=== PATIENT | male | born 1945 | race Caucasian/White ===

== ENCOUNTER → 2018-12-28 | Outpatient (CLI) | payer MEDICARE, MEDICAID ==
[2018-12-28 13:43] LABS: APPEARANCE, URINE CLEAR (CLEAR); BACTERIA, URINE AUTO NEGATIVE (NEGATIVE); BILIRUBIN, URINE AUTO NEGATIVE (NEGATIVE); BLOOD, URINE BLOOD NEGATIVE (NEGATIVE); COLOR, URINE YELLOW (YELLOW); GLUCOSE, URINE (UA) AUTO NEGATIVE (NEGATIVE); KETONE, URINE AUTO NEGATIVE (NEGATIVE); LEUKOCYTE ESTERASE, URINE AUTO NEGATIVE (NEGATIVE); NITRITE, URINE AUTO NEGATIVE (NEGATIVE); PROTEIN, URINE AUTO NEGATIVE (NEGATIVE); RBC, URINE AUTO 1 /HPF (0-3); SPECIFIC GRAVITY URINE AUTO 1.011 (1.002-1.035); SQUAMOUS EPITHELIAL CELL UR AU 0 /HPF (0-6); WBC, URINE AUTO 0 /HPF (0-3)
[2018-12-28 14:16] LABS: CALCIUM LEVEL 8.4 MG/DL (8.8-10.2); CREATININE FOR GFR 1.25 MG/DL (0.70-1.30); GLOMERULAR FILTRATION RATE 59.9 (>42); POTASSIUM SERUM 4.3 MEQ/L (3.5-5.1)
[2018-12-29 14:26] LABS: PSA % FREE 21.6 % (.); PSA FREE 1.6 ng/mL; PSA TOTAL 7.4 ng/mL (0.0-4.0)
== END ==
LOC: M SMT 10:39
PROVIDERS: ATTEND Urology
DX: N40.2 Nodular prostate without lower urinary tract symptoms (principal)
CPT/HCPCS: 36415; 80048; 81001; 84154; 87086; G0463

== ENCOUNTER → 2019-01-02 | Outpatient (CLI) | payer MEDICARE, MEDICAID ==
[~2019-01-02] MED LIST: PROHANCE 279.3MG/ML 15ML VIAL (A9576) As Ordered ONE; PROHANCE 279.3MG/ML 5ML VIAL (A9576) As Ordered ONE
--- NOTE | 2019-01-03 07:20 | REP ---
MULTIPARAMETRIC PROSTATE MRI WITH AND WITHOUT GADOLINIUM: TECHNIQUE: Using a phased array surface coil, small field of view imaging was acquired using T2-weighted scans in the axial, coronal, and sagittal imaging planes. Small field of view diffusion-weighted sequences are acquired. Small field of view axial T1-weighted scans are acquired dynamically after the intravenous administration of 20 mL of ProHance. Using a large field of view, the entire pelvis to the level of the aortic bifurcation was imaged using precontrast axial T1 and postcontrast axial T1 fat-saturation images. HISTORY: Prostatic nodule. Prostate measures 5.1 x 5.0 x 3.7 cm for a total volume of 41.31 mL. Abnormal signal is seen in the medial aspect of the right and left seminal vesicles suspicious for tumor extension. There is adjacent hypointense signal in the peripheral zone suspicious for tumor. This extends from the base to the apex. No adenopathy is seen in the pelvis. No bone lesions are seen. Three focal areas of interest are identified in the prostate for biopsy. In the right medial peripheral zone, in the base and mid aspect of the gland, and in the left medial peripheral zone in the mid and apex, and in the posterior upper zone of the left base, there is an area of hypointense signal on T2-weighted images, which is hyperintense on the DWI images with low signal on ADC imaging. There are areas of type 1, type 2 and type 3 enhancement, and this abnormal signal is seen in the medial aspect of the seminal vesicles bilaterally. The entire area measures 3.5 x 1.2 x 3.5 cm for a total volume of 9.6 mL. This is suspicious for prostatic tumor extending into the seminal vesicles. Clinically significant cancer is highly likely to be present. In the left transitional zone, extending from the base to the apex, there is an areas of T2 signal hypointensity, also hypointense on the ADC images. It is somewhat hyperintense on the DWI images. There is type 2 and type 3 enhancement within this area, which appears oval and fairly well defined. The areas measures 2.6 x 1.7 x 2.8 cm for a total volume of 7.2 mL. Overall level of suspicion is 4 out of 5 clinically significant cancer is likely to be present. In the right transitional zone extending from the base of the apex, there is an area of mixed hyperintense and hypointense signal on T2. This is somewhat hyperintense on the ADC images. There are areas of type 3 enhancement. The area measures 2.3 x 0.7 x 2.1 cm for a total volume of 2.45 mL. Overall level of suspicion is 3 out of 5 with clinically significant cancer equivocal. IMPRESSION: Three regions of interest identified for MR ultrasound fusion biopsy. There is an area which is highly suspicious for clinically significant prostate cancer in the bilateral medial peripheral zone predominantly on the left as discussed above, with extension into the seminal vesicles bilaterally. Electronically Signed by Beck Nolan MD 01/03/2019 04:55 P
== END ==
LOC: M RAD 08:42
PROVIDERS: ATTEND Urology
DX: N40.2 Nodular prostate without lower urinary tract symptoms (principal)
CPT/HCPCS: 72197; A9576

== ENCOUNTER → 2019-01-23 | Outpatient (CLI) | payer MEDICARE ==
--- NOTE | 2019-01-23 14:41 | REP ---
TRANSRECTAL PROSTATE ULTRASOUND WITH ULTRASOUND GUIDANCE FOR PROSTATE BIOPSY: Real-time sonographic evaluation of the prostate performed utilizing transrectal probe. Ultrasound guidance is provided for Dr. Menchaca who performed MR ultrasound fusion guided biopsy of the prostate. Electronically Signed by Beck Nolan MD 01/24/2019 09:25 A
== END ==
LOC: M SMT PRO 10:38
PROVIDERS: ATTEND Urology
DX: C61 Malignant neoplasm of prostate (principal)
CPT/HCPCS: 55700; 76942; G0416

== ENCOUNTER 2019-01-24 15:43 | Emergency (ER) | payer MEDICARE, MEDICAID ==
[~2019-01-24] VITALS: Ht 167.6 cm; Wt 111.8 kg
[2019-01-24] MEDS ORDERED: LIDOCAINE 2% 5ML JELLY UROJET TOP ONE (17:30)
[2019-01-24 18:00] LABS: HEMATOCRIT 38.7 % (42.0-52.0); HEMOGLOBIN 13.4 g/dl (13.5-17.5); MEAN CORPUSCULAR HEMOGLOBIN 30.1 pg (27.0-33.0); MEAN CORPUSCULAR HGB CONC 34.6 g/dl (32.0-36.5); PLATELET COUNT, AUTOMATED 199 10^3/uL (150-450); RED BLOOD COUNT 4.45 10^6/uL (4.30-6.10); WHITE BLOOD COUNT 15.9 10^3/uL (4.0-10.0)
[2019-01-24 18:12] LABS: INR 1.14; PROTHROMBIN TIME 14.8 SECONDS (12.1-14.4)
[2019-01-24 18:13] LABS: PARTIAL THROMBOPLASTIN TIME 28.9 SECONDS (25.4-37.6)
[2019-01-24 18:30] LABS: CALCIUM LEVEL 8.3 MG/DL (8.8-10.2); CREATININE FOR GFR 1.89 MG/DL (0.70-1.30); GLOMERULAR FILTRATION RATE 37.2 (>42); POTASSIUM SERUM 4.5 MEQ/L (3.5-5.1)
[2019-01-24] MEDS ORDERED: NS 1,000 ML IV ONE (18:45)
[2019-01-24 20:31] VITALS: BP 127/61
== END 2019-01-24 21:16 | disposition home or self-care (01) ==
LOC: EDBD 15:43 → M ED 15:43
DX: R33.8 Other retention of urine (principal); Z98.890 Other specified postprocedural states; E11.9 Type 2 diabetes mellitus without complications; I10 Essential (primary) hypertension

== ENCOUNTER → 2019-02-16 | Outpatient (CLI) | payer MEDICARE, MEDICAID ==
--- NOTE | 2019-02-16 12:00 | REP ---
CT ABDOMEN AND PELVIS WITHOUT CONTRAST: CT abdomen and pelvis performed without oral or IV contrast. Sagittal and coronal reconstruction images are performed. Visualized lung bases demonstrate minor fibrotic changes. The liver is grossly unremarkable. There is no definite liver mass. The spleen demonstrates tiny calcified granulomas. Adrenals are normal. No gross mass is seen in the pancreas. Hypodense structure in the upper pole of the right kidney anteriorly measures about 9 mm in diameter and probably represents a cyst. Bilateral renal vascular calcifications are present. There is moderate atherosclerotic calcification of the abdominal aorta without aneurysm. Periaortic adenopathy is present. Several periaortic lymph nodes are seen, largest measuring about 1.5 cm in short axis. There is also central mesenteric adenopathy, with multiple lymph nodes and central mesentery, short axis dimension of the largest lymph node is 1.5 cm. There is no evidence of adenopathy in the pelvis. No pelvic sidewall mass is seen. There is no bowel wall thickening. The appendix is normal. Urinary bladder demonstrates no gross abnormality. Periprostatic region is grossly unremarkable. No definite bone lesion is seen of the visualized osseous structures. Incidental note is made of multiple gallstones in the gallbladder, without gallbladder wall thickening or evidence of biliary dilatation. IMPRESSION: Periaortic and central mesenteric adenopathy as discussed in detail above. No pelvic mass or adenopathy. Gallstones in the gallbladder without gallbladder wall edema. Hypodense nodule in the right kidney probably represents a cyst. Electronically Signed by Beck Nolan MD 02/16/2019 07:27 P
--- NOTE | 2019-02-16 14:05 | REP ---
WHOLE BODY RADIONUCLIDE BONE SCAN: HISTORY: Prostate carcinoma. No comparison scintigraphy. TECHNIQUE: 21.9 mCi of technetium 99m MDP is injected, and standard whole body bone scan imaging was acquired. SCINTIGRAPHIC FINDINGS: There is a normal distribution of skeletal tracer with uptake in bilateral kidneys and in the urinary bladder. There is osteoarthritic uptake in the medial compartment of the right knee and to a lesser extent in the bilateral acromioclavicular joints. There is no evidence to suggest skeletal metastatic disease. IMPRESSION: No evidence of bony metastasis. Electronically Signed by Williams Vyas MD 02/16/2019 03:13 P
== END ==
LOC: M RAD 09:19
PROVIDERS: ATTEND Urology
DX: N28.89 Other specified disorders of kidney and ureter (principal); K80.20 Calculus of gallbladder without cholecystitis without obstruction; C61 Malignant neoplasm of prostate
CPT/HCPCS: 74176; 78306; A9503

== ENCOUNTER → 2019-04-10 | Outpatient (CLI) | payer MEDICARE, MEDICAID ==
[~2019-04-10] MED LIST changes: +ALLO100T PO; +ASPI81TA26 PO; +BIMA01SOL OU; +BRIM1OPD OU; +CLOP75TA2 PO; +DOCU100C16 PO; +FERR325T3 PO; +HYDR12CA PO; +JANU100T PO; +METF10004 PO; +OMEP-218 PO; -PROHANCE 279.3MG/ML 15ML VIAL (A9576) As Ordered ONE; -PROHANCE 279.3MG/ML 5ML VIAL (A9576) As Ordered ONE; +ROSU20TA5 PO; +TAMS1CAP17 PO; +VITA500045 PO
--- NOTE | 2019-04-10 14:31 | REP ---
TRANSRECTAL ULTRASOUND GUIDANCE FOR FIDUCIARY MARKER PLACEMENT: Transrectal ultrasound guidance was provided for Dr. Menchaca who placed three fiduciary markers, one in the right base, one in the left base and one in the mid apex. Electronically Signed by Beck Nolan MD 04/11/2019 10:38 A
== END ==
LOC: M SMT 09:48
PROVIDERS: ATTEND Urology
DX: C61 Malignant neoplasm of prostate (principal)
CPT/HCPCS: 55876; 76872; 76942; 96402; A4648; J9217

== ENCOUNTER → 2019-04-24 | Outpatient (CLI) | payer MEDICARE, MEDICAID ==
--- NOTE | 2019-03-29 10:03 | RADONC ---
RADIATION ONCOLOGY CONSULTATION NOTE DATE: 03/27/2019 CHART NUMBER: [id number] DIAGNOSIS: Prostate cancer. STAGE: II C, T2c, N0, M0, Scott score 7 (4-3), grade group 3. ECOG PERFORMANCE STATUS: 0 CONSULTATION NOTE: Mr. Clark is a very pleasant, 73-year-old white male with the diagnosis of what appears to be a stage II C, T2c, N0, M0, Scott score 7 (4-3), grade group 3, PSA 7.4 who is presenting to us today for consideration of definitive external beam radiation therapy with IMRT/IGRT. HISTORY OF PRESENT ILLNESS: The patient has a long list of medical issues but was recently found to have a rising PSA level. It had reached 7.4 when checked on 12/28/2018. On 01/23/2019, the patient underwent prostatic needle biopsy and pathology revealed a Scott score 7 (4-3) adenocarcinoma of the prostate involving almost all of his biopsy specimens. There was noted to be perineural invasion. The patient is now being referred to us for discussion of definitive external beam radiation therapy with IMRT/IGRT. PAST MEDICAL HISTORY: The patient's past medical history is positive for diabetes, gout, hyperlipidemia, hypertension, psoriasis, vitamin D deficiency, and kidney disease. In addition, the patient has a cardiac stent placed in 2011. ALLERGIES: The patient has NO KNOWN DRUG ALLERGIES. SOCIAL HISTORY: The patient quit smoking 35 years ago. He had smoked for approximately 28 years. He quit drinking alcohol in the past as well. FAMILY HISTORY: The patient's family history is positive for a father with throat cancer, a mother with breast cancer, and a brother with prostate cancer. REVIEW OF SYSTEMS: The patient's review of systems is positive for the urinary hesitancy as well as blood in the urine and some burning urine. He has some rectal bleeding. All since his biopsy. It is otherwise noncontributory. Denies nausea, vomiting, fevers, chills, night sweats, diplopia, headaches, anxiety or depression, anorexia, weight loss, visual disturbances, chest pain, urinary or bowel difficulties, bone pain, or neurological problems. PHYSICAL EXAMINATION: The patient is a well-developed, well-nourished male in no acute distress. HEENT exam is normocephalic, atraumatic. Extraocular movements are intact. There is no palpable cervical, supraclavicular, infraclavicular, axillary, or inguinal lymphadenopathy present. Lungs are clear to auscultation and percussion. Heart has a regular rate and rhythm. Abdomen is benign with no hepatosplenomegaly, masses, or tenderness. Rectal examination reveals a normal anal sphincter tone. His prostate is smooth with no evidence of nodularity. Skeletal examination reveals no tenderness to pressure or percussion of the bony skeleton. Extremities reveal no clubbing, cyanosis, or edema. Neurologic exam is grossly intact, as is the remainder of the physical examination. MEDICAL NECESSITY: IMRT/IGRT is clinically indicated for the highly conformal dose planning required. The target volume is in close proximity to critical structures, such as the rectum, bladder, small bowel, and femoral heads. The volume of interest must be covered with narrow margins to adequately protect immediately adjacent structures. The plan requires interpretation of complex testing such as CT localization. As noted above, special planning (IMRT) and localizing (IGRT) is required and essential to maximally protect sensitive normal tissue structures which cannot be accomplished using conventional 3-dimensional planning. ASSESSMENT: Clearly the patient is a candidate for external beam radiation therapy and I have so informed him. I have discussed with the patient in detail the potential benefits as well as possible acute and chronic sequelae of external beam radiation therapy. We discussed logistics of treatment planning, simulation and subsequent fractionated daily radiation treatments. I am referring the patient back for placement of his judicial markers and radiation treatment planning will begin subsequently. Hormonal treatments will also be considered with his urologist, Dr. Menchaca. Thank you for allowing us to participate in the care of this very pleasant gentleman. I will keep you informed of any new developments as they occur. As always, warm regards. cc: Boris Menchaca MD
[2019-04-24 11:21] LABS: HEMOGLOBIN 13.9 g/dl (13.5-17.5); LYMPH % 12.6 % (24.0-44.0); MEAN CORPUSCULAR HEMOGLOBIN 27.8 pg (27.0-33.0); MEAN CORPUSCULAR HGB CONC 30.9 g/dl (32.0-36.5); NEUTROPHILS # 6.3 10^3/uL (1.8-7.7); NEUTROPHILS % 79.7 % (36.0-66.0); WHITE BLOOD COUNT 7.9 10^3/uL (4.0-10.0)
--- NOTE | 2019-04-27 08:42 | RADONC ---
RADIATION ONCOLOGY SIMULATION NOTE DATE: 04/24/2019 CHART NUMBER: [id number] Mr. Clark was taken to the CT scan for CT simulation of his prostate field. CT was accomplished without difficulty or discomfort. Radiation treatment planning is underway and radiation treatments will begin subsequently. An immobilization device was created and will be used throughout the course of treatment. It was created without difficulty or discomfort. I was physically present throughout the course of CT simulation.
== END ==
LOC: M ONCR 03-27 09:32
PROVIDERS: ATTEND Radiology Radiation Oncology
DX: C61 Malignant neoplasm of prostate (principal)
CPT/HCPCS: 36415; 77334; 85027; G0463

== ENCOUNTER 2019-05-04 13:47 | Outpatient (RCR) | payer MEDICARE, MEDICAID ==
[2019-05-23] MEDS ORDERED: BACT800T5 PO (13:52)
[2019-06-29] MEDS ORDERED: BACT800T5 PO (14:37)
== END 2019-05-05 ==
LOC: M ONCR 13:47
PROVIDERS: ATTEND Radiology Radiation Oncology
DX: C61 Malignant neoplasm of prostate (principal)

== ENCOUNTER → 2019-06-04 | Outpatient (RCR) | payer MEDICARE, MEDICAID ==
--- NOTE | 2019-05-09 10:06 | RADONC ---
RADIATION ONCOLOGY PROGRESS NOTE DATE: 05/08/2019 CHART NUMBER: [id number] PROGRESS NOTE: Mr. Clark with a diagnosis of adenocarcinoma of the prostate is currently receiving local regional radiotherapy and he has achieved a dose of 720 cGy of an anticipated 5400 cGy and is tolerating his radiotherapy very well. He is due for further dose escalations within ultimate accumulative dose of 7920 cGy. He denies any nausea, vomiting, diarrhea, dysuria, hematuria or blood per rectum. His energy level is such that he is able to maintain most day-to-day activities without any alteration of his lifestyle. Skin irritation is not an issue for him. EXAMINATION FINDINGS: Skin within the irradiated volume shows neither erythema nor desquamation. Lymphatics: No palpable peripheral lymphadenopathy is appreciated. Lungs are clear. The remainder of the physical examination is unchanged. IMPRESSION: Tolerating therapy well. PLAN: Treatments to continue.
--- NOTE | 2019-05-15 09:16 | RADONC ---
RADIATION ONCOLOGY PROGRESS NOTE: DATE: 05/14/2019 CHART NUMBER: [id number] Mr. Clark with a diagnosis of prostate cancer is currently receiving local regional radiotherapy to the prostate. His current dose is 1440 cGy of a proposed 5400 cGy and then this area will be further boosted to a total dose of 7920 cGy. Thus far treatments are going well and he denies any significant nausea, vomiting, diarrhea, dysuria, hematuria or blood per rectum. He does have some urinary frequency and some minimal stinging. He feels that it is not severe enough to warrant medications and he would like to continue on his current course. Examination findings: The skin within the irradiated volume shows no evidence of erythema and certainly no focal desquamation. Lymphatics: No palpable peripheral lymphadenopathy is appreciated. The remainder of the physical examination is unchanged. IMPRESSION: Tolerating therapy well. PLAN: Treatments to continue.
[2019-05-21 15:35] LABS: APPEARANCE, URINE CLOUDY (CLEAR); BACTERIA, URINE AUTO 1+ (NEGATIVE); BILIRUBIN, URINE AUTO NEGATIVE (NEGATIVE); BLOOD, URINE BLOOD 1+ (NEGATIVE); COLOR, URINE YELLOW (YELLOW); GLUCOSE, URINE (UA) AUTO NEGATIVE (NEGATIVE); KETONE, URINE AUTO NEGATIVE (NEGATIVE); LEUKOCYTE ESTERASE, URINE AUTO 3+ (NEGATIVE); NITRITE, URINE AUTO NEGATIVE (NEGATIVE); PROTEIN, URINE AUTO 1+ mg/dL (NEGATIVE); RBC, URINE AUTO 11 /HPF (0-3); SPECIFIC GRAVITY URINE AUTO 1.015 (1.002-1.035); SQUAMOUS EPITHELIAL CELL UR AU 0 /HPF (0-6); UROBILINOGEN, URINE AUTO 0.2 mg/dL (0.0-2.0); WBC, URINE AUTO TNTC /HPF (0-3)
--- NOTE | 2019-05-23 13:15 | RADONC ---
RADIATION ONCOLOGY PROGRESS NOTE DATE: 05/21/2019 CHART NUMBER: [id number] Mr. Clark is presently at a dose of 2340 centigrade to his prostate and is tolerating treatments quite well at this point. He is complaining of some urinary burning and penis pain when he urinates. He has no other complaints at this time related to his radiation therapy or disease. REVIEW OF SYSTEMS: The patient's review of systems is positive for some urinary burning and penile burning, but is otherwise noncontributory. He denies nausea, vomiting, fevers, chills, night sweats, diplopia, headaches, anxiety or depression, anorexia, weight loss, visual disturbances, chest pain, urinary or bowel difficulties, bone pain or neurological problems. PHYSICAL EXAMINATION: The patient's skin is in excellent condition with no evidence of radiation change present. There is no moist or dry desquamation. The remainder of his physical exam remains unchanged. Mr. Clark is tolerating his treatments although is having some urinary discomfort. I have ordered a urinalysis and culture and sensitivity to be undertaken to further evaluate for a urinary tract infection. In the meantime radiation is continuing as scheduled.
--- NOTE | 2019-05-30 06:34 | RADONC ---
RADIATION ONCOLOGY PROGRESS NOTE DATE: 05/28/2019 CHART NUMBER: [id number] Mr. Clark is presently at a dose of 3240 cGy to his prostate and is tolerating treatments quite well at this point with no complaints related to his radiation therapy. He is having no significant urinary or bowel difficulties or bone pain at this time. The patient reports that he is feeling better since his antibiotics. PHYSICAL EXAMINATION: The patient's skin is in good condition with no evidence of moist or dry desquamation. The remainder of his physical exam remains unchanged. Mr. Clark is tolerating treatments quite well and radiation will continue as scheduled.
[~2019-06-04] MED LIST changes: +BACT800T5 PO
--- NOTE | 2019-06-05 08:23 | RADONC ---
RADIATION ONCOLOGY PROGRESS NOTE DATE: 06/04/2019 CHART NUMBER: [id number] Mr. Clark is presently at a dose of 4140 cGy to his prostate and is tolerating his treatments fairly well. The patient presents today reporting that he has completed his antibiotics and continues to have some discomfort upon urination. He says it is better but it is definitely still there. He is antibiotic course was completed just 2 days ago. The patient's review of systems is positive for some continued discomfort upon urination but is otherwise noncontributory. He denies nausea, vomiting, fevers, chills, night sweats, diplopia, headaches, anxiety or depression, anorexia, weight loss, visual disturbances, chest pain, urinary or bowel difficulties, bone pain, or neurological problems. PHYSICAL EXAMINATION: The patient's skin is in good condition with no evidence of radiation change present. There is no moist or dry desquamation. The remainder of his physical exam remains unchanged. ASSESSMENT: The patient is tolerating treatments quite well and radiation will continue as scheduled. I will follow the patient this week closely and if his discomfort does not improve we will obtain another urinalysis and culture and sensitivity on Tuesday or . This will allow some time to see whether or not the initial treatments worked. Once again radiation will continue as scheduled and we will continue to follow him and restudy his urine. We will change and issue new antibiotic treatments as indicated.
== END ==
LOC: M ONCR 05-08 13:31
PROVIDERS: ATTEND Radiology Radiation Oncology
DX: C61 Malignant neoplasm of prostate (principal); Z79.899 Other long term (current) drug therapy

== ENCOUNTER 2019-07-03 13:22 | Outpatient (RCR) | payer MEDICARE, MEDICAID ==
[2019-06-11 16:04] LABS: APPEARANCE, URINE HAZY (CLEAR); BACTERIA, URINE AUTO NEGATIVE (NEGATIVE); BILIRUBIN, URINE AUTO NEGATIVE (NEGATIVE); BLOOD, URINE BLOOD 2+ (NEGATIVE); COLOR, URINE YELLOW (YELLOW); GLUCOSE, URINE (UA) AUTO NEGATIVE (NEGATIVE); KETONE, URINE AUTO NEGATIVE (NEGATIVE); LEUKOCYTE ESTERASE, URINE AUTO 1+ (NEGATIVE); MUCUS, URINE SMALL (NEGATIVE); NITRITE, URINE AUTO NEGATIVE (NEGATIVE); PROTEIN, URINE AUTO 2+ mg/dL (NEGATIVE); RBC, URINE AUTO 50 /HPF (0-3); SPECIFIC GRAVITY URINE AUTO 1.019 (1.002-1.035); SQUAMOUS EPITHELIAL CELL UR AU 0 /HPF (0-6); UROBILINOGEN, URINE AUTO 0.2 mg/dL (0.0-2.0); WBC, URINE AUTO 87 /HPF (0-3)
--- NOTE | 2019-06-12 11:25 | RADONC ---
RADIATION ONCOLOGY PROGRESS NOTE DATE: 06/11/2019 CHART NUMBER: [id number] PROGRESS NOTE: Mr. Clark is presently at a dose of 5040 cGy to his prostate and continues to tolerate his treatments fairly well, but is complaining still of some burning urine. REVIEW OF SYSTEMS: The patient's review of systems is positive for burning upon urination but is otherwise noncontributory. Denies nausea, vomiting, fevers, chills, night sweats, diplopia, headaches, anxiety or depression, anorexia, weight loss, visual disturbances, chest pain, urinary or bowel difficulties, bone pain, or neurological problems. PHYSICAL EXAMINATION: The patient's skin is in good condition with no evidence of moist or dry desquamation. The remainder of his physical exam remains unchanged. Mr. Clark tolerating treatments quite well and radiation will continue as scheduled. I have ordered a new urinalysis and urine for culture and sensitivity at this time. We await the results.
--- NOTE | 2019-06-18 14:47 | RADONC ---
RADIATION ONCOLOGY PROGRESS NOTE DATE: 06/18/2019 CHART NUMBER: [id number] Mr. Clark is presently at a dose of 5940 cGy to his prostate and is tolerating treatments quite well, although he continues to complain of some urinary discomfort. We obtained a new urinalysis and culture and sensitivity. There was no bacteria found in the urine and no growth on culture and sensitivity. He did have a hazy urinary culture with white blood cells and some red blood cells. At this point, I am not going to give him a new antibiotics. I have asked them to contact his urologist. We will continue with radiation at this point. PHYSICAL EXAMINATION: The patient's skin is in good condition with no evidence of moist or dry desquamation. The remainder of his physical exam remains unchanged. Once again, radiation will continue as scheduled. His urinary discomfort I will refer back to his urologist for further evaluation.
--- NOTE | 2019-06-26 08:51 | RADONC ---
RADIATION ONCOLOGY PROGRESS NOTE DATE: 06/25/2019 CHART #: [id number] Carlos Clark with a diagnosis of adenocarcinoma of the prostate is currently receiving local regional radiotherapy. He denies any major side effects related to his disease or to his treatments. REVIEW OF SYSTEMS: He specifically denies any nausea, vomiting, diarrhea, significant dysuria, hematuria or blood per rectum. His energy level is such that he is able to maintain most day-to-day activities without any alteration of his lifestyle. Skin irritation is not reported. EXAMINATION FINDINGS: The skin within the irradiated volume shows no evidence of erythema and certainly no focal desquamation. There is no palpable peripheral lymphadenopathy. The remainder of the physical examination is unchanged. IMPRESSION: Tolerating therapy well. PLAN: Treatments to continue. MTDD
[2019-06-29 15:31] LABS: APPEARANCE, URINE HAZY (CLEAR); BACTERIA, URINE AUTO NEGATIVE (NEGATIVE); BILIRUBIN, URINE AUTO NEGATIVE (NEGATIVE); BLOOD, URINE BLOOD 1+ (NEGATIVE); COLOR, URINE YELLOW (YELLOW); GLUCOSE, URINE (UA) AUTO 1+ mg/dL (NEGATIVE); KETONE, URINE AUTO NEGATIVE (NEGATIVE); LEUKOCYTE ESTERASE, URINE AUTO 1+ (NEGATIVE); MUCUS, URINE SMALL (NEGATIVE); NITRITE, URINE AUTO NEGATIVE (NEGATIVE); PROTEIN, URINE AUTO 2+ mg/dL (NEGATIVE); RBC, URINE AUTO 27 /HPF (0-3); SPECIFIC GRAVITY URINE AUTO 1.017 (1.002-1.035); SQUAMOUS EPITHELIAL CELL UR AU 0 /HPF (0-6); UROBILINOGEN, URINE AUTO 0.2 mg/dL (0.0-2.0); WBC, URINE AUTO 147 /HPF (0-3)
--- NOTE | 2019-07-03 07:12 | RADONC ---
RADIATION ONCOLOGY PROGRESS NOTE DATE: 07/02/2019 CHART #: [id number] Mr. Clark is presently at a dose of 7740 cGy to his prostate and is tolerating treatments quite well at this point with no significant difficulties related to his radiation therapy. He continues to mention feeling of unusual tremors in his penis but has otherwise no complaints related to radiation. REVIEW OF SYSTEMS: The patient's review of systems is positive for penile some tremors but is otherwise noncontributory. Denies nausea, vomiting, fevers, chills, night sweats, diplopia, headaches, anxiety or depression, anorexia, weight loss, visual disturbances, chest pain, urinary or bowel difficulties, bone pain, or neurological problems. PHYSICAL EXAMINATION: The patient's skin is in good condition with no evidence of moist or dry desquamation. The remainder of his physical exam remains unchanged. Mr. Clark is tolerating treatments quite well and radiation is scheduled for completion tomorrow.
--- NOTE | 2019-07-04 13:00 | RADONC ---
RADIATION ONCOLOGY TREATMENT SUMMARY DATE OF SERVICE: 07/04/2019 CHART NUMBER: [id number] DIAGNOSIS: Prostate cancer. STAGE: Stage II C, [id number], [place] score 7 (4+3), grade group III. ECOG PERFORMANCE STATUS: 0. TREATMENT SUMMARY: Mr. Clark is a very pleasant 73-year-old white male with the diagnosis what appears to be a stage II C, [id number] [place] score 7 (4+3) grade group III with initial PSA of 7.4 who presented to us for consideration of definitive external beam radiation therapy with IMRT / IGRT. We treated the patient to his prostate for a total dose of 7920 cGy delivered in 44 fractions of 180 cGy each over 61 elapsed days from 05/02/2019 through 06/03/2019. The patient's prostate was treated on the linear accelerator utilizing a 6 MV photon beam via IMRT / IGRT. We initially treated the prostate and seminal vesicles to a dose of 5400 cGy and subsequently coned down to deliver the remaining 2520 cGy to the prostate itself once again bringing it to a total dose of 7920 cGy. Mr. Clark tolerated his treatments fairly well, although he did have some urinary difficulty and discomfort throughout the course of treatment. I have scheduled the patient to see me again in followup in one months' time. He will also continue his close followup with his other physicians in the [facility] in the meantime. I have asked him to set up an appointment with his urologist Dr. Menchaca to further discuss his urinary issues and obtain his expert opinion on any further treatment. cc: Boris Menchaca MD
== END 2019-07-05 ==
LOC: M ONCR 13:22
PROVIDERS: ATTEND Radiology Radiation Oncology
DX: C61 Malignant neoplasm of prostate (principal); Z79.899 Other long term (current) drug therapy

== ENCOUNTER → 2019-07-10 | Outpatient (REF) | payer MEDICARE, MEDICAID | LOC: M LAB REF 16:45 | PROVIDERS: ATTEND Internal Medicine Nephrology | DX: N39.0 Urinary tract infection, site not specified (principal) ==

== ENCOUNTER → 2019-08-01 | Outpatient (CLI) | payer MEDICARE, MEDICAID ==
--- NOTE | 2019-08-05 09:36 | RADONC ---
RADIATION ONCOLOGY FOLLOWUP NOTE DATE: 08/01/2019 CHART NUMBER: [id number] DIAGNOSIS: Prostate cancer. STAGE: IIC, T2c, N0, M0, Scott score 7 (4-3), grade group 3. ECOG PERFORMANCE STATUS: 0. FOLLOWUP NOTE: Mr. Clark is a very pleasant 73-year-old white male with the diagnosis of what appears to be a stage IIC, T2c, N0, M0, Eddington score 7 (4-3) bracket, grade group 3 with an initial PSA level of 7.4 who is presenting to us today for routine followup visit 1 month post completion of external beam radiation therapy. The patient presents today reporting that he continues to have some pain over his penis and lower groin region. He has no other complaints at this time related to his radiation therapy or disease. The patient's review of systems is positive for continued penile complaints and groin discomfort but is otherwise noncontributory. He denies nausea, vomiting, fevers, chills, night sweats, diplopia, headaches, anxiety or depression, anorexia, weight loss, visual disturbances, chest pain, urinary or bowel difficulties, bone pain, or neurological problems. PHYSICAL EXAMINATION: The patient is a well-developed, well-nourished male in no acute distress. HEENT exam is normocephalic, atraumatic. Extraocular movements are intact. There is no palpable cervical, supraclavicular, infraclavicular, axillary, or inguinal lymphadenopathy present. Lungs are clear to auscultation and percussion. Heart has a regular rate and rhythm. Abdomen is benign with no hepatosplenomegaly, masses, or tenderness. Rectal examination reveals a normal anal sphincter tone. His prostate is smooth with no evidence of nodularity. Skeletal examination reveals no tenderness to pressure or percussion of the bony skeleton. Extremities reveal no clubbing, cyanosis, or edema. Neurologic exam is grossly intact as is the remainder of the physical examination. ASSESSMENT: The patient is clinically CRISTINA at this time. I have ordered a PSA level which was done today and the results are pending. The patient is continuing his close followup and management with his urologist, Dr. Menchaca and indeed is scheduled see Dr. Menchaca next week for these complaints. In light of his close followup with Dr. Menchaca. I have discharged him from my followup except on an as needed basis. cc: Boris Menchaca MD
== END ==
LOC: M ONCR 11:18
PROVIDERS: ATTEND Radiology Radiation Oncology
DX: C61 Malignant neoplasm of prostate (principal)
CPT/HCPCS: 36415; 84153; G0463

== ENCOUNTER → 2019-11-13 | Outpatient (REF) | payer MEDICARE, MEDICAID | LOC: M LABSMT 13:19 | PROVIDERS: ATTEND Urology | DX: C61 Malignant neoplasm of prostate (principal) ==

== ENCOUNTER → 2020-08-14 | Outpatient (REF) | payer MEDICARE, MEDICAID | LOC: M LABSMT 11:28 | PROVIDERS: ATTEND Urology | DX: C61 Malignant neoplasm of prostate (principal) | CPT/HCPCS: 84153; G0463 ==

== ENCOUNTER → 2020-09-18 | Outpatient (CLI) | payer MEDICARE, MEDICAID ==
[2020-09-18 10:46] LABS: HEMATOCRIT 36.3 % (42.0-52.0); HEMOGLOBIN 11.7 g/dl (13.5-17.5); MEAN CORPUSCULAR HEMOGLOBIN 28.7 pg (27.0-33.0); MEAN CORPUSCULAR HGB CONC 32.2 g/dl (32.0-36.5); MEAN CORPUSCULAR VOLUME 89.2 fl (80.0-96.0); PLATELET COUNT, AUTOMATED 199 10^3/uL (150-450); RED BLOOD COUNT 4.07 10^6/uL (4.30-6.10); WHITE BLOOD COUNT 5.5 10^3/uL (4.0-10.0)
[2020-09-18 11:31] LABS: ALBUMIN 3.7 GM/DL (3.2-5.2); BILIRUBIN,TOTAL 0.4 MG/DL (0.2-1.0); CALCIUM LEVEL 9.3 MG/DL (8.8-10.2); CREATININE FOR GFR 1.41 MG/DL (0.70-1.30); GLOMERULAR FILTRATION RATE 51.9 (>42); POTASSIUM SERUM 4.6 MEQ/L (3.5-5.1); TOTAL PROTEIN 7.1 GM/DL (6.4-8.2)
[2020-09-18 11:33] LABS: CREATININE, URINE 81.7 MG/DL; MAU/CREAT RATIO 146.8 MCG/MG (0.0-30.0)
== END ==
LOC: M LAB 09:15
PROVIDERS: ATTEND Registered Nurse
DX: E11.69 Type 2 diabetes mellitus with other specified complication (principal)

== ENCOUNTER → 2020-09-18 | Outpatient (CLI) | payer MEDICARE, MEDICAID ==
[2020-09-18 10:46] LABS: MEAN CORPUSCULAR HEMOGLOBIN 29.2 pg (27.0-33.0); MEAN CORPUSCULAR HGB CONC 32.4 g/dl (32.0-36.5); PLATELET COUNT, AUTOMATED 192 10^3/uL (150-450); RED BLOOD COUNT 4.11 10^6/uL (4.30-6.10); WHITE BLOOD COUNT 5.5 10^3/uL (4.0-10.0)
[2020-09-18 10:58] LABS: INR 1.03; PROTHROMBIN TIME 13.8 SECONDS (12.5-14.3)
[2020-09-18 10:59] LABS: PARTIAL THROMBOPLASTIN TIME 29.5 SECONDS (24.2-38.5)
[2020-09-18 11:30] LABS: CALCIUM LEVEL 9.4 MG/DL (8.8-10.2); CREATININE FOR GFR 1.46 MG/DL (0.70-1.30); GLOMERULAR FILTRATION RATE 49.8 (>42); POTASSIUM SERUM 4.7 MEQ/L (3.5-5.1)
--- NOTE | 2020-09-18 15:35 | REP ---
INDICATION: PHIMOSIS; PREOP TESTING PT HAVING LABS FIRST COMPARISON: None. TECHNIQUE: PA/Lateral FINDINGS: Lungs: Clear, no infiltrate. Heart: Normal in size. Mediastinum: There is calcification of the thoracic aorta. The mediastinal silhouette is otherwise unremarkable. Pleural angles: Unremarkable.. Bones and soft tissues: There are degenerative changes of the spine without compression deformity. IMPRESSION: No acute pulmonary disease. <Electronically signed by Beck Nolan > 09/18/20 2121
--- NOTE | 2020-09-18 19:24 | ECGEPIP ---
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
== END ==
LOC: M LAB 09:24
PROVIDERS: ATTEND Nurse Practitioner Family
DX: N47.1 Phimosis (principal); Z79.899 Other long term (current) drug therapy

== ENCOUNTER → 2020-10-03 | Outpatient (CLI) | payer MEDICARE, MEDICAID ==
[~2020-10-03] MED LIST changes: +BRIN1OPH OD
== END ==
LOC: M LABSMTC 10:32
PROVIDERS: ATTEND Anesthesiology
DX: Z01.812 Encounter for preprocedural laboratory examination (principal); Z20.822 Contact with and (suspected) exposure to COVID-19

== ENCOUNTER 2020-10-08 05:58 | Day surgery (SDC) | payer MEDICARE, MEDICAID ==
[~2020-10-08] VITALS: Ht 165.1 cm; Wt 109.3 kg
[2020-10-08] MEDS ORDERED: LIDOCAINE 1% MDV 20ML VIAL SQ PRN (06:00)
--- OUTSIDE RECORDS SUMMARY | 2020-10-08 06:04 | CCD ---
Author Author [facility] Organization [facility] Address Unknown Phone Unavailable Care Team Providers Care Stock Roller Name Role Phone To Arroyo Unavailable PROBLEMS Type Condition ICD9-CM Code [id number] Code Onset Dates Condition S tatus SNOMED Code Notes Problem Urinary retention R33.9 Active 443166139 Problem Phimosis N47.1 Active 586622960 Problem Prostatic nodule N40.2 Active 390144865399863 Problem Elevated prostate specific antigen [PSA] R97.20 Active 499083941 Problem Prostate cancer C61 Active 354436567 ALLERGIES No Known Allergies ENCOUNTERS from 1945 to 2020-09-22 Encounter Location Date Provider Diagnosis [facility] [address] [place] [address] Sep To Arroyo Phimosis N47.1 ; Prostate cancer C61 and Preop testing Z01.818 IMMUNIZATIONS No Information SOCIAL HISTORY Tobacco Use: Social History Observation Description Date Details (start date - stop date) Former Smoker Sex Assigned At : Social History Observation Description Sex Assigned At Unknown Language: Question Answer Notes Languages spoken: Vincentian Church: Question Answer Notes Church No alevism beliefs that would impact health care. Alcohol Screening: Question Answer Notes Did you have a drink containing alcohol in the past year? No Points 0 Interpretation Negative Tobacco Use: Question Answer Notes Are you a: former smoker How long has it been since you last smoked? QUIT IN THE 70S REASON FOR REFERRAL No Information VITAL SIGNS Weight 253 lbs Sep, Height 67 in Sep, BMI 39.62 kg/m2 Sep, Heart Rate 73 /min Sep, Respiratory Rate 18 /min Sep, Oximetry 97% Sep, Blood pressure systolic 142 mm Hg Sep, Blood pressure diastolic 72 mm Hg Sep, MEDICATIONS Medication SIG (Take, Route, Frequency, Duration) Notes Start Da te End Date Status Drisdol 85736 UNIT 1 capsule Orally for 30 day(s) Not-Taking Mometasone Furoate 0.1 % 1 application to affected area External ly Once a day Not-Taking Toprol XL 50 MG 1 tablet Orally Once a day for 30 day(s) Active Pyridium 200 MG 1 tablet after meals Orally Three times a day fo r 5 day(s) January, Not-Taking Aspirin 81 81 MG 1 tablet Orally Once a day for 30 day(s) Active Hydrochlorothiazide 12.5 MG 1 capsule in the morning O rally Once a day for 30 day(s) Active Lumigan 0.03 % 1 drop into affected eye in the evening Ophthalm ic Once a day Active Diovan 160 MG 1 null Orally Once a day for 30 day(s) Not-Taking Ferrous Sulfate 325 (65 Fe) MG 1 tablet Orally Once a day for 30 day( s) Active Glucophage 500 MG 1 tablet with a meal Orally Once a day for 30 day(s ) Active Allopurinol 100 MG 1 tablet Orally Once a day for 30 day(s) Active Azopt 1 % 1 drop into affected eye Ophthalmic Three times a day Active Betamethasone Dipropionate 0.05 % 1 application 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 to 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 bid Aug, Active Ferrous Gluconate 325 MG as directed Orally Not-Taking Crestor 20 MG 1 tablet Orally Once a day for 30 day(s) Active Flomax 0.4 MG 1 capsule Orally Once a day for 30 Active Omeprazole 20 MG 1 capsule Orally Once a day for 30 day(s) Active Plavix 75 MG 1 tablet Orally Once a day for 30 day(s) Active Magnesium Oxide 400 MG 1 tab Orally bid Active Fleet Enema 7-19 GM/118ML as directed Rectal the morni ng of your biopsy for 1 days January, Not-Taking Colace 100 MG 1 capsule as needed Orally Once a day for 30 day(s) Active Fish Oil 1000 MG 1 capsule Orally Once a day for 30 day(s) Active Vitamin D (Ergocalciferol) 1.25 MG (38618 UT) 1 capsule Orally f or 30 day(s) Active Multivitamin Men - as directed Orally Active Percocet 5-325 MG 1 tablet as needed Orally every 6 hrs, MDD 4 f or 3 days January, Not-Taking Ciprofloxacin HCl 500 MG 1 tablet the night before yo ur procedure and 1 the morning of Orally every 12 hrs January, N ot-Taking Januvia 50 MG as directed Orally Act aba Lipitor 80 MG 1 tablet Orally Once a day for 30 day(s) Not-Taking Garlic 1250 MG 1 cap Orally Daily Ac tive Alphagan P 0.15 % 1 drop into affected eye Ophthalmic every 8 hrs Active Fenofibrate 145 MG 1 tablet with food Orally Once a day for 30 day(s) Active Losartan Potassium 100 MG 1 tablet Orally Once a day for 30 day(s) Active PROCEDURES No Information RESULTS REASON FOR VISIT 1 month f/u Phimosis MEDICAL (GENERAL) HISTORY Type Description Date Medical History HTN Medical History HYPERLIPIDEMIA Medical History CKD II Medical History GOUT Medical History VITAMIN D DEFICIENCY Medical History DM II Medical History PROSTATE CANCER Surgical History CARDIAC STENT = [place] 2011 Surgical History TRUS BIOPSY WITH MRI FUSION 01/23/2019 Surgical History FIDUCIARY MARKER PLACEMENT 04/10/2019 [facility] fell off elevator Goals Section No Information Health Concerns No Information MEDICAL EQUIPMENT No Information MENTAL STATUS No Information FUNCTIONAL STATUS No Information ASSESSMENTS Encounter Date Diagnosis Assessment Notes Treatment Notes Treatm ent Clinical Notes Sep, Phimosis (ICD-10 - N47.1) He still has a very tight phimotic ring. Recommended circumcision. He is in agreement. Procedure and consent reviewed and signed. He will need preop blood work, chest x-ray, EKG, and medical clearance. He will need to come off his Plavix prior, but is ok to stay on baby aspirin. Preop orders given to pt today, he will wait to do them until he hears from our office. Sep, Prostate cancer (ICD-10 - C61) Sep, Preop testing (ICD-10 - Z01.818) PLAN OF TREATMENT Treatment Notes Assessment Notes Clinical Notes Phimosis He still has a very tight phimotic ring. Recommended circumcision. He is in agreement. Procedure and consent reviewed and signed. He will need preop blood work, chest x-ray, EKG, and medical clearance. He will need to come off his Plavix prior, but is ok to stay on baby aspirin. Preop orders given to pt today, he will wait to do them until he hears from our office. Treatment Notes Test Name Order Date [facility] CHEST 2 VIEW 2020-09-22 Electrocardiogram (EKG) 2020-09-22 Next Appt Details OR Reason: Provider Name:To Arroyo, 2020-10-29 09:00:00 AM, [id number], [place], [address], Insurance Providers Payer Name Payer Address Payer Phone Insured Name Patient Relati onship to Insured Coverage Start Date Coverage End Date MEDICAID [employer] [address] [facility] [id number] [phone] COMFORT BRASHER self MEDICARE Part A and B [address] [facility] [phone] COMFORT BRASHER self
--- OUTSIDE RECORDS SUMMARY | 2020-10-08 06:05 | CCD ---
Author Author [facility] Organization [employer] [facility] Address Unknown Phone Unavailable Care Team Providers Care Site Promotion Agent Name Role Phone Boris Menchaca Unavailable PROBLEMS Type Condition ICD9-CM Code PTE24-PE Code Onset Dates Condition S tatus SNOMED Code Notes Problem Urinary retention R33.9 Active 793504676 Problem Phimosis N47.1 Active 991293739 Problem Prostatic nodule N40.2 Active 442138849804864 Problem Elevated prostate specific antigen [PSA] R97.20 Active 785362543 Problem Prostate cancer C61 Active 523482151 ALLERGIES No Known Allergies ENCOUNTERS from 1945 to 2020-08-18 Encounter Location Date Provider Diagnosis [facility] [address] [place] [address] [facility] [place] [address] Aug Boris Nikolai Prostate cancer C61 and Phimosis N47.1 IMMUNIZATIONS No Information SOCIAL HISTORY Tobacco Use: Social History Observation Description Date Details (start date - stop date) Former Smoker Sex Assigned At : Social History Observation Description Sex Assigned At Unknown Language: Question Answer Notes Languages spoken: Belizean Mormonism: Question Answer Notes Mormonism No scientologist beliefs that would impact health care. Alcohol Screening: Question Answer Notes Did you have a drink containing alcohol in the past year? No Points 0 Interpretation Negative Tobacco Use: Question Answer Notes Are you a: former smoker How long has it been since you last smoked? QUIT IN THE 70S REASON FOR REFERRAL No Information VITAL SIGNS Weight 254.4 lbs Aug, 2019 Height 67 in Aug, 2019 BMI 39.84 kg/m2 Aug, Heart Rate 71 /min Aug, 2019 Respiratory Rate 18 /min Aug, Temperature 97.7 degrees Fahrenheit Aug, Oximetry 96% Aug, Blood pressure systolic 154 mm Hg Aug, Blood pressure diastolic 84 mm Hg Aug, MEDICATIONS Medication SIG (Take, Route, Frequency, Duration) Notes Start Da te End Date Status Colace 100 MG 1 capsule as needed Orally Once a day for 30 day(s) Active Lipitor 80 MG 1 tablet Orally Once a day for 30 day(s) Not-Taking Alphagan P 0.15 % 1 drop into affected eye Ophthalmic every 8 hrs Active Diovan 160 MG 1 null Orally Once a day for 30 day(s) Not-Taking Glucophage 500 MG 1 tablet with a meal Orally Once a day for 30 day(s ) Active Crestor 20 MG 1 tablet Orally Once a day for 30 day(s) Active Multivitamin Men - as directed Orally Active Vitamin D (Ergocalciferol) 1.25 MG (93194 UT) 1 capsule Orally f or 30 day(s) Active Garlic 1250 MG 1 cap Orally Daily Ac tive Betamethasone Dipropionate 0.05 % 1 application [employer] Worker ally to 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 bid Aug, Active Fenofibrate 145 MG 1 tablet with food Orally Once a day for 30 day(s) Active Hydrochlorothiazide 12.5 MG 1 capsule in the morning O rally Once a day for 30 day(s) Active Magnesium Oxide 400 MG 1 tab Orally bid Active Losartan Potassium 100 MG 1 tablet Orally Once a day for 30 day(s) Active Percocet 5-325 MG 1 tablet as needed Orally every 6 hrs, MDD 4 f or 3 days January, Not-Taking Fleet Enema 7-19 GM/118ML as directed Rectal the enedina moise of your biopsy for 1 days January, Not-Taking Lumigan 0.03 % 1 drop into affected eye in the evening Ophthalm ic Once a day Active Ciprofloxacin HCl 500 MG 1 tablet the night before yo ur procedure and 1 the morning of Orally every 12 hrs January, N ot-Taking Omeprazole 20 MG 1 capsule Orally Once a day for 30 day(s) Active Plavix 75 MG 1 tablet Orally Once a day for 30 day(s) Active Pyridium 200 MG 1 tablet after meals Orally Three times a day fo r 5 day(s) January, Not-Taking Aspirin 81 81 MG 1 tablet Orally Once a day for 30 day(s) Active Toprol XL 50 MG 1 tablet Orally Once a day for 30 day(s) Active Flomax 0.4 MG 1 capsule Orally Once a day for 30 Active Fish Oil 1000 MG 1 capsule Orally Once a day for 30 day(s) Active Drisdol 85030 UNIT 1 capsule Orally for 30 day(s) Not-Taking Januvia 50 MG as directed Orally Act baa Ferrous Sulfate 325 (65 Fe) MG 1 tablet Orally Once a day for 30 day( s) Active Azopt 1 % 1 drop into affected eye Ophthalmic Three times a day Active Allopurinol 100 MG 1 tablet Orally Once a day for 30 day(s) Active Ferrous Gluconate 325 MG as directed Orally Not-Taking Mometasone Furoate 0.1 % 1 application to affected area External ly Once a day Not-Taking PROCEDURES No Information RESULTS Component Value Reference Range PSA MONITOR (HX PROSTATE CA/ABNORMAL PSA ) Reviewed date:08/14/2020 17:05:44 Interpretation: Performing Lab:[facility] [address] [facility] [id number] , ,[place] [address] PROSTATIC SPECIFIC AG MONITOR 0.03 < 4.00 REASON FOR VISIT 6 MOS PROSTATE CA MEDICAL (GENERAL) HISTORY Type Description Date Medical History HTN Medical History HYPERLIPIDEMIA Medical History CKD II Medical History GOUT Medical History VITAMIN D DEFICIENCY Medical History DM II Medical History NODULAR PROSTATE Surgical History CARDIAC STENT = [place]ICA 2011 Surgical History TRUS BIOPSY WITH MRI FUSION 01/23/2019 Surgical History FIDUCIARY MARKER PLACEMENT 04/10/2019 [facility] Goals Section No Information Health Concerns No Information MEDICAL EQUIPMENT No Information MENTAL STATUS No Information FUNCTIONAL STATUS No Information ASSESSMENTS Encounter Date Diagnosis Assessment Notes Treatment Notes Treatm ent Clinical Notes Aug, Prostate cancer (ICD-10 - C61) - check PSA today - start betamethasone cream - f/u in 1 month to see if there is improvement in phimosis -> if not consider circumcision Aug, Phimosis (ICD-10 - N47.1) PLAN OF TREATMENT Medication Medication Name Sig Start Date Stop Date Betamethasone Dipropionate 0.05 % 1 application [employer] Worker ally to 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 bid Aug, Treatment Notes Assessment Notes Clinical Notes Prostate cancer - check PSA today- s tart betamethasone cream- f/u in 1 month to see if there is improvement in phimosis -> if not consider circumcision Next Appt Details 1 month Reason:phimosis Provider Name:To Arroyo, 2020-09-16 10:45:00 AM, [address], [place], [address], Follow Up:1 monthphimosis Insurance Providers Payer Name Payer Address Payer Phone Insured Name Patient Relati onship to Insured Coverage Start Date Coverage End Date MEDICARE Part A and B [address] [facility] [phone] COMFORT BRASHER self MEDICAID [employer] [address] [facility] [id number] COMFORT BRASHER self
--- OUTSIDE RECORDS SUMMARY | 2020-10-08 06:08 | CCD ---
Full Chart - [facility] Created on: 07/15/2020 Carlos Clark External Reference #: [id number] : 1945 Sex: Male Author Author [facility] Organization [facility] Address [address] [place] [address] Phone Care Team Providers Care Sales Support Rep Name Role Phone Ian HARVEY, Felisa Mathews PP [phone] Pema HARVEY, José Andrews Unavailable [phone] Reason for Referral No Reason for Referral Recorded Problems Includes: Active, inactive, and resolved Problems All Visits Onset Date - Time Resolved Date - Time Provider Co ndition Status Nodular Prostate 12/19/2018 - 12:00AM José dimas MD Active Note: Unchanged Colonic and Rectal Disorders 10/21/2014 - 12:00AM Jerome Mcadams MD Active Chronic Kidney Disease Stage 2 07/15/2010 - 12:00AM Me dolores LANDAC Active Note: Unchanged Vitamin D deficiency, unspecified 07/15/2010 - 12:00AM José Mcadams MD Active Gout, unspecified 04/07/2010 - 12:00AM José rooney MD Active Upper Respiratory Infection 05/29/2009 - 12:00AM Unknown - Unkno wn José Mcadams MD Resolved Note: Unchanged Essential Hypertension Benign 11/01/2007 - 12:00AM Cheyanne Ruff MD Active Note: Well-Controlled Diabetes Mellitus Type 2 11/01/2007 - 12:00AM José Mcadams MD Active Note: Unchanged Hyperlipidemia 07/19/2007 - 12:00AM Yarely VERGARA-C Active Note: Improved Plan of Treatment Pending Tests Order Diagnosis Results Due Ordering Provi jey *Labs (Manual) CMP Hyperlipidemia, unspecified 10/03/18 José Mcadams MD *Labs (Manual) LIPID Hyperlipidemia, unspecified 10/03/18 José Mcadams MD *Labs (Manual) PSA Nodular prostate without lower u rinary tract symptoms 01/02/19 José Mcadams MD *Labs (Manual) HGA1C HCC-Type 2 diabetes mellitus wit hout complications 02/12/20 Felisa Sosa MD *Labs (Manual) LIPID HCC-Type 2 diabetes mellitus wit hout complications 02/12/20 Felisa Sosa MD *Labs (Manual) LFT HCC-Type 2 diabetes mellitus without co mplications 02/12/20 Felisa Sosa MD *Labs (Manual) MICROALBUMIN HCC-Type 2 diabetes mellitus wit hout complications 02/12/20 Felisa Sosa MD *Labs (Manual) CK HCC-Type 2 diabetes mellitus without co mplications 02/12/20 Felisa Sosa MD *Labs (Manual) BMP HCC-Type 2 diabetes mellitus without co mplications 02/12/20 Felisa Sosa MD *Labs (Manual) CBC HCC-Type 2 diabetes mellitus wit h other specified complicati 07/29/20 Flory Schultz HOTEL OFFICE MANAGER *Labs (Manual) CMP HCC-Type 2 diabetes mellitus wit h other specified complicati 07/29/20 Nanjemoy Rashel Schultz HOTEL OFFICE MANAGER *Labs (Manual) MICROALBUMIN HCC-Type 2 diabetes mellitus with other specified complicati 07/29/20 Nanjemoyrich Schultz HOTEL OFFICE MANAGER Care Programs Accountable Care Organizations Chronic [facility] Future Appointments Date Time Location Provider ANNUAL PHYSICAL EXAM 10/15/2020 1:30PM Family Medicine GRISELDA Alas NP MEDICARE ANNUAL WELLNESS/RISK ASSESSMENT 10/15/2020 2:15PM Family Medicine GRISELDA Love HOTEL OFFICE MANAGER Findings Encounter Date CBC, CMP, HGBA1c, MICROALBUMIN URINE FFUP IN 4W APE , LAB REVIEW STANDARD OV with Flory Schultz NP 07/15/2020 Ordered transition in care, no clinical summary provid ed MEDICARE ANNUAL WELLNESS/RISK ASSESSMENT with José Mcadams MD 01/04/2017 Ordered follow-up visit RTC 3 MONTHS STANDARD OV with Sunshine Lui 12/02/2016 Ordered transition in care, no clinical summary provid ed MEDICARE ANNUAL WELLNESS/RISK ASSESSMENT with José Mcadams MD 11/17/2015 REFUSED INSULIN FOR DM. ENCOURAGED L OW FAT/LOW CHOL/LOW GLUCOSE DIET. CONTINUE CURRENT MEDICATION. CONTINUE MONITORING GLUCOSE. EXERCISE TOLERATED. ADVISED TO GET A NEW BP MONITOR STANDARD OV with Yarely Zamorano RPA-C 12/09/2010 Ordered return to the clinic if condition worsens or n ew symptoms arise STANDARD OV with Yarely Mathews Jaun RPA-C 12/09/2010 ICG SHOWING BP 143/67. INCREASE DIOV AN 160MG. ADVISED TO TAKE 2 DIOVAN 80MG DAILY UNTIL CURRENT BOTTLE GONE THEN START 160MG DAILY. AWAITING APPT WITH DR BERNAL FOR ECHO. CONTINUE CURRENT MEDICATION. CONTINUE MONITORING GLUCOSE STANDARD OV with Yarely Jeremy Jaun RPA-C 11/12/2010 Ordered return to the clinic if condition worsens or n ew symptoms arise STANDARD OV with Yarelyjeremy Zamorano RPA-C 11/12/2010 RHEUMATOLOGY APPT 10/27/10 - REFERRED B Y [facility] CONTINUE CURRENT MEDICATION. CONTINUE MONITORING GLUCOSE. ENCOUAGED LOW FAT/LOW CHOL/LOW GLUCOSE DIET STANDARD OV with Yarely Jeremy Jaun RPA-C 10/21/2010 Ordered return to the clinic if condition worsens or n ew symptoms arise STANDARD OV with Yarely Jeremy Jaun RPA-C 10/21/2010 DISCUSSED LAB RESULTS. INITIATE AAMIR LOCKE. RECHECK 3MONTHS. CONTINUE MONITORING GLUCOSE. CONTINUE CURRENT MEDICATION. ENCOURAGED LOW FAT/LOW CHOL/LOW GLUCOSE DIET AND EXERCISE TOLERATED. HAS F/U WITH [facility] IN 2D - ADVISED THAT HE SHOULD LIMIT IBUPROFEN USE HE HAS CKD. NO A1C TODAY, WILL RECHECK AT F/U STANDARD OV with Yarely Jeremy Jaun RPA-C 07/15/2010 Ordered return to the clinic if condition worsens or n ew symptoms arise STANDARD OV with Yarelysheeba Zamorano RPA-C 07/15/2010 CONTINUE CURRENT MEDICATION. CONTINUE MONITORING GLUCOSE. ENCOURAGED DECREASE CARB INTAKE. EXERCISE TOLERATED. DISCUSSED LAB RESULTS BERTO OVERNIGHT OXYGEN. DEFERS REFERRAL TO PODIATRY ANNUAL PHYSICAL EXAM with Yarely Zamorano RPA-C 04/07/2010 Ordered return to the clinic if condition worsens or n ew symptoms arise ANNUAL PHYSICAL EXAM with Yarely Zamorano RPA-C 04/07/2010 Continue current medication. Continue monitoring glucose. Encouraged low fat/low chol diet and exercise as tolerated STANDARD OV with Yarely Zamorano RPA-C 01/13/2010 Ordered return to the clinic if condition worsens or n ew symptoms arise STANDARD OV with Yarely Zamorano RPA-C 01/13/2010 D/c tricor. Trial of trilipix. Encou raged low fat/low chol diet. Continue monitoring glucose. Continue current medication. Advised to limit advil d/t CKD. Heat/ice. Advised if no improvement in RT arm pain, schedule f/u STANDARD OV with Yarely Zamorano RPA-C 09/17/2009 Ordered return to the clinic if condition worsens or n ew symptoms arise STANDARD OV with Yarely Zamorano RPA-C 09/17/2009 Ordered cool mist vaporizer STANDARD OV with Maria Luisa palacios MD 06/09/2009 Ordered fluids STANDARD OV with Maria Luisa Ruff MD 06/09/2009 Ordered go to the emergency room if condition worsens STANDARD OV with Maria Luisa Ruff MD 06/09/2009 Ordered return to the clinic if condition worsens or n ew symptoms arise STANDARD OV with Maria Luisa Ruff MD 06/09/2009 Ordered fluids STANDARD OV with Maria Luisa uRff MD 05/29/2009 Ordered follow-up visit STANDARD OV with Maria Luisa Ruff MD 05/29/2009 Ordered go to the emergency room if condition worsens STANDARD OV with Maria Luisa Ruff MD 05/29/2009 Ordered return to the clinic if condition worsens or n ew symptoms arise STANDARD OV with Maria Luisa Ruff MD 05/29/2009 Ordered return to the clinic if condition worsens or n ew symptoms arise ANNUAL PHYSICAL EXAM with José Mcadams MD 02/18/2009 Ordered Return To Clinic If Worse Or New Symptoms [place] OV with José Mcadams MD 09/10/2008 PLAN [Use For S.O.A.P. Note Free Text] STANDARD OV with Sky Anderson RPA-C 06/20/2008 Ordered Return To Clinic If Worse Or New Symptoms [place] OV with José Mcadams MD 04/03/2008 PLAN [Use For S.O.A.P. Note Free Text] STANDARD OV with Sky Anderson RPA-C 03/06/2008 Assessments Includes: Assessments for all patient encounters Findings Encounter Date Benign secondary hypertension STANDARD OV with Flory Humphrey HOTEL OFFICE MANAGER 07/15/2020 Hyperlipidemia STANDARD OV with Flory Schultz N P 07/15/2020 Type 2 diabetes mellitus with complication STANDARD OV with Flory Schultz HOTEL OFFICE MANAGER 07/15/2020 Benign essential hypertension EXTENDED VISIT with José Mcadams MD 04/15/2020 Hyperlipidemia EXTENDED VISIT with José Mcadams MD 04/15/2020 Type 2 diabetes mellitus EXTENDED VISIT with José rooney MD 04/15/2020 Benign essential hypertension E-VISIT E/M with Felisa ibanez MD 12/24/2019 Hyperlipidemia E-VISIT E/M with Felisa Sosa MD 12/05 Type 2 diabetes mellitus in obese E-VISIT E/M with Felisa Sosa MD 12/24/2019 Benign essential hypertension STANDARD OV with José salas MD 09/24/2019 Chronic kidney disease, stage 2 STANDARD OV with José Mcadams MD 09/24/2019 Hyperlipidemia STANDARD OV with José Mcadams MD Type 2 diabetes mellitus STANDARD OV with José Mcadams MD 09/24/2019 Benign essential hypertension STANDARD OV with José salas MD 06/12/2019 Chronic kidney disease, stage 2 STANDARD OV with José Mcadams MD 06/12/2019 Hyperlipidemia STANDARD OV with José Mcadams MD Type 2 diabetes mellitus STANDARD OV with José Mcadams MD 06/12/2019 Benign essential hypertension STANDARD OV with José salas MD 03/13/2019 Chronic kidney disease, stage 2 STANDARD OV with José Mcadams MD 03/13/2019 Hyperlipidemia STANDARD OV with José Mcadams MD Type 2 diabetes mellitus STANDARD OV with José Mcadams MD 03/13/2019 Benign essential hypertension ANNUAL PHYSICAL EXAM with Jerome Mcadams MD 12/19/2018 Chronic kidney disease, stage 2 ANNUAL PHYSICAL EXAM with Jennifer Mcadams MD 12/19/2018 Hyperlipidemia ANNUAL PHYSICAL EXAM with José conner MD 12/19/2018 Nodular prostate ANNUAL PHYSICAL EXAM with José conner MD 12/19/2018 Type 2 diabetes mellitus ANNUAL PHYSICAL EXAM with José Mcadams MD 12/19/2018 Routine senior citizen history and physical (65-80 yrs ) MEDICARE ANNUAL WELLNESS/RISK ASSESSMENT with José Mcadams MD 12/19/2018 Benign essential hypertension STANDARD OV with José slaas MD 09/19/2018 Chronic kidney disease, stage 2 STANDARD OV with José Mcadams MD 09/19/2018 Hyperlipidemia STANDARD OV with José Mcadams MD Type 2 diabetes mellitus STANDARD OV with José Mcadams MD 09/19/2018 Benign essential hypertension STANDARD OV with José salas MD 06/20/2018 Chronic kidney disease, stage 2 STANDARD OV with José Mcadams MD 06/20/2018 Type 2 diabetes mellitus STANDARD OV with José Mcadams MD 06/20/2018 Benign essential hypertension STANDARD OV with José salas MD 03/21/2018 Colonic and rectal disorders STANDARD OV with José conner MD 03/21/2018 Hyperlipidemia STANDARD OV with José Mcadams MD Type 2 diabetes mellitus STANDARD OV with José Mcadams MD 03/21/2018 Benign essential hypertension STANDARD OV with José salas MD 12/20/2017 Chronic kidney disease, stage 2 STANDARD OV with José Mcadams MD 12/20/2017 Hyperlipidemia STANDARD OV with José Mcadams MD Type 2 diabetes mellitus STANDARD OV with José Mcadams MD 12/20/2017 Benign essential hypertension STANDARD OV with José salas MD 09/20/2017 Hyperlipidemia STANDARD OV with José Mcadams MD Type 2 diabetes mellitus STANDARD OV with José Mcadams MD 09/20/2017 Benign essential hypertension STANDARD OV with José salas MD 05/31/2017 Chronic kidney disease, stage 2 STANDARD OV with José Mcadams MD 05/31/2017 Hyperlipidemia STANDARD OV with José Mcadams MD Type 2 diabetes mellitus STANDARD OV with José Mcadams MD 05/31/2017 Benign essential hypertension STANDARD OV with José salas MD 03/01/2017 Chronic kidney disease, stage 2 STANDARD OV with José Mcadams MD 03/01/2017 Type 2 diabetes mellitus STANDARD OV with José Mcadams MD 03/01/2017 Benign essential hypertension ANNUAL PHYSICAL EXAM with Jerome Mcadams MD 01/04/2017 Chronic kidney disease, stage 2 ANNUAL PHYSICAL EXAM with Jennifer Mcadams MD 01/04/2017 Hyperlipidemia ANNUAL PHYSICAL EXAM with José conner MD 01/04/2017 Type 2 diabetes mellitus ANNUAL PHYSICAL EXAM with José Mcadams MD 01/04/2017 Benign essential hypertension MEDICARE ANNUAL WELLNESS /RISK ASSESSMENT with José Mcadams MD 01/04/2017 Chronic kidney disease, stage 2 MEDICARE ANNUAL WELLNE SS/RISK ASSESSMENT with José Mcadams MD 01/04/2017 Hyperlipidemia MEDICARE ANNUAL WELLNESS/RIS K ASSESSMENT with José Mcadams MD 01/04/2017 Routine senior citizen history and physical (65-80 yrs ) MEDICARE ANNUAL WELLNESS/RISK ASSESSMENT with José Mcadams MD 01/04/2017 Type 2 diabetes mellitus MEDICARE ANNUAL WELLNESS/RIS K ASSESSMENT with José Mcadams MD 01/04/2017 Benign essential hypertension STANDARD OV with Sunshine A Jey F HOTEL OFFICE MANAGER 12/02/2016 Hyperlipidemia STANDARD OV with Sunshine A Jey MANAGER RECRUITMENT 017 Type 2 diabetes mellitus STANDARD OV with Sunshine A Jey MANAGER RECRUITMENT Benign essential hypertension STANDARD OV with José salas MD 08/17/2016 Chronic kidney disease, stage 2 STANDARD OV with José Mcadams MD 08/17/2016 Type 2 diabetes mellitus STANDARD OV with José Mcadams MD 08/17/2016 Benign essential hypertension STANDARD OV with José salas MD 05/18/2016 Chronic kidney disease, stage 2 STANDARD OV with José Mcadams MD 05/18/2016 Hyperlipidemia STANDARD OV with José Mcadams MD Type 2 diabetes mellitus STANDARD OV with José Mcadams MD 05/18/2016 Benign essential hypertension STANDARD OV with José salas MD 02/17/2016 Chronic kidney disease, stage 2 STANDARD OV with José Mcadams MD 02/17/2016 Hyperlipidemia STANDARD OV with José Mcadams MD Type 2 diabetes mellitus STANDARD OV with José Mcadams MD 02/17/2016 Normal routine history and physical [Patient Encounter ] with José Mcadams MD 11/17/2015 Normal routine history and physical senior citizen (65 -80) MEDICARE ANNUAL WELLNESS/RISK ASSESSMENT with José Mcadams MD 11/17/2015 Benign essential hypertension STANDARD OV with José salas MD 08/19/2015 Chronic kidney disease, stage 2 STANDARD OV with José Mcadams MD 08/19/2015 Hyperlipidemia STANDARD OV with José Mcadams MD Type 2 diabetes mellitus STANDARD OV with José Mcadams MD 08/19/2015 Benign essential hypertension STANDARD OV with José salas MD 05/20/2015 Hyperlipidemia STANDARD OV with José Mcadams MD Type 2 diabetes mellitus STANDARD OV with José Mcadams MD 05/20/2015 Benign essential hypertension STANDARD OV with José salas MD 02/18/2015 Chronic kidney disease, stage 2 STANDARD OV with José Mcadams MD 02/18/2015 Hyperlipidemia STANDARD OV with José Mcadams MD Type 2 diabetes mellitus STANDARD OV with José Mcadams MD 02/18/2015 Benign essential hypertension STANDARD OV with José salas MD 11/18/2014 Chronic kidney disease, stage 2 STANDARD OV with José Mcadams MD 11/18/2014 Hyperlipidemia STANDARD OV with José Mcadams MD Type 2 diabetes mellitus STANDARD OV with José Mcadams MD 11/18/2014 Colonic and rectal disorders SURGICAL CLEARANCE with Joel Mcadams MD 10/21/2014 Benign essential hypertension ANNUAL PHYSICAL EXAM with Jerome Mcadams MD 08/20/2014 Chronic kidney disease, stage 2 ANNUAL PHYSICAL EXAM with Jennifer Mcadams MD 08/20/2014 Hyperlipidemia ANNUAL PHYSICAL EXAM with José conner MD 08/20/2014 Type 2 diabetes mellitus ANNUAL PHYSICAL EXAM with José Mcadams MD 08/20/2014 Benign essential hypertension STANDARD OV with José salas MD 05/28/2014 Chronic kidney disease, stage 2 STANDARD OV with José Mcadams MD 05/28/2014 Hyperlipidemia STANDARD OV with José Mcadams MD Type 2 diabetes mellitus STANDARD OV with José Mcadams MD 05/28/2014 Benign essential hypertension EXTENDED VISIT with José Mcadams MD 02/26/2014 Chronic kidney disease, stage 2 EXTENDED VISIT with José Mcadams MD 02/26/2014 Hyperlipidemia EXTENDED VISIT with José Mcadams MD 02/26/2014 Type 2 diabetes mellitus EXTENDED VISIT with José rooney MD 02/26/2014 Benign essential hypertension STANDARD OV with José salas MD 11/20/2013 Chronic kidney disease, stage 2 STANDARD OV with José Mcadams MD 11/20/2013 Hyperlipidemia STANDARD OV with José Mcadams MD Type 2 diabetes mellitus STANDARD OV with José Mcadams MD 11/20/2013 Benign essential hypertension STANDARD OV with José salas MD 08/21/2013 Hyperlipidemia STANDARD OV with José Mcadams MD Type 2 diabetes mellitus STANDARD OV with José Mcadams MD 08/21/2013 Benign essential hypertension ANNUAL PHYSICAL EXAM with Jerome Mcadams MD 05/15/2013 Hyperlipidemia ANNUAL PHYSICAL EXAM with José conner MD 05/15/2013 Type 2 diabetes mellitus ANNUAL PHYSICAL EXAM with José Mcadams MD 05/15/2013 Vitamin D deficiency ANNUAL PHYSICAL EXAM with José salas MD 05/15/2013 Benign essential hypertension STANDARD OV with José salas MD 02/06/2013 Chronic kidney disease, stage 2 STANDARD OV with José Mcadams MD 02/06/2013 Hyperlipidemia STANDARD OV with José Mcadams MD Type 2 diabetes mellitus STANDARD OV with José Mcadams MD 02/06/2013 Benign essential hypertension STANDARD OV with José salas MD 11/07/2012 Hyperlipidemia STANDARD OV with José Mcadams MD Type 2 diabetes mellitus STANDARD OV with José Mcadams MD 11/07/2012 Benign essential hypertension STANDARD OV with José salas MD 08/08/2012 Hyperlipidemia STANDARD OV with José Mcadams MD Type 2 diabetes mellitus STANDARD OV with José Mcadams MD 08/08/2012 Benign essential hypertension STANDARD OV with José salas MD 04/18/2012 Chronic kidney disease, stage 2 STANDARD OV with José Mcadams MD 04/18/2012 Hyperlipidemia STANDARD OV with José Mcadams MD Type 2 diabetes mellitus STANDARD OV with José Mcadams MD 04/18/2012 Benign essential hypertension ANNUAL PHYSICAL EXAM with Jerome Mcadams MD 12/09/2011 Hyperlipidemia ANNUAL PHYSICAL EXAM with José conner MD 12/09/2011 Type 2 diabetes mellitus ANNUAL PHYSICAL EXAM with José Mcadams MD 12/09/2011 Benign essential hypertension STANDARD OV with José salas MD 09/09/2011 Chronic kidney disease, stage 2 STANDARD OV with José Mcadams MD 09/09/2011 Hyperlipidemia STANDARD OV with José Mcadams MD Type 2 diabetes mellitus STANDARD OV with José Mcadams MD 09/09/2011 Benign essential hypertension STANDARD OV with José salas MD 06/10/2011 Hyperlipidemia STANDARD OV with José Mcadams MD Type 2 diabetes mellitus STANDARD OV with José Mcadams MD 06/10/2011 Benign essential hypertension STANDARD OV with José salas MD 03/11/2011 Chronic kidney disease, stage 2 STANDARD OV with José Mcadams MD 03/11/2011 Hyperlipidemia STANDARD OV with José Mcadams MD Type 2 diabetes mellitus STANDARD OV with José Mcadams MD 03/11/2011 Vitamin D deficiency STANDARD OV with José Mcadams MD 0 03/11/2011 Essential hypertension STANDARD OV with Yarely Zamorano RPA -C 12/09/2010 Hyperlipidemia STANDARD OV with Yarely A Jaun RPA-C 12/09/2010 Type 2 diabetes mellitus STANDARD OV with Yarely A Jaun R PA-C 12/09/2010 Cardiomegaly STANDARD OV with Yarely A Jaun RPA-C 11/12/2010 Essential hypertension STANDARD OV with Yarely A Jaun RPA -C 11/12/2010 Pulmonary hypertension STANDARD OV with Yarely A Jaun RPA -C 11/12/2010 Type 2 diabetes mellitus STANDARD OV with Yarely A Jaun R PA-C 11/12/2010 Essential hypertension STANDARD OV with Yarely A Jaun RPA -C 10/21/2010 Hyperlipidemia STANDARD OV with Yarely A Jaun RPA-C 10/21/2010 Scleritis STANDARD OV with Yarely A Jaun RPA-C 10/21/2010 Type II diabetes mellitus STANDARD OV with Yarely A Jaun RPA-C 10/21/2010 Vitamin D deficiency STANDARD OV with Yarely A Jaun RPA-C 10/21/2010 Chronic kidney disease, stage 2 STANDARD OV with Yarely A R osner RPA-C 07/15/2010 Essential hypertension STANDARD OV with Yarely Jeremy Jaun RPA -C 07/15/2010 Hyperlipidemia STANDARD OV with Yarely A Jaun RPA-C 07/15/2010 Type II diabetes mellitus STANDARD OV with Yarely Jeremy Jaun RPA-C 07/15/2010 Vitamin D deficiency STANDARD OV with Yarely A Jaun RPA-C 07/15/2010 Benign essential hypertension ANNUAL PHYSICAL EXAM with Yashira Mathews Jaun RPA-C 04/07/2010 Fatigue ANNUAL PHYSICAL EXAM with Yarely Jeremy Rosn er RPA-C 04/07/2010 Hyperlipidemia ANNUAL PHYSICAL EXAM with Yarely Jeremy Rosn er RPA-C 04/07/2010 Normal routine history and physical ANNUAL PHYSICAL EX AM with Yarely Jeremy Jaun RPA-C 04/07/2010 Psoriasis ANNUAL PHYSICAL EXAM with Yarely Jeremy Rosn er RPA-C 04/07/2010 Type II diabetes mellitus ANNUAL PHYSICAL EXAM with Yarely Jeremy Jaun RPA-C 04/07/2010 Essential hypertension STANDARD OV with Yarely Jeremy Jaun RPA -C 01/13/2010 Glaucoma STANDARD OV with Yarely Jeremy Jaun RPA-C 01/13/2010 Hyperlipidemia STANDARD OV with Yarely A Jaun RPA-C 01/13/2010 Type II diabetes mellitus STANDARD OV with Yarely A Jaun RPA-C 01/13/2010 Chronic kidney disease, stage 3 STANDARD OV with Yarely Jeremy Starr osner RPA-C 09/17/2009 Essential hypertension STANDARD OV with Yarely A Jaun RPA -C 09/17/2009 Hyperlipidemia STANDARD OV with Yarely A Jaun RPA-C 09/17/2009 Type II diabetes mellitus STANDARD OV with Yarely A Jaun RPA-C 09/17/2009 Benign essential hypertension SURGICAL CLEARANCE with Aleksandra Mcadams MD 07/30/2009 Type II diabetes mellitus SURGICAL CLEARANCE with José Mcadams MD 07/30/2009 Type II diabetes mellitus with complication SURGICAL C LEARANCE with José Mcadams MD 07/30/2009 Acute bronchitis which is resolved STANDARD OV with Yarely A Jaun RPA-C 06/19/2009 Essential hypertension STANDARD OV with Yarely A Jaun RPA -C 06/19/2009 Hyperlipidemia STANDARD OV with Yarely A Jaun RPA-C 06/19/2009 Type II diabetes mellitus STANDARD OV with Yarely A Jaun RPA-C 06/19/2009 Assessment of cough STANDARD OV with Maria Luisa Ruff MD 06/09/2009 Upper respiratory infection STANDARD OV with Maria Luisa palacios MD 06/09/2009 Acute bronchitis STANDARD OV with Maria Luisa Ruff MD 05/29/2009 Acute pharyngitis STANDARD OV with Maria Luisa Ruff MD 05/29/2009 Upper respiratory infection STANDARD OV with Maria Luisa palacios MD 05/29/2009 Benign essential hypertension ANNUAL PHYSICAL EXAM with Jerome Mcadams MD 02/18/2009 Hyperlipidemia ANNUAL PHYSICAL EXAM with José conner MD 02/18/2009 Type II diabetes mellitus ANNUAL PHYSICAL EXAM with José Mcadams MD 02/18/2009 DIABETES MELLITUS TYPE 2 STANDARD OV with José Mcadams MD 12/12/2008 ESSENTIAL HYPERTENSION BENIGN STANDARD OV with José salas MD 12/12/2008 HYPERLIPIDEMIA STANDARD OV with José Mcadams MD DIABETES MELLITUS TYPE 2 STANDARD OV with José Mcadams MD 09/10/2008 IRON DEFICIENCY ANEMIA STANDARD OV with Frank Anderson RPA- C 06/20/2008 DIABETES MELLITUS TYPE 2 STANDARD OV with Frank Anderson RP A-C 06/20/2008 OBESITY STANDARD OV with Frank Anderson RPA-C 1 ESSENTIAL HYPERTENSION BENIGN STANDARD OV with Frank Urena er RPA-C 06/20/2008 RENAL INSUFFICIENCY STANDARD OV with Frank Anderson RPA-C 1 Working diagnosis of abdominal pain STANDARD OV with Joel Mcadams MD 04/03/2008 DIABETES MELLITUS TYPE 2 STANDARD OV with José Mcadams MD 04/03/2008 DIABETES MELLITUS TYPE 2 STANDARD OV with Frank Anderson RP A-C 03/06/2008 Instructions Instructions not supported for this document typeNo Instructions Recorded Medical Equipment - Implanted Devices Includes: Current and historical DevicesNo Medical Equipment Recorded Medications Includes: Current and historical Medications Current Medications (continue as prescribed) Aspirin EC 81 MG Oral Tablet Delayed Release 07/15/2020 - Provider: Flory Schultz NP Diagnosis: Essential (primary) hypertension TAKE ONE TABLET BY MOUTH EVERY DAY FreeStyle Lite Test In Vitro Strip 07/15/2020 - 10/13/2020 P rovider: Flory Schultz NP Diagnosis: HCC-Type 2 diabetes mellitus with other specified complicati CHECK FINGERSTICK SUGARS TWICE A DAY Omeprazole 20 MG Oral Capsule Delayed Release 07/15/2020 - 0 10/13/2020 Provider: Flory Schultz NP Diagnosis: Gastro-esophageal re flux disease with esophagitis TAKE ONE CAPSULE BY MOUTH EVERY MORNING Januvia 100 MG Oral Tablet 07/15/2020 - 10/13/2020 Provider: Flory Schultz NP Diagnosis: HCC-Type 2 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 TAKE ONE TABLET BY MOUTH EVERY DAY Iron 325 (65 Fe) MG Oral Tablet 07/15/2020 - 10/13/2020 Prov ider: Flory Schultz NP Diagnosis: Iron deficiency anem ia, unspecified TAKE ONE TABLET BY MOUTH TWICE A DAY Fenofibrate 145 MG Oral Tablet 07/15/2020 - 10/13/2020 Provi jey: Flory Schultz NP Diagnosis: Mixed hyperlipidemia TAKE ONE TABLET BY MOUTH ONCE DAILY AT BEDTIME Colace 100 MG Oral Capsule 07/15/2020 - 10/13/2020 Provider: Flory Schultz NP Diagnosis: Other constipation TAKE ONE CAPSULE BY MOUTH TWICE A DAY FreeStyle Lite Device 07/15/2020 Provider: Diagnosis: GIVEN BY A FRIEND Clopidogrel Bisulfate 75 MG Oral Tablet 07/15/2020 - 021 Provider: Flory Schultz HOTEL OFFICE MANAGER Diagnosis: Chronic ischemic hea rt disease, unspecified TAKE ONE TABLET BY MOUTH EVERY DAY WITH ASPIRIN metFORMIN HCl 1000 MG Oral Tablet 06/23/2020 Provid er: Flory Schultz [employer]EL OFFICE MANAGER 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 TAKE ONE TABLET BY MOUTH TWICE A DAY Allopurinol 100 MG Oral Tablet 06/23/2020 Provider: Flory Schultz HOTEL OFFICE MANAGER Diagnosis: Gout, unspecified TAKE ONE TABLET BY MOUTH EVERY DAY Drisdol 1.25 MG (91819 UT) Oral Capsule 06/23/2020 Provider: Flory Schultz HOTEL OFFICE MANAGER Diagnosis: Vitamin D deficiency , unspecified TAKE ONE CAPSULE BY MOUTH EVERY 2 WEEKS hydroCHLOROthiazide 12.5 MG Oral Capsule 06/23/2020 Provider: Flory Schultz HOTEL OFFICE MANAGER Diagnosis: Essential (primary) hypertension TAKE ONE CAPSULE BY MOUTH EVERY DAY Losartan Potassium 100 MG Oral Tablet 06/23/2020 Pr ovider: Flory Schultz HOTEL OFFICE MANAGER Diagnosis: Essential (primary) hypertension 1 every day po Rosuvastatin Calcium 20 MG Oral Tablet 06/23/2020 P rovider: Flory Schultz NP Diagnosis: Mixed hyperlipidemia TAKE 1 TABLET BY MOUTH EVERY DAY Metoprolol Succinate ER 50 MG Oral Tablet Extended Release 2 4 Hour 06/23/2020 Provider: Flory Schultz NP Diagnosis: Essential (primary) hypertension TAKE ONE TABLET BY MOUTH EVERY DAY Travatan Z 0.004% Ophthalmic Solution 12/24/2019 - Provider: Diagnosis: Alphagan P 0.15% Ophthalmic Solution 12/24/2019 - 11/18/2020 Provider: Diagnosis: Azopt 1% Ophthalmic Suspension 12/24/2019 - 11/18/2020 Provi jey: Diagnosis: Garlic 1000MG Oral Capsule, conventional 09/19/2018 Provider: Diagnosis: One-A-Day Mens Oral Tablet 09/19/2018 Provider: Diagnosis: qd EQL Fish Oil 1000MG Oral Capsule, conventional 09/19/2018 Provider: Diagnosis: 3qd Past Medications on file Iron 325 (65 Fe) MG Oral Tablet 04/15/2020 - 07/15/2020 Prov ider: José Mcadams MD Diagnosis: Iron deficiency anem ia, unspecified TAKE ONE TABLET BY MOUTH TWICE A DAY Januvia 100 MG Oral Tablet 04/15/2020 - 07/15/2020 Provider: José Mcadams MD Diagnosis: HCC-Type 2 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 TAKE ONE TABLET BY MOUTH EVERY DAY Clopidogrel Bisulfate 75 MG Oral Tablet 04/15/2020 - 020 Provider: José Mcadams MD Diagnosis: Chronic ischemic hea rt disease, unspecified TAKE ONE TABLET BY MOUTH EVERY DAY WITH ASPRIN Aspirin EC 81 MG Oral Tablet Delayed Release 04/15/2020 - Provider: José Mcadams MD Diagnosis: Essential (primary) hypertension TAKE ONE TABLET BY MOUTH EVERY DAY Fenofibrate 145 MG Oral Tablet 04/15/2020 - 07/15/2020 Provi jey: José Mcadams MD Diagnosis: Mixed hyperlipidemia TAKE ONE TABLET BY MOUTH ONCE DAILY AT BEDTIME Omeprazole 20 MG Oral Capsule Delayed Release 04/15/2020 - 1 09/14/2019 Provider: José Mcadams MD Diagnosis: Gastro-esophageal re flux disease with esophagitis TAKE ONE CAPSULE BY MOUTH EVERY MORNING Colace 100 MG Oral Capsule 04/09/2020 - 07/15/2020 Provider: José Mcadams MD Diagnosis: Other constipation TAKE ONE CAPSULE BY MOUTH TWICE A DAY Omeprazole 20 MG Oral Capsule Delayed Release 03/27/2020 - 0 04/15/2020 Provider: José Mcadams MD Diagnosis: Gastro-esophageal re flux disease with esophagitis TAKE ONE CAPSULE BY MOUTH EVERY MORNING metFORMIN HCl 1000 MG Oral Tablet 03/27/2020 - 06/23/2020 Pr ovider: José Mcadams MD 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 TAKE ONE TABLET BY MOUTH TWICE A DAY Metoprolol Succinate ER 50 MG Oral Tablet Extended Rel ease 24 Hour 03/27/2020 - 06/23/2020 Provider: José Mcadams MD Diagnosis: Essential (primary) hypertension TAKE ONE TABLET BY MOUTH EVERY DAY hydroCHLOROthiazide 12.5 MG Oral Capsule 03/27/2020 - 2019 Provider: José Mcadams MD Diagnosis: Essential (primary) hypertension TAKE ONE CAPSULE BY MOUTH EVERY DAY Colace 100 MG Oral Capsule 03/27/2020 - 04/09/2020 Provider: José Mcadams MD Diagnosis: Other constipation TAKE ONE CAPSULE BY MOUTH TWICE A DAY Losartan Potassium 100 MG Oral Tablet 03/27/2020 - 0 Provider: José Mcadams MD Diagnosis: Essential (primary) hypertension 1 every day po Rosuvastatin Calcium 20 MG Oral Tablet 03/27/2020 - 06/23/20 20 Provider: José Mcadams MD Diagnosis: Mixed hyperlipidemia TAKE 1 TABLET BY MOUTH EVERY DAY Drisdol 1.25 MG (16580 UT) Oral Capsule 03/26/2020 - 020 Provider: José Mcadams MD Diagnosis: Vitamin D deficiency , unspecified TAKE ONE CAPSULE BY MOUTH EVERY 2 WEEKS Clopidogrel Bisulfate 75 MG Oral Tablet 03/26/2020 - 020 Provider: José Mcadams MD Diagnosis: Chronic ischemic hea rt disease, unspecified TAKE ONE TABLET BY MOUTH EVERY DAY WITH ASPRIN Allopurinol 100 MG Oral Tablet 03/18/2020 - 06/23/2020 Provi jey: José Mcadams MD Diagnosis: Gout, unspecified TAKE ONE TABLET BY MOUTH EVERY DAY Omeprazole 20 MG Oral Capsule Delayed Release 03/03/2020 - 0 03/26/2020 Provider: José Mcadams MD Diagnosis: Gastro-esophageal re flux disease with esophagitis TAKE ONE CAPSULE BY MOUTH EVERY MORNING Aspirin EC 81 MG Oral Tablet Delayed Release 02/27/2020 - Provider: José Mcadams MD Diagnosis: Essential (primary) hypertension TAKE ONE TABLET BY MOUTH EVERY DAY Fenofibrate 145 MG Oral Tablet 02/19/2020 - 04/15/2020 Provi jey: José Mcadams MD Diagnosis: Mixed hyperlipidemia TAKE ONE TABLET BY MOUTH ONCE DAILY AT BEDTIME Clopidogrel Bisulfate 75 MG Oral Tablet 02/19/2020 - 020 Provider: José Mcadams MD Diagnosis: Chronic ischemic hea rt disease, unspecified TAKE ONE TABLET BY MOUTH EVERY DAY WITH ASPRIN Januvia 100 MG Oral Tablet 01/30/2020 - 04/15/2020 Provider: Felisa Sosa MD Diagnosis: HCC-Type 2 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 TAKE ONE TABLET BY MOUTH EVERY DAY Iron 325 (65 Fe) MG Oral Tablet 01/29/2020 - 04/15/2020 Prov ider: Felisa Sosa MD Diagnosis: Iron deficiency anem ia, unspecified TAKE ONE TABLET BY MOUTH TWICE A DAY PLEASE FILE UNTIL PT . NEEDS Drisdol 1.25 MG (88536 UT) Oral Capsule 01/29/2020 - 020 Provider: Felisa Sosa MD Diagnosis: Vitamin D deficiency , unspecified TAKE ONE CAPSULE BY MOUTH EVERY 2 WEEKS OneTouch Ultra Blue In Vitro Strip 12/24/2019 - 07/15/2020 P rovider: Felisa Sosa MD Diagnosis: HCC-Type 2 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 TEST ONCE DAILY dx code E11.9 Omeprazole 20 MG Oral Capsule Delayed Release 12/24/2019 - 0 02/19/2020 Provider: Felisa Sosa MD Diagnosis: Gastro-esophageal re flux disease with esophagitis TAKE ONE CAPSULE BY MOUTH EVERY MORNING PLEASE FILE UNTIL PT. 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 NEEDS Losartan Potassium 100 MG Oral Tablet 12/24/2019 - 0 Provider: Felisa Sosa MD Diagnosis: Essential (primary) hypertension 1 every day po PLEASE FILE UNTIL PT. NEEDS Iron 325 (65 Fe) MG Oral Tablet 12/24/2019 - 01/29/2020 Prov ider: Felisa Sosa MD Diagnosis: Iron deficiency anem ia, unspecified TAKE ONE TABLET BY MOUTH TWICE A DAY PLEASE FILE UNTIL PT . NEEDS Rosuvastatin Calcium 20 MG Oral Tablet 12/24/2019 - 03/26/20 20 Provider: Felisa Sosa MD Diagnosis: Mixed hyperlipidemia TAKE 1 TABLET BY MOUTH EVERY DAY PLEASE FILE UNTIL PT. 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 NE EDS hydroCHLOROthiazide 12.5 MG Oral Capsule 12/24/2019 - 2019 Provider: Felisa Sosa MD Diagnosis: Essential (primary) hypertension TAKE ONE CAPSULE BY MOUTH EVERY DAY Metoprolol Succinate ER 50 MG Oral Tablet Extended Rel ease 24 Hour 12/24/2019 - 03/26/2020 Provider: Felsia Sosa MD Diagnosis: Essential (primary) hypertension TAKE ONE TABLET BY MOUTH EVERY DAY PLEASE FILE UNTIL PT. NEEDS Colace 100 MG Oral Capsule 12/18/2019 - 03/26/2020 Provider: Felisa Sosa MD Diagnosis: Other constipation TAKE ONE CAPSULE BY MOUTH TWICE A DAY Allopurinol 100 MG Oral Tablet 12/18/2019 - 03/18/2020 Provi jey: Felisa Sosa MD Diagnosis: Gout, unspecified TAKE ONE TABLET BY MOUTH EVERY DAY hydroCHLOROthiazide 12.5 MG Oral Capsule 12/11/2019 - 2019 Provider: Felisa Sosa MD Diagnosis: Essential (primary) hypertension TAKE ONE CAPSULE BY MOUTH EVERY DAY Fenofibrate 145 MG Oral Tablet 12/10/2019 - 02/19/2020 Provi jey: Felisa Sosa MD Diagnosis: Mixed hyperlipidemia TAKE ONE TABLET BY MOUTH ONCE DAILY AT BEDTIME Clopidogrel Bisulfate 75 MG Oral Tablet 12/10/2019 - 020 Provider: Felisa Sosa MD Diagnosis: Chronic ischemic hea rt disease, unspecified TAKE ONE TABLET BY MOUTH EVERY DAY WITH ASPIRIN Januvia 100 MG Oral Tablet 11/05/2019 - 01/29/2020 Provider: José Mcadams MD Diagnosis: HCC-Type 2 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 TAKE ONE TABLET BY MOUTH EVERY DAY Omeprazole 20 MG Oral Capsule Delayed Release 09/24/2019 - 0 12/24/2019 Provider: José Mcadams MD Diagnosis: Gastro-esophageal re flux disease with esophagitis TAKE ONE CAPSULE BY MOUTH EVERY MORNING PLEASE FILE UNTIL PT. NEEDS Aspirin EC 81 MG Oral Tablet Delayed Release 09/24/2019 - Provider: José Mcadams MD Diagnosis: Essential (primary) hypertension TAKE 1 TABLET BY MOUTH EVERY DAY PLEASE FILE UNTIL PT. NE EDS Toprol XL 50 MG Oral Tablet Extended Release 24 Hour 020 - 12/24/2019 Provider: José Mcadams MD Diagnosis: Essential (primary) hypertension TAKE ONE TABLET BY MOUTH EVERY DAY PLEASE FILE UNTIL PT. NEEDS Losartan Potassium 100 MG Oral Tablet 09/24/2019 - 0 Provider: José Mcadams MD Diagnosis: Essential (primary) hypertension 1 every day po PLEASE FILE UNTIL PT. NEEDS Iron 325 (65 Fe) MG Oral Tablet 09/24/2019 - 12/24/2019 Prov ider: José Mcadams MD Diagnosis: Iron deficiency anem ia, unspecified TAKE ONE TABLET BY MOUTH TWICE A DAY PLEASE FILE UNTIL PT . NEEDS Crestor 20 MG Oral Tablet 09/24/2019 - 12/24/2019 Provider: José Mcadams MD Diagnosis: Mixed hyperlipidemia TAKE 1 TABLET BY MOUTH EVERY DAY PLEASE FILE UNTIL PT. 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 NEEDS hydroCHLOROthiazide 12.5 MG Oral Capsule 09/17/2019 - 2019 Provider: José Mcadams MD Diagnosis: Essential (primary) hypertension TAKE ONE CAPSULE BY MOUTH EVERY DAY Plavix 75 MG Oral Tablet 09/17/2019 - 12/10/2019 Provider: José Mcadams MD Diagnosis: Chronic ischemic hea rt disease, unspecified TAKE ONE TABLET BY MOUTH EVERY DAY WITH ASPIRIN Fenofibrate 145 MG Oral Tablet 09/13/2019 - 12/10/2019 Provi jey: Felisa Sosa MD Diagnosis: Mixed hyperlipidemia TAKE ONE TABLET BY MOUTH DAILY AT BEDTIME Drisdol 1.25 MG (14109 UT) Oral Capsule 09/11/2019 - 020 Provider: José Mcadams MD Diagnosis: Vitamin D deficiency , unspecified TAKE ONE CAPSULE BY MOUTH EVERY 2 WEEKS Omeprazole 20 MG Oral Capsule Delayed Release 09/03/2019 - 0 09/24/2019 Provider: José Mcadams MD Diagnosis: Gastro-esophageal re flux disease with esophagitis TAKE ONE CAPSULE BY MOUTH EVERY MORNING Januvia 100 MG Oral Tablet 08/07/2019 - 11/05/2019 Provider: José Mcadams MD Diagnosis: HCC-Type 2 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 TAKE ONE TABLET BY MOUTH EVERY DAY Crestor 20 MG Oral Tablet 06/12/2019 - 09/24/2019 Provider: José Mcadams MD Diagnosis: Mixed hyperlipidemia TAKE 1 TABLET BY MOUTH EVERY DAY Aspirin EC 81 MG Oral Tablet Delayed Release 06/12/2019 - Provider: José Mcadams MD Diagnosis: Essential (primary) hypertension TAKE 1 TABLET BY MOUTH EVERY DAY Allopurinol 100 MG Oral Tablet 06/12/2019 - 09/24/2019 Provi jey: José Mcadams MD Diagnosis: Gout, unspecified TAKE ONE TABLET BY MOUTH EVERY DAY OneTouch Ultra Blue In Vitro Strip 06/12/2019 - 12/24/2019 Geovanna early: José Mcadams MD Diagnosis: HCC-Type 2 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 TEST ONCE DAILY dx code E11.9 Plavix 75 MG Oral Tablet 06/12/2019 - 09/17/2019 Provider: José Mcadams MD Diagnosis: Chronic ischemic hea rt disease, unspecified TAKE ONE TABLET BY MOUTH EVERY DAY WITH ASPIRIN OneTouch UltraSoft Lancets Miscellaneous 06/12/2019 - 2019 Provider: José Mcadams MD 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 test QD, dx: E13.8 Toprol XL 50 MG Oral Tablet Extended Release 24 Hour 019 - 09/24/2019 Provider: José Mcadams MD Diagnosis: Essential (primary) hypertension TAKE ONE TABLET BY MOUTH EVERY DAY Drisdol [id number] UNIT Oral Capsule 06/12/2019 - 09/03/2019 Prov ider: José Mcadams MD Diagnosis: Vitamin D deficiency , unspecified TAKE ONE CAPSULE BY MOUTH EVERY 2 WEEKS Colace 100 MG Oral Capsule 06/12/2019 - 09/24/2019 Provider: José Mcadams MD Diagnosis: Constipation TAKE ONE CAPSULE BY MOUTH TWICE A DAY Omeprazole 20 MG Oral Capsule Delayed Release 06/12/2019 - 1 Provider: José Mcadams MD Diagnosis: Gastro-esophageal re flux disease with esophagitis TAKE ONE CAPSULE BY MOUTH EVERY MORNING hydroCHLOROthiazide 12.5 MG Oral Capsule 06/12/2019 - 2019 Provider: José Mcadams MD Diagnosis: Essential (primary) hypertension TAKE ONE CAPSULE BY MOUTH EVERY DAY Iron 325 (65 Fe) MG Oral Tablet 06/12/2019 - 09/24/2019 Prov ider: José Mcadams MD Diagnosis: Iron deficiency anem ia, unspecified TAKE ONE TABLET BY MOUTH TWICE A DAY Losartan Potassium 100 MG Oral Tablet 06/12/2019 - 0 Provider: José Mcadams MD Diagnosis: Essential (primary) hypertension 1 every day po metFORMIN HCl 1000 MG Oral Tablet 06/12/2019 - 09/24/2019 Pr ovider: José Mcadams MD 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 TAKE ONE TABLET BY MOUTH TWICE A DAY Fenofibrate 145 MG Oral Tablet 06/12/2019 - 09/13/2019 Provi jey: José Mcadams MD Diagnosis: Mixed hyperlipidemia TAKE ONE TABLET BY MOUTH AT BEDTIME Drisdol [id number] UNIT Oral Capsule 05/22/2019 - 06/12/2019 Prov ider: José Mcadams MD Diagnosis: Vitamin D deficiency , unspecified TAKE ONE CAPSULE BY MOUTH EVERY 2 WEEKS Januvia 100MG Oral Tablet 05/08/2019 - 08/07/2019 Provider: José Mcadams MD Diagnosis: HCC-Type 2 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 TAKE ONE TABLET BY MOUTH EVERY DAY Omeprazole 20MG Oral Capsule Delayed Release 04/24/2019 - Provider: José Mcadams MD Diagnosis: Gastro-esophageal re flux disease with esophagitis TAKE ONE CAPSULE BY MOUTH EVERY MORNING Iron 325 (65 Fe)MG Oral Tablet 04/17/2019 - 06/12/2019 Provi jey: José Mcadams MD Diagnosis: Iron deficiency anem ia, unspecified TAKE ONE TABLET BY MOUTH TWICE A DAY Toprol XL 50MG Oral Tablet Extended Release 24 Hour 04/02/20 - 06/12/2019 Provider: José Mcadams MD Diagnosis: Essential (primary) hypertension TAKE ONE TABLET BY MOUTH EVERY DAY Plavix 75MG Oral Tablet 04/02/2019 - 06/12/2019 Provider: José Mcadams MD Diagnosis: Chronic ischemic hea rt disease, unspecified TAKE ONE TABLET BY MOUTH EVERY DAY WITH ASPIRIN hydroCHLOROthiazide 12.5MG Oral Capsule 04/02/2019 - 019 Provider: José Mcadams MD Diagnosis: Essential (primary) hypertension TAKE ONE CAPSULE BY MOUTH EVERY DAY metFORMIN HCl 1000MG Oral Tablet 03/20/2019 - 06/12/2019 Pro vider: José Mcadams MD 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 TAKE ONE TABLET BY MOUTH TWICE A DAY OneTouch Ultra 2 w/Device Kit 03/13/2019 - 06/12/2019 Provid er: José Mcadams MD 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 test qd, dx : E13.8 Fenofibrate 145MG Oral Tablet 03/13/2019 - 06/12/2019 Provid er: José Mcadams MD Diagnosis: Mixed hyperlipidemia TAKE ONE TABLET BY MOUTH AT BEDTIME Colace 100MG Oral Capsule 03/13/2019 - 06/12/2019 Provider: José Mcadams MD Diagnosis: Constipation TAKE ONE CAPSULE BY MOUTH TWICE A DAY Drisdol [id number] Oral Capsule 03/13/2019 - 05/22/2019 Provi jey: José Mcadams MD Diagnosis: Vitamin D deficiency , unspecified TAKE ONE CAPSULE BY MOUTH EVERY 2 WEEKS Crestor 20MG Oral Tablet 03/13/2019 - 06/12/2019 Provider: José Mcadams MD Diagnosis: Mixed hyperlipidemia TAKE 1 TABLET BY MOUTH EVERY DAY Allopurinol 100MG Oral Tablet 03/13/2019 - 06/12/2019 Provid er: José Mcadams MD Diagnosis: Gout, unspecified TAKE ONE TABLET BY MOUTH EVERY DAY Aspirin EC 81MG Oral Tablet Delayed Release 03/13/2019 - 04/2019 Provider: José Mcadams MD Diagnosis: Essential (primary) hypertension TAKE 1 TABLET BY MOUTH EVERY DAY Iron 325 (65 Fe)MG Oral Tablet 12/19/2018 - 04/17/2019 Provi jey: José Mcadams MD Diagnosis: Iron deficiency anem ia, unspecified TAKE ONE TABLET BY MOUTH TWICE A DAY Toprol XL 50MG Oral Tablet, extended-release 24 hour 019 - 03/13/2019 Provider: José Mcadams MD Diagnosis: Essential (primary) hypertension TAKE ONE TABLET BY MOUTH EVERY DAY hydroCHLOROthiazide 12.5MG Oral Capsule, conventional 2018 - 03/13/2019 Provider: José Mcadams MD Diagnosis: Essential (primary) hypertension TAKE ONE CAPSULE BY MOUTH EVERY DAY Fenofibrate 145MG Oral Tablet 12/19/2018 - 03/13/2019 Provid er: José Mcadams MD Diagnosis: Mixed hyperlipidemia TAKE ONE TABLET BY MOUTH AT BEDTIME Plavix 75MG Oral Tablet 12/19/2018 - 03/13/2019 Provider: José Mcadams MD Diagnosis: Chronic ischemic hea rt disease, unspecified TAKE ONE TABLET BY MOUTH EVERY DAY WITH ASPIRIN Betamethasone Dipropionate 0.05% External Cream 12/14/2018 - 06/12/2019 Provider: Sunshine Liu Diagnosis: Other psoriasis apply to affected area(s) twice/day as needed Colace 100MG Oral Capsule, conventional 12/14/2018 - 019 Provider: Sunshine Liu Diagnosis: Constipation TAKE ONE CAPSULE BY MOUTH TWICE A DAY hydroCHLOROthiazide 12.5MG Oral Capsule, conventional 2018 - 12/19/2018 Provider: Sunshine Liu Diagnosis: Essential (primary) hypertension TAKE ONE CAPSULE BY MOUTH EVERY DAY Drisdol [id number] Oral Capsule, conventional 12/14/2018 - Provider: Sunshine HartmanP Diagnosis: Vitamin D deficiency , unspecified TAKE ONE CAPSULE BY MOUTH EVERY 2 WEEKS Plavix 75MG Oral Tablet 12/14/2018 - 12/19/2018 Provider: Sunshine Liu Diagnosis: Chronic ischemic hea rt disease, unspecified TAKE ONE TABLET BY MOUTH EVERY DAY WITH ASPIRIN Crestor 20MG Oral Tablet 12/14/2018 - 03/13/2019 Provider: Sunshine Liu Diagnosis: Mixed hyperlipidemia TAKE 1 TABLET BY MOUTH EVERY DAY Allopurinol 100MG Oral Tablet 12/14/2018 - 03/13/2019 Provid er: Sunshine Liu Diagnosis: Gout, unspecified TAKE ONE TABLET BY MOUTH EVERY DAY Iron 325 (65 Fe)MG Oral Tablet 12/14/2018 - 12/19/2018 Provi jey: Sunshine Liu Diagnosis: Iron deficiency anem ia, unspecified TAKE ONE TABLET BY MOUTH TWICE A DAY Aspirin EC 81MG Oral Tablet, enteric coated 12/14/2018 - 05/2019 Provider: Sunshine Liu Diagnosis: Essential (primary) hypertension TAKE 1 TABLET BY MOUTH EVERY DAY Losartan Potassium 100MG Oral Tablet 12/14/2018 - 06/12/2019 Provider: Sunshine Liu Diagnosis: Essential (primary) hypertension 1 every day po Toprol XL 50MG Oral Tablet, extended-release 24 hour 019 - 12/19/2018 Provider: Sunshine Liu Diagnosis: Essential (primary) hypertension TAKE ONE TABLET BY MOUTH EVERY DAY Fenofibrate 145MG Oral Tablet 12/14/2018 - 12/19/2018 Provid er: Sunshine Liu Diagnosis: Mixed hyperlipidemia TAKE ONE TABLET BY MOUTH AT BEDTIME Omeprazole 20MG Oral Capsule, delayed-release 12/08/2018 - 0 04/24/2019 Provider: Sunshine Liu Diagnosis: Gastro-esophageal re flux disease with esophagitis TAKE ONE CAPSULE BY MOUTH EVERY MORNING metFORMIN HCl 1000MG Oral Tablet 12/04/2018 - 03/20/2019 Pro vider: José Mcadams MD 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 TAKE ONE TABLET BY MOUTH TWICE A DAY Januvia 100MG Oral Tablet 11/14/2018 - 05/08/2019 Provider: José Mcadams MD Diagnosis: HCC-Type 2 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 1 every day Januvia 100MG Oral Tablet 09/19/2018 - 11/14/2018 Provider: José Mcadams MD Diagnosis: HCC-Type 2 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 1 every day Iron 325 (65 Fe)MG Oral Tablet 09/19/2018 - 12/14/2018 Provi jey: José Mcadams MD Diagnosis: Iron deficiency anem ia, unspecified TAKE ONE TABLET BY MOUTH TWICE A DAY Crestor 20MG Oral Tablet 09/19/2018 - 12/14/2018 Provider: José Mcadams MD Diagnosis: Mixed hyperlipidemia TAKE 1 TABLET BY MOUTH EVERY DAY Betamethasone Dipropionate 0.05% External Cream 09/19/2018 - 12/14/2018 Provider: José Mcadams MD Diagnosis: Other psoriasis apply to affected area(s) twice/day as needed Azopt 1% Ophthalmic Suspension 09/19/2018 - 12/24/2019 Provi jey: Diagnosis: Aspirin EC 81MG Oral Tablet, enteric coated 09/19/2018 - 07/2019 Provider: José Mcadams MD Diagnosis: Essential (primary) hypertension TAKE 1 TABLET BY MOUTH EVERY DAY Losartan Potassium 100MG Oral Tablet 09/19/2018 - 12/14/2018 Provider: José Mcadams MD Diagnosis: Essential (primary) hypertension 1 every day po OneTouch Ultra Blue In Vitro Strip 09/19/2018 - 06/12/2019 P rovider: José Mcadams MD Diagnosis: HCC-Type 2 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 TEST ONCE DAILY dx code E11.9REVIEWED DID NOT FILL OneTouch UltraSoft Lancets Miscellaneous (not specifie d) 09/19/2018 - 06/12/2019 Provider: José Mcadams MD 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 test QD, dx: E13.8 Travatan Z 0.004% Ophthalmic Solution 09/19/2018 - 0 Provider: Diagnosis: Alphagan P 0.15% Ophthalmic Solution 09/19/2018 - 12/24/2019 Provider: Diagnosis: Omeprazole 20MG Oral Capsule, delayed-release 09/15/2018 - 0 12/08/2018 Provider: Sunshine A Jey MANAGER RE[employer]UITMENT Diagnosis: Gastro-esophageal re flux disease with esophagitis TAKE ONE CAPSULE BY MOUTH EVERY MORNING Colace 100MG Oral Capsule, conventional 09/13/2018 - 019 Provider: Sunshine HartmanP Diagnosis: Constipation TAKE ONE CAPSULE BY MOUTH TWICE A DAY MetFORMIN HCl 1000MG Oral Tablet 09/13/2018 - 11/14/2018 Pro vider: Sunshine HartmanP 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 TAKE ONE TABLET BY MOUTH TWICE A DAY Drisdol [id number] Oral Capsule, conventional 09/12/2018 - Provider: José Mcadams MD Diagnosis: Vitamin D deficiency , unspecified TAKE ONE CAPSULE BY MOUTH EVERY 2 WEEKS Allopurinol 100MG Oral Tablet 09/12/2018 - 12/14/2018 Provid er: José Mcadams MD Diagnosis: Gout, unspecified TAKE ONE TABLET BY MOUTH EVERY DAY Fenofibrate 145MG Oral Tablet 09/08/2018 - 12/14/2018 Provid er: Sunshine Liu Diagnosis: Mixed hyperlipidemia TAKE ONE TABLET BY MOUTH AT BEDTIME Toprol XL 50MG Oral Tablet Extended Release 24 Hour 09/08/19 - 12/14/2018 Provider: Sunshine Liu Diagnosis: Essential (primary) hypertension TAKE ONE TABLET BY MOUTH EVERY DAY Plavix 75MG Oral Tablet 09/08/2018 - 12/14/2018 Provider: José Mcadams MD Diagnosis: Chronic ischemic hea rt disease, unspecified TAKE ONE TABLET BY MOUTH EVERY DAY WITH ASPIRIN HydroCHLOROthiazide 12.5MG Oral Capsule 09/08/2018 - 019 Provider: Sunshine Liu Diagnosis: Essential (primary) hypertension TAKE ONE CAPSULE BY MOUTH EVERY DAY Aspirin EC 81MG Oral Tablet Delayed Release 08/31/2018 - Provider: José Mcadams MD Diagnosis: Essential (primary) hypertension TAKE 1 TABLET BY MOUTH EVERY DAY Losartan Potassium 100MG Oral Tablet 06/20/2018 - 09/19/2018 Provider: José Mcadams MD Diagnosis: Essential (primary) hypertension 1 every day po Plavix 75MG Oral Tablet 06/13/2018 - 09/08/2018 Provider: José Mcadams MD Diagnosis: Chronic ischemic hea rt disease, unspecified TAKE ONE TABLET BY MOUTH EVERY DAY WITH ASPIRIN MetFORMIN HCl 1000MG Oral Tablet 06/13/2018 - 09/13/2018 Pro vider: José Mcadams MD 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 TAKE ONE TABLET BY MOUTH TWICE A DAY Toprol XL 50MG Oral Tablet, extended-release 24 hour 018 - 09/08/2018 Provider: José Mcadams MD Diagnosis: Essential (primary) hypertension TAKE ONE TABLET BY MOUTH EVERY DAY Drisdol [id number] Oral Capsule, conventional 06/13/2018 - Provider: José Mcadams MD Diagnosis: Vitamin D deficiency , unspecified TAKE ONE CAPSULE BY MOUTH EVERY 2 WEEKS Colace 100MG Oral Capsule, conventional 06/13/2018 - 019 Provider: José Mcadams MD Diagnosis: Constipation TAKE ONE CAPSULE BY MOUTH TWICE A DAY Fenofibrate 145MG Oral Tablet 06/13/2018 - 09/08/2018 Provid er: José Mcadams MD Diagnosis: Mixed hyperlipidemia TAKE ONE TABLET BY MOUTH AT BEDTIME OneTouch UltraSoft Lancets Miscellaneous (not specifie d) 06/13/2018 - 09/19/2018 Provider: José Mcadams MD 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 test QD, dx: E13.8 OneTouch Ultra Blue In Vitro Strip 06/13/2018 - 09/19/2018 Geovanna rovider: José Mcadams MD Diagnosis: HCC-Type 2 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 TEST ONCE DAILY dx code E11.9 Losartan Potassium 100MG Oral Tablet 06/13/2018 - 06/20/2018 Provider: José Mcadams MD Diagnosis: Essential (primary) hypertension 1 every day po Januvia 100MG Oral Tablet 06/13/2018 - 09/19/2018 Provider: José Mcadams MD Diagnosis: HCC-Type 2 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 1 every day Omeprazole 20MG Oral Capsule, delayed-release 06/13/2018 - 0 09/13/2018 Provider: José Mcadams MD Diagnosis: Gastro-esophageal re flux disease with esophagitis TAKE ONE CAPSULE BY MOUTH EVERY MORNING Iron 325 (65 Fe)MG Oral Tablet 06/13/2018 - 09/19/2018 Provi jey: José Mcadams MD Diagnosis: Iron deficiency anem ia, unspecified TAKE ONE TABLET BY MOUTH TWICE A DAY HydroCHLOROthiazide 12.5MG Oral Capsule, conventional 2017 - 09/08/2018 Provider: José Mcadams MD Diagnosis: Essential (primary) hypertension TAKE ONE CAPSULE BY MOUTH EVERY DAY Crestor 20MG Oral Tablet 06/13/2018 - 09/19/2018 Provider: José Mcadams MD Diagnosis: Mixed hyperlipidemia TAKE 1 TABLET BY MOUTH EVERY DAY Aspirin EC 81MG Oral Tablet, enteric coated 06/13/2018 - Provider: José Mcadams MD Diagnosis: Essential (primary) hypertension TAKE 1 TABLET BY MOUTH EVERY DAY Allopurinol 100MG Oral Tablet 06/13/2018 - 09/12/2018 Provid er: José Mcadams MD Diagnosis: Gout, unspecified 1 every day po Losartan Potassium 100MG Oral Tablet 03/22/2018 - 06/13/2018 Provider: José Mcadams MD Diagnosis: Essential (primary) hypertension 1 every day po Januvia 100MG Oral Tablet 03/21/2018 - 06/13/2018 Provider: José Mcadams MD Diagnosis: HCC-Type 2 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 1 every day; cancel 50 mg. Januvia Rx, lmm Iron 325 (65 Fe)MG Oral Tablet 03/21/2018 - 06/13/2018 Provi jey: José cMadams MD Diagnosis: Iron deficiency anem ia, unspecified TAKE ONE TABLET BY MOUTH TWICE A DAY Colace 100MG Oral Capsule 03/21/2018 - 06/13/2018 Provider: José Mcadams MD Diagnosis: Constipation TAKE ONE CAPSULE BY MOUTH TWICE A DAY Aspirin EC 81MG Oral Tablet Delayed Release 03/21/2018 - 05/2018 Provider: José Mcadams MD Diagnosis: Essential (primary) hypertension TAKE 1 TABLET BY MOUTH EVERY DAY Allopurinol 100MG Oral Tablet 03/21/2018 - 06/13/2018 Provid er: José Mcadams MD Diagnosis: Gout, unspecified 1 every day po Omeprazole 20MG Oral Capsule Delayed Release 03/21/2018 - Provider: José Mcadams MD Diagnosis: Gastro-esophageal re flux disease with esophagitis TAKE ONE CAPSULE BY MOUTH EVERY MORNING Drisdol [id number] Oral Capsule 03/21/2018 - 06/13/2018 Provi jey: José Mcadams MD Diagnosis: Vitamin D deficiency , unspecified TAKE ONE CAPSULE BY MOUTH EVERY 2 WEEKS Diovan 160MG Oral Tablet 03/21/2018 - 03/22/2018 Provider: José Mcadams MD Diagnosis: Essential (primary) hypertension TAKE 1 TABLET BY MOUTH EVERY DAY Crestor 20MG Oral Tablet 03/21/2018 - 06/13/2018 Provider: José Mcadams MD Diagnosis: Mixed hyperlipidemia TAKE 1 TABLET BY MOUTH EVERY DAY HydroCHLOROthiazide 12.5MG Oral Capsule 03/20/2018 - 018 Provider: José Mcadams MD Diagnosis: Essential (primary) hypertension TAKE ONE CAPSULE BY MOUTH EVERY DAY Betamethasone Dipropionate 0.05% External Cream 03/14/2018 - 09/19/2018 Provider: José Mcadams MD Diagnosis: Other psoriasis apply to affected area(s) twice/day as needed Toprol XL 50MG Oral Tablet Extended Release 24 Hour 03/14/20 - 06/13/2018 Provider: José Mcadams MD Diagnosis: Essential (primary) hypertension TAKE ONE TABLET BY MOUTH EVERY DAY MetFORMIN HCl 1000MG Oral Tablet 03/14/2018 - 06/13/2018 Pro vider: José Mcadams MD 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 TAKE ONE TABLET BY MOUTH TWICE A DAY Plavix 75MG Oral Tablet 03/14/2018 - 06/13/2018 Provider: José Mcadams MD Diagnosis: Chronic ischemic hea rt disease, unspecified TAKE ONE TABLET BY MOUTH EVERY DAY WITH ASPIRIN Fenofibrate 145MG Oral Tablet 03/14/2018 - 06/13/2018 Provid er: José Mcadams MD Diagnosis: Mixed hyperlipidemia TAKE ONE TABLET BY MOUTH AT BEDTIME Allopurinol 100MG Oral Tablet 12/20/2017 - 03/21/2018 Provid er: José Mcadams MD Diagnosis: Gout, unspecified 1 every day po Toprol XL 50MG Oral Tablet Extended Release 24 Hour 12/21/19 - 03/14/2018 Provider: José Mcadams MD Diagnosis: Essential (primary) hypertension TAKE ONE TABLET BY MOUTH EVERY DAY Colace 100MG Oral Capsule 12/20/2017 - 03/21/2018 Provider: José Mcadams MD Diagnosis: Constipation TAKE ONE CAPSULE BY MOUTH TWICE A DAY Betamethasone Dipropionate 0.05% External Cream 12/20/2017 - 03/14/2018 Provider: José Mcadams MD Diagnosis: Other psoriasis apply to affected area(s) twice/day as needed Fenofibrate 145MG Oral Tablet 12/20/2017 - 03/14/2018 Provid er: José Mcadams MD Diagnosis: Mixed hyperlipidemia TAKE ONE TABLET BY MOUTH AT BEDTIME Crestor 20MG Oral Tablet 12/20/2017 - 03/21/2018 Provider: José Mcadams MD Diagnosis: Mixed hyperlipidemia TAKE 1 TABLET BY MOUTH EVERY DAY OneTouch Ultra Blue In Vitro Strip 12/20/2017 - 06/13/2018 Geovanna early: José Mcadams MD Diagnosis: HCC-Type 2 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 TEST ONCE DAILY dx code E11.9 OneTouch UltraSoft Lancets Miscellaneous 12/20/2017 - 2017 Provider: José Mcadams MD 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 TAKE ONE TABLET BY MOUTH TWICE A DAY HydroCHLOROthiazide 12.5MG Oral Capsule 12/20/2017 - 018 Provider: José Mcadams MD Diagnosis: Essential (primary) hypertension TAKE ONE CAPSULE BY MOUTH EVERY DAY Omeprazole 20MG Oral Capsule Delayed Release 12/20/2017 - Provider: José Mcadams MD Diagnosis: Gastro-esophageal re flux disease with esophagitis TAKE ONE CAPSULE BY MOUTH EVERY MORNING Plavix 75MG Oral Tablet 12/20/2017 - 03/14/2018 Provider: José Mcadams MD Diagnosis: Chronic ischemic hea rt disease, unspecified TAKE ONE TABLET BY MOUTH EVERY DAY WITH ASPIRIN Iron 325 (65 Fe)MG Oral Tablet 12/20/2017 - 03/21/2018 Provi jey: José Mcadams MD Diagnosis: Iron deficiency anem ia, unspecified TAKE ONE TABLET BY MOUTH TWICE A DAY Drisdol [id number] Oral Capsule 12/20/2017 - 03/21/2018 Provi jey: José Mcadams MD Diagnosis: Vitamin D deficiency , unspecified TAKE ONE CAPSULE BY MOUTH EVERY 2 WEEKS Diovan 160MG Oral Tablet 12/20/2017 - 03/21/2018 Provider: José Mcadams MD Diagnosis: Essential (primary) hypertension TAKE 1 TABLET BY MOUTH EVERY DAY Aspirin EC 81MG Oral Tablet Delayed Release 12/20/2017 - Provider: José Mcadams MD Diagnosis: Essential (primary) hypertension TAKE 1 TABLET BY MOUTH EVERY DAY Colace 100MG Oral Capsule, conventional 11/22/2017 - 018 Provider: Sunshine Liu Diagnosis: Constipation TAKE ONE CAPSULE BY MOUTH TWICE A DAY Allopurinol 100MG Oral Tablet 09/20/2017 - 12/20/2017 Provid er: José Mcadams MD Diagnosis: Gout, unspecified 1 every day Iron 325 (65 Fe)MG Oral Tablet 09/20/2017 - 12/20/2017 Provi jey: José Mcadams MD Diagnosis: Iron deficiency anem ia, unspecified TAKE ONE TABLET BY MOUTH TWICE A DAY Fenofibrate 145MG Oral Tablet 09/20/2017 - 12/20/2017 Provid er: José Mcadams MD Diagnosis: Mixed hyperlipidemia TAKE ONE TABLET BY MOUTH AT BEDTIME Aspirin EC 81MG Oral Tablet Delayed Release 09/20/2017 - Provider: José Mcadams MD Diagnosis: Essential (primary) hypertension TAKE 1 TABLET BY MOUTH EVERY DAY Alphagan P 0.15% Ophthalmic Solution 09/20/2017 - 09/19/2018 Provider: Diagnosis: Betamethasone Dipropionate 0.05% External Cream 09/20/2017 - 12/20/2017 Provider: José Mcadams MD Diagnosis: Other psoriasis apply to affected area(s) twice/day as needed Crestor 20MG Oral Tablet 09/20/2017 - 12/20/2017 Provider: José Mcadams MD Diagnosis: Mixed hyperlipidemia TAKE 1 TABLET BY MOUTH EVERY DAY Diovan 160MG Oral Tablet 09/20/2017 - 12/20/2017 Provider: José Mcadams MD Diagnosis: Essential (primary) hypertension TAKE 1 TABLET BY MOUTH EVERY DAY Januvia 100MG Oral Tablet 09/20/2017 - 12/20/2017 Provider: José Mcadams MD Diagnosis: HCC-Type 2 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 1 every day; cancel 50 mg. 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 TAKE ONE TABLET BY MOUTH TWICE A DAY Omeprazole 20MG Oral Capsule Delayed Release 09/20/2017 - Provider: José Mcadams MD Diagnosis: Gastro-esophageal re flux disease with esophagitis TAKE ONE CAPSULE BY MOUTH EVERY MORNING OneTouch UltraSoft Lancets Miscellaneous 09/20/2017 - 2017 Provider: José Mcadams MD 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 test QD, dx: E13.8 Plavix 75MG Oral Tablet 09/20/2017 - 12/20/2017 Provider: José Mcadams MD Diagnosis: Chronic ischemic hea rt disease, unspecified TAKE ONE TABLET BY MOUTH EVERY DAY WITH ASPIRIN Travatan Z 0.004% Ophthalmic Solution 09/20/2017 - 9 Provider: Diagnosis: Toprol XL 50MG Oral Tablet Extended Release 24 Hour 09/20/19 - 12/20/2017 Provider: José Mcadams MD Diagnosis: Essential (primary) hypertension TAKE ONE TABLET BY MOUTH EVERY DAY Azopt 1% Ophthalmic Suspension 09/20/2017 - 09/19/2018 Provi jey: Diagnosis: EQL Fish Oil 1000MG Oral Capsule 09/20/2017 - 09/19/2018 Pro vider: Diagnosis: 3qd Garlic 1000MG Oral Capsule 09/20/2017 - 09/19/2018 Provider: Diagnosis: One-A-Day Mens Oral Tablet 09/20/2017 - 09/19/2018 Provider: Diagnosis: qd Iron 325 (65 Fe)MG Oral Tablet 09/14/2017 - 09/20/2017 Provi jey: José Mcadams MD Diagnosis: Iron deficiency anem ia, unspecified TAKE ONE TABLET BY MOUTH TWICE A DAY OneTouch Ultra Blue In Vitro Strip 09/06/2017 - 12/20/2017 Geovanna rovider: José Mcadams MD Diagnosis: HCC-Type 2 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 TEST ONCE DAILY dx code E11.9 Colace 100MG Oral Capsule 08/24/2017 - 11/22/2017 Provider: Sunshine Liu Diagnosis: Constipation, unspec ified TAKE 1 CAPSULE BY MOUTH TWO TIMES A DAY Crestor 20MG Oral Tablet 08/16/2017 - 09/20/2017 Provider: José Mcadams MD Diagnosis: Mixed hyperlipidemia TAKE 1 TABLET BY MOUTH EVERY DAY Diovan 160MG Oral Tablet 08/16/2017 - 09/20/2017 Provider: José Mcadams MD Diagnosis: Essential (primary) hypertension TAKE 1 TABLET BY MOUTH EVERY DAY Aspirin EC 81MG Oral Tablet Delayed Release 08/09/2017 - Provider: José Mcadams MD Diagnosis: Essential (primary) hypertension TAKE 1 TABLET BY MOUTH EVERY DAY Fenofibrate 145MG Oral Tablet 05/31/2017 - 09/20/2017 Provid er: José Mcadams MD Diagnosis: Mixed hyperlipidemia TAKE ONE TABLET BY MOUTH AT BEDTIME OneTouch UltraSoft Lancets Miscellaneous 05/31/2017 - 2017 Provider: José Mcadams MD 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 Januvia Rx, lmm Betamethasone Dipropionate 0.05% External Cream 05/31/2017 - 09/20/2017 Provider: José Mcadams MD Diagnosis: Other psoriasis apply to affected area(s) twice/day as needed Iron 325 (65 Fe)MG Oral Tablet 05/31/2017 - 09/06/2017 Provi jey: José Mcadams MD Diagnosis: Iron deficiency anem ia, unspecified TAKE ONE TABLET BY MOUTH TWICE A DAY HydroCHLOROthiazide 12.5MG Oral Capsule 05/31/2017 - 018 Provider: José Mcadams MD Diagnosis: Essential (primary) hypertension TAKE ONE CAPSULE BY MOUTH EVERY DAY Plavix 75MG Oral Tablet 05/31/2017 - 09/20/2017 Provider: José Mcadams MD Diagnosis: Chronic ischemic hea rt disease, unspecified TAKE ONE TABLET BY MOUTH EVERY DAY WITH ASPIRIN Allopurinol 100MG Oral Tablet 05/31/2017 - 09/20/2017 Provid er: José Mcadams MD Diagnosis: Gout, unspecified 1 every day Drisdol [id number] Oral Capsule 05/31/2017 - 09/20/2017 Provi jey: José Mcadams MD Diagnosis: Vitamin D deficiency , unspecified TAKE ONE CAPSULE BY MOUTH EVERY 2 WEEKS Toprol XL 50MG Oral Tablet Extended Release 24 Hour 05/31/20 - 09/20/2017 Provider: José Mcadams MD Diagnosis: Essential (primary) hypertension TAKE ONE TABLET BY MOUTH EVERY DAY Omeprazole 20MG Oral Capsule Delayed Release 05/31/2017 - Provider: José Mcadams MD Diagnosis: Gastro-esophageal re flux disease with esophagitis TAKE ONE CAPSULE BY MOUTH EVERY MORNING MetFORMIN HCl 1000MG Oral Tablet 05/31/2017 - 09/20/2017 Pro vider: José Mcadams MD 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 TAKE ONE TABLET BY MOUTH TWICE A DAY Fenofibrate 145MG Oral Tablet 05/24/2017 - 05/31/2017 Provid er: José Mcadams MD Diagnosis: Mixed hyperlipidemia TAKE ONE TABLET BY MOUTH AT BEDTIME Diovan 160MG Oral Tablet 05/17/2017 - 08/09/2017 Provider: Sunshine Liu Diagnosis: Essential (primary) hypertension TAKE 1 TABLET BY MOUTH EVERY DAY Colace 100MG Oral Capsule 05/17/2017 - 08/24/2017 Provider: Sunshine Liu Diagnosis: Constipation, unspec ified TAKE 1 CAPSULE BY MOUTH TWO TIMES A DAY Crestor 20MG Oral Tablet 05/17/2017 - 08/09/2017 Provider: José Mcadams MD Diagnosis: Mixed hyperlipidemia TAKE 1 TABLET BY MOUTH EVERY DAY Aspirin EC 81MG Oral Tablet Delayed Release 05/10/2017 - 01/2017 Provider: Sunshine Liu Diagnosis: Essential (primary) hypertension TAKE 1 TABLET BY MOUTH EVERY DAY OneTouch Ultra Blue In Vitro Strip 03/01/2017 - 09/06/2017 Geovanna rovider: José Mcadams MD Diagnosis: HCC-Type 2 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 TEST ONCE DAILY Plavix 75MG Oral Tablet 03/01/2017 - 05/31/2017 Provider: José Mcadams MD Diagnosis: Chronic ischemic hea rt disease, unspecified TAKE ONE TABLET BY MOUTH EVERY DAY WITH ASPIRIN Toprol XL 50MG Oral Tablet, extended-release 24 hour - 05/31/2017 Provider: José Mcadams MD Diagnosis: Essential (primary) hypertension TAKE ONE TABLET BY MOUTH EVERY DAY MetFORMIN HCl 1000MG Oral Tablet 03/01/2017 - 05/31/2017 Pro vider: José Mcadams MD 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 Januvia Rx, lmm Betamethasone Dipropionate 0.05% External Cream 03/01/2017 - 05/31/2017 Provider: José Mcadams MD Diagnosis: Other psoriasis apply to affected area(s) twice/day as needed Fenofibrate 145MG Oral Tablet 03/01/2017 - 05/17/2017 Provid er: José Mcadams MD Diagnosis: Mixed hyperlipidemia TAKE ONE TABLET BY MOUTH AT BEDTIME Iron 325 (65 Fe)MG Oral Tablet 03/01/2017 - 05/31/2017 Provi jey: José Mcadams MD Diagnosis: Iron deficiency anem ia, unspecified TAKE ONE TABLET BY MOUTH TWICE A DAY HydroCHLOROthiazide 12.5MG Oral Capsule, conventional 2016 - 05/31/2017 Provider: José Mcadams MD Diagnosis: Essential (primary) hypertension TAKE ONE CAPSULE BY MOUTH EVERY DAY Drisdol [id number] Oral Capsule 02/21/2017 - 05/31/2017 Provi jey: Sunshine Liu Diagnosis: Vitamin D deficiency , unspecified TAKE ONE CAPSULE BY MOUTH EVERY 2 WEEKS Diovan 160MG Oral Tablet 02/21/2017 - 05/17/2017 Provider: Sunshine Liu Diagnosis: Essential (primary) hypertension TAKE ONE TABLET BY MOUTH EVERY DAY Crestor 20MG Oral Tablet 02/21/2017 - 05/17/2017 Provider: Sunshine Liu Diagnosis: Mixed hyperlipidemia TAKE 1 TABLET BY MOUTH EVERY DAY Colace 100MG Oral Capsule 02/21/2017 - 05/17/2017 Provider: Sunshine Liu Diagnosis: Other constipation 1 tab twice a day Aspirin EC 81MG Oral Tablet Delayed Release 02/21/2017 - 01/2017 Provider: Sunshine Liu Diagnosis: Mixed hyperlipidemia TAKE ONE TABLET BY MOUTH EVERY DAY Allopurinol 100MG Oral Tablet 02/21/2017 - 05/31/2017 Provid er: Sunshine Liu Diagnosis: Gout, unspecified 1 every day Omeprazole 20MG Oral Capsule, delayed-release 02/02/2017 - 0 05/31/2017 Provider: Sunshine Liu Diagnosis: Gastro-esophageal re flux disease with esophagitis TAKE ONE CAPSULE BY MOUTH EVERY MORNING Betamethasone Dipropionate 0.05% External Cream 12/02/2016 - 03/01/2017 Provider: Sunshine Liu Diagnosis: Other psoriasis apply to affected area(s) twice/day as needed Omeprazole 20MG Oral Capsule, delayed-release 12/02/2016 - 0 02/02/2017 Provider: Sunshine Liu Diagnosis: Gastro-esophageal re flux disease with esophagitis TAKE ONE CAPSULE BY MOUTH EVERY MORNING Iron 325 (65 Fe)MG Oral Tablet 12/02/2016 - 03/01/2017 Provi jey: Sunshine HartmanP Diagnosis: Iron deficiency anem ia, unspecified TAKE ONE TABLET BY MOUTH TWICE A DAY Januvia 50MG Oral Tablet 12/02/2016 - 03/01/2017 Provider: Sunshine Liu Diagnosis: HCC-Type 2 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 TAKE ONE TABLET BY MOUTH EVERY DAY HydroCHLOROthiazide 12.5MG Oral Capsule, conventional 2016 - 03/01/2017 Provider: Sunshine Liu Diagnosis: Essential (primary) hypertension TAKE ONE CAPSULE BY MOUTH EVERY DAY Fenofibrate 145MG Oral Tablet 12/02/2016 - 03/01/2017 Provid er: Sunshine Liu Diagnosis: Hyperlipidemia, unsp ecified TAKE ONE TABLET BY MOUTH AT BEDTIME Drisdol [id number] Oral Capsule, conventional 12/02/2016 - Provider: Sunshine HartmanP Diagnosis: Vitamin D deficiency , unspecified TAKE ONE CAPSULE BY MOUTH EVERY 2 WEEKSREVIEWED BUT NOT DISP ENSED Diovan 160MG Oral Tablet 12/02/2016 - 02/21/2017 Provider: Sunshine Liu Diagnosis: Essential (primary) hypertension TAKE ONE TABLET BY MOUTH EVERY DAYREVIEWED BUT NOT DISPENSED MetFORMIN HCl 1000MG Oral Tablet 12/02/2016 - 03/01/2017 Pro vider: Sunshine HartmanP 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 TAKE ONE TABLET BY MOUTH TWICE A DAY Crestor 20MG Oral Tablet 12/02/2016 - 02/21/2017 Provider: Sunshine Liu Diagnosis: Hyperlipidemia, unsp ecified TAKE 1 TABLET BY MOUTH EVERY DAYREVIEWED BUT NOT DISPENSED Colace 100MG Oral Capsule, conventional 12/02/2016 - 017 Provider: Sunshine HartmanP Diagnosis: Slow transit constip ation 1 tab twice a dayREVIEWED BUT NOT DISPENSED Aspirin EC 81MG Oral Tablet, enteric coated 12/02/2016 - Provider: Sunshine HartmanP Diagnosis: Type 2 diabetes joni itus with unspecified complications TAKE ONE TABLET BY MOUTH EVERY DAYREVIEWED BUT NOT DISPENSED Allopurinol 100MG Oral Tablet 12/02/2016 - 02/21/2017 Provid er: Sunshine Liu Diagnosis: Gout, unspecified 1 every dayREVIEWED BUT NOT DISPENSED Plavix 75MG Oral Tablet 12/02/2016 - 03/01/2017 Provider: Sunshine HartmanP Diagnosis: Chronic ischemic hea rt disease, unspecified TAKE ONE TABLET BY MOUTH EVERY DAY WITH ASPIRIN Toprol XL 50MG Oral Tablet, extended-release 24 hour 017 - 03/01/2017 Provider: Sunshine Liu Diagnosis: Essential (primary) hypertension TAKE ONE TABLET BY MOUTH EVERY DAY OneTouch Ultra Blue In Vitro Strip 11/22/2016 - 03/01/2017 P violader: Sunshine Liu Diagnosis: HCC-Type 2 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 TEST ONCE DAILY Aspirin EC 81MG Oral Tablet Delayed Release 11/12/2016 - Provider: Sunshine HartmanP Diagnosis: Type 2 diabetes joni itus with unspecified complications TAKE ONE TABLET BY MOUTH EVERY DAY Januvia 50MG Oral Tablet 11/12/2016 - 12/02/2016 Provider: Sunshine HartmanP Diagnosis: HCC-Type 2 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 TAKE ONE TABLET BY MOUTH EVERY DAY Fenofibrate 145MG Oral Tablet 11/12/2016 - 12/02/2016 Provid er: Sunshine HartmanP Diagnosis: Hyperlipidemia, unsp ecified TAKE ONE TABLET BY MOUTH AT BEDTIME Plavix 75MG Oral Tablet 11/12/2016 - 12/02/2016 Provider: Sunshine HartmanP Diagnosis: Chronic ischemic hea rt disease, unspecified TAKE ONE TABLET BY MOUTH EVERY DAY WITH ASPIRIN OneTouch UltraSoft Lancets Miscellaneous 11/12/2016 - 2016 Provider: Sunshine Liu 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 test QD, dx: 250.00 Toprol XL 50MG Oral Tablet Extended Release 24 Hour 11/13/19 17 - 12/02/2016 Provider: Sunshine Liu Diagnosis: Essential (primary) hypertension TAKE ONE TABLET BY MOUTH EVERY DAY Diovan 160MG Oral Tablet 11/12/2016 - 12/02/2016 Provider: Sunshine Liu Diagnosis: Essential (primary) hypertension TAKE ONE TABLET BY MOUTH EVERY DAY Crestor 20MG Oral Tablet 11/12/2016 - 12/02/2016 Provider: Sunshine HartmanP Diagnosis: Hyperlipidemia, unsp ecified TAKE 1 TABLET BY MOUTH EVERY DAY Colace 100MG Oral Capsule 11/12/2016 - 12/02/2016 Provider: Sunshine HartmanP Diagnosis: Slow transit constip ation 1 tab twice a day Allopurinol 100MG Oral Tablet 11/12/2016 - 12/02/2016 Provid er: Sunshine HartmanP Diagnosis: Gout, unspecified 1 every day Iron 325 (65 Fe)MG Oral Tablet 11/12/2016 - 12/02/2016 Provi jey: Sunshine Liu Diagnosis: Iron deficiency anem ia, unspecified TAKE ONE TABLET BY MOUTH TWICE A DAY Omeprazole 20MG Oral Capsule Delayed Release 11/12/2016 - Provider: Sunshine Liu Diagnosis: Gastro-esophageal re flux disease with esophagitis TAKE ONE CAPSULE BY MOUTH EVERY MORNING HydroCHLOROthiazide 12.5MG Oral Capsule 11/12/2016 - 017 Provider: Sunshine Han [employer] Diagnosis: Essential (primary) hypertension TAKE ONE CAPSULE BY MOUTH EVERY DAY Drisdol [id number] Oral Capsule, conventional 11/04/2016 - Provider: Sunshine HartmanP Diagnosis: Vitamin D deficiency , unspecified TAKE ONE CAPSULE BY MOUTH EVERY 2 WEEKS MetFORMIN HCl 1000MG Oral Tablet 10/11/2016 - 12/02/2016 Pro vider: José Mcadams MD 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 TAKE ONE TABLET BY MOUTH TWICE A DAY Diovan 160MG Oral Tablet 08/17/2016 - 11/04/2016 Provider: José Mcadams MD Diagnosis: Essential (primary) hypertension TAKE ONE TABLET BY MOUTH EVERY DAY Betamethasone Dipropionate 0.05% External Cream 08/17/2016 - 12/02/2016 Provider: José Mcadams MD Diagnosis: Other psoriasis apply to affected area(s) twice/day as needed Allopurinol 100MG Oral Tablet 08/17/2016 - 11/04/2016 Provid er: José Mcadams MD Diagnosis: Gout, unspecified 1 every day Toprol XL 50MG Oral Tablet Extended Release 24 Hour 08/17/20 - 11/04/2016 Provider: José Mcadams MD Diagnosis: Essential (primary) hypertension TAKE ONE TABLET BY MOUTH EVERY DAY Crestor 20MG Oral Tablet 08/17/2016 - 11/04/2016 Provider: José Mcadams MD Diagnosis: Hyperlipidemia, unsp ecified TAKE 1 TABLET BY MOUTH EVERY DAY MetFORMIN HCl 1000MG Oral Tablet 08/17/2016 - 10/11/2016 Pro vider: José Mcadams MD 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 TAKE ONE TABLET BY MOUTH TWICE A DAY Travatan Z 0.004% Ophthalmic Solution 08/17/2016 - 8 Provider: Diagnosis: Azopt 1% Ophthalmic Suspension 08/17/2016 - 09/20/2017 Provi jey: Diagnosis: OneTouch Ultra Blue In Vitro Strip 08/17/2016 - 11/22/2016 Geovanna rodder: José Mcadams MD Diagnosis: HCC-Type 2 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 TEST ONCE DAILY Aspirin EC 81MG Oral Tablet Delayed Release 08/17/2016 - 10/2016 Provider: José Mcadams MD Diagnosis: Type 2 diabetes joni itus with unspecified complications TAKE ONE TABLET BY MOUTH EVERY DAY Colace 100MG Oral Capsule 08/17/2016 - 11/04/2016 Provider: José Mcadams MD Diagnosis: Slow transit constip ation 1 tab twice a day OneTouch UltraSoft Lancets Miscellaneous 08/17/2016 - 2016 Provider: José Mcadams MD 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 test QD, dx: 250.00 Plavix 75MG Oral Tablet 08/17/2016 - 11/04/2016 Provider: José Mcadams MD Diagnosis: Chronic ischemic hea rt disease, unspecified TAKE ONE TABLET BY MOUTH EVERY DAY WITH ASPIRIN Alphagan P 0.15% Ophthalmic Solution 08/17/2016 - 09/20/2017 Provider: Diagnosis: Iron 325 (65 Fe)MG Oral Tablet 08/17/2016 - 11/04/2016 Provi jey: José Mcadams MD Diagnosis: Iron deficiency anem ia, unspecified TAKE ONE TABLET BY MOUTH TWICE A DAY Januvia 50MG Oral Tablet 08/17/2016 - 11/04/2016 Provider: José Mcadams MD Diagnosis: HCC-Type 2 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 TAKE ONE TABLET BY MOUTH EVERY DAY HydroCHLOROthiazide 12.5MG Oral Capsule 08/17/2016 - 017 Provider: José Mcadams MD Diagnosis: Essential (primary) hypertension TAKE ONE CAPSULE BY MOUTH EVERY DAY Fenofibrate 145MG Oral Tablet 08/17/2016 - 11/04/2016 Provid er: José Mcadams MD Diagnosis: Hyperlipidemia, unsp ecified TAKE ONE TABLET BY MOUTH AT BEDTIME Drisdol [id number] Oral Capsule 08/17/2016 - 11/04/2016 Provi jey: José Mcadams MD Diagnosis: Vitamin D deficiency , unspecified TAKE ONE CAPSULE BY MOUTH EVERY 2 WEEKS Omeprazole 20MG Oral Capsule Delayed Release 08/17/2016 - Provider: José Mcadams MD Diagnosis: Gastro-esophageal re flux disease with esophagitis TAKE ONE CAPSULE BY MOUTH EVERY MORNING Fenofibrate 145MG Oral Tablet 08/02/2016 - 08/17/2016 Provid er: José Mcadams MD Diagnosis: Hyperlipidemia, unsp ecified TAKE ONE TABLET BY MOUTH AT BEDTIME Omeprazole 20MG Oral Capsule, delayed-release 07/20/2016 - 1 10/18/2015 Provider: José Mcadams MD Diagnosis: Gastro-esophageal re flux disease with esophagitis TAKE ONE CAPSULE BY MOUTH EVERY MORNING MetFORMIN HCl 1000MG Oral Tablet 07/13/2016 - 08/17/2016 Pro vider: José Mcadams MD 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 TAKE ONE TABLET BY MOUTH TWICE A DAY One-A-Day Mens Oral Tablet 05/25/2016 - 09/20/2017 Provider: Diagnosis: qd Garlic 1000MG Oral Capsule 05/25/2016 - 09/20/2017 Provider: Diagnosis: Crestor 20MG Oral Tablet 05/25/2016 - 08/17/2016 Provider: José Mcadams MD Diagnosis: Hyperlipidemia, unsp ecified TAKE 1 TABLET BY MOUTH EVERY DAY Diovan 160MG Oral Tablet 05/25/2016 - 08/17/2016 Provider: José Mcadams MD Diagnosis: Essential (primary) hypertension TAKE ONE TABLET BY MOUTH EVERY DAY HydroCHLOROthiazide 12.5MG Oral Capsule 05/25/2016 - 016 Provider: José Mcadasm MD Diagnosis: Essential (primary) hypertension TAKE ONE CAPSULE BY MOUTH EVERY DAY EQL Fish Oil 1000MG Oral Capsule 05/25/2016 - 09/20/2017 Pro vider: Diagnosis: 3qd Drisdol [id number] Oral Capsule 05/25/2016 - 08/17/2016 Provi jey: José Mcadams MD Diagnosis: Vitamin D deficiency , unspecified TAKE ONE CAPSULE BY MOUTH EVERY 2 WEEKS OneTouch UltraSoft Lancets Miscellaneous (not specifie d) 05/18/2016 - 08/17/2016 Provider: oJsé Mcadams MD 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 test QD, dx: 250.00 Aspirin EC 81MG Oral Tablet, enteric coated 05/18/2016 - Provider: José Mcadams MD Diagnosis: Type 2 diabetes joni itus with unspecified complications TAKE ONE TABLET BY MOUTH EVERY DAY Colace 100MG Oral Capsule, conventional 05/18/2016 - 016 Provider: José Mcadams MD Diagnosis: Slow transit constip ation 1 tab twice a day Toprol XL 50MG Oral Tablet, extended-release 24 hour 016 - 08/17/2016 Provider: José Mcadams MD Diagnosis: Essential (primary) hypertension TAKE ONE TABLET BY MOUTH EVERY DAY Plavix 75MG Oral Tablet 05/18/2016 - 08/17/2016 Provider: José Mcadams MD Diagnosis: Chronic ischemic hea rt disease, unspecified TAKE ONE TABLET BY MOUTH EVERY DAY WITH ASPIRIN OneTouch Ultra Blue In Vitro Strip 05/18/2016 - 08/17/2016 P rovider: José Mcadams MD Diagnosis: HCC-Type 2 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 TEST ONCE DAILY Betamethasone Dipropionate 0.05% External Cream 05/18/2016 - 08/17/2016 Provider: José Mcadams MD Diagnosis: Other psoriasis apply to affected area(s) twice/day as needed Allopurinol 100MG Oral Tablet 05/18/2016 - 08/17/2016 Provid er: José Mcadams MD Diagnosis: Gout, unspecified 1 every day Fenofibrate 145MG Oral Tablet 05/11/2016 - 08/02/2016 Provid er: José Mcadams MD Diagnosis: Hyperlipidemia, unsp ecified TAKE ONE TABLET BY MOUTH AT BEDTIME Januvia 50MG Oral Tablet 05/11/2016 - 08/17/2016 Provider: José Mcadams MD Diagnosis: HCC-Type 2 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 TAKE ONE TABLET BY MOUTH EVERY DAY Omeprazole 20MG Oral Capsule, delayed-release 04/26/2016 - 1 09/19/2015 Provider: José Mcadams MD Diagnosis: Gastro-esophageal re flux disease with esophagitis TAKE ONE CAPSULE BY MOUTH EVERY MORNING MetFORMIN HCl 1000 MG Tablet 04/19/2016 - 07/13/2016 Provide r: José Mcadams MD 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 TAKE ONE TABLET BY MOUTH TWICE A DAY Iron 325 (65 Fe) MG Tablet 04/19/2016 - 08/17/2016 Provider: José Mcadams MD Diagnosis: Iron deficiency anem ia, unspecified TAKE ONE TABLET BY MOUTH TWICE A DAY OneTouch Ultra Blue Strip 02/27/2016 - 05/18/2016 Provider: José Mcadams MD Diagnosis: HCC-Type 2 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 TEST ONCE DAILY Aspirin EC 81 MG Tablet Delayed Release 02/18/2016 - 016 Provider: José Mcadams MD Diagnosis: Type 2 diabetes joni itus with unspecified complications TAKE ONE TABLET BY MOUTH EVERY DAY Januvia 50 MG Tablet 02/17/2016 - 05/11/2016 Provider: José Mcadams MD Diagnosis: HCC-Type 2 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 TAKE ONE TABLET BY MOUTH EVERY DAY Diovan 160 MG Tablet 02/17/2016 - 05/18/2016 Provider: José Mcadams MD Diagnosis: Essential (primary) hypertension TAKE ONE TABLET BY MOUTH EVERY DAY Fenofibrate 145 MG Tablet 02/17/2016 - 05/11/2016 Provider: José Mcadams MD Diagnosis: Hyperlipidemia, unsp ecified TAKE ONE TABLET BY MOUTH AT BEDTIME Iron 325 (65 Fe) MG Tablet 02/17/2016 - 04/19/2016 Provider: José Mcadams MD Diagnosis: Iron deficiency anem ia, unspecified TAKE ONE TABLET BY MOUTH TWICE A DAY Crestor 20 MG Tablet 02/17/2016 - 05/18/2016 Provider: José Mcadams MD Diagnosis: Hyperlipidemia, unsp ecified TAKE 1 TABLET BY MOUTH EVERY DAY Toprol XL 50 MG Tablet Extended Release 24 Hour 02/17/2016 - 05/18/2016 Provider: José Mcadams MD Diagnosis: Essential (primary) hypertension TAKE ONE TABLET BY MOUTH EVERY DAY Toprol XL 50 MG Tablet Extended Release 24 Hour 02/17/2016 - 02/17/2016 Provider: José Mcadams MD Diagnosis: Essential (primary) hypertension TAKE ONE TABLET BY MOUTH EVERY DAY Allopurinol 100 MG Tablet 02/17/2016 - 05/18/2016 Provider: José Mcadams MD Diagnosis: Gout, unspecified 1 every day OneTouch UltraSoft Lancets Miscellaneous 02/17/2016 - 2015 Provider: José Mcadams MD 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 test QD, dx: 250.00 Colace 100 MG Capsule 02/17/2016 - 05/18/2016 Provider: José Mcadams MD Diagnosis: Slow transit constip ation 1 tab twice a day Betamethasone Dipropionate 0.05 % Cream 02/17/2016 - 016 Provider: José Mcadams MD Diagnosis: Other psoriasis apply to affected area(s) twice/day as needed Plavix 75 MG Tablet 02/17/2016 - 05/18/2016 Provider: José Mcadams MD Diagnosis: Chronic ischemic hea rt disease, unspecified TAKE ONE TABLET BY MOUTH EVERY DAY WITH ASPIRIN Hydrochlorothiazide 12.5 MG Capsule 02/17/2016 - 05/18/2016 Provider: José Mcadams MD Diagnosis: Essential (primary) hypertension TAKE ONE CAPSULE BY MOUTH EVERY DAY Drisdol [id number] UNIT Capsule, conventional 02/10/2016 - 2015 Provider: José Mcadams MD Diagnosis: Vitamin D deficiency , unspecified TAKE ONE CAPSULE BY MOUTH EVERY 2 WEEKS Hydrochlorothiazide 12.5 MG Capsule 02/03/2016 - 02/17/2016 Provider: José Mcadams MD Diagnosis: Essential (primary) hypertension TAKE ONE CAPSULE BY MOUTH EVERY DAY Omeprazole 20 MG Capsule Delayed Release 02/03/2016 - 2015 Provider: José Mcadams MD Diagnosis: Gastro-esophageal re flux disease with esophagitis TAKE ONE CAPSULE BY MOUTH EVERY MORNING MetFORMIN HCl 1000 MG Tablet 01/28/2016 - 04/19/2016 Provide r: Sunshine Liu 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 TAKE ONE TABLET BY MOUTH TWICE A DAY Plavix 75 MG Tablet 01/28/2016 - 02/17/2016 Provider: Sunshine Liu Diagnosis: Chronic ischemic hea rt disease, unspecified TAKE ONE TABLET BY MOUTH EVERY DAY WITH ASPIRIN Toprol XL 50 MG Tablet Extended Release 24 Hour 01/28/2016 - 02/17/2016 Provider: Sunshine Liu Diagnosis: Essential (primary) hypertension TAKE ONE TABLET BY MOUTH EVERY DAY Iron 325 (65 Fe) MG Tablet 01/26/2016 - 02/17/2016 Provider: José Mcadams MD Diagnosis: Iron deficiency anem ia, unspecified TAKE ONE TABLET BY MOUTH TWICE A DAY Betamethasone Dipropionate 0.05 % Cream 12/16/2015 - 016 Provider: José Mcadams MD Diagnosis: Other psoriasis apply to affected area(s) twice/day as needed Allopurinol 100 MG Tablet 12/04/2015 - 02/17/2016 Provider: José Mcadams MD Diagnosis: Gout, unspecified 1 every day OneTouch UltraSoft Lancets Miscellaneous (not specifie d) 12/04/2015 - 02/17/2016 Provider: José Mcadams MD 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 test QD, dx: 250.00 Crestor 20 MG Tablet 11/24/2015 - 02/17/2016 Provider: José Mcadams MD Diagnosis: Hyperlipidemia, unsp ecified TAKE 1 TABLET BY MOUTH EVERY DAY Colace 100 MG Capsule, conventional 11/24/2015 - 02/17/2016 Provider: José Mcadams MD Diagnosis: Slow transit constip ation 1 tab twice a day Januvia 50 MG Tablet 11/21/2015 - 02/17/2016 Provider: José Mcadams MD Diagnosis: HCC-Type 2 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 TAKE ONE TABLET BY MOUTH EVERY DAY Diovan 160 MG Tablet 11/11/2015 - 02/17/2016 Provider: José Mcadams MD Diagnosis: Essential (primary) hypertension TAKE ONE TABLET BY MOUTH EVERY DAY Omeprazole 20 MG Capsule, delayed-release 11/11/2015 - 02/02 Provider: José Mcadams MD Diagnosis: Gastro-esophageal re flux disease with esophagitis TAKE ONE CAPSULE BY MOUTH EVERY MORNING Hydrochlorothiazide 12.5 MG Capsule, conventional 11/11/2015 - 02/03/2016 Provider: José Mcadams MD Diagnosis: Essential (primary) hypertension TAKE ONE CAPSULE BY MOUTH EVERY DAY Aspirin EC 81 MG Tablet, enteric coated 11/11/2015 - 016 Provider: José Mcadams MD Diagnosis: Type 2 diabetes joni itus with unspecified complications TAKE ONE TABLET BY MOUTH EVERY DAY MetFORMIN HCl 1000 MG Tablet 11/11/2015 - 01/28/2016 Provide r: José Mcadams MD 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 TAKE ONE TABLET BY MOUTH TWICE A DAY Fenofibrate 145 MG Tablet 11/07/2015 - 02/17/2016 Provider: Sunshine Liu Diagnosis: Hyperlipidemia, unsp ecified TAKE ONE TABLET BY MOUTH AT BEDTIME Drisdol [id number] UNIT Capsule, conventional 11/05/2015 - 2015 Provider: Sunshine Liu Diagnosis: Vitamin D deficiency , unspecified TAKE ONE CAPSULE BY MOUTH EVERY 2 WEEKS Iron 325 (65 Fe) MG Tablet 11/03/2015 - 01/26/2016 Provider: José Mcadams MD Diagnosis: Iron deficiency anem ia, unspecified TAKE ONE TABLET BY MOUTH TWICE A DAY Plavix 75 MG Tablet 10/14/2015 - 01/28/2016 Provider: José Mcadams MD Diagnosis: Chronic ischemic hea rt disease, unspecified TAKE ONE TABLET BY MOUTH EVERY DAY WITH ASPIRIN Toprol XL 50 MG Tablet Extended Release 24 Hour 10/13/2015 - 01/28/2016 Provider: José Mcadams MD Diagnosis: Essential (primary) hypertension TAKE ONE TABLET BY MOUTH EVERY DAY Betamethasone Dipropionate 0.05 % Cream 10/07/2015 - 016 Provider: José Mcadams MD Diagnosis: Other psoriasis apply to affected area(s) twice/day as needed Betamethasone Valerate 0.1 % Cream 09/23/2015 - 10/07/2015 Geovanna early: José Mcadams MD Diagnosis: Other psoriasis apply to affected area(s) twice daily as needed Topicort 0.25 % Cream 09/22/2015 - 09/23/2015 Provider: José Mcadams MD Diagnosis: Psoriasis, unspecifi ed APPLY TO AFFECTED AREA(S) TWO TIMES A DAY NO LONGER THAN 2 W EEKS AT A TIME Omeprazole 20 MG Capsule Delayed Release 08/19/2015 - 2015 Provider: José Mcadams MD Diagnosis: Gastro-esophageal re flux disease with esophagitis 1 Every morning MetFORMIN HCl 1000 MG Tablet 08/06/2015 - 11/11/2015 Provide r: Sunshine Liu 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 1 tab twice a day Januvia 50 MG Tablet 08/06/2015 - 11/17/2015 Provider: Sunshine Liu Diagnosis: HCC-Type 2 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 TAKE ONE TABLET BY MOUTH EVERY DAY Fenofibrate 145 MG Tablet 08/06/2015 - 11/07/2015 Provider: Sunshine Liu Diagnosis: Hyperlipidemia, unsp ecified 1 Every bedtime Aspirin EC 81 MG Tablet, enteric coated 08/06/2015 - 016 Provider: Sunshine Liu Diagnosis: Type 2 diabetes joni itus with unspecified complications 1 every day Allopurinol 100 MG Tablet 08/06/2015 - 11/17/2015 Provider: Sunshine Liu Diagnosis: Gout, unspecified 1 every day Topicort 0.25 % Cream 08/06/2015 - 09/22/2015 Provider: Sunshine Liu Diagnosis: Psoriasis, unspecifi ed APPLY TO AFFECTED AREA(S) TWO TIMES A DAY NO LONGER THAN 2 W EEKS AT A TIME OneTouch UltraSoft Lancets Miscellaneous (not specifie d) 08/06/2015 - 11/17/2015 Provider: Sunshine Liu 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 test QD, dx: 250.00 OneTouch Ultra Blue Strip 08/06/2015 - 02/17/2016 Provider: Sunshine Liu Diagnosis: HCC-Type 2 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 TEST ONCE DAILY Omeprazole 20 MG Capsule, delayed-release 08/06/2015 - 08/19 Provider: Sunshine Liu Diagnosis: Gastro-esophageal re flux disease with esophagitis 1 Every morning Drisdol [id number] UNIT Capsule, conventional 08/06/2015 - 2015 Provider: Sunshine Liu Diagnosis: Vitamin D deficiency , unspecified TAKE ONE CAPSULE BY MOUTH EVERY 2 WEEKS Diovan 160 MG Tablet 08/06/2015 - 11/11/2015 Provider: Sunshine Liu Diagnosis: Essential (primary) hypertension TAKE ONE TABLET BY MOUTH EVERY DAY Crestor 20 MG Tablet 08/06/2015 - 11/17/2015 Provider: Sunshine Liu Diagnosis: Hyperlipidemia, unsp ecified TAKE 1 TABLET BY MOUTH EVERY DAY Colace 100 MG Capsule, conventional 08/06/2015 - 11/17/2015 Provider: Sunshine Liu Diagnosis: Slow transit constip ation 1 tab twice a day Hydrochlorothiazide 12.5 MG Capsule, conventional 08/05/2015 - 11/11/2015 Provider: José Mcadams MD Diagnosis: Essential (primary) hypertension TAKE ONE CAPSULE BY MOUTH EVERY DAY Iron 325 (65 Fe) MG Tablet 08/05/2015 - 11/03/2015 Provider: José Mcadams MD Diagnosis: Iron deficiency anem ia, unspecified TAKE ONE TABLET BY MOUTH TWICE A DAY Topicort 0.25 % Cream 07/28/2015 - 08/06/2015 Provider: José Mcadams MD Diagnosis: Psoriasis, unspecifi ed APPLY TO AFFECTED AREA(S) TWO TIMES A DAY NO LONGER THAN 2 W EEKS AT A TIME Plavix 75 MG Tablet 07/22/2015 - 10/14/2015 Provider: José Mcadams MD Diagnosis: Chronic ischemic hea rt disease, unspecified TAKE ONE TABLET BY MOUTH EVERY DAY WITH ASPIRIN Toprol XL 50 MG Tablet Extended Release 24 Hour 07/21/2015 - 10/13/2015 Provider: José Mcadams MD Diagnosis: Essential (primary) hypertension TAKE ONE TABLET BY MOUTH EVERY DAY Topicort 0.25 % Cream 06/23/2015 - 07/28/2015 Provider: José Mcadams MD Diagnosis: Psoriasis, unspecifi ed APPLY TO AFFECTED AREA(S) TWO TIMES A DAY NO LONGER THAN 2 W EEKS AT A TIME Januvia 50 MG Tablet 06/16/2015 - 08/06/2015 Provider: José Mcadams MD Diagnosis: HCC-Type 2 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 TAKE ONE TABLET BY MOUTH EVERY DAY Januvia 50 MG Tablet 05/20/2015 - 06/16/2015 Provider: José Mcadams MD Diagnosis: HCC-Type 2 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 1 every day Fenofibrate 145 MG Tablet 05/20/2015 - 08/06/2015 Provider: José Mcadams MD Diagnosis: Hyperlipidemia, unsp ecified 1 Every bedtime Colace 100 MG Capsule 05/20/2015 - 08/06/2015 Provider: José Mcadams MD Diagnosis: Slow transit constip ation 1 tab twice a day Aspirin EC 81 MG Tablet Delayed Release 05/20/2015 - 015 Provider: José Mcadams MD Diagnosis: Type 2 diabetes joni itus with unspecified complications 1 every day Omeprazole 20 MG Capsule Delayed Release 05/20/2015 - 2014 Provider: José Mcadams MD Diagnosis: Gastro-esophageal re flux disease with esophagitis 1 Every morning MetFORMIN HCl 1000 MG Tablet 05/20/2015 - 08/06/2015 Provide r: José Mcadams MD 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 1 tab twice a day Topicort 0.25 % Cream 05/20/2015 - 06/23/2015 Provider: José Mcadams MD Diagnosis: Psoriasis, unspecifi ed Apply affected area two times a day - NO LONGER THAN 2WKS AT A TIME OneTouch UltraSoft Lancets Miscellaneous 05/20/2015 - 2014 Provider: José Mcadams MD 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 test QD, dx: 250.00 Allopurinol 100 MG Tablet 05/20/2015 - 08/06/2015 Provider: José Mcadams MD Diagnosis: Gout, unspecified 1 every day MetFORMIN HCl 1000 MG Tablet 05/13/2015 - 05/20/2015 Provide r: José Mcadams MD 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 TAKE ONE TABLET BY MOUTH TWICE A DAY Iron 325 (65 Fe) MG Tablet 05/13/2015 - 08/05/2015 Provider: José Mcadams MD Diagnosis: Iron deficiency anem ia, unspecified TAKE ONE TABLET BY MOUTH TWICE A DAY Hydrochlorothiazide 12.5 MG Capsule 05/13/2015 - 08/05/2015 Provider: José Mcadams MD Diagnosis: Essential (primary) hypertension TAKE ONE CAPSULE BY MOUTH EVERY DAY Drisdol [id number] UNIT Capsule 05/13/2015 - 08/06/2015 Provider: José Mcadams MD Diagnosis: Vitamin D deficiency , unspecified TAKE ONE CAPSULE BY MOUTH EVERY 2 WEEKS Crestor 20 MG Tablet 05/13/2015 - 08/06/2015 Provider: José Mcadams MD Diagnosis: Hyperlipidemia, unsp ecified TAKE 1 TABLET BY MOUTH EVERY DAY Diovan 160 MG Tablet 05/13/2015 - 08/06/2015 Provider: José Mcadams MD Diagnosis: Essential (primary) hypertension TAKE ONE TABLET BY MOUTH EVERY DAY Toprol XL 50 MG Tablet, extended-release 24 hour 04/29/2015 - 07/21/2015 Provider: José Mcadams MD Diagnosis: Essential (primary) hypertension TAKE ONE TABLET BY MOUTH EVERY DAY Omeprazole 20 MG Capsule Delayed Release 04/28/2015 - 2014 Provider: José Mcadams MD Diagnosis: Gastro-esophageal re flux disease with esophagitis TAKE ONE CAPSULE BY MOUTH EVERY MORNING Plavix 75 MG Tablet 04/28/2015 - 07/22/2015 Provider: José Mcadams MD Diagnosis: Chronic ischemic hea rt disease, unspecified TAKE ONE TABLET BY MOUTH EVERY DAY WITH ASPIRIN Januvia 50 MG Tablet 03/25/2015 - 05/20/2015 Provider: José Mcadams MD Diagnosis: HCC-Type 2 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 TAKE ONE TABLET BY MOUTH EVERY DAY Iron 325 (65 Fe) MG Tablet 02/20/2015 - 05/13/2015 Provider: José Mcadams MD Diagnosis: Iron deficiency anem ia, unspecified TAKE ONE TABLET BY MOUTH TWICE A DAY Iron 325 (65 Fe) MG Tablet 02/18/2015 - 02/20/2015 Provider: José Mcadams MD Diagnosis: Iron deficiency anem ia, unspecified Take one dose of medication 2 times a day Allopurinol 100 MG Tablet 02/18/2015 - 05/20/2015 Provider: José Mcadams MD Diagnosis: Gout, unspecified 1 every day Travatan Z 0.004 % Solution 02/18/2015 - 08/17/2016 Provider : Diagnosis: Azopt 1 % Suspension 02/18/2015 - 08/17/2016 Provider: Diagnosis: Fenofibrate 145 MG Tablet 02/18/2015 - 05/20/2015 Provider: José Mcaadms MD Diagnosis: Hyperlipidemia, unsp ecified 1 Every bedtime MetFORMIN HCl 1000 MG Tablet 02/18/2015 - 05/13/2015 Provide r: José Mcadams MD 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 1 tab twice a day Topicort 0.25 % Cream 02/18/2015 - 05/20/2015 Provider: José Mcadams MD Diagnosis: Psoriasis, unspecifi ed Apply affected area two times a day - NO LONGER THAN 2WKS AT A TIMEREVIEWED BUT NOT DISPENSED Aspirin EC 81 MG Tablet, enteric coated 02/18/2015 - 015 Provider: José Mcadams MD Diagnosis: Type 2 diabetes joni itus with unspecified complications 1 every day Colace 100 MG Capsule, conventional 02/18/2015 - 05/20/2015 Provider: José Mcadams MD Diagnosis: Slow transit constip ation 1 tab twice a day OneTouch UltraSoft Lancets Miscellaneous (not specifie d) 02/18/2015 - 05/20/2015 Provider: José Mcadams MD 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 test QD, dx: 250.00 Alphagan P 0.15 % Solution 02/18/2015 - 08/17/2016 Provider: Diagnosis: EQL Fish Oil 1000 MG Capsule, conventional 02/18/2015 - 05/07 Provider: Diagnosis: 3qd Garlic 1000 MG Capsule, conventional 02/18/2015 - 05/25/2016 Provider: Diagnosis: One-A-Day Mens Tablet 02/18/2015 - 05/25/2016 Provider: Diagnosis: qd Diovan 160 MG Tablet 02/17/2015 - 05/13/2015 Provider: José Mcadams MD Diagnosis: Essential (primary) hypertension 1 every day Drisdol [id number] UNIT Capsule, conventional 02/17/2015 - 2014 Provider: José Mcadams MD Diagnosis: Vitamin D deficiency , unspecified 1 TAB Q2wks Hydrochlorothiazide 12.5 MG Capsule, conventional 02/17/2015 - 05/13/2015 Provider: José Mcadams MD Diagnosis: Essential (primary) hypertension 1 every day 1tab Crestor 20 MG Tablet 02/07/2015 - 05/13/2015 Provider: Sunshine Liu Diagnosis: Hyperlipidemia, unsp ecified TAKE 1 TABLET BY MOUTH EVERY DAY Plavix 75 MG Tablet 02/04/2015 - 04/28/2015 Provider: José Mcadams MD Diagnosis: Chronic ischemic hea rt disease, unspecified TAKE ONE TABLET BY MOUTH EVERY DAY WITH ASPIRIN Toprol XL 50 MG Tablet, extended-release 24 hour 02/04/2015 - 04/29/2015 Provider: José Mcadams MD Diagnosis: Essential (primary) hypertension TAKE ONE TABLET BY MOUTH EVERY DAY MetFORMIN HCl ER 750 MG Tablet, extended-release 24 ho ur 02/04/2015 - 02/18/2015 Provider: José Mcadams MD Diagnosis: HCC-Type 2 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 TAKE TWO TABLETS BY MOUTH EVERY MORNING Omeprazole 20 MG Capsule, delayed-release 02/03/2015 - 04/28 Provider: José Mcadams MD Diagnosis: Gastro-esophageal re flux disease with esophagitis TAKE ONE CAPSULE BY MOUTH EVERY MORNING Sepuvia 50 MG Tablet 02/03/2015 - 03/25/2015 Provider: José Mcadams MD Diagnosis: HCC-Type 2 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 TAKE ONE TABLET BY MOUTH EVERY DAY OneTouch Ultra Blue Strip 01/30/2015 - 08/06/2015 Provider: José Mcadams MD Diagnosis: HCC-Type 2 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 TEST ONCE DAILY Colace 100 MG Capsule, conventional 12/05/2014 - 02/18/2015 Provider: José Mcadams MD Diagnosis: Slow transit constip ation 1 tab twice a day bid OneTouch UltraSoft Lancets Miscellaneous (not specifie d) 11/26/2014 - 02/18/2015 Provider: José Mcadams MD 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 test QD, dx: 250.00 OneTouch UltraSoft Lancets Miscellaneous (not specifie d) 11/18/2014 - 11/26/2014 Provider: José Mcadams MD 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 250.00 Iron 325 (65 Fe) MG Tablet 11/12/2014 - 02/18/2015 Provider: José Mcadams MD Diagnosis: Iron deficiency anem ia, unspecified Take one dose of medication 2 times a day Aspirin EC 81 MG Tablet, enteric coated 11/12/2014 - 015 Provider: José Mcadams MD Diagnosis: Type 2 diabetes joni itus with unspecified complications 1 every day Januvia 50 MG Tablet 11/12/2014 - 02/03/2015 Provider: José Mcadams MD Diagnosis: HCC-Type 2 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 1 every day qd Plavix 75 MG Tablet 11/12/2014 - 02/04/2015 Provider: José Mcadams MD Diagnosis: Chronic ischemic hea rt disease, unspecified TAKE ONE TABLET BY MOUTH EVERY DAY WITH ASPIRIN Toprol XL 50 MG Tablet, extended-release 24 hour 11/12/2014 - 02/04/2015 Provider: José Mcadams MD Diagnosis: Essential (primary) hypertension 1 tab po qd Drisdol [id number] UNIT Capsule, conventional 11/12/2014 - 2014 Provider: José Mcadams MD Diagnosis: Vitamin D deficiency , unspecified 1 TAB Q2wks Fenofibrate 145 MG Tablet 11/12/2014 - 02/18/2015 Provider: José Mcadams MD Diagnosis: Hyperlipidemia, unsp ecified 1 Every bedtime Omeprazole 20 MG Capsule, delayed-release 11/12/2014 - 02/03 Provider: José Mcadams MD Diagnosis: Gastro-esophageal re flux disease with esophagitis 1 Every morning MetFORMIN HCl ER 750 MG Tablet, extended-release 24 ho ur 11/12/2014 - 02/04/2015 Provider: José Mcadams MD Diagnosis: HCC-Type 2 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 2 tabs daily in am Hydrochlorothiazide 12.5 MG Capsule, conventional 11/12/2014 - 01/30/2015 Provider: José Mcadams MD Diagnosis: Essential (primary) hypertension 1 every day 1tab Diovan 160 MG Tablet 11/12/2014 - 01/30/2015 Provider: José Mcadams MD Diagnosis: Essential (primary) hypertension 1 every day Allopurinol 100 MG Tablet 11/12/2014 - 02/18/2015 Provider: José Mcadams MD Diagnosis: Gout, unspecified 1 every day Crestor 20 MG Tablet 11/12/2014 - 02/07/2015 Provider: Sunshine Liu Diagnosis: Hyperlipidemia, unsp ecified TAKE 1 TABLET BY MOUTH EVERY DAY MetFORMIN HCl ER 750 MG Tablet, extended-release 24 ho ur 08/20/2014 - 11/12/2014 Provider: José Mcadams MD Diagnosis: HCC-Type 2 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 2 tabs daily in am Januvia 50 MG Tablet 08/20/2014 - 11/12/2014 Provider: José Mcadams MD Diagnosis: HCC-Type 2 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 1 every day qd Colace 100 MG Capsule, conventional 08/20/2014 - 11/12/2014 Provider: José Mcadams MD Diagnosis: Slow transit constip ation 1 tab twice a day bid Iron 325 (65 Fe) MG Tablet 08/20/2014 - 11/12/2014 Provider: José Mcadams MD Diagnosis: Iron deficiency anem ia, unspecified Take one dose of medication 2 times a day Hydrochlorothiazide 12.5 MG Capsule, conventional 08/20/2014 - 11/12/2014 Provider: José Mcadams MD Diagnosis: Essential (primary) hypertension 1 every day 1tab Aspirin EC 81 MG Tablet, enteric coated 08/20/2014 - 015 Provider: José Mcadams MD Diagnosis: Type 2 diabetes joni itus with unspecified complications 1 every day Allopurinol 100 MG Tablet 08/20/2014 - 11/12/2014 Provider: José Mcadams MD Diagnosis: Gout, unspecified 1 every day OneTouch UltraSoft Lancets Miscellaneous (not specifie d) 08/20/2014 - 11/18/2014 Provider: José Mcadams MD 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 250.00 Diovan 160 MG Tablet 08/20/2014 - 11/12/2014 Provider: José Mcadams MD Diagnosis: Essential (primary) hypertension 1 every day Omeprazole 20 MG Capsule, delayed-release 08/20/2014 - 11/12 Provider: José Mcadams MD Diagnosis: Gastro-esophageal re flux disease with esophagitis 1 Every morning Plavix 75 MG Tablet 08/13/2014 - 11/12/2014 Provider: José Mcadams MD Diagnosis: Chronic ischemic hea rt disease, unspecified TAKE ONE TABLET BY MOUTH EVERY DAY WITH ASPIRIN Fenofibrate 145 MG Tablet 08/13/2014 - 11/12/2014 Provider: José Mcadams MD Diagnosis: Hyperlipidemia, unsp ecified 1 Every bedtime Toprol XL 50 MG Tablet, extended-release 24 hour 08/13/2014 - 11/12/2014 Provider: José Mcadams MD Diagnosis: Essential (primary) hypertension 1 tab po qd Drisdol 85266 UNIT Capsule, conventional 08/08/2014 - 2014 Provider: Sunshine Liu Diagnosis: Vitamin D deficiency , unspecified 1 TAB Q2wks Crestor 20 MG Tablet 08/08/2014 - 11/12/2014 Provider: Sunshine Liu Diagnosis: Hyperlipidemia, unsp ecified 1 every day Omeprazole 20 MG Capsule, delayed-release 07/22/2014 - 08/20 Provider: José Mcadams MD Diagnosis: Gastro-esophageal re flux disease with esophagitis 1 Every morning Toprol XL 50 MG Tablet Extended Release 24 Hour 07/15/2014 - 07/22/2014 Provider: José Mcadams MD Diagnosis: Essential (primary) hypertension 1 tab po qd OneTouch Ultra Blue Strip 07/09/2014 - 01/30/2015 Provider: Sunshine Liu Diagnosis: HCC-Type 2 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 TEST ONCE DAILY Allopurinol 100 MG Tablet 06/20/2014 - 08/20/2014 Provider: Sunshine Liu Diagnosis: Gout, unspecified 1 every day Aspirin EC 81 MG Tablet, enteric coated 06/20/2014 - 014 Provider: Sunshine Liu Diagnosis: Type 2 diabetes joni itus with unspecified complications 1 every day Fenofibrate 145 MG Tablet 06/20/2014 - 07/22/2014 Provider: Sunshine Liu Diagnosis: Hyperlipidemia, unsp ecified 1 Every bedtime Plavix 75 MG Tablet 06/20/2014 - 07/22/2014 Provider: Sunshine Liu Diagnosis: Chronic ischemic hea rt disease, unspecified TAKE ONE TABLET BY MOUTH EVERY DAY WITH ASPIRIN Toprol XL 50 MG Tablet, extended-release 24 hour 06/20/2014 - 07/15/2014 Provider: José Mcadams MD Diagnosis: Essential (primary) hypertension 1 tab po qd Iron 325 (65 Fe) MG Tablet 06/17/2014 - 08/20/2014 Provider: José Mcadams MD Diagnosis: Iron deficiency anem ia, unspecified Take one dose of medication 2 times a day Hydrochlorothiazide 12.5 MG Capsule, conventional 06/17/2014 - 08/20/2014 Provider: José Mcadams MD Diagnosis: Essential (primary) hypertension 1 every day 1tab Colace 100 MG Capsule, conventional 06/17/2014 - 08/20/2014 Provider: José Mcadams MD Diagnosis: Slow transit constip ation 1 tab twice a day bid Omeprazole 20 MG OR CPDR 05/28/2014 - 07/22/2014 Provider: José Mcadams MD Diagnosis: Gastro-esophageal re flux disease with esophagitis Diovan 160 MG OR TABS 05/28/2014 - 08/20/2014 Provider: José Mcadams MD Diagnosis: Essential (primary) hypertension Iron 325 (65 Fe) MG OR TABS 05/22/2014 - 06/17/2014 Provider : José Mcadams MD Diagnosis: Iron deficiency anem ia, unspecified Toprol XL 50 MG OR TB24 05/22/2014 - 06/17/2014 Provider: José Mcadams MD Diagnosis: Essential (primary) hypertension 1 tab po qd metFORMIN HCl ER 750 MG TB24 05/22/2014 - 08/20/2014 Provide r: José Mcadams MD Diagnosis: HCC-Type 2 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 2 tabs daily in am Januvia 50 MG OR TABS 05/07/2014 - 08/20/2014 Provider: José Mcadams MD Diagnosis: HCC-Type 2 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 qd Crestor 20 MG OR TABS 05/07/2014 - 08/08/2014 Provider: oJsé Mcadams MD Diagnosis: Hyperlipidemia, unsp ecified Drisdol 1.25 MG (07497 UT) OR CAPS 05/07/2014 - 08/08/2014 Geovanna rodder: José Mcadams MD Diagnosis: Vitamin D deficiency , unspecified 1 TAB Q2wks OneTouch UltraSoft Lancets MISC 03/28/2014 - 08/20/2014 Prov ider: Sunshine Mathews HartmanP 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 250.00 metFORMIN HCl ER 750 MG TB24 02/26/2014 - 05/07/2014 Provide r: José Mcadams MD Diagnosis: HCC-Type 2 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 2 tabs daily in am Colace 100 MG OR CAPS 02/26/2014 - 06/17/2014 Provider: José Mcadams MD Diagnosis: Slow transit constip ation bid Aspirin EC 81 MG OR TBEC 02/12/2014 - 06/20/2014 Provider: José Mcadams MD Diagnosis: Type 2 diabetes joni itus with unspecified complications Toprol XL 50 MG OR TB24 02/12/2014 - 05/07/2014 Provider: José Mcadams MD Diagnosis: Essential (primary) hypertension 1 tab po qd Topicort 0.25% EX CREA 02/12/2014 - 02/18/2015 Provider: José Mcadams MD Diagnosis: Psoriasis, unspecifi ed - NO LONGER THAN 2WKS AT A TIME Plavix 75 MG OR TABS 02/12/2014 - 06/20/2014 Provider: José Mcadams MD Diagnosis: Chronic ischemic hea rt disease, unspecified TAKE ONE TABLET BY MOUTH EVERY DAY WITH ASPIRIN Omeprazole 20 MG OR CPDR 02/12/2014 - 05/28/2014 Provider: José Mcadams MD Diagnosis: Gastro-esophageal re flux disease with esophagitis Januvia 50 MG OR TABS 02/12/2014 - 05/07/2014 Provider: José Mcadams MD Diagnosis: HCC-Type 2 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 qd Iron 325 (65 Fe) MG OR TABS 02/12/2014 - 05/07/2014 Provider : José Mcadams MD Diagnosis: Iron deficiency anem ia, unspecified Glucophage XR 500 MG OR TB24 02/12/2014 - 02/26/2014 Provide r: José Mcadams MD Diagnosis: HCC-Type 2 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 2tabs hydroCHLOROthiazide 12.5 MG CAPS 02/12/2014 - 06/17/2014 Pro vider: José Mcadams MD Diagnosis: Essential (primary) hypertension 1tab Fenofibrate 145 MG OR TABS 02/12/2014 - 06/20/2014 Provider: José Mcadams MD Diagnosis: Hyperlipidemia, unsp ecified to be used after 09/05/13, in place of trilipix d/t ins. Drisdol 1.25 MG (91369 UT) OR CAPS 02/12/2014 - 05/07/2014 P rovider: José Mcadams MD Diagnosis: Vitamin D deficiency , unspecified 1 TAB Q2wks Diovan 160 MG OR TABS 02/12/2014 - 05/28/2014 Provider: José Mcadams MD Diagnosis: Essential (primary) hypertension Crestor 20 MG OR TABS 02/12/2014 - 05/07/2014 Provider: José Mcdaams MD Diagnosis: Hyperlipidemia, unsp ecified cancel crestor 10 mg. rx, lmm Colace 100 MG OR CAPS 02/12/2014 - 02/26/2014 Provider: José Mcadams MD Diagnosis: Slow transit constip ation bid Allopurinol 100 MG OR TABS 02/12/2014 - 06/20/2014 Provider: José Mcadams MD Diagnosis: Gout, unspecified Diovan 160 MG OR TABS 11/20/2013 - 02/12/2014 Provider: José Mcadams MD Diagnosis: Essential (primary) hypertension Crestor 20 MG OR TABS 11/20/2013 - 02/12/2014 Provider: José Mcadams MD Diagnosis: Hyperlipidemia, unsp ecified cancel crestor 10 mg. rx, lmm Plavix 75 MG OR TABS 11/20/2013 - 02/12/2014 Provider: José Mcadams MD Diagnosis: Chronic ischemic hea rt disease, unspecified TAKE ONE TABLET BY MOUTH EVERY DAY WITH ASPIRIN Topicort 0.25% EX CREA 11/20/2013 - 02/12/2014 Provider: José Mcadams MD Diagnosis: Psoriasis, unspecifi ed - NO LONGER THAN 2WKS AT A TIME Toprol XL 50 MG OR TB24 11/20/2013 - 02/12/2014 Provider: José Mcadams MD Diagnosis: Essential (primary) hypertension 1 tab po qd Fenofibrate 145 MG OR TABS 11/20/2013 - 02/12/2014 Provider: José Mcadams MD Diagnosis: Hyperlipidemia, unsp ecified to be used after 09/05/13, in place of trilipix d/t ins. 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 250.00 OneTouch Ultra Blue STRP 11/20/2013 - 06/20/2014 Provider : José Mcadams MD Diagnosis: HCC-Type 2 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 TEST ONCE DAILY Omeprazole 20 MG OR CPDR 11/20/2013 - 02/12/2014 Provider: José Mcadams MD Diagnosis: Gastro-esophageal re flux disease with esophagitis Januvia 50 MG OR TABS 11/20/2013 - 02/12/2014 Provider: José Mcadams MD Diagnosis: HCC-Type 2 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 qd Iron 325 (65 Fe) MG OR TABS 11/20/2013 - 02/12/2014 Provider : José Mcadams MD Diagnosis: Iron deficiency anem ia, unspecified hydroCHLOROthiazide 12.5 MG CAPS 11/20/2013 - 02/12/2014 Pro vider: José Mcadams MD Diagnosis: Essential (primary) hypertension 1tab Glucophage XR 500 MG OR TB24 11/20/2013 - 02/12/2014 Provide r: José Mcadams MD Diagnosis: HCC-Type 2 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 2tabs Drisdol 1.25 MG (24579 UT) OR CAPS 11/20/2013 - 02/12/2014 P rovider: José Mcadams MD Diagnosis: Vitamin D deficiency , unspecified 1 TAB Q2wks Crestor 10 MG OR TABS 11/20/2013 - 11/20/2013 Provider: José Mcadams MD Diagnosis: Hyperlipidemia, unsp ecified qd Colace 100 MG OR CAPS 11/20/2013 - 02/12/2014 Provider: José Mcadams MD Diagnosis: Slow transit constip ation bid Aspirin EC 81 MG OR TBEC 11/20/2013 - 02/12/2014 Provider: José Mcadams MD Diagnosis: Type 2 diabetes joni itus with unspecified complications Allopurinol 100 MG OR TABS 11/20/2013 - 02/12/2014 Provider: José Mcadams MD Diagnosis: Gout, unspecified Omeprazole 20 MG OR CPDR 08/21/2013 - 11/20/2013 Provider: José Mcadams MD Diagnosis: Gastro-esophageal re flux disease with esophagitis Toprol XL 50 MG OR TB24 08/21/2013 - 11/20/2013 Provider: José Mcadams MD Diagnosis: Essential (primary) hypertension 1 tab po qd Topicort 0.25% EX CREA 08/21/2013 - 11/20/2013 Provider: José Mcadams MD Diagnosis: Psoriasis, unspecifi ed - NO LONGER THAN 2WKS AT A TIME Plavix 75 MG OR TABS 08/21/2013 - 11/20/2013 Provider: José Mcadams MD Diagnosis: Chronic ischemic hea rt disease, unspecified TAKE ONE TABLET BY MOUTH EVERY DAY WITH ASPIRIN Allopurinol 100 MG OR TABS 08/21/2013 - 11/20/2013 Provider: José Mcadams MD Diagnosis: Gout, unspecified Crestor 10 MG OR TABS 08/21/2013 - 11/20/2013 Provider: José Mcadams MD Diagnosis: Hyperlipidemia, unsp ecified qd Januvia 50 MG OR TABS 08/21/2013 - 11/20/2013 Provider: José Mcadams MD Diagnosis: HCC-Type 2 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 qd Iron 325 (65 Fe) MG OR TABS 08/21/2013 - 11/20/2013 Provider : José Mcadams MD Diagnosis: Iron deficiency anem ia, unspecified hydroCHLOROthiazide 12.5 MG CAPS 08/21/2013 - 11/20/2013 Pro vider: José Mcadams MD Diagnosis: Essential (primary) hypertension 1tab Glucophage XR 500 MG OR TB24 08/21/2013 - 11/20/2013 Provide r: José Mcadams MD Diagnosis: HCC-Type 2 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 2tabs Drisdol 1.25 MG (05809 UT) OR CAPS 08/21/2013 - 11/20/2013 P violader: José Mcadams MD Diagnosis: Vitamin D deficiency , unspecified 1 TAB Q2wks Diovan 160 MG OR TABS 08/21/2013 - 11/20/2013 Provider: José Mcadams MD Diagnosis: Essential (primary) hypertension Colace 100 MG OR CAPS 08/21/2013 - 11/20/2013 Provider: José Mcadams MD Diagnosis: Slow transit constip ation bid Aspirin EC 81 MG OR TBEC 08/21/2013 - 11/20/2013 Provider: José Mcadams MD Diagnosis: Type 2 diabetes joni itus with unspecified complications Fenofibrate 145 MG OR TABS 07/25/2013 - 11/20/2013 Provider: José Mcadams MD Diagnosis: Hyperlipidemia, unsp ecified to be used after 09/05/13, in place of trilipix d/t ins. Januvia 50 MG OR TABS 05/15/2013 - 08/21/2013 Provider: José Mcadams MD 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) qd Toprol XL 50 MG OR TB24 05/15/2013 - 08/21/2013 Provider: José Mcadams MD Diagnosis: HYPERTENSION NOS 1 tab po qd Topicort 0.25% EX CREA 05/15/2013 - 08/21/2013 Provider: José Mcadams MD Diagnosis: OTHER PSORIASIS (L40 9) - NO LONGER THAN 2WKS AT A TIME Trilipix 45 MG OR CPDR 05/15/2013 - 07/25/2013 Provider: José Mcadams MD Diagnosis: HYPERLIPIDEMIA NEC/N OS (E78.5) qd Omeprazole 20 MG OR CPDR 05/15/2013 - 08/21/2013 Provider: José Mcadams MD Diagnosis: ABDOMINAL PAIN UNSPC F SITE (R109) Lipitor 80 MG OR TABS 05/15/2013 - 08/21/2013 Provider: José Mcadams MD Diagnosis: HYPERLIPIDEMIA NEC/N OS (E78.5) qd Glucophage XR 500 MG OR TB24 05/15/2013 - 08/21/2013 Provide r: José Mcadams MD 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) 2tabs Drisdol 1.25 MG (11168 UT) OR CAPS 05/15/2013 - 08/21/2013 Geovanna rocasimiroder: José Mcadams MD Diagnosis: VITAMIN D DEFICIENCY NOS 1 TAB Q2wks Diovan 160 MG OR TABS 05/15/2013 - 08/21/2013 Provider: José Mcadams MD Diagnosis: HYPERTENSION NOS Colace 100 MG OR CAPS 05/15/2013 - 08/21/2013 Provider: José Mcadams MD Diagnosis: ABDOMINAL PAIN UNSPC F SITE (R109) bid Aspirin EC 81 MG OR TBEC 05/15/2013 - 08/21/2013 Provider: José Mcadams MD Diagnosis: DMII UNSPF NT [facility] Allopurinol 100 MG OR TABS 05/15/2013 - 08/21/2013 Provider: José Mcadams MD Diagnosis: GOUT NOS (M109) OneTouch UltraSoft Lancets MISC 05/15/2013 - 11/20/2013 Prov ider: José Mcadams MD 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) qd dx. 250.00 hydroCHLOROthiazide 12.5 MG CAPS 05/15/2013 - 08/21/2013 Pro vider: José Mcadams MD Diagnosis: HYPERTENSION NOS 1tab Iron 325 (65 Fe) MG OR TABS 05/15/2013 - 08/21/2013 Provider : José Mcadams MD Diagnosis: IRON DEFIC ANEMIA NO S (MICROCYTIC/HYPERCHROMIC) (D509) OneTouch Ultra Blue STRP 05/01/2013 - 11/20/2013 Provider : José Mcadams MD 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) TEST ONCE DAILY Plavix 75 MG OR TABS 05/01/2013 - 08/21/2013 Provider: José Mcadams MD Diagnosis: ISCHEMIC HEART DISEA SE, CHRONIC, NOS (414.9) TAKE ONE TABLET BY MOUTH EVERY DAY WITH ASPIRIN Toprol XL 50 MG OR TB24 02/06/2013 - 05/15/2013 Provider: José Mcadams MD Diagnosis: HYPERTENSION NOS 1 tab po qd Plavix 75 MG OR TABS 02/06/2013 - 05/01/2013 Provider: José Mcadams MD Diagnosis: ISCHEMIC HEART DISEA SE, CHRONIC, NOS (414.9) w/ aspirin Topicort 0.25% EX CREA 02/06/2013 - 05/15/2013 Provider: José Mcadams MD Diagnosis: OTHER PSORIASIS (L40 9) - NO LONGER THAN 2WKS AT A TIME Lipitor 80 MG OR TABS 02/06/2013 - 05/15/2013 Provider: José Mcadams MD Diagnosis: HYPERLIPIDEMIA NEC/N OS (E78.5) qd Januvia 50 MG OR TABS 02/06/2013 - 05/15/2013 Provider: José Mcadams MD 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) qd Colace 100 MG OR CAPS 02/06/2013 - 05/15/2013 Provider: José Mcadams MD Diagnosis: ABDOMINAL PAIN UNSPC F SITE (R109) bid Glucophage XR 500 MG OR TB24 02/06/2013 - 05/15/2013 Provide r: José Mcadams MD 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) 2tabs Omeprazole 20 MG OR CPDR 02/06/2013 - 05/15/2013 Provider: José Mcadams MD Diagnosis: ABDOMINAL PAIN UNSPC F SITE (R109) Drisdol 1.25 MG (50544 UT) OR CAPS 02/06/2013 - 05/15/2013 Geovanna rocasimiroder: José Mcadams MD Diagnosis: VITAMIN D DEFICIENCY NOS 1 TAB Q2wks Diovan 160 MG OR TABS 02/06/2013 - 05/15/2013 Provider: José Mcadams MD Diagnosis: HYPERTENSION NOS Allopurinol 100 MG OR TABS 02/06/2013 - 05/15/2013 Provider: José Mcadams MD Diagnosis: GOUT NOS (M109) Trilipix 45 MG OR CPDR 02/06/2013 - 05/15/2013 Provider: José Mcadams MD Diagnosis: HYPERLIPIDEMIA NEC/N OS (E78.5) qd Iron 325 (65 Fe) MG OR TABS 02/06/2013 - 05/15/2013 Provider : José Mcadams MD Diagnosis: IRON DEFIC ANEMIA NO S (MICROCYTIC/HYPERCHROMIC) (D509) hydroCHLOROthiazide 12.5 MG CAPS 02/06/2013 - 05/15/2013 Pro vider: José Mcadams MD Diagnosis: HYPERTENSION NOS 1tab Aspirin EC 81 MG OR TBEC 02/06/2013 - 05/15/2013 Provider: José Mcadams MD Diagnosis: DMII UNSPF NT [facility] OneTouch Ultra Blue STRP 11/07/2012 - 05/01/2013 Provider : José Mcadams MD 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) qd dx. 250.00 OneTouch Ultra Blue STRP 11/07/2012 - 11/07/2012 Provider : José Mcadams MD 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) qd dx. 250.00 Trilipix 45 MG OR CPDR 11/07/2012 - 02/06/2013 Provider: José Mcadams MD Diagnosis: HYPERLIPIDEMIA NEC/N OS (E78.5) qd Toprol XL 50 MG OR TB24 11/07/2012 - 02/06/2013 Provider: José Mcadams MD Diagnosis: HYPERTENSION NOS 1 tab po qd Plavix 75 MG OR TABS 11/07/2012 - 02/06/2013 Provider: José Mcadams MD Diagnosis: ISCHEMIC HEART DISEA SE, CHRONIC, NOS (414.9) w/ aspirin Omeprazole 20 MG OR CPDR 11/07/2012 - 02/06/2013 Provider: José Mcadams MD Diagnosis: ABDOMINAL PAIN UNSPC F SITE (R109) Lipitor 80 MG OR TABS 11/07/2012 - 02/06/2013 Provider: José Mcadams MD Diagnosis: HYPERLIPIDEMIA NEC/N OS (E78.5) qd Januvia 50 MG OR TABS 11/07/2012 - 02/06/2013 Provider: José Mcadams MD 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) qd Iron 325 (65 Fe) MG OR TABS 11/07/2012 - 02/06/2013 Provider : José Mcadams MD Diagnosis: IRON DEFIC ANEMIA NO S (MICROCYTIC/HYPERCHROMIC) (D509) hydroCHLOROthiazide 12.5 MG CAPS 11/07/2012 - 02/06/2013 Pro vider: José Mcadams MD Diagnosis: HYPERTENSION NOS 1tab Glucophage XR 500 MG OR TB24 11/07/2012 - 02/06/2013 Provide r: José Mcadams MD 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) 2tabs Drisdol 1.25 MG (26113 UT) OR CAPS 11/07/2012 - 02/06/2013 P rovider: José Mcadams MD Diagnosis: VITAMIN D DEFICIENCY NOS 1 TAB Q2wks Diovan 160 MG OR TABS 11/07/2012 - 02/06/2013 Provider: José Mcadams MD Diagnosis: HYPERTENSION NOS Colace 100 MG OR CAPS 11/07/2012 - 02/06/2013 Provider: José Mcadams MD Diagnosis: ABDOMINAL PAIN UNSPC F SITE (R109) bid Aspirin EC 81 MG OR TBEC 11/07/2012 - 02/06/2013 Provider: José Mcadams MD Diagnosis: DMII UNSPF NT [facility] Allopurinol 100 MG OR TABS 11/07/2012 - 02/06/2013 Provider: José Mcadams MD Diagnosis: GOUT NOS (M109) [facility] - 11/07/2012 Prov ider: José Mcadams MD 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) qd dx. 250.00 hard copy in the mail [facility] 11/07/2012 - 05/15/2013 Prov ider: José Mcadams MD 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) qd dx. 250.00 hard copy in the mail [facility] 09/26/2012 - 11/07/2012 Prov ider: José Mcadams MD 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) qd dx. 250.00 hard copy in the mail [facility]/2012 - 09/26/2012 Prov ider: José Mcadams MD 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) qd dx. 250.00 Trilipix 45 MG OR CPDR 08/08/2012 - 11/07/2012 Provider: José Mcadams MD Diagnosis: HYPERLIPIDEMIA NEC/N OS (E78.5) qd Toprol XL 50 MG OR TB24 08/08/2012 - 11/07/2012 Provider: José Mcadams MD Diagnosis: HYPERTENSION NOS 1 tab po qd Topicort 0.25% EX CREA 08/08/2012 - 02/06/2013 Provider: José Mcadams MD Diagnosis: OTHER PSORIASIS (L40 9) - NO LONGER THAN 2WKS AT A TIME Plavix 75 MG OR TABS 08/08/2012 - 11/07/2012 Provider: José Mcadams MD Diagnosis: ISCHEMIC HEART DISEA SE, CHRONIC, NOS (414.9) w/ aspirin Omeprazole 20 MG OR CPDR 08/08/2012 - 11/07/2012 Provider: José Mcadams MD Diagnosis: ABDOMINAL PAIN UNSPC F SITE (R109) Lipitor 80 MG OR TABS 08/08/2012 - 11/07/2012 Provider: José Mcadams MD Diagnosis: HYPERLIPIDEMIA NEC/N OS (E78.5) qd Januvia 50 MG OR TABS 08/08/2012 - 11/07/2012 Provider: José Mcadams MD 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) qd Iron 325 (65 Fe) MG OR TABS 08/08/2012 - 11/07/2012 Provider : José Mcadams MD Diagnosis: IRON DEFIC ANEMIA NO S (MICROCYTIC/HYPERCHROMIC) (D509) hydroCHLOROthiazide 12.5 MG CAPS 08/08/2012 - 11/07/2012 Pro vider: José Mcadams MD Diagnosis: HYPERTENSION NOS 1tab Glucophage XR 500 MG OR TB24 08/08/2012 - 11/07/2012 Provide r: José Mcadams MD 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[facility] (E11) 2tabs Diovan 160 MG OR TABS 08/08/2012 - 11/07/2012 Provider: José Mcadams MD Diagnosis: HYPERTENSION NOS Colace 100 MG OR CAPS 08/08/2012 - 11/07/2012 Provider: José Mcadams MD Diagnosis: ABDOMINAL PAIN UNSPC F SITE (R109) bid Allopurinol 100 MG OR TABS 08/08/2012 - 11/07/2012 Provider: José Mcadams MD Diagnosis: GOUT NOS (M109) Drisdol 1.25 MG (28221 UT) OR CAPS 08/08/2012 - 11/07/2012 P rovider: José Mcadams MD Diagnosis: VITAMIN D DEFICIENCY NOS 1 TAB Q2wks Aspirin EC 81 MG OR TBEC 08/08/2012 - 11/07/2012 Provider: José Mcadams MD Diagnosis: DMII UNSPF NT [facility] Aspirin EC 81 MG OR TBEC 07/24/2012 - 08/08/2012 Provider: José Mcadams MD Diagnosis: DMII UNSPF NT [facility] Drisdol 1.25 MG (70735 UT) OR CAPS 07/24/2012 - 08/08/2012 P rovider: José Mcadams MD Diagnosis: VITAMIN D DEFICIENCY NOS 1 TAB Q2wks OneTouch Ultra Blue STRP 07/06/2012 - 11/07/2012 Provider : Sunshine Liu 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) qd dx. 250.00 OneTouch UltraSoft Lancets MISC 07/06/2012 - 09/26/2012 Prov ider: Sunshine HartmanP 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) qd dx. 250.00 Toprol XL 50 MG OR TB24 04/18/2012 - 08/08/2012 Provider: José Mcadams MD Diagnosis: HYPERTENSION NOS 1 tab po qd Topicort 0.25% EX CREA 04/18/2012 - 08/08/2012 Provider: José Mcadams MD Diagnosis: OTHER PSORIASIS (L40 9) - NO LONGER THAN 2WKS AT A TIME Plavix 75 MG OR TABS 04/18/2012 - 08/08/2012 Provider: José Mcadams MD Diagnosis: ISCHEMIC HEART DISEA SE, CHRONIC, NOS (414.9) w/ aspirin Omeprazole 20 MG OR CPDR 04/18/2012 - 08/08/2012 Provider: José Mcadams MD Diagnosis: ABDOMINAL PAIN UNSPC F SITE (R109) Lipitor 80 MG OR TABS 04/18/2012 - 08/08/2012 Provider: José Mcadams MD Diagnosis: HYPERLIPIDEMIA NEC/N OS (E78.5) qd Trilipix 45 MG OR CPDR 04/18/2012 - 08/08/2012 Provider: José Mcadams MD Diagnosis: HYPERLIPIDEMIA NEC/N OS (E78.5) qd Alphagan P 0.15% OP SOLN 04/18/2012 - 02/18/2015 Provider: Diagnosis: Travatan Z 0.004% OP SOLN 04/18/2012 - 02/18/2015 Provider: Diagnosis: Azopt 1% OP SUSP 04/18/2012 - 02/18/2015 Provider: Diagnosis: EQL Fish Oil 1000 MG OR CAPS 04/18/2012 - 02/18/2015 Provide r: Diagnosis: 3qd One-A-Day Mens OR TABS 04/18/2012 - 02/18/2015 Provider: Diagnosis: qd Garlic 1000 MG OR CAPS 04/18/2012 - 02/18/2015 Provider: Diagnosis: hydroCHLOROthiazide 12.5 MG CAPS 04/18/2012 - 08/08/2012 Pro vider: José Mcadams MD Diagnosis: HYPERTENSION NOS 1tab Glucophage XR 500 MG OR TB24 04/18/2012 - 08/08/2012 Provide r: José Mcadams MD 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) 2tabs Diovan 160 MG OR TABS 04/18/2012 - 08/08/2012 Provider: José Mcadams MD Diagnosis: HYPERTENSION NOS Colace 100 MG OR CAPS 04/18/2012 - 08/08/2012 Provider: José Mcadams MD Diagnosis: ABDOMINAL PAIN UNSPC F SITE (R109) bid Allopurinol 100 MG OR TABS 04/18/2012 - 08/08/2012 Provider: José Mcadams MD Diagnosis: GOUT NOS (M109) Iron 325 (65 Fe) MG OR TABS 04/18/2012 - 08/08/2012 Provider : José Mcadams MD Diagnosis: IRON DEFIC ANEMIA NO S (MICROCYTIC/HYPERCHROMIC) (D509) Januvia 50 MG OR TABS 04/18/2012 - 08/08/2012 Provider: José Mcadams MD 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) qd Aspirin EC 81 MG OR TBEC 03/07/2012 - 07/24/2012 Provider: José Mcadams MD Diagnosis: DMII UNSPF NT [facility] Drisdol 1.25 MG (16860 UT) OR CAPS 03/07/2012 - 07/24/2012 P rovider: José Mcadams MD Diagnosis: VITAMIN D DEFICIENCY NOS 1 TAB Q2wks Glucophage XR 500 MG OR TB24 12/09/2011 - 04/18/2012 Provide r: José Mcadams MD 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) 2tabs OneTouch UltraSoft Lancets MISC 12/09/2011 - 06/14/2012 Prov ider: José Mcadams MD 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) qd dx. 250.00 OneTouch Ultra Blue STRP 12/09/2011 - 06/14/2012 Provider : José Mcadams MD 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) qd dx. 250.00 Topicort 0.25% EX CREA 12/09/2011 - 04/18/2012 Provider: José Mcadams MD Diagnosis: OTHER PSORIASIS (L40 9) - NO LONGER THAN 2WKS AT A TIME Drisdol 1.25 MG (43883 UT) OR CAPS 12/09/2011 - 03/07/2012 P rovider: José Mcadams MD Diagnosis: VITAMIN D DEFICIENCY NOS 1 TAB Q2wks Omeprazole 20 MG OR CPDR 12/09/2011 - 04/18/2012 Provider: José Mcadams MD Diagnosis: ABDOMINAL PAIN UNSPC F SITE (R109) Toprol XL 50 MG OR TB24 12/09/2011 - 04/18/2012 Provider: José Mcadams MD Diagnosis: HYPERTENSION NOS 1 tab po qd Allopurinol 100 MG OR TABS 12/09/2011 - 04/18/2012 Provider: José Mcadams MD Diagnosis: GOUT NOS (M109) Aspirin EC 81 MG OR TBEC 12/09/2011 - 03/07/2012 Provider: José Mcadams MD Diagnosis: DMII UNSPF NT [facility] hydroCHLOROthiazide 12.5 MG CAPS 12/09/2011 - 04/18/2012 Pro vider: José Mcadams MD Diagnosis: HYPERTENSION NOS 1tab Diovan 160 MG OR TABS 12/09/2011 - 04/18/2012 Provider: José Mcadams MD Diagnosis: HYPERTENSION NOS Januvia 50 MG OR TABS 12/09/2011 - 04/18/2012 Provider: José Mcadams MD 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) qd Colace 100 MG OR CAPS 12/09/2011 - 04/18/2012 Provider: José Mcadams MD Diagnosis: ABDOMINAL PAIN UNSPC F SITE (R109) bid Plavix 75 MG OR TABS 12/09/2011 - 04/18/2012 Provider: José Mcadams MD Diagnosis: ISCHEMIC HEART DISEA SE, CHRONIC, NOS (414.9) w/ aspirin Iron 325 (65 Fe) MG OR TABS 12/09/2011 - 04/18/2012 Provider : José Mcadams MD Diagnosis: IRON DEFIC ANEMIA NO S (MICROCYTIC/HYPERCHROMIC) (D509) Trilipix 45 MG OR CPDR 12/09/2011 - 04/18/2012 Provider: José Mcadams MD Diagnosis: HYPERLIPIDEMIA NEC/N OS (E78.5) qd Lipitor 80 MG OR TABS 12/09/2011 - 04/18/2012 Provider: José Mcadams MD Diagnosis: HYPERLIPIDEMIA NEC/N OS (E78.5) qd Lipitor 80 MG OR TABS 09/09/2011 - 12/09/2011 Provider: José Mcadams MD Diagnosis: HYPERLIPIDEMIA NEC/N OS (E78.5) qd OneTouch Ultra Blue STRP 09/09/2011 - 12/09/2011 Provider : José Mcadams MD 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) qd dx. 250.00 OneTouch UltraSoft Lancets MISC 09/09/2011 - 12/09/2011 Prov ider: José Mcadams MD 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) qd dx. 250.00 Allopurinol 100 MG OR TABS 09/09/2011 - 12/09/2011 Provider: José Mcadams MD Diagnosis: GOUT NOS (M109) Trilipix 45 MG OR CPDR 09/09/2011 - 12/09/2011 Provider: José Mcadams MD Diagnosis: HYPERLIPIDEMIA NEC/N OS (E78.5) qd Iron 325 (65 Fe) MG OR TABS 09/09/2011 - 12/09/2011 Provider : José Mcadams MD Diagnosis: IRON DEFIC ANEMIA NO S (MICROCYTIC/HYPERCHROMIC) (D509) Plavix 75 MG OR TABS 09/09/2011 - 12/09/2011 Provider: José Mcadams MD Diagnosis: ISCHEMIC HEART DISEA SE, CHRONIC, NOS (414.9) w/ aspirin Colace 100 MG OR CAPS 09/09/2011 - 12/09/2011 Provider: José Mcadams MD Diagnosis: ABDOMINAL PAIN UNSPC F SITE (R109) bid hydroCHLOROthiazide 12.5 MG CAPS 09/09/2011 - 12/09/2011 Pro vider: José Mcadams MD Diagnosis: HYPERTENSION NOS 1tab Diovan 160 MG OR TABS 09/09/2011 - 12/09/2011 Provider: José Mcadams MD Diagnosis: HYPERTENSION NOS Aspirin EC 81 MG OR TBEC 09/09/2011 - 12/09/2011 Provider: José Mcadams MD Diagnosis: DMII UNSPF NT [facility] Januvia 50 MG OR TABS 09/09/2011 - 12/09/2011 Provider: José Mcadams MD 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) qd Toprol XL 50 MG OR TB24 09/09/2011 - 12/09/2011 Provider: José Mcadams MD Diagnosis: HYPERTENSION NOS 1 tab po qd Glucophage XR 500 MG OR TB24 09/09/2011 - 12/09/2011 Provide r: José Mcadams MD 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) 2tabs Omeprazole 20 MG OR CPDR 09/09/2011 - 12/09/2011 Provider: José Mcadams MD Diagnosis: ABDOMINAL PAIN UNSPC F SITE (R109) Drisdol 1.25 MG (48360 UT) OR CAPS 09/09/2011 - 12/09/2011 Geovanna rodder: José Mcadams MD Diagnosis: VITAMIN D DEFICIENCY NOS 1 TAB Q2wks Topicort 0.25% EX CREA 09/09/2011 - 12/09/2011 Provider: José Mcadams MD Diagnosis: OTHER PSORIASIS (L40 9) - NO LONGER THAN 2WKS AT A TIME has enough Topicort 0.25% EX CREA 06/10/2011 - 09/09/2011 Provider: José Mcadams MD Diagnosis: OTHER PSORIASIS (L40 9) - NO LONGER THAN 2WKS AT A TIME has enough Omeprazole 20 MG OR CPDR 06/10/2011 - 09/09/2011 Provider: José Mcadams MD Diagnosis: ABDOMINAL PAIN UNSPC F SITE (R109) Toprol XL 50 MG OR TB24 06/10/2011 - 09/09/2011 Provider: José Mcadams MD Diagnosis: HYPERTENSION NOS 1 tab po qd Glucophage XR 500 MG OR TB24 06/10/2011 - 09/09/2011 Provide r: José Mcadams MD 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) 2tabs Januvia 50 MG OR TABS 06/10/2011 - 09/09/2011 Provider: José Mcadams MD 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) qd Aspirin EC 81 MG OR TBEC 06/10/2011 - 09/09/2011 Provider: José Mcadams MD Diagnosis: DMII UNSPF NT [facility] hydroCHLOROthiazide 12.5 MG CAPS 06/10/2011 - 09/09/2011 Pro vider: José Mcadams MD Diagnosis: HYPERTENSION NOS 1tab Diovan 160 MG OR TABS 06/10/2011 - 09/09/2011 Provider: José Mcadams MD Diagnosis: HYPERTENSION NOS Colace 100 MG OR CAPS 06/10/2011 - 09/09/2011 Provider: José Mcadams MD Diagnosis: ABDOMINAL PAIN UNSPC F SITE (R109) bid Plavix 75 MG OR TABS 06/10/2011 - 09/09/2011 Provider: José Mcadams MD Diagnosis: ISCHEMIC HEART DISEA SE, CHRONIC, NOS (414.9) w/ aspirin Avandia 2 MG OR TABS 06/10/2011 - 07/26/2011 Provider: José Mcadams MD Diagnosis: DMII UNSPF NT [facility] 2tabs Iron 325 (65 Fe) MG OR TABS 06/10/2011 - 09/09/2011 Provider : José Mcadams MD Diagnosis: IRON DEFIC ANEMIA NO S (MICROCYTIC/HYPERCHROMIC) (D509) Lipitor 80 MG OR TABS 06/10/2011 - 09/09/2011 Provider: José Mcadams MD Diagnosis: HYPERLIPIDEMIA NEC/N OS (E78.5) qd Trilipix 45 MG OR CPDR 06/10/2011 - 09/09/2011 Provider: José Mcadams MD Diagnosis: HYPERLIPIDEMIA NEC/N OS (E78.5) qd Allopurinol 100 MG OR TABS 06/10/2011 - 09/09/2011 Provider: José Mcadams MD Diagnosis: GOUT NOS (M109) OneTouch UltraSoft Lancets MISC 06/10/2011 - 09/09/2011 Prov ider: José Mcadams MD 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) qd dx. 250.00 mailed to [facility] has enough OneTouch Ultra Blue STRP 06/10/2011 - 09/09/2011 Provider : José Mcadams MD 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) qd dx. 250.00has enough Drisdol 1.25 MG (90720 UT) OR CAPS 05/27/2011 - 09/09/2011 Geovanna early: José Mcadams MD Diagnosis: VITAMIN D DEFICIENCY NOS 1 TAB Q2wks Topicort 0.25% EX CREA 03/11/2011 - 06/10/2011 Provider: José Mcadams MD Diagnosis: OTHER PSORIASIS (L40 9) - NO LONGER THAN 2WKS AT A TIME has enough Allopurinol 100 MG OR TABS 03/11/2011 - 06/10/2011 Provider: José Mcadams MD Diagnosis: GOUT NOS (M109) Omeprazole 20 MG OR CPDR 03/11/2011 - 06/10/2011 Provider: José Mcadams MD Diagnosis: ABDOMINAL PAIN UNSPC F SITE (R109) Iron 325 (65 Fe) MG OR TABS 03/11/2011 - 06/10/2011 Provider : José Mcadams MD Diagnosis: IRON DEFIC ANEMIA NO S (MICROCYTIC/HYPERCHROMIC) (D509) Avandia 2 MG OR TABS 03/11/2011 - 06/10/2011 Provider: José Mcadams MD Diagnosis: DMII UNSPF NT [facility] 2tabs Colace 100 MG OR CAPS 03/11/2011 - 06/10/2011 Provider: José Mcadams MD Diagnosis: ABDOMINAL PAIN UNSPC F SITE (R109) bid Plavix 75 MG OR TABS 03/11/2011 - 06/10/2011 Provider: José Mcadams MD Diagnosis: ISCHEMIC HEART DISEA SE, CHRONIC, NOS (414.9) w/ aspirin Toprol XL 50 MG OR TB24 03/11/2011 - 06/10/2011 Provider: José Mcadams MD Diagnosis: HYPERTENSION NOS 1 tab po qd Glucophage XR 500 MG OR TB24 03/11/2011 - 06/10/2011 Provide r: José Mcadams MD 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) 2tabs Januvia 50 MG OR TABS 03/11/2011 - 06/10/2011 Provider: José Mcadams MD 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) qd hydroCHLOROthiazide 12.5 MG CAPS 03/11/2011 - 06/10/2011 Pro vider: José Mcadams MD Diagnosis: HYPERTENSION NOS 1tab Aspirin EC 81 MG OR TBEC 03/11/2011 - 06/10/2011 Provider: José Mcadams MD Diagnosis: DMII UNSPF NT [facility] Drisdol 1.25 MG (09049 UT) OR CAPS 03/11/2011 - 05/27/2011 P rovider: José Mcadams MD Diagnosis: VITAMIN D DEFICIENCY NOS 1 TAB Q2wks Diovan 160 MG OR TABS 03/11/2011 - 06/10/2011 Provider: José Mcadams MD Diagnosis: HYPERTENSION NOS OneTouch UltraSoft Lancets MISC 03/11/2011 - 06/10/2011 Prov ider: José Mcadams MD 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) qd dx. 250.00 mailed to [facility] has enough OneTouch Ultra Blue STRP 03/11/2011 - 06/10/2011 Provider : José Mcadams MD 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) qd dx. 250.00has enough Lipitor 80 MG OR TABS 03/09/2011 - 06/10/2011 Provider: Jsoé Mcadams MD Diagnosis: HYPERLIPIDEMIA NEC/N OS (E78.5) qd Trilipix 45 MG OR CPDR 03/09/2011 - 06/10/2011 Provider: José Mcadams MD Diagnosis: HYPERLIPIDEMIA NEC/N OS (E78.5) qd OneTouch Ultra Blue STRP 02/24/2011 - 03/11/2011 Provider : Felisa Sosa MD 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) qd dx. 250.00 OneTouch UltraSoft Lancets MISC 02/24/2011 - 03/11/2011 Prov ider: Felisa Sosa MD 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) qd dx. 250.00 mailed to [facility] OneTouch UltraSoft Lancets MISC 02/24/2011 - 02/24/2011 Prov ider: Felisa Sosa MD 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) qd dx. 250.00 OneTouch Ultra Blue STRP 02/24/2011 - 02/24/2011 Provider : Felisa Sosa MD 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) qd dx. 250.00 Diovan 160 MG OR TABS 02/17/2011 - 03/11/2011 Provider: Sunshine Liu Diagnosis: HYPERTENSION NOS Drisdol 1.25 MG (66548 UT) OR CAPS 02/10/2011 - 03/11/2011 P violader: Sunshine Han [employer]GER [employer]MENT Diagnosis: VITAMIN D DEFICIENCY NOS 1 TAB Q2wks Blood Pressure Monitor KIT 12/09/2010 - 03/11/2011 Provider: Yarely KEN Diagnosis: HYPERTENSION NOS Aspirin EC 81 MG OR TBEC 12/09/2010 - 03/11/2011 Provider: Yarely Zamorano RPA-Jacqueline Diagnosis: DMII UNSPF NT [facility] Colace 100 MG OR CAPS 12/09/2010 - 03/11/2011 Provider: Yarely KEN Diagnosis: ABDOMINAL PAIN UNSPC F SITE (R109) bid Plavix 75 MG OR TABS 12/09/2010 - 03/11/2011 Provider: Yarely KEN Diagnosis: ISCHEMIC HEART DISEA SE, CHRONIC, NOS (414.9) w/ aspirin Iron 325 (65 Fe) MG OR TABS 12/09/2010 - 03/11/2011 Provider : Yarely KEN Diagnosis: IRON DEFIC ANEMIA NO S (MICROCYTIC/HYPERCHROMIC) (D509) Omeprazole 20 MG OR CPDR 12/09/2010 - 03/11/2011 Provider: Yarely KEN Diagnosis: ABDOMINAL PAIN UNSPC F SITE (R109) Allopurinol 100 MG OR TABS 12/09/2010 - 03/11/2011 Provider: Yarely KEN Diagnosis: GOUT NOS (M109) Avandia 2 MG OR TABS 12/09/2010 - 03/11/2011 Provider: Yarely KEN Diagnosis: DMII UNSPF NT [facility] 2tabs Azopt 1% OP SUSP 12/09/2010 - 04/18/2012 Provider: Diagnosis: Toprol XL 50 MG OR TB24 12/09/2010 - 03/11/2011 Provider: Yarely KEN Diagnosis: HYPERTENSION NOS 1 tab po qd Travatan Z 0.004% OP SOLN 12/09/2010 - 04/18/2012 Provider: Diagnosis: Januvia 50 MG OR TABS 12/09/2010 - 03/11/2011 Provider: Yarely KEN 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) qd Lipitor 80 MG OR TABS 12/09/2010 - 03/09/2011 Provider: Yarely KEN Diagnosis: HYPERLIPIDEMIA NEC/N OS (E78.5) qd Trilipix 45 MG OR CPDR 12/09/2010 - 03/09/2011 Provider: Yarely KEN Diagnosis: HYPERLIPIDEMIA NEC/N OS (E78.5) qd Glucophage XR 500 MG OR TB24 12/09/2010 - 03/11/2011 Provide r: Yarely A Jaun RPA-C 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) 2tabs hydroCHLOROthiazide 12.5 MG CAPS 12/09/2010 - 03/11/2011 Pro vider: Yarely KEN Diagnosis: HYPERTENSION NOS 1tab Mary Kate Contour Test STRP 12/09/2010 - 02/24/2011 Provider: Yarely KEN 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) QD DX DM 2 Diovan 160 MG OR TABS 11/12/2010 - 02/17/2011 Provider: Yarely KEN Diagnosis: HYPERTENSION NOS Mary Kate Contour Test STRP 10/21/2010 - 12/09/2010 Provider: Yarely KEN 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) QD DX DM 2 Advocate Lancets [facility] 10/21/2010 - 02/24/2011 Provider: Yarely KEN 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) QD Topicort 0.25% EX CREA 10/21/2010 - 03/11/2011 Provider: Yarely KEN Diagnosis: OTHER PSORIASIS (L40 9) - NO LONGER THAN 2WKS AT A TIME Garlic 1000 MG OR CAPS 10/21/2010 - 04/18/2012 Provider: Diagnosis: Alphagan P 0.15% OP SOLN 10/21/2010 - 04/18/2012 Provider: Diagnosis: Drisdol 1.25 MG (21756 UT) OR CAPS 10/16/2010 - 02/10/2011 P rovider: Yarely KEN Diagnosis: VITAMIN D DEFICIENCY NOS 1 TAB Q2wks Diovan 80 MG OR TABS 10/14/2010 - 12/09/2010 Provider: Yarely KEN Diagnosis: BENIGN HYPERTENSION (HTN) (I10) 1tab hydroCHLOROthiazide 12.5 MG CAPS 10/14/2010 - 12/09/2010 Pro vider: Yarely KEN Diagnosis: HYPERTENSION NOS 1tab Glucophage XR 500 MG OR TB24 10/14/2010 - 12/09/2010 Provide r: Yarely KEN 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) 2tabs Trilipix 45 MG OR CPDR 10/14/2010 - 12/09/2010 Provider: Yarely KEN Diagnosis: HYPERLIPIDEMIA NEC/N OS (E78.5) qd Lipitor 80 MG OR TABS 10/14/2010 - 12/09/2010 Provider: Yarely KEN Diagnosis: HYPERLIPIDEMIA NEC/N OS (E78.5) qd Januvia 50 MG OR TABS 10/14/2010 - 12/09/2010 Provider: Yarely KEN 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) qd Toprol XL 50 MG OR TB24 10/14/2010 - 12/09/2010 Provider: Yarely KEN Diagnosis: HYPERTENSION NOS 1 tab po qd Allopurinol 100 MG OR TABS 10/14/2010 - 12/09/2010 Provider: Yarely KEN Diagnosis: GOUT NOS (M109) Avandia 2 MG OR TABS 10/14/2010 - 12/09/2010 Provider: Yarely KEN Diagnosis: DMII UNSPF NT [facility] 2tabs Omeprazole 20 MG OR CPDR 10/14/2010 - 12/09/2010 Provider: Yarely KEN Diagnosis: ABDOMINAL PAIN UNSPC F SITE (R109) Colace 100 MG OR CAPS 10/14/2010 - 12/09/2010 Provider: Yarely KEN Diagnosis: ABDOMINAL PAIN UNSPC F SITE (R109) bid Plavix 75 MG OR TABS 10/14/2010 - 12/09/2010 Provider: Yarely KEN Diagnosis: ISCHEMIC HEART DISEA SE, CHRONIC, NOS (414.9) w/ aspirin Iron 325 (65 Fe) MG OR TABS 10/14/2010 - 12/09/2010 Provider : Yarely KEN Diagnosis: IRON DEFIC ANEMIA NO S (MICROCYTIC/HYPERCHROMIC) (D509) Drisdol 1.25 MG (52483 UT) OR CAPS 10/14/2010 - 10/14/2010 P rovider: Yarely KEN Diagnosis: VITAMIN D DEFICIENCY NOS 1 TAB WEEKLY Diovan 80 MG OR TABS 09/07/2010 - 10/14/2010 Provider: Yarely KEN Diagnosis: BENIGN HYPERTENSION (HTN) (I10) 1tab Omeprazole 20 MG OR CPDR 07/15/2010 - 10/14/2010 Provider: Yarely KEN Diagnosis: ABDOMINAL PAIN UNSPC F SITE (R109) Ibuprofen 800 MG OR TABS 07/15/2010 - 10/21/2010 Provider: Diagnosis: TID BY EYE DR Bush 1.25 MG (13011 UT) OR CAPS 07/15/2010 - 10/14/2010 P violader: Yarely KEN Diagnosis: VITAMIN D DEFICIENCY NOS 1 TAB WEEKLY Advocate Lancets MISC 07/15/2010 - 10/21/2010 Provider: Yarely KEN 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) QD Mary Kate Contour Test STRP 07/15/2010 - 10/21/2010 Provider: Yarely KEN 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) QD DX DM 2 Plavix 75 MG OR TABS 07/15/2010 - 10/14/2010 Provider: Yarely KEN Diagnosis: ISCHEMIC HEART DISEA SE, CHRONIC, NOS (414.9) w/ aspirin Iron 325 (65 Fe) MG OR TABS 07/15/2010 - 10/14/2010 Provider : Yarely KEN Diagnosis: IRON DEFIC ANEMIA NO S (MICROCYTIC/HYPERCHROMIC) (D509) Diovan 80 MG OR TABS 07/15/2010 - 09/07/2010 Provider: Yarely KEN Diagnosis: BENIGN HYPERTENSION (HTN) (I10) 1tab Colace 100 MG OR CAPS 07/15/2010 - 10/14/2010 Provider: Yarely KEN Diagnosis: ABDOMINAL PAIN UNSPC F SITE (R109) bid Avandia 2 MG OR TABS 07/15/2010 - 10/14/2010 Provider: Yarely KEN Diagnosis: DMII UNSPF NT [facility] 2tabs Aspirin EC 81 MG OR TBEC 07/15/2010 - 12/09/2010 Provider: Yarely KEN Diagnosis: DMII UNSPF NT [facility] Allopurinol 100 MG OR TABS 07/15/2010 - 10/14/2010 Provider: Yarely KEN Diagnosis: GOUT NOS (M109) Lipitor 80 MG OR TABS 07/15/2010 - 10/14/2010 Provider: Yarely KEN Diagnosis: HYPERLIPIDEMIA NEC/N OS (E78.5) qd Trilipix 45 MG OR CPDR 07/15/2010 - 10/14/2010 Provider: Yarely Zamorano RPA-C Diagnosis: HYPERLIPIDEMIA NEC/N OS (E78.5) qd Toprol XL 50 MG OR TB24 07/15/2010 - 10/14/2010 Provider: Yarely KEN Diagnosis: HYPERTENSION NOS 1 tab po qd hydroCHLOROthiazide 12.5 MG CAPS 07/15/2010 - 10/14/2010 Pro vider: Yarely Zamorano RPA-C Diagnosis: HYPERTENSION NOS 1tab Januvia 50 MG OR TABS 07/15/2010 - 10/14/2010 Provider: Yarely LANDAC 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) qd Glucophage XR 500 MG OR TB24 07/15/2010 - 10/14/2010 Provide r: Yarely Zamorano RPA-C 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) 2tabs Lipitor 80 MG OR TABS 07/14/2010 - 07/15/2010 Provider: Yarely KEN Diagnosis: HYPERLIPIDEMIA NEC/N OS (E78.5) qd Trilipix 45 MG OR CPDR 07/14/2010 - 07/15/2010 Provider: Yarely Zamorano RPA-C Diagnosis: HYPERLIPIDEMIA NEC/N OS (E78.5) qd Glucophage XR 500 MG OR TB24 06/30/2010 - 07/15/2010 Provide r: Yarely Zamorano RPA-C 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) 2tabs Toprol XL 50 MG OR TB24 06/10/2010 - 07/15/2010 Provider: Yarely Zamorano RPA-Jacqueline Diagnosis: HYPERTENSION NOS 1 tab po qd Trilipix 45 MG OR CPDR 06/10/2010 - 06/30/2010 Provider: Yarely Zmaorano RPA-C Diagnosis: HYPERLIPIDEMIA NEC/N OS (E78.5) qd Fish Oil 1000 MG OR CAPS 04/07/2010 - 10/21/2010 Provider: Diagnosis: One-A-Day Mens OR TABS 04/07/2010 - 10/21/2010 Provider: Diagnosis: Topicort 0.25% EX CREA 04/07/2010 - 10/21/2010 Provider: Yarely KEN Diagnosis: OTHER PSORIASIS (L40 9) - NO LONGER THAN 2WKS AT A TIME Plavix 75 MG OR TABS 04/07/2010 - 07/15/2010 Provider: Yarely KEN Diagnosis: ISCHEMIC HEART DISEA SE, CHRONIC, NOS (414.9) w/ aspirin Iron 325 (65 Fe) MG OR TABS 04/07/2010 - 07/15/2010 Provider : Yarely KEN Diagnosis: IRON DEFIC ANEMIA NO S (MICROCYTIC/HYPERCHROMIC) (D509) Toprol XL 50 MG OR TB24 04/07/2010 - 06/10/2010 Provider: Yarely KEN Diagnosis: HYPERTENSION NOS 1 tab po qd hydroCHLOROthiazide 12.5 MG CAPS 04/07/2010 - 07/15/2010 Pro vider: Yarely KEN Diagnosis: HYPERTENSION NOS 1tab Elocon 0.1% EX CREA 04/07/2010 - 04/07/2010 Provider: Yarely KEN Diagnosis: DERMATITIS NOS (L2 59) apply as directed Colace 100 MG OR CAPS 04/07/2010 - 07/15/2010 Provider: Yarely KEN Diagnosis: ABDOMINAL PAIN UNSPC F SITE (R109) bid Avandia 2 MG OR TABS 04/07/2010 - 07/15/2010 Provider: Yarely KEN Diagnosis: DMII UNSPF NT [facility] 2tabs Aspirin EC 81 MG OR TBEC 04/07/2010 - 07/15/2010 Provider: Yarely KEN Diagnosis: DMII UNSPF NT [facility] Allopurinol 100 MG OR TABS 04/07/2010 - 07/15/2010 Provider: Yarely KEN Diagnosis: GOUT NOS (M109) Diovan 80 MG OR TABS 04/07/2010 - 07/15/2010 Provider: Yarely Zamorano RPA-C Diagnosis: BENIGN HYPERTENSION (HTN) (I10) 1tab Trilipix 45 MG OR CPDR 04/07/2010 - 06/10/2010 Provider: Yarely Zamorano RPA-C Diagnosis: HYPERLIPIDEMIA NEC/N OS (E78.5) qd Lipitor 80 MG OR TABS 04/07/2010 - 06/30/2010 Provider: Yarely Zamorano RPA-C Diagnosis: HYPERLIPIDEMIA NEC/N OS (E78.5) qd Januvia 50 MG OR TABS 04/07/2010 - 07/15/2010 Provider: Yarely Zamorano RPA-C 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) qd Glucophage XR 500 MG OR TB24 04/07/2010 - 06/30/2010 Provide r: Yarely Zamorano RPA-C 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) 2tabs Ascensia Contour Test STRP 04/07/2010 - 10/21/2010 Provid er: Yarely Zamorano RPA-C 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) diag 250.00 test qd ( hard copy mailed to the Pharmacy) - H ENOUGH Ascensia Contour Test STRP 02/18/2010 - 04/07/2010 Provid er: Yarely Zamorano RPA-C 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) diag 250.00 test qd ( hard copy mailed to the Pharmacy) Ascensia Contour Test STRP 02/18/2010 - 02/18/2010 Provid er: Yarely Zamorano RPA-C 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) diag 250.00 test qd ( hard copy mailed to the Pharmacy) Lipitor 80 MG OR TABS 01/15/2010 - 04/07/2010 Provider: Yarely Zamorano RPA-C Diagnosis: HYPERLIPIDEMIA NEC/N OS (E78.5) qd Alphagan P 0.15% OP SOLN 01/13/2010 - 10/21/2010 Provider: Diagnosis: Plavix 75 MG OR TABS 01/13/2010 - 04/07/2010 Provider: Yarely Zamorano RPA-C Diagnosis: ISCHEMIC HEART DISEA SE, CHRONIC, NOS (414.9) w/ aspirin Iron 325 (65 Fe) MG OR TABS 01/13/2010 - 04/07/2010 Provider : Yarely KEN Diagnosis: IRON DEFIC ANEMIA NO S (MICROCYTIC/HYPERCHROMIC) (D509) Elocon 0.1% EX CREA 01/13/2010 - 04/07/2010 Provider: Yarely KEN Diagnosis: DERMATITIS NOS (L2 59) apply as directed Diovan 80 MG OR TABS 01/13/2010 - 04/07/2010 Provider: Yarely KEN Diagnosis: BENIGN HYPERTENSION (HTN) (I10) 1tab Colace 100 MG OR CAPS 01/13/2010 - 04/07/2010 Provider: Yarely KEN Diagnosis: ABDOMINAL PAIN UNSPC F SITE (R109) bid Avandia 2 MG OR TABS 01/13/2010 - 04/07/2010 Provider: Yarely KEN Diagnosis: DMII UNSPF NT [facility] 2tabs Allopurinol 100 MG OR TABS 01/13/2010 - 04/07/2010 Provider: Yarely KEN Diagnosis: GOUT NOS (M109) Trilipix 45 MG OR CPDR 01/13/2010 - 04/07/2010 Provider: Yarely KEN Diagnosis: HYPERLIPIDEMIA NEC/N OS (E78.5) qd Lipitor 40 MG OR TABS 01/13/2010 - 01/15/2010 Provider: Yarely KEN Diagnosis: HYPERLIPIDEMIA NEC/N OS (E78.5) 1tab Toprol XL 50 MG OR TB24 01/13/2010 - 04/07/2010 Provider: Yarely KEN Diagnosis: HYPERTENSION NOS 1 tab po qd hydroCHLOROthiazide 12.5 MG CAPS 01/13/2010 - 04/07/2010 Pro vider: Yarely KEN Diagnosis: HYPERTENSION NOS 1tab Januvia 50 MG OR TABS 01/13/2010 - 04/07/2010 Provider: Yarely KEN 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) qd Glucophage XR 500 MG OR TB24 01/13/2010 - 04/07/2010 Provide r: Yarely Zamorano RPA-C 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) 2tabs Ascensia Contour Test STRP 01/13/2010 - 02/18/2010 Provid er: Yarely Zamorano RPA-C 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) bid diag 250.00 test qd ( hard copy mailed to the Pharmacy ) Ascensia Contour Test STRP 01/06/2010 - 01/13/2010 Provid er: Yarely Zamorano RPA-C 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) bid diag 250.00 test qd ( hard copy mailed to the Pharmacy ) Ascensia Contour Test STRP 01/06/2010 - 01/06/2010 Provid er: Yarely Zamorano RPA-C 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) bid diag 250.00 test qd ( hard copy mailed to the Pharmacy ) Aspirin EC 81 MG OR TBEC 10/15/2009 - 04/07/2010 Provider: Yarely Zamorano RPA-C Diagnosis: DMII UNSPF NT [facility] Elocon 0.1% EX CREA 09/17/2009 - 01/13/2010 Provider: Yarely Zamorano RPA-C Diagnosis: DERMATITIS NOS (L2 59) apply as directed Trilipix 45 MG OR CPDR 09/17/2009 - 01/13/2010 Provider: Yarely Zamorano RPA-C Diagnosis: HYPERLIPIDEMIA NEC/N OS (E78.5) qd Aspirin EC 81 MG OR TBEC 09/17/2009 - 10/15/2009 Provider: Yarely Zamoraon RPA-C Diagnosis: DMII UNSPF NT [facility] Avandia 2 MG OR TABS 09/17/2009 - 01/13/2010 Provider: Yarely Zamorano RPA-C Diagnosis: DMII UNSPF NT [facility] 2tabs Tricor 48 MG OR TABS 09/17/2009 - 09/17/2009 Provider: Yarely Zamorano RPA-C Diagnosis: HYPERLIPIDEMIA NEC/N OS (E78.5) 1tab Plavix 75 MG OR TABS 09/17/2009 - 01/13/2010 Provider: Yarely KEN Diagnosis: ISCHEMIC HEART DISEA SE, CHRONIC, NOS (414.9) w/ aspirin Elocon 0.1% EX CREA 09/17/2009 - 09/17/2009 Provider: Yarely KEN Diagnosis: apply as directed Glucophage XR 500 MG OR TB24 09/17/2009 - 01/13/2010 Provide r: Yarely KEN 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) 2tabs Lipitor 40 MG OR TABS 09/17/2009 - 01/13/2010 Provider: Yarely KEN Diagnosis: HYPERLIPIDEMIA NEC/N OS (E78.5) 1tab hydroCHLOROthiazide 12.5 MG CAPS 09/17/2009 - 01/13/2010 Pro vider: Yarely KEN Diagnosis: HYPERTENSION NOS 1tab Allopurinol 100 MG OR TABS 09/17/2009 - 01/13/2010 Provider: Yarely KEN 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) Toprol XL 50 MG OR TB24 09/17/2009 - 01/13/2010 Provider: Yarely KEN Diagnosis: HYPERTENSION NOS 1 tab po qd Iron 325 (65 Fe) MG OR TABS 09/17/2009 - 01/13/2010 Provider : Yarely KEN Diagnosis: IRON DEFIC ANEMIA NO S (MICROCYTIC/HYPERCHROMIC) (D509) Colace 100 MG OR CAPS 09/17/2009 - 01/13/2010 Provider: Yarely KEN Diagnosis: ABDOMINAL PAIN UNSPC F SITE (R109) bid Diovan 80 MG OR TABS 09/17/2009 - 01/13/2010 Provider: Yarely KEN Diagnosis: BENIGN HYPERTENSION (HTN) (I10) 1tab Januvia 50 MG OR TABS 09/17/2009 - 01/13/2010 Provider: Yarely KEN 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) qd Ascensia Contour Test STRP 06/19/2009 - 01/06/2010 Provid er: Yarely A Jaun RPA-C 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) bid diag 250.00 test qd Elocon 0.1% EX CREA 06/19/2009 - 09/17/2009 Provider: Yarely KEN Diagnosis: apply as directed hydroCHLOROthiazide 12.5 MG CAPS 06/19/2009 - 09/17/2009 Pro vider: Yarely KEN Diagnosis: HYPERTENSION NOS 1tab Glucophage XR 500 MG OR TB24 06/19/2009 - 09/17/2009 Provide r: Yarely KEN 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) 2tabs Plavix 75 MG OR TABS 06/19/2009 - 09/17/2009 Provider: Yarely KEN Diagnosis: ISCHEMIC HEART DISEA SE, CHRONIC, NOS (414.9) w/ aspirin Lipitor 40 MG OR TABS 06/19/2009 - 09/17/2009 Provider: Yarely KEN Diagnosis: HYPERLIPIDEMIA NEC/N OS (E78.5) 1tab Tricor 48 MG OR TABS 06/19/2009 - 09/17/2009 Provider: Yarely KEN Diagnosis: HYPERLIPIDEMIA NEC/N OS (E78.5) 1tab Allopurinol 100 MG OR TABS 06/19/2009 - 09/17/2009 Provider: Yarely KEN 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) Toprol XL 50 MG OR TB24 06/19/2009 - 09/17/2009 Provider: Yarely KEN Diagnosis: HYPERTENSION NOS 1 tab po qd Iron 325 (65 Fe) MG OR TABS 06/19/2009 - 09/17/2009 Provider : Yarely KEN Diagnosis: IRON DEFIC ANEMIA NO S (MICROCYTIC/HYPERCHROMIC) (D509) Colace 100 MG OR CAPS 06/19/2009 - 09/17/2009 Provider: Yarely KEN Diagnosis: ABDOMINAL PAIN UNSPC F SITE (R109) bid Diovan 80 MG OR TABS 06/19/2009 - 09/17/2009 Provider: Yarely KEN Diagnosis: BENIGN HYPERTENSION (HTN) (I10) 1tab Januvia 50 MG OR TABS 06/19/2009 - 09/17/2009 Provider: Yarely Zamorano RPA-C 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) qd Avandia 2 MG OR TABS 06/19/2009 - 09/17/2009 Provider: Yarely Zamorano RPA-C Diagnosis: DMII UNSPF NT [facility] 2tabs Cheratussin AC 100-10 MG/5ML OR SYRP 06/09/2009 - 06/19/2009 Provider: Maria Luisa Ruff MD Diagnosis: COUGH (R05) 2 tsp po q 6 hours prn cpugh Guaifenesin-Codeine 300-10 MG OR TABS 06/09/2009 - 9 Provider: Maria Luisa Ruff MD Diagnosis: COUGH (R05) Albuterol 90 MCG/ACT IN AERS 05/29/2009 - 06/19/2009 Provide r: Maria Luisa Ruff MD Diagnosis: BRONCHITIS,ACUTE (J2 09) Cipro 500 MG OR TABS 05/29/2009 - 06/19/2009 Provider: Maria Luisa Ruff MD Diagnosis: BRONCHITIS,ACUTE (J2 09) [facility] Contour Test STRP 03/26/2009 - 06/19/2009 Provid er: José Mcadams MD 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) bid diag 250.00 test qd Glucophage XR 500 MG OR TB24 03/26/2009 - 06/19/2009 Provide r: José Mcadams MD 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) 2tabs Aspirin EC 81 MG OR TBEC 03/25/2009 - 09/17/2009 Provider: José Mcadams MD Diagnosis: DMII UNSPF NT [facility] [place] 0.1% EX CREA 02/18/2009 - 06/19/2009 Provider: José Mcadams MD Diagnosis: apply as directed Toprol XL 50 MG OR TB24 02/18/2009 - 06/19/2009 Provider: José Mcadams MD Diagnosis: HYPERTENSION NOS 1 tab po qd Glucophage XR 500 MG OR TB24 02/18/2009 - 03/26/2009 Provide r: José Mcadams MD 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) 2tabs Iron 325 (65 Fe) MG OR TABS 02/18/2009 - 06/19/2009 Provider : José Mcadams MD Diagnosis: IRON DEFIC ANEMIA NO S (MICROCYTIC/HYPERCHROMIC) (D509) Diovan 80 MG OR TABS 02/18/2009 - 06/19/2009 Provider: José Mcadams MD Diagnosis: BENIGN HYPERTENSION (HTN) (I10) 1tab Januvia 50 MG OR TABS 02/18/2009 - 06/19/2009 Provider: José Mcadams MD 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[facility] (E11) qd Allopurinol 100 MG OR TABS 02/18/2009 - 06/19/2009 Provider: José Mcadams MD 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[facility] () Tricor 48 MG OR TABS 02/18/2009 - 06/19/2009 Provider: José Mcadams MD Diagnosis: HYPERLIPIDEMIA NEC/N OS (E78.5) 1tab Lipitor 40 MG OR TABS 02/18/2009 - 06/19/2009 Provider: José Mcadams MD Diagnosis: HYPERLIPIDEMIA NEC/N OS (E78.5) 1tab Plavix 75 MG OR TABS 02/18/2009 - 06/19/2009 Provider: José Mcadams MD Diagnosis: ISCHEMIC HEART DISEA SE, CHRONIC, NOS (414.9) w/ aspirin hydroCHLOROthiazide 12.5 MG CAPS 02/18/2009 - 06/19/2009 Pro vider: José Mcadams MD Diagnosis: HYPERTENSION NOS 1tab Avandia 2 MG OR TABS 02/18/2009 - 06/19/2009 Provider: José Mcadams MD Diagnosis: DMII UNSPF NT [facility] 2tabs Colace 100 MG OR CAPS 02/18/2009 - 06/19/2009 Provider: José Mcadams MD Diagnosis: ABDOMINAL PAIN UNSPC F SITE (R109) bid BL Lancets MISC 01/29/2009 - 10/21/2010 Provider: Frank LANDAC 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[facility] () [facility] Contour Test STRP 01/29/2009 - 03/26/2009 Provid er: Frank Anderson RPA-C 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5) 1tab Tricor 48 MG OR TABS 11/12/2008 - 02/18/2009 Provider: Frank KEN Diagnosis: HYPERLIPIDEMIA NEC/N OS (E78.5) 1tab Allopurinol 100 MG OR TABS 11/12/2008 - 02/18/2009 Provider: Frank KEN 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) Januvia 50 MG OR TABS 11/12/2008 - 02/18/2009 Provider: Frank KEN 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) qd Diovan 80 MG OR TABS 11/12/2008 - 02/18/2009 Provider: Frank KEN Diagnosis: BENIGN HYPERTENSION (HTN) (I10) 1tab Aspirin EC 81 MG OR TBEC 11/12/2008 - 03/25/2009 Provider: Frank KEN Diagnosis: DMII UNSPF NT [facility] Toprol XL 50 MG OR TB24 11/12/2008 - 02/18/2009 Provider: Frank KEN Diagnosis: HYPERTENSION NOS 1 tab po qd Iron 325 (65 Fe) MG OR TABS 11/12/2008 - 02/18/2009 Provider : Frank J Anderson RPA-C Diagnosis: [facility] Contour Test STRP 10/22/2008 - 01/29/2009 Provid er: José Mcadams MD 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) bid diag 250.00 test qd Glucophage XR 500 MG OR TB24 10/18/2008 - 02/18/2009 Provide r: Yarely Zamorano RPA-C 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) 2tabs [place] 0.1% EX CREA 10/11/2008 - 02/18/2009 Provider: José Mcadams MD Diagnosis: apply as directed [place] 0.1% EX CREA 09/10/2008 - 10/11/2008 Provider: José Mcadams MD Diagnosis: apply as directed [facility] Contour Test STRP 08/26/2008 - 10/11/2008 Provid er: José Mcadams MD Diagnosis: 1qd diag 250.00 test qd Glucophage XR 500 MG OR TB24 07/23/2008 - 10/18/2008 Provide r: Yarely Zamorano RPA-C 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) 2tabs Toprol XL 50 MG OR TB24 07/23/2008 - 11/12/2008 Provider: Yarely Zamorano RPA-C Diagnosis: HYPERTENSION NOS 1 tab po qd Tricor 48 MG OR TABS 07/23/2008 - 11/12/2008 Provider: Yarely Zamorano RPA-C Diagnosis: HYPERLIPIDEMIA NEC/N OS (E78.5) 1tab Avandia 2 MG OR TABS 07/23/2008 - 11/12/2008 Provider: Yarely Zamorano RPA-C Diagnosis: DMII UNSPF NT [facility] 2tabs hydroCHLOROthiazide 12.5 MG CAPS 07/23/2008 - 11/12/2008 Pro vider: Yarely Zamorano RPA-C Diagnosis: HYPERTENSION NOS 1tab Plavix 75 MG OR TABS 07/23/2008 - 11/12/2008 Provider: Yarely Zamorano RPA-C Diagnosis: ISCHEMIC HEART DISEA SE, CHRONIC, NOS (414.9) w/ aspirin Allopurinol 100 MG OR TABS 07/23/2008 - 11/12/2008 Provider: Yarely Zamorano RPA-C 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 MISC 07/23/2008 - 02/18/2009 Provider: Yarely Zamorano RPA-Jacqueline Diagnosis: 1qd,dia.00 Colace 100 MG OR CAPS 07/23/2008 - 11/12/2008 Provider: Yarely Zamorano RPA-Jacuqeline Diagnosis: ABDOMINAL PAIN UNSPC F SITE (R109) bid Glucophage XR 500 MG OR TB24 07/23/2008 - 07/23/2008 Provide r: Yarely Zamorano RPA-C 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) 2tabs [facility] Contour Test STRP 07/23/2008 - 08/26/2008 Provid er: Yarely Zamorano RPA-C Diagnosis: 1qd diag 250.00 test qd Aspirin EC 81 MG OR TBEC 07/23/2008 - 11/12/2008 Provider: Yarely Zamorano RPA-Jacqueline Diagnosis: DMII UNSPF NT [facility] Lipitor 40 MG OR TABS 07/23/2008 - 11/12/2008 Provider: Yarely Zamorano RPA-C Diagnosis: HYPERLIPIDEMIA NEC/N OS (E78.5) 1tab Lipitor 40 MG OR TABS 06/24/2008 - 07/23/2008 Provider: Yarely Zamorano RPA-C Diagnosis: HYPERLIPIDEMIA NEC/N OS (E78.5) 1tab [facility] Contour Test STRP 06/20/2008 - 07/23/2008 Provid er: Frank Anderson RPA-C Diagnosis: 1qd Aspirin EC 81 MG OR TBEC 06/20/2008 - 07/23/2008 Provider: Frank Anderson RPA-C Diagnosis: DMII UNSPF NT [facility] Lancets Misc. 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) Iron 325 (65 Fe) MG OR TABS 05/14/2008 - 07/23/2008 Provider : Yarely Zamorano RPA-C Diagnosis: Allopurinol 100 MG OR TABS 05/09/2008 - 07/23/2008 Provider: José Mcadams MD 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) Avandia 2 MG OR TABS 05/09/2008 - 07/23/2008 Provider: José Mcadams MD Diagnosis: DMII UNSPF NT [facility] 2tabs Januvia 50 MG OR TABS 05/09/2008 - 05/23/2008 Provider: José Mcadams MD 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) hydroCHLOROthiazide 12.5 MG CAPS 05/09/2008 - 07/23/2008 Pro vider: José Mcadams MD Diagnosis: HYPERTENSION NOS 1tab Toprol XL 50 MG OR TB24 05/09/2008 - 07/23/2008 Provider: José Mcadams MD Diagnosis: HYPERTENSION NOS 1 tab po qd Diovan 80 MG OR TABS 05/09/2008 - 06/19/2008 Provider: José Mcadams MD Diagnosis: BENIGN HYPERTENSION (HTN) (I10) 1tab Tricor 48 MG OR TABS 05/09/2008 - 07/23/2008 Provider: José Mcadams MD Diagnosis: HYPERLIPIDEMIA NEC/N OS (E78.5) 1tab Lipitor 40 MG OR TABS 05/09/2008 - 06/24/2008 Provider: José Mcadams MD Diagnosis: HYPERLIPIDEMIA NEC/N OS (E78.5) 1tab Plavix 75 MG OR TABS 05/09/2008 - 07/23/2008 Provider: José Mcadams MD Diagnosis: ISCHEMIC HEART DISEA SE, CHRONIC, NOS (414.9) w/ aspirin Colace 100 MG OR CAPS 04/03/2008 - 06/20/2008 Provider: José Mcadams MD Diagnosis: ABDOMINAL PAIN UNSPC F SITE (R109) OneTouch Test STRP 03/06/2008 - 06/20/2008 Provider: Frank KEN 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) test blood sugar bid diag 250.01 Glucophage XR 500 MG OR TB24 03/06/2008 - 06/20/2008 Provide r: Frank KEN 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) 2tabs Allopurinol 100 MG OR TABS 01/10/2008 - 05/09/2008 Provider: Frank KEN 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) [place] 8% EX SOLN 01/10/2008 - 06/20/2008 Provider: Frank KEN Diagnosis: ONYCHOMYCOSIS (B35 1) apply to nail once daily x 1 week then remove and repeat aga in if needed [place] 0.1% EX CREA 01/10/2008 - 06/20/2008 Provider: Frank KEN Diagnosis: x 14 days Toprol XL 50 MG OR TB24 01/10/2008 - 05/09/2008 Provider: Frank KEN Diagnosis: HYPERTENSION NOS 1 tab po qd hydroCHLOROthiazide 12.5 MG CAPS 01/10/2008 - 05/09/2008 Pro vider: Frank KEN Diagnosis: HYPERTENSION NOS 1tab Glucophage XR 500 MG OR TB24 01/10/2008 - 03/06/2008 Provide r: Frank KEN 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) 2tabs Diovan 80 MG OR TABS 01/10/2008 - 05/09/2008 Provider: Frank KEN Diagnosis: BENIGN HYPERTENSION (HTN) (I10) 1tab Plavix 75 MG OR TABS 01/10/2008 - 05/09/2008 Provider: Frank KEN Diagnosis: ISCHEMIC HEART DISEA SE, CHRONIC, NOS (414.9) w/ aspirin Avandia 2 MG OR TABS 01/10/2008 - 05/09/2008 Provider: Frank KEN Diagnosis: DMII UNSPF NT [facility] 2tabs Tricor 48 MG OR TABS 01/10/2008 - 05/09/2008 Provider: Frank KEN Diagnosis: HYPERLIPIDEMIA NEC/N OS (E78.5) 1tab Januvia 50 MG OR TABS 01/10/2008 - 05/09/2008 Provider: Frank KEN 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) Lipitor 40 MG OR TABS 01/10/2008 - 05/09/2008 Provider: Frank KEN Diagnosis: HYPERLIPIDEMIA NEC/N OS (E78.5) 1tab Iron 325 (65 Fe) MG OR TABS 12/25/2007 - 05/14/2008 Provider : Yarely KEN Diagnosis: [place] 0.1% EX CREA 11/23/2007 - 01/10/2008 Provider: Yarely Zamorano RPA-Jacqueline Diagnosis: x 14 days Toprol XL 50 MG OR TB24 11/01/2007 - 01/10/2008 Provider: Frank KEN Diagnosis: HYPERTENSION NOS 1 tab po qd Tricor 48 MG OR TABS 11/01/2007 - 01/10/2008 Provider: Frank KEN Diagnosis: HYPERLIPIDEMIA NEC/N OS (E78.5) 1tab Januvia 50 MG OR TABS 11/01/2007 - 01/10/2008 Provider: Frank KEN 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) hydroCHLOROthiazide 12.5 MG CAPS 11/01/2007 - 01/10/2008 Pro vider: Frank J Anderson RPA-C Diagnosis: HYPERTENSION NOS 1tab Lipitor 40 MG OR TABS 09/11/2007 - 01/10/2008 Provider: Yarely KEN Diagnosis: HYPERLIPIDEMIA NEC/N OS (E78.5) 1tab hydroCHLOROthiazide 12.5 MG CAPS 09/11/2007 - 11/01/2007 Pro vider: Yarely KEN Diagnosis: HYPERTENSION NOS 1tab Tricor 48 MG OR TABS 09/11/2007 - 11/01/2007 Provider: Yarely KEN Diagnosis: HYPERLIPIDEMIA NEC/N OS (E78.5) 1tab Diovan 80 MG OR TABS 09/11/2007 - 01/10/2008 Provider: Yarely KEN Diagnosis: BENIGN HYPERTENSION (HTN) (I10) 1tab Plavix 75 MG OR TABS 09/11/2007 - 01/10/2008 Provider: Yarely KEN Diagnosis: ISCHEMIC HEART DISEA SE, CHRONIC, NOS (414.9) w/ aspirin Glucophage XR 500 MG OR TB24 09/11/2007 - 01/10/2008 Provide r: Yarely LANDAC 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) 2tabs Januvia 50 MG OR TABS 09/11/2007 - 11/01/2007 Provider: Yarely KEN 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) Avandia 2 MG OR TABS 09/11/2007 - 01/10/2008 Provider: Yarely KEN Diagnosis: DMII UNSPF NT [facility] 2tabs OneTouch Test STRP 09/06/2007 - 03/06/2008 Provider: Frank Anderson RPA-C 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) test blood sugar bid diag 250.01 Lancets MIS 09/06/2007 - 05/29/2008 Provider: Frank Anderson RPA-C 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) Lancets MISC 07/19/2007 - 09/06/2007 Provider: Frank Anderson RPA-C 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) [place] 0.1% EX CREA 07/19/2007 - 11/23/2007 Provider: Frank KEN Diagnosis: x 14 days Avandia 2 MG OR TABS 07/19/2007 - 09/11/2007 Provider: Frank KEN Diagnosis: DMII UNSPF NT [facility] 2tabs Iron 325 (65 Fe) MG OR TABS 07/19/2007 - 12/25/2007 Provider : Frank KEN Diagnosis: Toprol XL 50 MG OR TB24 07/19/2007 - 11/01/2007 Provider: Frank KEN Diagnosis: HYPERTENSION NOS 1 tab po qd Plavix 75 MG OR TABS 07/19/2007 - 09/11/2007 Provider: Frank KEN Diagnosis: ISCHEMIC HEART DISEA SE, CHRONIC, NOS (414.9) w/ aspirin Glucophage XR 500 MG OR TB24 07/19/2007 - 09/11/2007 Provide r: Frank KEN 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) 2tabs Januvia 50 MG OR TABS 07/19/2007 - 09/11/2007 Provider: Frank KEN 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) hydroCHLOROthiazide 12.5 MG CAPS 07/19/2007 - 09/11/2007 Pro vider: Frank KEN Diagnosis: HYPERTENSION NOS 1tab Tricor 48 MG OR TABS 07/19/2007 - 09/11/2007 Provider: Frank KEN Diagnosis: HYPERLIPIDEMIA NEC/N OS (E78.5) 1tab Lipitor 40 MG OR TABS 07/05/2007 - 09/11/2007 Provider: Yarely KEN Diagnosis: HYPERLIPIDEMIA NEC/N OS (E78.5) 1tab Januvia 50 MG OR TABS 06/28/2007 - 07/19/2007 Provider: Yarely KEN 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) Diovan 80 MG OR TABS 06/28/2007 - 09/11/2007 Provider: Frank KEN Diagnosis: BENIGN HYPERTENSION (HTN) (I10) 1tab hydroCHLOROthiazide 12.5 MG CAPS 06/16/2007 - 07/19/2007 Pro vider: José Mcadams MD Diagnosis: HYPERTENSION NOS 1tab Tricor 48 MG OR TABS 06/16/2007 - 07/19/2007 Provider: José Mcadams MD Diagnosis: HYPERLIPIDEMIA NEC/N OS (E78.5) 1tab Plavix 75 MG OR TABS 06/14/2007 - 07/19/2007 Provider: Frank Anderson RPA-C Diagnosis: ISCHEMIC HEART DISEA SE, CHRONIC, NOS (414.9) w/ aspirin Januvia 50 MG OR TABS 05/29/2007 - 06/28/2007 Provider: Yarely KEN 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) Toprol XL 50 MG OR TB24 05/29/2007 - 07/19/2007 Provider: Yarely KEN Diagnosis: HYPERTENSION NOS 1 tab po qd Glucophage XR 500 MG OR TB24 05/05/2007 - 07/19/2007 Provide r: Yarely Zamorano RPA-C 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) 2tabs Iron 325 (65 Fe) MG OR TABS 05/05/2007 - 07/19/2007 Provider : Yarely Zamorano RPA-Jacqueline Diagnosis: Januvia 50 MG OR TABS 05/01/2007 - 05/29/2007 Provider: Yarely Zamorano RPA-Jacqueline 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) Januvia 50 MG OR TABS 04/03/2007 - 05/01/2007 Provider: Felisa Sosa MD 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) Januvia 50 MG OR TABS 02/28/2007 - 04/03/2007 Provider: Yarely Zamorano RPA-C 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) OneTouch Test STRP 02/22/2007 - 09/06/2007 Provider: Yarely Zamorano RPA-C 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) test blood sugar bid diag 250.01 Januvia 50 MG OR TABS 02/02/2007 - 02/28/2007 Provider: Yarely Zamorano RPA-C 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) Januvia 50 MG OR TABS 01/04/2007 - 02/02/2007 Provider: Yarely KEN 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) [place] 0.1% EX CREA 12/07/2006 - 07/19/2007 Provider: Frank KEN Diagnosis: x 14 days Tricor 48 MG OR TABS 12/07/2006 - 06/16/2007 Provider: Frank KEN Diagnosis: HYPERLIPIDEMIA NEC/N OS (E78.5) 1tab Iron 325 (65 Fe) MG OR TABS 12/07/2006 - 05/05/2007 Provider : Frank KEN Diagnosis: Lipitor 40 MG OR TABS 12/07/2006 - 07/05/2007 Provider: Frank KEN Diagnosis: HYPERLIPIDEMIA NEC/N OS (E78.5) 1tab hydroCHLOROthiazide 12.5 MG CAPS 12/07/2006 - 06/16/2007 Pro vider: Frank KEN Diagnosis: HYPERTENSION NOS 1tab Glucophage XR 500 MG OR TB24 12/07/2006 - 05/05/2007 Provide r: Frank KEN 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) 2tabs Diovan 80 MG OR TABS 12/07/2006 - 06/28/2007 Provider: Frank KEN Diagnosis: BENIGN HYPERTENSION (HTN) (I10) 1tab Lancets MISC 12/07/2006 - 07/19/2007 Provider: Frank KEN 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) Avandia 2 MG OR TABS 12/07/2006 - 07/19/2007 Provider: Frank KEN Diagnosis: DMII UNSPF NT [facility] 2tabs Toprol XL 50 MG OR TB24 12/07/2006 - 05/29/2007 Provider: Frank KEN Diagnosis: HYPERTENSION NOS 1 tab po qd Plavix 75 MG OR TABS 12/07/2006 - 06/14/2007 Provider: Frank KEN Diagnosis: ISCHEMIC HEART DISEA SE, CHRONIC, NOS (414.9) w/ aspirin Glucophage XR 500 MG OR TB24 09/07/2006 - 12/07/2006 Provide r: Frank KEN 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) 2tabs hydroCHLOROthiazide 12.5 MG CAPS 09/07/2006 - 12/07/2006 Pro vider: Frank KEN Diagnosis: HYPERTENSION NOS 1tab Toprol XL 50 MG OR TB24 09/07/2006 - 12/07/2006 Provider: Frank KEN Diagnosis: HYPERTENSION NOS 1 tab po qd Avandia 2 MG OR TABS 09/07/2006 - 12/07/2006 Provider: Frank KEN Diagnosis: DMII UNSPF NT [facility] 2tabs Iron 325 (65 Fe) MG OR TABS 09/07/2006 - 12/07/2006 Provider : Frank KEN Diagnosis: Plavix 75 MG OR TABS 09/07/2006 - 12/07/2006 Provider: Frank KEN Diagnosis: ISCHEMIC HEART DISEA SE, CHRONIC, NOS (414.9) w/ aspirin Lancets MISC 09/07/2006 - 12/07/2006 Provider: Frank KEN 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) Tricor 48 MG OR TABS 09/07/2006 - 12/07/2006 Provider: Frank KEN Diagnosis: HYPERLIPIDEMIA NEC/N OS (E78.5) 1tab Lipitor 40 MG OR TABS 09/07/2006 - 12/07/2006 Provider: Frank KEN Diagnosis: HYPERLIPIDEMIA NEC/N OS (E78.5) 1tab Diovan 80 MG OR TABS 09/07/2006 - 12/07/2006 Provider: Frank KEN Diagnosis: BENIGN HYPERTENSION (HTN) (I10) 1tab OneTouch Test STRP 08/09/2006 - 02/22/2007 Provider: Frank KEN 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) test blood sugar bid Tricor 48 MG OR TABS 06/16/2006 - 09/07/2006 Provider: Frank KEN Diagnosis: HYPERLIPIDEMIA NEC/N OS (E78.5) 1tab [place] 0.1% EX CREA 06/16/2006 - 12/07/2006 Provider: Frank KEN Diagnosis: x 14 days Lancets MISC 06/09/2006 - 09/07/2006 Provider: Felisa Sosa MD 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) Lipitor 40 MG OR TABS 06/08/2006 - 09/07/2006 Provider: Frank KEN Diagnosis: HYPERLIPIDEMIA NEC/N OS (E78.5) 1tab Avandia 2 MG OR TABS 06/06/2006 - 09/07/2006 Provider: Frank KEN Diagnosis: DMII UNSPF NT [facility] 2tabs Plavix 75 MG OR TABS 05/11/2006 - 09/07/2006 Provider: Frank KEN Diagnosis: ISCHEMIC HEART DISEA SE, CHRONIC, NOS (414.9) w/ aspirin Iron 325 (65 Fe) MG OR TABS 05/11/2006 - 09/07/2006 Provider : Frank KEN Diagnosis: Glucophage XR 500 MG OR TB24 05/11/2006 - 09/07/2006 Provide r: Frank KEN 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) 2tabs hydroCHLOROthiazide 12.5 MG CAPS 05/11/2006 - 09/07/2006 Pro vider: Frank KEN Diagnosis: HYPERTENSION NOS 1tab Toprol XL 50 MG OR TB24 05/11/2006 - 09/07/2006 Provider: Frank KEN Diagnosis: HYPERTENSION NOS 1 tab po qd OneTouch Test STRP 05/11/2006 - 08/09/2006 Provider: Frank KEN 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) test blood sugar bid [place] 0.1% EX CREA 05/11/2006 - 06/16/2006 Provider: Frank KEN Diagnosis: x 14 days Diovan 80 MG OR TABS 05/11/2006 - 09/07/2006 Provider: Frank J Anderson RPA-C Diagnosis: BENIGN HYPERTENSION (HTN) (I10) 1tab Avandia 2 MG OR TABS 05/11/2006 - 06/06/2006 Provider: Frank Anderson RPA-C Diagnosis: DMII UNSPF NT [facility] [place] 0.1% EX CREA 04/20/2006 - 05/11/2006 Provider: Felisa Sosa MD Diagnosis: x 14 days Aspirin EC 81 MG OR TBEC 04/13/2006 - 06/20/2008 Provider: Tamra Perry Diagnosis: DMII UNSPF NT [facility] Avandia 2 MG OR TABS 04/13/2006 - 05/11/2006 Provider: Tamra Perry Diagnosis: DMII UNSPF NT [facility] Iron 325 (65 Fe) MG OR TABS 04/13/2006 - 05/11/2006 Provider : Tamra Perry Diagnosis: Plavix 75 MG OR TABS 04/13/2006 - 05/11/2006 Provider: Tamra Perry Diagnosis: ISCHEMIC HEART DISEA SE, CHRONIC, NOS (414.9) w/ aspirin OneTouch Test [facility] 04/13/2006 - 05/11/2006 Provider: Tamra Perry 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) test blood sugar bid Blood Glucose Test [facility] 04/13/2006 - 05/11/2006 Provider: Tamra Perry Diagnosis: One touch ultra brand Toprol XL 50 MG OR TB24 04/13/2006 - 05/11/2006 Provider: Tamra Perry Diagnosis: HYPERTENSION NOS 1 tab po qd Lancets MISC 04/13/2006 - 06/09/2006 Provider: Tamra Perry 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) Glucophage XR 500 MG OR TB24 02/15/2006 - 05/11/2006 Provide r: Tamra Perry 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) 2tabs Diovan 80 MG OR TABS 02/15/2006 - 05/11/2006 Provider: Tamra Perry Diagnosis: BENIGN HYPERTENSION (HTN) (I10) 1tab Lipitor 40 MG OR TABS 02/15/2006 - 06/08/2006 Provider: Tamra Perry Diagnosis: HYPERLIPIDEMIA NEC/N OS (E78.5) 1tab Tricor 48 MG OR TABS 02/15/2006 - 06/16/2006 Provider: Tamra Perry Diagnosis: HYPERLIPIDEMIA NEC/N OS (E78.5) 1tab hydroCHLOROthiazide 12.5 MG CAPS 02/15/2006 - 05/11/2006 Pro vider: Tamra Perry Diagnosis: HYPERTENSION NOS 1tab Benicar 40 MG OR TABS 01/27/2006 - 01/27/2006 Provider: Tamra Perry Diagnosis: 1tab Diovan 80 MG OR TABS 01/24/2006 - 02/15/2006 Provider: Tamra Perry Diagnosis: BENIGN HYPERTENSION (HTN) (I10) Diovan 80 MG OR TABS 01/04/2006 - 01/24/2006 Provider: Tamra Perry Diagnosis: BENIGN HYPERTENSION (HTN) (I10) hydroCHLOROthiazide 12.5 MG CAPS 12/10/2005 - 02/15/2006 Pro vider: Tamra Perry Diagnosis: HYPERTENSION NOS Toprol XL 50 MG OR TB24 12/10/2005 - 04/13/2006 Provider: Tamra Perry Diagnosis: HYPERTENSION NOS 1 tab po qd Avandia 2 MG OR TABS 12/10/2005 - 04/13/2006 Provider: Tamra Perry Diagnosis: DMII UNSPF NT [facility] NTRL Plavix 75 MG OR TABS 12/10/2005 - 04/13/2006 Provider: Tamra Perry Diagnosis: ISCHEMIC HEART DISEA SE, CHRONIC, NOS (414.9) w/ aspirin OneTouch Test STRP 12/10/2005 - 04/13/2006 Provider: Tamra Perry 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) test blood sugar bid Lipitor 20 MG OR TABS 12/10/2005 - 12/10/2005 Provider: Tamra Perry Diagnosis: PURE HYPERCHOLESTERO LEMIA (E780) Tricor 48 MG OR TABS 12/10/2005 - 02/15/2006 Provider: Tamra Perry Diagnosis: Diovan 80 MG OR TABS 12/10/2005 - 01/04/2006 Provider: Tamra Perry Diagnosis: BENIGN HYPERTENSION (HTN) (I10) Lipitor 40 MG OR TABS 12/10/2005 - 02/15/2006 Provider: Tamra Perry Diagnosis: HYPERLIPIDEMIA NEC/N OS (E78.5) Iron 325 (65 Fe) MG OR TABS 12/10/2005 - 04/13/2006 Provider : Tamra Perry Diagnosis: Benicar 40 MG OR TABS 12/10/2005 - 12/10/2005 Provider: Tamra Perry Diagnosis: Glucophage XR 500 MG OR TB24 11/08/2005 - 02/15/2006 Provide r: Hemangi M Cas 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) OneTouch Test STRP 10/20/2005 - 12/10/2005 Provider: Hemangi M Sane 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) test blood sugar bid Tricor 48 MG OR TABS 09/30/2005 - 12/10/2005 Provider: Hemangi M Sane Diagnosis: Lipitor 20 MG OR TABS 09/16/2005 - 12/10/2005 Provider: Hemangi M Sane Diagnosis: PURE HYPERCHOLESTERO LEMIA (E780) Plavix 75 MG OR TABS 09/10/2005 - 12/10/2005 Provider: Hemangi M Sane Diagnosis: ISCHEMIC HEART DISEA SE, CHRONIC, NOS (414.9) w/ aspirin Toprol XL 50 MG OR TB24 09/10/2005 - 12/10/2005 Provider: Hemangi M Sane Diagnosis: HYPERTENSION NOS 1 tab po qd OneTouch Test STRP 09/10/2005 - 10/20/2005 Provider: Hemangi M Sane 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) test blood sugar bid Benicar 40 MG OR TABS 09/10/2005 - 12/10/2005 Provider: Hemangi M Sane Diagnosis: Elocon 0.1% EX CREA 09/10/2005 - 04/13/2006 Provider: Hemangi M Sane Diagnosis: Avandia 2 MG OR TABS 09/10/2005 - 12/10/2005 Provider: Hemangi M Sane Diagnosis: DMII UNSPF NT [facility] Motrin 400 MG OR TABS 09/10/2005 - 04/13/2006 Provider: Hemangi M Sane Diagnosis: JOINT PAIN-MULT JTS (M2550) prn uses 1-2xawk Iron 325 (65 Fe) MG OR TABS 09/10/2005 - 12/10/2005 Provider : Hemangi M Sane Diagnosis: hydroCHLOROthiazide 12.5 MG CAPS 09/10/2005 - 12/10/2005 Pro vider: Hemangi M Sane Diagnosis: HYPERTENSION NOS Crestor 20 MG OR TABS 09/10/2005 - 09/16/2005 Provider: Hemangi M Sane Diagnosis: HYPERLIPIDEMIA NEC/N OS (E78.5) Glucophage XR 500 MG OR TB24 07/26/2005 - 11/08/2005 Provide r: Hemangi M Sane 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) Lancets MISC 07/14/2005 - 04/13/2006 Provider: Hemangi M Sane 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) OneTouch Test STRP 07/14/2005 - 09/10/2005 Provider: Hemangi M Sane 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) test blood sugar bid Elocon 0.1% EX CREA 06/11/2005 - 09/10/2005 Provider: Hemangi M Sane Diagnosis: Crestor 20 MG OR TABS 06/11/2005 - 09/10/2005 Provider: Hemangi M Sane Diagnosis: HYPERLIPIDEMIA NEC/N OS (E78.5) Crestor 20 MG OR TABS 06/07/2005 - 06/11/2005 Provider: Felisa Sosa MD Diagnosis: Plavix 75 MG OR TABS 05/14/2005 - 09/10/2005 Provider: Yarely KEN Diagnosis: ISCHEMIC HEART DISEA SE, CHRONIC, NOS (414.9) w/ aspirin Toprol XL 50 MG OR TB24 05/14/2005 - 09/10/2005 Provider: Yarely KEN Diagnosis: HYPERTENSION NOS 1 tab po qd hydroCHLOROthiazide 12.5 MG CAPS 05/14/2005 - 09/10/2005 Pro vider: Yarely KEN Diagnosis: HYPERTENSION NOS Benicar 40 MG OR TABS 05/14/2005 - 09/10/2005 Provider: Yarely KEN Diagnosis: Iron 325 (65 Fe) MG OR TABS 05/14/2005 - 09/10/2005 Provider : Yarely KEN Diagnosis: Avandia 2 MG OR TABS 05/14/2005 - 09/10/2005 Provider: Yarely A Jaun RPA-C Diagnosis: DMII UNSPF NT [facility] Motrin 400 MG OR TABS 05/14/2005 - 09/10/2005 Provider: Yarely Zamorano RPA-C Diagnosis: JOINT PAIN-MULT JTS (M2550) prn uses 1-2xawk Crestor 20 MG OR TABS 05/13/2005 - 06/07/2005 Provider: Felisa Sosa MD Diagnosis: Glucophage XR 500 MG OR TB24 04/13/2005 - 07/26/2005 Provide r: Hemangi M Sane 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) Glucophage XR 500 MG OR TB24 04/13/2005 - 04/13/2005 Provide r: Hemangi M Sane 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) Elocon 0.1% EX CREA 02/15/2005 - 06/11/2005 Provider: Felisa Sosa MD Diagnosis: Motrin 400 MG OR TABS 02/08/2005 - 05/14/2005 Provider: Felisa Sosa MD Diagnosis: JOINT PAIN-MULT JTS (M2550) prn uses 1-2xawk Crestor 20 MG OR TABS 02/08/2005 - 05/13/2005 Provider: Felisa Sosa MD Diagnosis: Toprol XL 50 MG OR TB24 02/04/2005 - 05/14/2005 Provider: Felisa Sosa MD Diagnosis: HYPERTENSION NOS 1 tab po qd Motrin 400 MG OR TABS 02/04/2005 - 02/08/2005 Provider: Felisa Sosa MD Diagnosis: JOINT PAIN-MULT JTS (M2550) prn uses 1-2xawk hydroCHLOROthiazide 12.5 MG CAPS 02/04/2005 - 05/14/2005 Pro vider: Felisa Sosa MD Diagnosis: HYPERTENSION NOS Iron 325 (65 Fe) MG OR TABS 02/04/2005 - 05/14/2005 Provider : Felisa Sosa MD Diagnosis: Benicar 40 MG OR TABS 02/04/2005 - 05/14/2005 Provider: Felisa Soas MD Diagnosis: Plavix 75 MG OR TABS 02/04/2005 - 05/14/2005 Provider: Felisa Sosa MD Diagnosis: ISCHEMIC HEART DISEA SE, CHRONIC, NOS (414.9) w/ aspirin Avandia 2 MG OR TABS 02/04/2005 - 05/14/2005 Provider: Felisa Sosa MD Diagnosis: DMII UNSPF NT [facility] Crestor 20 MG OR TABS 02/04/2005 - 02/04/2005 Provider: Felisa Sosa MD Diagnosis: PURE HYPERCHOLESTERO LEMIA (E780) Glucophage XR 500 MG OR TB24 01/05/2005 - 04/13/2005 Provide r: Hemangi M Sane 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) Glucophage XR 500 MG OR TB24 01/05/2005 - 02/04/2005 Provide r: Hemangi M Sane 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) Blood Glucose Test STRP 01/05/2005 - 04/13/2006 Provider: Tamra Perry Diagnosis: One touch ultra brand Aspirin EC 81 MG OR TBEC 12/10/2004 - 04/13/2006 Provider: Felisa Sosa MD Diagnosis: DMII UNSPF NT [facility] Elocon 0.1% EX LOTN 10/06/2004 - 02/04/2005 Provider: Hemangi M Abundioe Diagnosis: OTHER PSORIASIS (L40 9) apply topically qd no > 14days tx hydroCHLOROthiazide 12.5 MG CAPS 10/06/2004 - 02/04/2005 Pro vider: Hemangi M Sane Diagnosis: HYPERTENSION NOS Benicar 40 MG OR TABS 10/06/2004 - 02/04/2005 Provider: Hemangi M Sane Diagnosis: Plavix 75 MG OR TABS 10/06/2004 - 02/04/2005 Provider: Hemangi M Sane Diagnosis: ISCHEMIC HEART DISEA SE, CHRONIC, NOS (414.9) w/ aspirin Toprol XL 50 MG OR TB24 10/06/2004 - 02/04/2005 Provider: Hemangi M Sane Diagnosis: HYPERTENSION NOS 1 tab po qd Avandia 2 MG OR TABS 10/06/2004 - 02/04/2005 Provider: Hemangi M Sane Diagnosis: DMII UNSPF NT [facility] Glucophage XR 500 MG OR TB24 10/06/2004 - 01/05/2005 Provide r: Hemangi M Sane 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) Iron 325 (65 Fe) MG OR TABS 10/06/2004 - 02/04/2005 Provider : Hemangi M Sane Diagnosis: Crestor 20 MG OR TABS 10/06/2004 - 02/04/2005 Provider: Hemangi M Sane Diagnosis: PURE HYPERCHOLESTERO LEMIA (E780) [CVT ADD] One Touch Ultra MISC 08/10/2004 - 06/11/2005 Provi jey: Felisa Sosa MD 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) One touch ultra lancets [CVT ADD] One Touch Ultra MISC 08/10/2004 - 08/10/2004 Provi jey: Felisa Sosa MD 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) One touch ultra brand Plavix 75 MG OR TABS 08/04/2004 - 10/06/2004 Provider: Felisa Sosa MD Diagnosis: ISCHEMIC HEART DISEA SE, CHRONIC, NOS (414.9) w/ aspirin Avandia 2 MG OR TABS 07/08/2004 - 10/06/2004 Provider: Tamra Perry Diagnosis: DMII UNSPF NT [facility] Blood Glucose Test STRP 07/08/2004 - 01/05/2005 Provider: Tamra Perry Diagnosis: One touch ultra brand Elocon 0.1% EX LOTN 07/08/2004 - 10/06/2004 Provider: Tamra Perry Diagnosis: OTHER PSORIASIS (L40 9) apply topically qd no > 14days tx Motrin 400 MG OR TABS 07/08/2004 - 02/04/2005 Provider: Tamra Perry Diagnosis: Toprol XL 50 MG OR TB24 07/08/2004 - 10/06/2004 Provider: Tamra Perry Diagnosis: HYPERTENSION NOS 1 tab po qd hydroCHLOROthiazide 12.5 MG CAPS 07/08/2004 - 10/06/2004 Pro vider: Tamra Perry Diagnosis: HYPERTENSION NOS Crestor 20 MG OR TABS 07/08/2004 - 10/06/2004 Provider: Tamra Perry Diagnosis: PURE HYPERCHOLESTERO LEMIA (E780) Glucophage XR 500 MG OR TB24 07/08/2004 - 10/06/2004 Provide r: Tamra Perry 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) Iron 325 (65 Fe) MG OR TABS 07/06/2004 - 10/06/2004 Provider : Felisa Sosa MD Diagnosis: hydroCHLOROthiazide 12.5 MG CAPS 04/13/2004 - 07/08/2004 Pro vider: Felisa Sosa MD Diagnosis: HYPERTENSION NOS Glucophage XR 500 MG OR TB24 04/13/2004 - 07/08/2004 Provide r: Felisa Sosa MD 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) Avandia 2 MG OR TABS 04/13/2004 - 07/08/2004 Provider: Felisa Sosa MD Diagnosis: DMII UNSPF NT [facility] Aspirin EC 81 MG OR TBEC 04/13/2004 - 12/10/2004 Provider: Felisa Sosa MD Diagnosis: Motrin 400 MG OR TABS 04/13/2004 - 07/08/2004 Provider: Felisa Sosa MD Diagnosis: Elocon 0.1% EX LOTN 04/13/2004 - 07/08/2004 Provider: Felisa Sosa MD Diagnosis: OTHER PSORIASIS (L40 9) apply topically qd no > 14days tx Benicar 40 MG OR TABS 04/13/2004 - 10/06/2004 Provider: Felisa Sosa MD Diagnosis: Crestor 20 MG OR TABS 04/13/2004 - 07/08/2004 Provider: Felisa Sosa MD Diagnosis: PURE HYPERCHOLESTERO LEMIA (E780) Blood Glucose Test STRP 03/25/2004 - 07/08/2004 Provider: Felisa Sosa MD Diagnosis: One touch ultra brand Motrin 400 MG OR TABS 01/17/2004 - 04/13/2004 Provider: Felisa Sosa MD Diagnosis: Crestor 20 MG OR TABS 01/17/2004 - 04/13/2004 Provider: Felisa Sosa MD Diagnosis: PURE HYPERCHOLESTERO LEMIA (E780) Elocon 0.1% EX LOTN 01/17/2004 - 04/13/2004 Provider: Felisa Sosa MD Diagnosis: OTHER PSORIASIS (L40 9) apply topically qd no > 14days tx Toprol XL 50 MG OR TB24 01/17/2004 - 07/08/2004 Provider: Felisa Sosa MD Diagnosis: HYPERTENSION NOS 1 tab po qd Glucophage XR 500 MG OR TB24 01/17/2004 - 04/13/2004 Provide r: Felisa Sosa MD 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) Zocor 20 MG OR TABS 01/17/2004 - 01/17/2004 Provider: Felisa Sosa MD Diagnosis: Glucophage XR 500 MG OR TB24 12/19/2003 - 01/17/2004 Provide r: Felisa Sosa MD 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) Glucophage XR 500 MG OR TB24 11/20/2003 - 12/19/2003 Provide r: Felisa Sosa MD 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) Motrin 400 MG OR TABS 11/14/2003 - 01/17/2004 Provider: Felisa Sosa MD Diagnosis: hydroCHLOROthiazide 12.5 MG CAPS 10/25/2003 - 04/13/2004 Pro vider: Dru Petersen Diagnosis: HYPERTENSION NOS Benicar 40 MG OR TABS 10/25/2003 - 04/13/2004 Provider: Dru Petersen Diagnosis: [CVT ADD] Aspirin 81 MG OR CPEP 10/25/2003 - 04/13/2004 Prov ider: Dru Petersen 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) Lancets Thin MISC 09/02/2003 - 12/10/2004 Provider: Dru Petersen Diagnosis: Elocon 0.1% EX CREA 08/02/2003 - 10/29/2003 Provider: Dru Petersen Diagnosis: apply qd Toprol XL 50 MG OR TB24 08/02/2003 - 01/17/2004 Provider: Dru Petersen Diagnosis: HYPERTENSION NOS 1 tab po qd [CVT ADD] Blood Glucose Test Strips TEST 07/09/2003 - Provider: Dru Petersen Diagnosis: prestige brand [CVT ADD] Aspirin 81 MG OR CPEP 06/06/2003 - 10/25/2003 Prov ider: Dru Petersen 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) Toprol XL 50 MG OR TB24 05/10/2003 - 08/02/2003 Provider: Dru Petersen Diagnosis: 1 tab po qd Motrin 400 MG OR TABS 04/12/2003 - 10/29/2003 Provider: Dru Petersen Diagnosis: Toprol XL 50 MG OR TB24 04/12/2003 - 05/10/2003 Provider: Dru Petersen Diagnosis: 1 tab po qd Elocon 0.1% EX CREA 04/12/2003 - 08/02/2003 Provider: Dru Petersen Diagnosis: apply qd Zocor 10 MG OR TABS 04/12/2003 - 10/11/2003 Provider: Dru Petersen Diagnosis: hydroCHLOROthiazide 12.5 MG CAPS 04/12/2003 - 10/25/2003 Pro vider: Felisa Sosa MD Diagnosis: HYPERTENSION NOS Glucophage XR 500 MG OR TB24 04/12/2003 - 09/27/2003 Provide r: Dru Petersen 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) Benicar 40 MG OR TABS 04/12/2003 - 10/25/2003 Provider: Dru Petersen Diagnosis: [CVT ADD] Aspirin 81 MG OR CPEP 04/12/2003 - 06/06/2003 Prov ider: Dru Petersen 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) Accupril 40 MG OR TABS 04/12/2003 - 04/12/2003 Provider: Dru Petersen Diagnosis: HYPERTENSION NOS Benicar 40 MG OR TABS 04/05/2003 - 04/12/2003 Provider: Felisa Sosa MD Diagnosis: Lancets Thin MISC 02/11/2003 - 09/02/2003 Provider: Felisa Sosa MD Diagnosis: hydroCHLOROthiazide 12.5 MG CAPS 02/04/2003 - 04/12/2003 Pro vider: Felisa Sosa MD Diagnosis: HYPERTENSION NOS [CVT ADD] Blood Glucose Test Strips TEST 11/21/2002 - 12/2002 Provider: Dru Petersen Diagnosis: prestige brand Motrin 400 MG OR TABS 11/16/2002 - 04/12/2003 Provider: Dru Petersen Diagnosis: Zocor 10 MG OR TABS 11/16/2002 - 04/12/2003 Provider: Dru Petersen Diagnosis: [CVT ADD] Aspirin 81 MG OR CPEP 11/16/2002 - 04/12/2003 Prov ider: Dru Petersen 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) Accupril 40 MG OR TABS 11/16/2002 - 04/12/2003 Provider: Dru Petersen Diagnosis: HYPERTENSION NOS Accupril 40 MG OR TABS 11/06/2002 - 11/16/2002 Provider: rDu Petersen Diagnosis: HYPERTENSION NOS hydroCHLOROthiazide 12.5 MG CAPS 10/17/2002 - 02/04/2003 Pro vider: Dru Petersen Diagnosis: HYPERTENSION NOS Glucophage XR 500 MG OR TB24 10/17/2002 - 04/12/2003 Provide r: Dru Petersen 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) Benicar 40 MG OR TABS 10/05/2002 - 04/05/2003 Provider: Dru Petersen Diagnosis: Glucophage XR 500 MG OR TB24 08/22/2002 - 10/17/2002 Provide r: Dru Petersen 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) Lancets Thin MISC 08/20/2002 - 02/11/2003 Provider: Dru Petersen Diagnosis: Benicar 40 MG OR TABS 07/25/2002 - 10/05/2002 Provider: Dru Petersen Diagnosis: Motrin 400 MG OR TABS 07/18/2002 - 11/16/2002 Provider: Dru Petersen Diagnosis: GEETA 20mg OR TABS 06/27/2002 - 10/06 Provider: Dru Petersen Diagnosis: HYPERTENSION NOS Elocon 0.1% EX CREA 06/27/2002 - 11/16/2002 Provider: Dru Petersen Diagnosis: [CVT ADD] Aspirin 81 MG OR CPEP 06/27/2002 - 11/16/2002 Prov ider: Dru Petersen 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) Zocor 10 MG OR TABS 06/27/2002 - 11/16/2002 Provider: Dru Petersen Diagnosis: Blood Glucose Test STRP 05/03/2002 - 05/03/2002 Provider: Dru Petersen Diagnosis: BID Blood Glucose Test STRP 05/03/2002 - 11/16/2002 Provider: Dru Petersen Diagnosis: BID PRESTIGE BRAND Accupril 40 MG OR TABS 05/02/2002 - 11/06/2002 Provider: Dru Petersen Diagnosis: HYPERTENSION NOS Glucophage XR 500 MG OR TB24 04/04/2002 - 08/22/2002 Provide r: Dru Petersen 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) Accupril 20 MG OR TABS 04/04/2002 - 05/02/2002 Provider: Dru Petersen Diagnosis: HYPERTENSION NOS Elocon 0.1% EX CREA 03/16/2002 - 06/27/2002 Provider: Dru Petersen Diagnosis: [CVT ADD] Aspirin 81 MG OR CPEP 01/08/2002 - 06/27/2002 Prov ider: Dru Petersen 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) Motrin 400 MG OR TABS 01/08/2002 - 07/18/2002 Provider: Dru Petersen Diagnosis: [CVT ADD] Aspirin 81 MG OR CPEP 01/08/2002 - 01/08/2002 Prov ider: Dru Petersen 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) Motrin 400 MG OR TABS 01/08/2002 - 01/08/2002 Provider: Dru Petersen Diagnosis: Zocor 10 MG OR TABS 01/08/2002 - 06/27/2002 Provider: Dru Petersen Diagnosis: Glucophage XR 500 MG OR TB24 12/18/2001 - 04/04/2002 Provide r: Dru Petersen Diagnosis: Accupril 10 MG OR TABS 12/18/2001 - 04/04/2002 Provider: Dru Petersen Diagnosis: Glucophage XR 500 MG OR TB24 10/16/2001 - 12/18/2001 Provide r: Dru Petersen Diagnosis: Accupril 10 MG OR TABS 10/16/2001 - 12/18/2001 Provider: Dru Petersen Diagnosis: Medications Administered Includes: Administered Medications in patient's chartNo Administered Medications Recorded Vital Signs Includes: Vital Signs from 07/15/2019 through 07/15/2020 Vital Name 07/15/2020 12:49P 04/15/2020 01:30P 04/15/2020 01:03P 12/24/2019 08:14A 09/24/2019 09:45A Height (in) 66 66 66 66 Weight (lb) 256 251 250 Body Mass Index (kg/m2) 41.3 40.5 4 0.4 Body Surface Area (m2) 2.22 2.20 2. 20 Oxygen Saturation (%) 94 92 95 Flow Rate (l/min) (None (Room Air)) (None (Room Air)) (None (Room Air)) FiO2 (%) 21 21 21 Blood Pressure Sitting L 122/80 126/78 BP Cuff Size Large Large Large Pulse Rate-Sitting (bpm) 68 73 66 Respiration Rate (breaths/min) 24 22 22 Temp-Temporal 97.2 97.1 Blood Pressure Sitting R 142/76 148/74 Results Includes: Results from 07/15/2019 through 07/15/2020 PSA - DIAGNOSTIC [facility] Ordered by José Mcadams MD on 05/23/[address] [place] [address], [id number] Collected: 05/23/2020 Reported: 05/23/2020 20:43 tel : PSA 0.03 ng/mL (0.00 - 4.00) None Note: BLDoPSA INTERP RETATIONBLDx The PSA assay should not be used alone for a screening test or diagnosis for presence or absence of malignant disease. Predictions of disease recurrence should not be based solely on values obtained from serial patient serum values. The PSA result was determined by "[employer]", on the Marco A BRAD 6000. Values obtained with different assay methods or kits cannot be used interchangeably.Responsible Observer: (DW) Reviewed by José Mcadams MD on 05/07; All test results are final unless otherwise noted. Reported Physicians [facility] Ordered by José Mcadams MD on 05/23/[address] [place] [address], [id number] Collected: 05/23/2020 Reported: 05/23/2020 20:43 tel : Reported Physicians See Note None Note: Reported Physicians:Ordering: JULI VALERIO LAttending: Laura JOHNSONulting: Enmanuel SOSA To: Marcos Johnson To: Felisa Sosa Reviewed by José Mcadams MD on 05/07; All test results are final unless otherwise noted. HEPATIC PANEL [facility] Ordered by Felisa Sosa MD on 02/26/[address] [place] [address], [id number] Collected: 02/26/2020 Reported: 02/27/2020 08:25 tel :[phone] ALBUMIN 4.4 G/DL (3.9 - 5.0) None Note: Responsible Observer: () ALKALINE PHOS 44 U/L (38 - 126) None Note: Responsible Observer: () DIRECT BILI <0.2 MG/DL (0.1 - 0.4) None Note: Responsible Observer: () GLOBULIN 2.4 GM/DL (2.4 - 3.2) None Note: Responsible Observer: () INDIRECT BILI 0.5 MG/DL (0.2 - 1.1) None Note: Responsible Observer: () SGOT/AST 23 U/L (5 - 40) None Note: Responsible Observer: () SGPT/ALT 22 U/L (7 - 56) None Note: Responsible Observer: () TOTAL BILI <0.7 MG/DL (0.2 - 1.3) None Note: Responsible Observer: () TOTAL PROTEIN 6.8 G/DL (6.3 - 8.2) None Note: Responsible Observer: () Reviewed by José Mcadams MD on 02/04; All test results are final unless otherwise noted. Reported Physicians [facility] Ordered by Felisa Sosa MD on 02/26/[address] [place] [address], [id number] Collected: 02/26/2020 Reported: 02/27/2020 08:25 tel :[phone] Reported Physicians See Note None Note: Reported Physicians:Ordering: Felisa Pearl AAttending: FELISA SOSAReferring: FELISA SOSAConsulting: FELISA SOSACopy To: Felisa Sosa Reviewed by José Mcadams MD on 02/04; All test results are final unless otherwise noted. BASIC METABOLIC PANEL [facility] Ordered by Felisa Sosa MD on 02/26/[address] [place] [address], [id number] Collected: 02/26/2020 Reported: 02/26/2020 21:38 tel :[phone] AFR AMER GFR 59 mL/min None Note: Responsible Observer: (MELANIE) AGE 74 yrs None Note: Responsible Observer: (MELANIE) ANION GAP 10.0 mmol/L (8.0 - 16.0) None Note: Responsible Observer: (TAD) BASIC METABOLIC PANEL See Note None Note: BASIC METABOLIC PANELResponsib le Observer: (TAD) BUN 34 MG/DL (7 - 21) H (High) Note: Responsible Observer: (TAD) BUN/CREAT 23 (8 - 27) None Note: Responsible Observer: (TAD) CALCIUM 9.6 MG/DL (8.4 - 10.2) None Note: Responsible Observer: (TAD) CHLORIDE 102 mEq/L (98 - 107) None Note: Responsible Observer: (TAD) CO2 27 MEQ/L (22 - 30) None Note: Responsible Observer: (TAD) CREATININE 1.5 MG/DL (0.7 - 1.5) None Note: Responsible Observer: (TAD) GLUCOSE 176 MG/DL (65 - 110) H (High) Note: Responsible Observer: (TAD) NON-AA GFR 48 mL/min None Note: Male GFR Interprentation 20-49 yrs >60 mL/min Normal 50-59 yrs >56 mL/min Normal 60-69 yrs >49 mL/min Normal 70-79yrs >42 mL/min Normal 80 and above >35 mL/min Normal Female GFR Interpretation 20-39 yrs >60 mL/min Normal 40-49 yrs >58 mL/min Normal 50-59 yrs >51 mL/min Normal 60-69 yrs >45 mL/min Normal 70-79 yrs >39 mL/min Normal 80 and above >32 mL/min NormalResponsible Observer: (TAD) POTASSIUM 4.9 mEq/L (3.6 - 5.0) None Note: Responsible Observer: (TAD) SODIUM 139 mEq/L (134 - 153) None Note: Responsible Observer: (TAD) Reviewed by José Mcadams MD on 02/04; All test results are final unless otherwise noted. Reported Physicians [facility] Ordered by Felisa Sosa MD on 02/26/[address] [place] [address], [facility] Collected: 02/26/2020 Reported: 02/26/2020 21:38 tel : Reported Physicians See Note None Note: Reported Physicians:Ordering: Felisa Pearl AAttending: FELISA SOSAReferring: FELISA SOSAConsulting: FELISA SOSACopkalia To: Felisa Sosa Reviewed by José Mcadams MD on 02/04; All test results are final unless otherwise noted. CVE PANEL [facility] Ordered by Felisa Sosa MD on 02/26/[address] [place] [address], [id number] Collected: 02/26/2020 Reported: 02/26/2020 21:38 tel :[phone] CHOLESTEROL 181 MG/DL (131 - 200) None Note: Responsible Observer: (TAD) CVE PANEL See Note None Note: LIPID PANELResponsible Observe r: (TAD) HDL 45 MG/DL (29 - 86) None Note: Responsible Observer: (TAD) LDL 99 mg/dL (65 - 175) None Note: Responsible Observer: (TAD) LDL/HDL 2.20 (1.00 - 3.55) None Note: CVE RISK CHOL/HD L LDL/HDLMEN: 1/2 AVERAGE 3.43 1.00 AVERAGE 4.97 3.55 2X AVERAGE 9.55 6.25 3X AVERAGE 23.99 7.99WOMEN: 1/2 AVERAGE 3.27 1.47 AVERAGE 4.44 3.22 2X AVERAGE 7.05 5.03 3X AVERAGE 11.04 6.14Responsible Observer: (TAD) RISK FACTOR 4.0 (3.4 - 4.9) None Note: Responsible Observer: (TAD) TRIGLYCERIDES 175 MG/DL (35 - 160) H (High) Note: Responsible Observer: (TAD) Reviewed by José Mcadams MD on 02/04; All test results are final unless otherwise noted. Reported Physicians [facility] Ordered by Felisa Sosa MD on 02/26/[address] [place] [address], [id number] Collected: 02/26/2020 Reported: 02/26/2020 21:38 tel :[phone] Reported Physicians See Note None Note: Reported Physicians:Ordering: Felisa Pearl AAttending: FELISA SOSAReferring: FELISA SOSAConsulting: FELISA SOSACopkaila To: Felisa Sosa Reviewed by José Mcadams MD on 02/04; All test results are final unless otherwise noted. CPK [facility] Ordered by Felisa Sosa MD on 02/26/[address] [place] [address], [id number] Collected: 02/26/2020 Reported: 02/26/2020 21:38 tel :[phone] CPK 93 U/L (30 - 170) None Note: Responsible Observer: (TAD) Reviewed by José Mcadams MD on 02/04; All test results are final unless otherwise noted. Reported Physicians [facility] Ordered by Felisa Sosa MD on 02/26/[address] [place] [address], [id number] Collected: 02/26/2020 Reported: 02/26/2020 21:38 tel :[phone] Reported Physicians See Note None Note: Reported Physicians:Ordering: Felisa Pearl AAttending: FELISA SOSAReferring: FELISA SOSAConsulting: LILLY SOSAYNCopy To: Felisa Sosa Reviewed by José Mcadams MD on 02/04; All test results are final unless otherwise noted. PSA - DIAGNOSTIC [facility] Ordered by Felisa Sosa MD on 02/26/[address] [place] [address], [id number] Collected: 02/26/2020 Reported: 02/26/2020 21:26 tel :[phone] PSA <0.01 ng/mL (0.00 - 4.00) None Note: BLDoPSA INTERP RETATIONBLDx The PSA assay should not be used alone for a screening test or diagnosis for presence or absence of malignant disease. Predictions of disease recurrence should not be based solely on values obtained from serial patient serum values. The PSA result was determined by "[employer]", on the Marco A BRAD 6000. Values obtained with different assay methods or kits cannot be used interchangeably.Responsible Observer: (TAD) Reviewed by José Mcadams MD on 02/04; All test results are final unless otherwise noted. Reported Physicians [facility] Ordered by Felisa Sosa MD on 02/26/[address] [place] [address], [id number] Collected: 02/26/2020 Reported: 02/26/2020 21:27 tel :[phone] Reported Physicians See Note None Note: Reported Physicians:Ordering: Felisa Pearl AAttending: DIONICIO SOSACELYNReferring: IAN, JOCELYNConsulting: IAN, JOCELYNCopy To: Felisa Sosa Reviewed by José Mcadams MD on 02/04; All test results are final unless otherwise noted. HGBA1C [facility] Ordered by Felisa Sosa MD on 02/26/[address] [place] [address], [id number] Collected: 02/26/2020 Reported: 02/26/2020 20:49 tel :[phone] HGB A1C 7.5 % (4.4 - 6.1) H (High) Note: {A1]{HB]Responsible Observer: (TERELL Lepe) Reviewed by José Mcadams MD on 02/04; All test results are final unless otherwise noted. Reported Physicians [facility] Ordered by Felisa Sosa MD on 02/26/[address] [place] [address], [id number] Collected: 02/26/2020 Reported: 02/26/2020 20:49 tel :[phone] Reported Physicians See Note None Note: Reported Physicians:Ordering: Felisa Pearl AAttending: FELISA SOSAReferring: DIONICIO SOSACELYNConsulting: IAN, JOCELYNCopy To: Felisa Sosa Reviewed by José Mcadams MD on 02/04; All test results are final unless otherwise noted. PROSTATIC SPECIFIC AG MONITOR [facility] Ordered by José Mcadams MD on 08/01/2019 [address] [place], [address] Collected: 08/01/2019 Reported: 08/01/2019 12:36 tel :[phone] PROSTATIC SPECIFIC AG MONITOR 0.03 NG/ML (< 4.00) N (Normal) Note: The PSA assay is performed on the Siemens Waverly analyzer by [employer] sandwich chemiluminescent immunoassay and should not be compared interchangeably with other methods. It should not be used alone as a screening test or diagnosis for the presence or absence of malignant disease. Predictions of disease recurrence should not be based solely on values obtained from serial patient serum values. Reviewed by José Mcadams MD on 10/2018; All test results are final unless otherwise noted. Reported Physicians [facility] Ordered by José Mcadams MD on 08/01/2019 [address] [place], [address] Collected: 08/01/2019 Reported: 08/01/2019 12:36 tel : Reported Physicians See Note None Note: Reported Physicians:Ordering: Tayo carr [id number]: Janet Nazario To: Janet Nazario To: Felisa Sosa Reviewed by José Mcadams MD on 10/2018; All test results are final unless otherwise noted. GLUCOSE (POSTPRANDIAL) [facility] Ordered by José Mcadams MD on [address] [place], [address] Collected: Reported: 09/24/2019 10:11 tel:[phone] Glucose 161 (60+ years <160) A (Abnormal) Reviewed by José Mcadams MD on 09/06; All test results are final unless otherwise noted. HbA1C [facility] Ordered by José Mcadams MD on [address] [place], [address] Collected: Reported: 09/24/2019 10:11 tel:[phone] HbA1C 6.6 (<6.0) A (Abnormal) Reviewed by José Mcadams MD on 09/06; All test results are final unless otherwise noted. History of Present Illness History of Present Illness not supported for this document typeNo History of Present Illness Recorded Social History Description Last Updated Caffeine use 07/15/2020 Daily coffee consumption was 1.5 cups per day 07/15/20 20 Not a current smoker 07/15/2020 Not using alcohol 07/15/2020 Not using drugs 07/15/2020 Social history unchanged 07/15/2020 No tea consumption 12/24/2019 Poor exercise habits 12/24/2019 Smoking status : Former smoker 12/19/2018 Psychosocial support is sufficient 12/19/2018 No cola consumption 07/15/2010 No tobacco use 07/15/2010 Going to the bathroom with no difficulty 04/07/2010 No difficulty dressing 04/07/2010 No difficulty feeding 04/07/2010 No difficulty grooming 04/07/2010 No physical disability 04/07/2010 Normal activities of daily living 04/07/2010 Social history [use for free text] 01/10/2008 Procedures and Surgical History Includes: Procedures from 07/15/2019 through 07/15/2020 Procedures Code Diagnosis Performing Provider Service Location Service Date CAPILLARY BLOOD DRAW 33470 HCC-Type 2 diabetes mellitu s without complications José Mcadams MD [facility], 09/24/2019 HbA1c (Glycosolated) (waived laboratory) 81082 HCC-Type 2 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 José Mcadams MD [facility], 09/24/2019 GLUCOSE (waived laboratory) 14756 HCC-Type 2 d iabetes mellitus without complications José Mcadams MD [facility], 09/24/19 Medical History Includes: Medical History in patient's chart Description Last Updated Health care proxy not on file If no HCP in chart the pt was given our informational handout and FAQ sheet along with a blank HCP form to be brought back at the next visit. All questions answered 12/19/2018 Medical orders for life-sustaining treat ment not on file and when appropriate clinically the pt was given a blank [place] form and [place] FAQ sheet to be reviewed at next visit with MD/ 12/19/2018 No surgeries ~CAD stenting 01/04/2017 History of coronary artery disease 01/04/2017 Compliant with medications 12/02/2016 History of essential hypertension 11/17/2015 History of hyperlipidemia 11/17/2015 History of type 2 diabetes mellitus 11/17/2015 No history of prostatitis 05/15/2013 Home blood sugar check performed 04/19/2007 Medication compliance 04/19/2007 History of diabetes mellitus 01/25/2007 Family History Includes: Family History in patient's chart Description Last Updated Family history of cancer father colon cancer 10/21/19 Family history of heart disease 05/15/2013 Family history of hypertension 05/15/2013 Father age 75 colon CA ~Mother di ed age 80 breast CA ~3 brothers and 2 sister, some have DM, otherwise unknown medical hx. ~no children 04/07/2010 Review of Systems Review of Systems not supported for this document typeNo Review of Systems Recorded Mental Status Mental Status not supported for this document typeNo Mental Status Recorded Functional Status Functional Status not supported for this document typeNo Functional Status Recorded Physical Exam Physical Exam not supported for this document typeNo Physical Exam Recorded Immunizations Includes: Immunizations in patient's chart Vaccine Dose # Date Site Reaction(s) Status Source H1N1 1 07/15/2010 Right Arm Complete (Administe red) [facility] Influenza,NOS 1 07/19/2007 Right Arm Complete (Admin istered) [facility] Influenza,NOS 2 06/20/2008 Right Arm Complete (Admin istered) [facility] Influenza,NOS 3 07/15/2010 Right Arm Complete (Admin istered) [facility] Influenza,NOS 4 06/14/2012 Right Arm Complete (Admin istered) [facility] Influenza,NOS 5 05/15/2013 Left Arm Complete (Admin istered) [facility] Influenza,NOS 6 05/28/2014 Left Arm Complete (Admin istered) [facility] Note: immunization info shee t given . vero Influenza,NOS 7 08/17/2016 Left Arm Complete (Admin istered) [facility] Influenza,NOS 8 05/31/2017 Right Arm Complete (Admin istered) [facility] Influenza,NOS 9 06/20/2018 Complete (Reported) Pat ient Allergies Includes: Active, inactive, and resolved AllergiesNo Known Allergies Encounters Includes: Encounters from 07/15/2019 through 07/15/2020 Encounter Provider Location Date Check-In Time Check-Out Time D iagnosis STANDARD OV Nanjemoy Rashel Schultz NP [facility] 07/15/2020 12:26PM 1:25PM Secondary Hypertension Benig n, Diabetes Mellitus Type 2 with Complication, Hyperlipidemia RX UPDATE Flory Schultz NP [facility] 06/23/2020 04/15/2020 2:25PM 04/15/2020 11:59PM EXTENDED VISIT José Mcadams MD [facility] 04/15/2020 12:46PM 1:40PM Diabetes Mellitus Type 2, Es sential Hypertension Benign, Hyperlipidemia [Patient Encounter] José Mcadams MD 03/26/20202019 1:44PM 01/29/2020 11:59PM [Patient Encounter] José Mcadams MD Family [facility] 02/19/2020 01/29/2020 2:52PM 01/29/2020 11:59PM E-VISIT E/M Felisa Sosa MD [facility] 020 1:08PM 4:22PM RX UPDATE Felisa Sosa MD 01/29/2020 12/24/2019 3:11PM 11:59PM E-VISIT E/M Felisa Sosa MD [facility] 020 7:58AM 11:05AM Essential Hypertension Benign, Hyperlipi demia, Diabetes Mellitus Type 2 in Obese STANDARD [facility] José Mcadams MD [facility] 9:28AM 10:39AM Chronic Kidney Disease Stage 2, Diabetes Mellitus Type 2, Essential Hypertension Benign, Hyperlipidemia [Patient Encounter] José Mcadams MD 09/03/20192018 1:38PM 06/12/2019 11:59PM Insurance Includes: Active Insurance Policies Plan Name Member ID Group # Subscriber Relationship Effective Da karly 1 - Medicare ([employer]) [id number] Carlos Clark Self 2 - Medicaid After Medicare [id number] Carlos Clark S elf Advance Directives Includes: Current Advance DirectivesNo Advance Directives Recorded Health Concerns Includes: Active Health ConcernsNo Active Health Concerns Recorded Goals Includes: Active Goals Improve glycemic control Added 03/01/2017 by Provider Interventions Includes: Interventions for active GoalsNo Interventions Recorded Evaluations & Outcomes Includes: Evaluations & Outcomes for active GoalsNo Outcomes Recorded
--- OUTSIDE RECORDS SUMMARY | 2020-10-08 06:10 | CCD ---
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 Name Role Phone Jacqueline Sosa MD Unavailable Unavailable Ian, Jacqueline Triana MD Unavailable Unavailable Ian, Jacqueline Triana MD Unavailable Unavailable Ian, Jacqueline Triana MD Unavailable Unavailable Ian, Jacqueline Triana MD Unavailable Unavailable Ian, Jacqueline Triana MD Unavailable Unavailable Ian, Jacqueline Triana MD Unavailable Unavailable Ian, Jacqueline Triana MD Unavailable Unavailable Ian, Jacqueline Triana MD Unavailable Unavailable Ian, Jacqueline Triana MD Unavailable Unavailable Ian, Jacqueline Triana MD Unavailable Unavailable Ian, Jacqueline Triana MD Unavailable Unavailable Ian, Jacqueline Triana MD Unavailable Unavailable Ian, Jacqueline Triana MD Unavailable Unavailable Ian, Jacqueline Triana MD Unavailable Unavailable Ian, Jacqueline Triana MD Unavailable Unavailable Ian, Jacqueline Triana MD Unavailable Unavailable Ian, Jacqueline Triana MD Unavailable Unavailable Ian, Jacqueline Triana MD Unavailable Unavailable Ian, Jacqueline Triana MD Unavailable Unavailable Ian, Jacqueline Triana MD Unavailable Unavailable Ian, Jacqueline Triana MD Unavailable Unavailable Ian, Jacqueline Triana MD Unavailable Unavailable Ian, Jacqueline Triana MD Unavailable Unavailable Ian, Jacqueline Triana MD Unavailable Unavailable Ian, Jacqueline Triana MD Unavailable Unavailable Ian, Jacqueline Triana MD Unavailable Unavailable Ian, Jacqueline Triana MD Unavailable Unavailable Ian, Jacqueline Triana MD Unavailable Unavailable Ian, Jacqueline Triana MD Unavailable Unavailable Ian, Jacqueline Triana MD Unavailable Unavailable Ian, Jacqueline Triana MD Unavailable Unavailable Ian, Jacqueline Triana MD Unavailable Unavailable Ian, Jacqueline Triana MD Unavailable Unavailable Ian, Jacqueline Triana MD Unavailable Unavailable Ian, Jacqueline Triana MD Unavailable Unavailable Ian, Jacqueline Triana MD Unavailable Unavailable Ian, Jacqueline Triana MD Unavailable Unavailable Ian, Jacqueline Triana MD Unavailable Unavailable Ian, Jacqueline Triana MD Unavailable Unavailable Ian, Jacqueline Triana MD Unavailable Unavailable Ian, Jacqueline Triana MD Unavailable Unavailable Ian, Jacqueline Triana MD Unavailable Unavailable Ian, Jacqueline Triana MD Unavailable Unavailable Ian, Jacqueline Triana MD Unavailable Unavailable Ian, Jacqueline Triana MD Unavailable Unavailable Ian, Jacqueline Triana MD Unavailable Unavailable Ian, Jacqueline Triana MD Unavailable Unavailable Ian, Jacqueline Triana MD Unavailable Unavailable Ian, Jacqueline Triana MD Unavailable Unavailable Ian, Jacqueline Triana MD Unavailable Unavailable Ian, Jacqueline Triana MD Unavailable Unavailable Ian, Jacqueline Triana MD Unavailable Unavailable Ian, Jacqueline Triana MD Unavailable Unavailable Ian, Jacqueline Triana MD Unavailable Unavailable Ian, Jacqueline Triana MD Unavailable Unavailable Ian, Jacqueline Triana MD Unavailable Unavailable Ian, Jacqueline Triana MD Unavailable Unavailable Ian, Jacqueline Triana MD Unavailable Unavailable Ian, Jacqueline Triana MD Unavailable Unavailable Ian, Jacqueline Triana MD Unavailable Unavailable Ian, Jacqueline Triana MD Unavailable Unavailable Ian, Jacqueline Triana MD Unavailable Unavailable Ian, Jacqueline Triana MD Unavailable Unavailable Ian, Jacqueline Triana MD Unavailable Unavailable Ian, Jacqueline Triana MD Unavailable Unavailable Ian, Jacqueline Triana MD Unavailable Unavailable Ian, Jacqueline Triana MD Unavailable Unavailable Ian, Jacqueline Triana MD Unavailable Unavailable Ian, Jacqueline Triana MD Unavailable Unavailable Ian, Jacqueline Triana MD Unavailable Unavailable Ian, Jacqueline Triana MD Unavailable Unavailable Ian, Jacqueline Triana MD Unavailable Unavailable Ian, C Felisa MD Unavailable Unavailable Jacqueline Sosa MD Unavailable Unavailable Jacqueline Sosa MD Unavailable Unavailable Elisha TURNER MD Unavailable Unavailable Elisha TURNER MD Unavailable Unavailable Elisha TURNER MD Unavailable Unavailable Elisha TURNER MD Unavailable Unavailable Elisha TURNER MD Unavailable Unavailable Elisha TURNER MD Unavailable Unavailable Elisha TURNER MD Unavailable Unavailable Elisha TURNER MD Unavailable Unavailable Elisha TURNER MD Unavailable Unavailable Elisha TURNER MD Unavailable Unavailable Elisha TURNER MD Unavailable Unavailable Elisha TURNER MD Unavailable Unavailable Elisha TURNER MD Unavailable Unavailable Elisha TURNER MD Unavailable Unavailable Elsiha TURNER MD Unavailable Unavailable Elisha TURNER MD Unavailable Unavailable Elisha TURNER MD Unavailable Unavailable Elisha TURNER MD Unavailable Unavailable Elisha TURNER MD Unavailable Unavailable Elisha TURNER MD Unavailable Unavailable Elisha TURNER MD Unavailable Unavailable Elisha TURNER MD Unavailable Unavailable Elisha TURNER MD Unavailable Unavailable Elisha TURNER MD Unavailable Unavailable Elisha TURNER MD Unavailable Unavailable Elisha TURNER MD Unavailable Unavailable Elisha TURNER MD Unavailable Unavailable Elisha TURNER MD Unavailable Unavailable Elisha TURNER MD Unavailable Unavailable Elisha TURNER MD Unavailable Unavailable Elisha TURNER MD Unavailable Unavailable Elisha TURNER MD Unavailable Unavailable Elisha TURNER MD Unavailable Unavailable Elisha TURNER MD Unavailable Unavailable Elisha TURNER MD Unavailable Unavailable Elisha TURNER MD Unavailable Unavailable Elisha TURNER MD Unavailable Unavailable Elisha TURNER MD Unavailable Unavailable Elisha TURNER MD Unavailable Unavailable Elisha TURNER MD Unavailable Unavailable Elisha TURNER MD Unavailable Unavailable José Mcadams MD Unavailable Unavailable José Mcadams MD Unavailable Unavailable José Mcadams MD Unavailable Unavailable José Mcadams MD Unavailable Unavailable José Mcadams MD Unavailable Unavailable José Mcadams MD Unavailable Unavailable José Mcadams MD Unavailable Unavailable José Mcadams MD Unavailable Unavailable José Mcadams MD Unavailable Unavailable José Mcadams MD Unavailable Unavailable José Mcadams MD Unavailable Unavailable José Mcadams MD Unavailable Unavailable José Mcadams MD Unavailable Unavailable José Mcadams MD Unavailable Unavailable Pema, José HARVEY Unavailable Unavailable Pema, José HARVEY Unavailable Unavailable Pema, José HARVEY Unavailable Unavailable Pema, José HARVEY Unavailable Unavailable Pema, José HARVEY Unavailable Unavailable Pema, José HARVEY Unavailable Unavailable Pema, José HARVEY Unavailable Unavailable Pema, José HARVEY Unavailable Unavailable Pema, José HARVEY Unavailable Unavailable Pema, José HARVEY Unavailable Unavailable Pema, José HARVEY Unavailable Unavailable Pema, José HARVEY Unavailable Unavailable Pema, José HARVEY Unavailable Unavailable Pema, José HARVEY Unavailable Unavailable Pema, José HARVEY Unavailable Unavailable Peam, José HARVEY Unavailable Unavailable Pema, José HARVEY Unavailable Unavailable Pema, José HARVEY Unavailable Unavailable Pema, José HARVEY Unavailable Unavailable Pema, José HARVEY Unavailable Unavailable Pema, José HARVEY Unavailable Unavailable Pema, José HARVEY Unavailable Unavailable Pema, José HARVEY Unavailable Unavailable Pema, José HAVREY Unavailable Unavailable Pema, José HARVEY Unavailable Unavailable Pema, José HARVEY Unavailable Unavailable Pema, José HARVEY Unavailable Unavailable Pema, José HARVEY Unavailable Unavailable Pema, José HAREVY Unavailable Unavailable Pema, José HARVEY Unavailable Unavailable Pema, José HARVEY Unavailable Unavailable Pema, José HARVEY Unavailable Unavailable Pema, José HARVEY Unavailable Unavailable Pema, José HARVEY Unavailable Unavailable Pema, José HARVEY Unavailable Unavailable Pema, José HARVEY Unavailable Unavailable Pema, José HARVEY Unavailable Unavailable Pema, José HARVEY Unavailable Unavailable Pema, José HARVEY Unavailable Unavailable Pema, José HARVEY Unavailable Unavailable Alex, Cathy Juli ANP-BC Unavailable Unavailable Alex, Cathy Juli ANP-BC Unavailable Unavailable Alex, Cathy Juli ANP-BC Unavailable Unavailable Alex, Cathy Juli ANP-BC Unavailable Unavailable Alex, Cathy Juli ANP-BC Unavailable Unavailable Alex, Cathy Juli ANP-BC Unavailable Unavailable Alex, Cathy Juli ANP-BC Unavailable Unavailable Alex, Cathy Juli ANP-BC Unavailable Unavailable Alex, Cathy Juli ANP-BC Unavailable Unavailable Alex, Cathy Juli ANP-BC Unavailable Unavailable Alex, Cathy Juli ANP-BC Unavailable Unavailable Alex, Cathy Juli ANP-BC Unavailable Unavailable Alex, Cathy Juli ANP-BC Unavailable Unavailable Alex, Cathy Juli ANP-BC Unavailable Unavailable Alex, Cathy Juli ANP-BC Unavailable Unavailable Alex, Cathy Juli ANP-BC Unavailable Unavailable Alex, Cathy Juli ANP-BC Unavailable Unavailable Alex, Cathy Juli ANP-BC Unavailable Unavailable Alex, Cathy Juli ANP-BC Unavailable Unavailable Alex, Cathy Juli ANP-BC Unavailable Unavailable Alex, Cathy Juli ANP-BC Unavailable Unavailable Alex, Cathy Juli ANP-BC Unavailable Unavailable Alex, Cathy Juli ANP-BC Unavailable Unavailable Alex, Cathy Juli ANP-BC Unavailable Unavailable Alex, Cathy Juli ANP-BC Unavailable Unavailable Alex, Cathy Juli ANP-BC Unavailable Unavailable Alex, Cathy Juli ANP-BC Unavailable Unavailable Alex, Cathy Juli ANP-BC Unavailable Unavailable Alex, Cathy Juli ANP-BC Unavailable Unavailable Alex, Cathy Juli ANP-BC Unavailable Unavailable Alex, Cathy Juli ANP-BC Unavailable Unavailable Alex, Cathy Juli ANP-BC Unavailable Unavailable Alex, Cathy Juli ANP-BC Unavailable Unavailable Alex, Cathy Juli ANP-BC Unavailable Unavailable Alex, Cathy Juli ANP-BC Unavailable Unavailable Alex, Cathy Juli ANP-BC Unavailable Unavailable Alex, Cathy Juli ANP-BC Unavailable Unavailable Alex, Cathy Juli ANP-BC Unavailable Unavailable Alex, Cathy Juli ANP-BC Unavailable Unavailable Alex, Cathy Juli ANP-BC Unavailable Unavailable Alex, Cathy Juli ANP-BC Unavailable Unavailable Alex, Cathy Juli ANP-BC Unavailable Unavailable Alex, Cathy Juli ANP-BC Unavailable Unavailable Alex, Cathy Juli ANP-BC Unavailable Unavailable Alex, Cathy Juli ANP-BC Unavailable Unavailable Alex, Cathy Juli ANP-BC Unavailable Unavailable Alex, Cathy Juli ANP-BC Unavailable Unavailable Alex, Cathy Juli ANP-BC Unavailable Unavailable Alex, Cathy Juli ANP-BC Unavailable Unavailable Alex, Cathy Juli ANP-BC Unavailable Unavailable Alex, Cathy Juli ANP-BC Unavailable Unavailable Alex, Cathy Juli ANP-BC Unavailable Unavailable Alex, Cathy Juli ANP-BC Unavailable Unavailable Alex, Cahty Juli ANP-BC Unavailable Unavailable Alex, Cathy Juli ANP-BC Unavailable Unavailable Alex, Cathy Juli ANP-BC Unavailable Unavailable Alex, Cathy Juli ANP-BC Unavailable Unavailable Alex, Cathy Juli ANP-BC Unavailable Unavailable Alex, Cathy Juli ANP-BC Unavailable Unavailable Alex, Cathy Juli ANP-BC Unavailable Unavailable Alex, Cathy Juli ANP-BC Unavailable Unavailable AlexCathyn ANP-BC Unavailable Unavailable Alex, Cathy Juli ANP-BC Unavailable Unavailable Alex, Cathy Juli ANP-BC Unavailable Unavailable Ian, Jacqueline Triana MD Unavailable Unavailable Ian, Jacqueline Triana MD Unavailable Unavailable Ian, Jacqueline Triana MD Unavailable Unavailable Ian, Jacqueline Triana MD Unavailable Unavailable Ian, Jacqueline Triana MD Unavailable Unavailable Ian, Jaqcueline Triana MD Unavailable Unavailable Ian, Jacqueline Triana MD Unavailable Unavailable Ian, Jacqueline Triana MD Unavailable Unavailable Ian, Jacqueline Triana MD Unavailable Unavailable Ian, Jacqueline Triana MD Unavailable Unavailable Ian, Jacqueline Triana MD Unavailable Unavailable Ian, Jacqueline Triana MD Unavailable Unavailable Ian, Jacqueline Triana MD Unavailable Unavailable Ian, Jacqueline Triana MD Unavailable Unavailable Ian, Jacqueline Triana MD Unavailable Unavailable Ian, Jacqueline Triana MD Unavailable Unavailable Ian, Jacqueline Triana MD Unavailable Unavailable Ian, Jacqueline Triana MD Unavailable Unavailable Ian, Jacqueline Triana MD Unavailable Unavailable Ain, Jacqueline Triana MD Unavailable Unavailable Ian, Jacqueline Triana MD Unavailable Unavailable Ian, Jacqueline Triana MD Unavailable Unavailable Ian, Jacqueline Triana MD Unavailable Unavailable Ian, Jacqueline Triana MD Unavailable Unavailable Ian, Jacqueline Triana MD Unavailable Unavailable Ian, Jacqueline Triana MD Unavailable Unavailable Ian, Jacqueline Triana MD Unavailable Unavailable Ian, Jacqueline Triana MD Unavailable Unavailable Ian, Jacqueline Triana MD Unavailable Unavailable Ian, Jacqueline Triana MD Unavailable Unavailable Ian, Jacqueline Triana MD Unavailable Unavailable Ian, Jacqueline Triana MD Unavailable Unavailable Ian, Jacqueline Triana MD Unavailable Unavailable Ian, Jacqueline Triana MD Unavailable Unavailable Ian, Jacqueline Triana MD Unavailable Unavailable Ian, Jacqueline Triana MD Unavailable Unavailable Ian, Jacqueline Triana MD Unavailable Unavailable Ian, Jacqueline Triana MD Unavailable Unavailable Ian, Jacqueline Triana MD Unavailable Unavailable Ian, Jacqueline Triana MD Unavailable Unavailable Ian, Jacqueline Triana MD Unavailable Unavailable Ian, Jacqueline Triana MD Unavailable Unavailable Ian, Jacqueline Triana MD Unavailable Unavailable Ian, Jacqueline Triana MD Unavailable Unavailable Ian, Jacqueline Triana MD Unavailable Unavailable Ian, Jacqueline Triana MD Unavailable Unavailable Ian, Jacqueline Triana MD Unavailable Unavailable Ina, Jacqueline Triana MD Unavailable Unavailable Ian, Jacqueline Triana MD Unavailable Unavailable Ian, Jacqueline Triana MD Unavailable Unavailable Ian, Jacqueline Triana MD Unavailable Unavailable Ian, Jacqueline Triana MD Unavailable Unavailable Ian, Jacqueline Triana MD Unavailable Unavailable Ian, Jacqueline Triana MD Unavailable Unavailable Ian, Jacqueline Triana MD Unavailable Unavailable Ian, Jacqueline Triana MD Unavailable Unavailable Ian, Jacqueline Triana MD Unavailable Unavailable Ian, Jacqueline Triana MD Unavailable Unavailable Ian, Jacqueline Triana MD Unavailable Unavailable Ian, Jacqueline Triana MD Unavailable Unavailable Ian, Jacqueline Triana MD Unavailable Unavailable Ian, Jacqueline Triana MD Unavailable Unavailable Ian, Jacqueline Triana MD Unavailable Unavailable Ian, Jacqueline Triana MD Unavailable Unavailable Ian, Jacqueline Triana MD Unavailable Unavailable Ian, Jacqueline Triana MD Unavailable Unavailable Ian, Jacqueline Triana MD Unavailable Unavailable Ian, Jacqueline Triana MD Unavailable Unavailable Ian, Jacqueline Triana MD Unavailable Unavailable Ian, Jacqueline Triana MD Unavailable Unavailable Ian, Jacqueline Triana MD Unavailable Unavailable Ian, Jacqueline Triana MD Unavailable Unavailable Ian, Jacqueline Triana MD Unavailable Unavailable Ian, Jacqueline Triana MD Unavailable Unavailable Ian, Jacqueline Triana MD Unavailable Unavailable Ian, Jacqueline Triana MD Unavailable Unavailable Powderly, Mariae Flory COOPERATIVE MANAGER Unavailable Unavailable Powderly, Mariae Allston COOPERATIVE MANAGER Unavailable Unavailable Powderly, Mariae Flory COOPERATIVE MANAGER Unavailable Unavailable Antoine, Mariae Allston COOPERATIVE MANAGER Unavailable Unavailable Powderly, Mariae Flory COOPERATIVE MANAGER Unavailable Unavailable Antoine, Mariae Allston COOPERATIVE MANAGER Unavailable Unavailable Powderly, Mariae Allston COOPERATIVE MANAGER Unavailable Unavailable Antoine, Mariae Flory COOPERATIVE MANAGER Unavailable Unavailable Powderly, Mariae Allston COOPERATIVE MANAGER Unavailable Unavailable Powderly, Mariae Allston COOPERATIVE MANAGER Unavailable Unavailable Antoine, Mariae Allston COOPERATIVE MANAGER Unavailable Unavailable Powderly, Mariae Allston COOPERATIVE MANAGER Unavailable Unavailable Powderly, Mariae Flory COOPERATIVE MANAGER Unavailable Unavailable Powderly, Mariae Flory COOPERATIVE MANAGER Unavailable Unavailable Re-disclosure Warning The records that you are about to access may contain information from federally-assisted alcohol or drug abuse programs. If such information is present, then the following federally mandated warning applies: This information has been disclosed to you from records protected by federal confidentiality rules (42 CFR part 2). The federal rules prohibit you from making any further disclosure of this information unless further disclosure is expressly permitted by the written consent of the person to whom it pertains or as otherwise permitted by 42 CFR part 2. A general authorization for the release of medical or other information is NOT sufficient for this purpose. The Federal rules restrict any use of the information to criminally investigate or prosecute any alcohol or drug abuse patient.The records that you are about to access may contain highly sensitive health information, the redisclosure of which is protected by Article 27-F of the [facility] Public Health law. If you continue you may have access to information: Regarding HIV / AIDS; Provided by facilities licensed or operated by the [facility] Office of Mental Health; or Provided by the [facility] Office for People With Developmental Disabilities. If such information is present, then the following [facility] mandated warning applies: This information has been disclosed to you from confidential records which are protected by state law. State law prohibits you from making any further disclosure of this information without the specific written consent of the person to whom it pertains, or as otherwise permitted by law. Any unauthorized further disclosure in violation of state law may result in a fine or half-way sentence or both. A general authorization for the release of medical or other information is NOT sufficient authorization for further disc losure. Allergies and Adverse Reactions Type Description Substance Reaction Status Data Source(s ) No Known Allergies No Known Allergies [facility] Encounters Encounter Providers Location Date Indications Data Source(s ) [place] [address] [facility] [phone] 09/16/2020 12:00:00 AM EST eCW1 ([facility]) [place] [address] [facility] [address] 08/14/2020 12:00:00 AM EST eCW1 ([facility]) Outpatient<td ID="encounterTypeDescripti onID0">STANDARD OV</td><td>Flory Schultz COOPERATIVE MANAGER</td><td>[facility]</td><td>07/15/2020</td><td>12:26PM</td><td>1:25PM</td><td><content ID="encounterDiagnosisID0-0">Secondary Hypertension Benign</content>, <content ID="encounterDiagnosisID0-1">Diabetes Mellitus Type 2 with Complication</content>, <content ID="encounterDiagnosisID0-2">Hyperlipidemia</content></td> Attender: Flory Schultz NP [facility], 07/15/2020 12:26:00 PM EST - 07/15/2020 01:25:00 PM EST Secondary Hypertension BenignDiabetes Me llitus Type 2 with ComplicationHyperlipidemia [place] ([facility]) Secondary Hypertension Benign Diabetes Mellitus Type 2 with Complicati on Hyperlipidemia Outpatient Attender: SHABBIR HIGGINS eferrer: SHABBIR TURNER MDConsultant: Felisa Sosa MD 05/23/2020 06:30:00 PM EDT - 05/23/2020 06:40:0 0 PM EDT [facility] Outpatient Attender: Juli Haley ANP-BCConsultant: Felisa galloway MD 05/23/2020 09:47:00 AM EDT - 05/23/2020 09:47:00 AM EDT [facility] Outpatient<td ID="encounterTypeDescripti onID1">RX UPDATE</td><td>Floryrich Schultz NP</td><td>[facility],</td><td>06/23/2020</td><td>04/15/2020 2:25PM</td><td>04/15/2020 11:59PM</td><td></td> Attender: Flory Schultz NP [facility], 04/15/2020 02:25:00 PM EDT - 04/15/2020 11:59:00 PM EDT [facility]) Outpatient<td ID="encounterTypeDescripti onID2">EXTENDED VISIT</td><td>José Mcadams MD</td><td>[facility],</td><td>04/15/2020</td><td>12:46PM</td><td>1:40PM</td><td><content ID="encounterDiagnosisID2-0">Diabetes Mellitus Type 2</content>, <content ID="encounterDiagnosisID2-1">Essential Hypertension Benign</content>, <content ID="encounterDiagnosisID2-2">Hyperlipidemia</content></td> Attender: José Mcadams MD [facility], 04/15/2020 12:46:00 PM EDT - 04/15/2020 01:40:00 PM EDT Essential Hypertension BenignDiabetes Me llitus Type 2Essential Hypertension BenignDiabetes Mellitus Type 2HyperlipidemiaHyperlipidemia [place] ([facility]) Essential Hypertension Benign Diabetes Mellitus Type 2 Essential Hypertension Benign Diabetes Mellitus Type 2 Hyperlipidemia Hyperlipidemia Outpatient<td ID="encounterTypeDescripti onID3">[Patient Encounter]</td><td>José Mcadams MD</td><td></td><td>03/26/2020</td><td>01/29/2020 1:44PM</td><td>01/29/2020 11:59PM</td><td></td> Attender: José Mcadams MD 0 01:44:00 PM EDT - 01/29/2020 11:59:00 PM EDT [facility]) Outpatient Attender: SHABBIR HIGGINS eferrer: SHABBIR TURNER MDConsultant: Felisa Sosa MD 02/27/2020 08:13:00 AM EDT - 02/26/2020 08:23:0 0 AM EDT [facility] Patient discharged. Outpatient Attender: Felisa Kelly harvey: Felisa Sosa MDConsultant: Felisa Sosa MD 02/26/2020 07:11:00 PM EDT - 02/26/2020 07:21:0 0 PM EDT [facility] Outpatient Attender: Juli Haley ANP-BCConsultant: Felisa galloway MD 02/26/2020 08:17:00 AM EDT - 02/26/2020 08:17:00 AM T [facility] Outpatient<td ID="encounterTypeDescripti onID4">[Patient Encounter]</td><td>José Mcadams MD</td><td>[facility],</td><td>02/19/2020</td><td>01/29/2020 2:52PM</td><td>01/29/2020 11:59PM</td><td></td> Attender: Joés Mcadams MD [facility] 02/19/2020 02:52:00 PM EDT - 01/29/2020 11:59:00 PM EDT [place] ([facility]) Outpatient [address] [facility] [address] 02/13/2020 12:00:00 AM EDT eC1 ([facility]) Outpatient<td ID="encounterTypeDescripti onID6">RX UPDATE</td><td>Felisa Sosa MD</td><td></td><td>01/29/2020</td><td>12/24/2019 3:11PM</td><td>12/24/2019 11:59PM</td><td></td> Attender: Felisa Sosa MD 01/29/2020 03:11:00 PM EDT - 12/24/2019 11:59:00 PM EDT [facility] ([facility]) Outpatient<td ID="encounterTypeDescripti onID5">E-VISIT E/M</td><td>Felisa Sosa MD</td><td>[facility]</td><td>01/29/2020</td><td>1:08PM</td><td>4:22PM</td><td></td> Attender: Felisa Sosa MD [facility], 01/29/2020 01:08:00 PM EDT - 01/29/2020 04:22:00 PM EDT [place] ([facility]) Outpatient<td ID="encounterTypeDescripti onID7">E-VISIT E/M</td><td>Felisa Sosa MD</td><td>[facility]</td><td>12/24/2019</td><td>7:58AM</td><td>11:05AM</td><td><content ID="encounterDiagnosisID7-0">Essential Hypertension Benign</content>, <content ID="encounterDiagnosisID7-1">Hyperlipidemia</content>, <content ID="encounterDiagnosisID7-2">Diabetes Mellitus Type 2 in Obese</content></td> Attender: Felisa Sosa MD [facility] 12/24/2019 07:58:00 AM EDT - 12/24/2019 11:05:16 AM EDT Diabetes Mellitus Type 2 in ObeseDiabete s Mellitus Type 2 in ObeseDiabetes Mellitus Type 2 in ObeseDiabetes Mellitus Type 2 in ObeseEssential Hypertension BenignEssential Hypertension BenignEssential Hypertension BenignEssential Hypertension BenignHyperlipidemiaHyperlipidemiaHyperlipidemiaHyperlipidemia [place] ([facility]) Diabetes Mellitus Type 2 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 Essential Hypertension Benign Essential Hypertension Benign Essential Hypertension Benign Essential Hypertension Benign Hyperlipidemia Hyperlipidemia Hyperlipidemia Hyperlipidemia [facility] [address] [place] [phone] 11/14/2019 12:00:00 AM EDT eCW1 ([facility]) Outpatient<td ID="encounterTypeDescripti onID8">STANDARD OV</td><td>José Mcadams MD</td><td>[facility]</td><td>09/24/2019</td><td>9:28AM</td><td>10:39AM</td><td><content ID="encounterDiagnosisID8-0">Chronic Kidney Disease Stage 2</content>, <content ID="[id number]">Diabetes Mellitus Type 2</content>, <content ID="[email or web address]">Essential Hypertension Benign</content>, <content ID="[email or web address]">Hyperlipidemia</content></td> Attender: José Mcadams MD [facility] 09/24/2019 09:28:00 AM EST - 09/24/2019 10:39:00 AM EST Chronic Kidney Disease Stage 2Chronic Ki dney Disease Stage 2Chronic Kidney Disease Stage 2Chronic Kidney Disease Stage 2Chronic Kidney Disease Stage 2Essential Hypertension BenignDiabetes Mellitus Type 2Essential Hypertension BenignDiabetes Mellitus Type 2Essential Hypertension BenignDiabetes Mellitus Type 2Essential Hypertension BenignDiabetes Mellitus Type 2Essential Hypertension BenignDiabetes Mellitus Type 2HyperlipidemiaHyp erlipidemiaHyperlipidemiaHyperlipidemiaHyperlipidemia [facility] ([facility]) Chronic Kidney Disease Stage 2 Chronic Kidney Disease Stage 2 Chronic Kidney Disease Stage 2 Chronic Kidney Disease Stage 2 Chronic Kidney Disease Stage 2 Essential Hypertension Benign Diabetes Mellitus Type 2 Essential Hypertension Benign Diabetes Mellitus Type 2 Essential Hypertension Benign Diabetes Mellitus Type 2 Essential Hypertension Benign Diabetes Mellitus Type 2 Essential Hypertension Benign Diabetes Mellitus Type 2 Hyperlipidemia Hyperlipidemia Hyperlipidemia Hyperlipidemia Hyperlipidemia Outpatient<td ID="[email or web address] [email or web address]">[Patient Encounter]</td><td>José Mcadams MD</td><td></td><td>09/03/2019</td><td>06/12/2019 1:38PM</td><td>06/12/2019 11:59PM</td><td></td> Attender: José Mcadams MD 9 01:38:00 PM EST - 06/12/2019 11:59:00 PM EDT [facility] ([facility]) [facility] [address] [place] [id number] 08/14/2019 12:00:00 AM EST [email or web address] ([facility]) Medications Medication Brand Name Start Date Product Form Dose Route Admi nistrative Instructions Pharmacy Instructions Status Indications Reaction Description Data Source(s) 12.5 mg 10/04/2020 12:00:00 AM EST capsule 90 TAKE ONE CAPSULE BY MOUTH EVERY DAY TAKE ONE CAPSULE BY MOUTH EVERY DAY SOLD: 10/04/2020 [facility] 75 mg 10/04/2020 12:00:00 AM EST tablet 30 TAKE ONE TABLET BY MOUTH ONCE DAILY WITH ASPIRIN TAKE ONE TABLET BY MOUTH ONCE DAILY WITH ASPIRIN SOLD: 10/04/2020 [facility] 1,250 mcg (50,000 unit) 10/01/2020 12:00:00 AM EST capsule 6 TAKE 1 CAPSULE BY MOUTH EVERY 2 WEEKS TAKE 1 CAPSULE BY MOUTH EVERY 2 WEEKS SOLD: 10/02/2020 [facility] 28 gauge 10/01/2020 12:00:00 AM EST misc 100 USE DIRECTED TO TEST BLOOD SUGARS TWO TIMES A DAY USE DIRECTED TO TEST BLOOD SUGARS TWO TIMES A DAY SOLD: 10/02/2020 [facility] 81 mg 09/30/2020 12:00:00 AM EST tablet,delayed release (DR/EC) 90 TAKE ONE TABLET BY MOUTH EVERY DAY TAKE ONE TABLET BY MOUTH EVERY DAY SOLD: 09/30/2020 [facility] Metformin hydrochloride 1000 MG Oral Tablet 1,000 mg METFORM IN HCL 09/30/2020 12:00:00 AM EST tablet 180 TAKE ONE TABLET BY MOUTH TWICE A DAY TAKE ONE TABLET BY MOUTH TWICE A DAY SOLD: 09/30/2020 [facility] 100 mg 09/30/2020 12:00:00 AM EST capsule 180 TAKE ONE CAPSULE BY MOUTH TWICE A DAY TAKE ONE CAPSULE BY MOUTH TWICE A DAY SOLD: 09/30/2020 [facility] 50 mg 09/16/2020 12:00:00 AM EST tablet extended release 24 hr 30 TAKE ONE TABLET BY MOUTH EVERY DAY TAKE ONE TABLET BY MOUTH EVERY DAY SOLD: 09/16/2020 [facility] 0.1 % 09/16/2020 12:00:00 AM EST drops 15 INSTILL ONE DROP IN EACH EYE TWICE A DAY DIRECTED INSTILL ONE DROP IN EACH EYE TWICE A DAY DIRECTED S OLD: 09/16/2020 [facility] 100 mg 09/16/2020 12:00:00 AM EST tablet 90 TAKE ONE TABLET BY MOUTH EVERY DAY TAKE ONE TABLET BY MOUTH EVERY DAY SOLD: 09/16/2020 [facility] 12.5 mg 09/10/2020 12:00:00 AM EST capsule 30 TAKE ONE CAPSULE BY MOUTH EVERY DAY TAKE ONE CAPSULE BY MOUTH EVERY DAY SOLD: 09/13/2020 [facility] 400 mg (241.3 mg magnesium) 09/05/2020 12:00:00 AM EST table t 90 TAKE ONE TABLET BY MOUTH TWICE A DAY TAKE ONE TABLET BY MOUTH TWICE A DAY SOLD: 09/06/2020 [facility] 600 mg calcium (1,500 mg) 09/02/2020 12:00:00 AM EST tablet 60 TAKE ONE TABLET BY MOUTH TWICE A DAY TAKE ONE TABLET BY MOUTH TWICE A DAY SOLD: 09/02/2020 [facility] 0.05 % 08/14/2020 12:00:00 AM EST cream 15 APPLY 1 APPLICATION EXTERNALLY TO PENILE FORESKIN TWO TIMES A DAY APPLY 1 APPLICATION EXTERNALLY TO PENILE FORESKIN TWO TIMES A DAY SOLD: 08/14/2020 [facility] Betamethasone 0.5 MG/ML Topical Cream Betamethasone Di propionate 0.05 % Betamethasone Dipropionate 0.05 % 08/14/2020 12:00:00 AM EST 1.0 {application} active Betamethasone Dipropiona te 0.05 % [email or web address] ([facility]) Betamethasone 0.5 MG/ML Topical Cream Betamethasone Di propionate 0.05 % Betamethasone Dipropionate 0.05 % 08/14/2020 12:00:00 AM EST 1.0 {application} active Betamethasone Dipropiona te 0.05 % eCW1 ([facility]) 0.05 % 08/14/2020 12:00:00 AM EST cream 15 APPLY 1 APPLICATION EXTERNALLY TO PENILE FORESKIN TWO TIMES A DAY APPLY 1 APPLICATION EXTERNALLY TO PENILE FORESKIN TWO TIMES A DAY SOLD: 09/13/2020 [facility] Rosuvastatin calcium 20 MG Oral Tablet ROSUVASTATIN CALCIUM 08/09/2020 12:00:00 AM EST tablet 90 TAKE ONE TABLET BY MOUTH PASTORA TAKE ONE TABLET BY MOUTH EVERY DAY SOLD: 08/10/2020 [facility] 100 mg 07/18/2020 12:00:00 AM EST tablet 90 TAKE ONE TABLET BY MOUTH EVERY DAY TAKE ONE TABLET BY MOUTH EVERY DAY SOLD: 07/19/2020 [facility] BLOOD SUGAR DIAGNOSTIC 07/17/2020 12:00:00 AM EST strip 150 CHECK SUGARS TWO TIMES A DAY CHECK SUGARS TWO TIMES A DAY SOLD: 07/17/2020 [facility] 325 mg (65 mg iron) 07/16/2020 12:00:00 AM EST tablet 60 TAKE ONE TABLET BY MOUTH TWO TIMES A DAY TAKE ONE TABLET BY MOUTH TWO TIMES A DAY SOLD: 07/17/2020 [facility] 20 mg 07/16/2020 12:00:00 AM EST capsule,delayed release (DR/EC) 30 TAKE ONE CAPSULE BY MOUTH EVERY MORNING TAKE ONE CAPSULE BY MOUTH EVERY MORNING SOLD: 08/14/2020 [facility] 145 mg 07/16/2020 12:00:00 AM EST tablet 30 TAKE 1 TABLET BY MOUTH ONCE DAILY AT BEDTIME TAKE 1 TABLET BY MOUTH ONCE DAILY AT BEDTIME SOLD: 1 [facility] 325 mg (65 mg iron) 07/16/2020 12:00:00 AM EST tablet 60 TAKE ONE TABLET BY MOUTH TWO TIMES A DAY TAKE ONE TABLET BY MOUTH TWO TIMES A DAY SOLD: 09/13/2020 [facility] 20 mg 07/16/2020 12:00:00 AM EST capsule,delayed release (DR/EC) 30 TAKE ONE CAPSULE BY MOUTH EVERY MORNING TAKE ONE CAPSULE BY MOUTH EVERY MORNING SOLD: 07/17/2020 [facility] 145 mg 07/16/2020 12:00:00 AM EST tablet 30 TAKE 1 TABLET BY MOUTH ONCE DAILY AT BEDTIME TAKE 1 TABLET BY MOUTH ONCE DAILY AT BEDTIME SOLD: 0 [facility] 325 mg (65 mg iron) 07/16/2020 12:00:00 AM EST tablet 60 TAKE ONE TABLET BY MOUTH TWO TIMES A DAY TAKE ONE TABLET BY MOUTH TWO TIMES A DAY SOLD: 08/14/2020 [facility] 20 mg 07/16/2020 12:00:00 AM EST capsule,delayed release (DR/EC) 30 TAKE ONE CAPSULE BY MOUTH EVERY MORNING TAKE ONE CAPSULE BY MOUTH EVERY MORNING SOLD: 09/13/2020 [facility] 145 mg 07/16/2020 12:00:00 AM EST tablet 30 TAKE 1 TABLET BY MOUTH ONCE DAILY AT BEDTIME TAKE 1 TABLET BY MOUTH ONCE DAILY AT BEDTIME SOLD: 0 [facility] 81 mg 07/16/2020 12:00:00 AM EST tablet,delayed release (DR/EC) 90 TAKE ONE TABLET BY MOUTH ONCE DAILY TAKE ONE TABLET BY MOUTH ONCE DAILY SOLD: 07/17/2020 [facility] 100 mg 07/16/2020 12:00:00 AM EST tablet 90 TAKE ONE TABLET BY MOUTH EVERY DAY TAKE ONE TABLET BY MOUTH EVERY DAY SOLD: 07/17/2020 [facility] FreeStyle Lite Device FreeStyle Lite Device 07/15/2020 12:00:00 AM EST active FreeStyle Lite [place] ([facility]) Omeprazole 20 MG Delayed Release Oral Ca psule Omeprazole 20 MG Oral Capsule Delayed Release Omeprazole 20 MG Oral Capsule Delayed Release 07/15/20 12:00:00 AM EST active omeprazole 20 MG Delayed Release Oral Capsule [facility]) Iron 325 (65 Fe) MG Oral Tablet Iron 325 (65 Fe) MG Oral Tab let 07/15/2020 12:00:00 AM EST active [facility] sitagliptin 100 MG Oral Tablet [Januvia] Januvia 100 M G Oral Tablet Januvia 100 MG Oral Tablet 07/15/2020 12:00:00 AM EST act aba sitagliptin 100 MG Oral Tablet [Januvia] [facility]) clopidogrel 75 MG Oral Tablet Clopidogrel Bisulfate 75 MG Oral Tablet Clopidogrel Bisulfate 75 MG Oral Tablet 07/15/2020 12:00:00 AM EST active [facility]rel [facility] Fenofibrate 145 MG Oral Tablet Fenofibrate 145 MG Oral Table t 07/15/2020 12:00:00 AM EST active fenofibr ate 145 MG Oral Tablet [facility]) Docusate Sodium 100 MG Oral Capsule [Colace] Colace 10 0 MG Oral Capsule Colace 100 MG Oral Capsule 07/15/2020 12:00:00 AM EST active docusate sodium 100 MG Oral Capsule [Colace] [facility]) Aspirin 81 MG Delayed Release Oral Table t Aspirin EC 81 MG Oral Tablet Delayed Release Aspirin EC 81 MG Oral Tablet Delayed Release 07/15/2020 12:0 0:00 AM EST active aspirin 81 MG De layed Release Oral Tablet [facility]) FreeStyle Lite Test In Vitro Strip FreeStyle Lite Test In Vi tro Strip 07/15/2020 12:00:00 AM EST active FreeSty le Lite Test [facility]) 75 mg 07/10/2020 12:00:00 AM EST tablet 30 TAKE ONE TABLET BY MOUTH EVERY DAY WITH ASPRIN TAKE ONE TABLET BY MOUTH EVERY DAY WITH ASPRIN SOLD: 021 [facility] 75 mg 07/10/2020 12:00:00 AM EST tablet 30 TAKE ONE TABLET BY MOUTH EVERY DAY WITH ASPRIN TAKE ONE TABLET BY MOUTH EVERY DAY WITH ASPRIN SOLD: 020 [facility] 12.5 mg 06/24/2020 12:00:00 AM EDT capsule 30 TAKE ONE CAPSULE BY MOUTH EVERY DAY TAKE ONE CAPSULE BY MOUTH EVERY DAY SOLD: 06/24/2020 [facility] 50 mg 06/24/2020 12:00:00 AM EDT tablet extended release 24 hr 30 TAKE ONE TABLET BY MOUTH EVERY DAY TAKE ONE TABLET BY MOUTH EVERY DAY SOLD: 07/22/2020 [facility] 100 mg 06/24/2020 12:00:00 AM EDT tablet 90 TAKE ONE TABLET BY MOUTH EVERY DAY TAKE ONE TABLET BY MOUTH EVERY DAY SOLD: 06/24/2020 [facility] 50 mg 06/24/2020 12:00:00 AM EDT tablet extended release 24 hr 30 TAKE ONE TABLET BY MOUTH EVERY DAY TAKE ONE TABLET BY MOUTH EVERY DAY SOLD: 06/24/2020 [facility] 50 mg 06/24/2020 12:00:00 AM EDT tablet extended release 24 hr 30 TAKE ONE TABLET BY MOUTH EVERY DAY TAKE ONE TABLET BY MOUTH EVERY DAY SOLD: 08/19/2020 [facility] Metformin hydrochloride 1000 MG Oral Tablet metFORMIN HCl 1000 MG Oral Tablet metFORMIN HCl 1000 MG Oral Tablet 06/23/2020 12:00:00 AM EDT active metformin hydrochloride 1000 MG Oral Tablet [facility]) 24 HR metoprolol succinate 50 MG Extende d Release Oral Tablet Metoprolol Succinate ER 50 MG Oral Tablet Extended Release 24 Hour Metoprolol Succinate ER 50 MG Oral Tablet Extended Release 24 Hour 06/23/2020 12:00:00 AM EDT active 24 HR metoprolol succinate 50 MG Extended Release Oral Tablet [facility]) Rosuvastatin calcium 20 MG Oral Tablet Rosuvastatin Ca lcium 20 MG Oral Tablet Rosuvastatin Calcium 20 MG Oral Tablet 06/23/2020 12:00:00 AM EDT active rosuvastatin calcium 20 MG Oral Tablet [facility]) Hydrochlorothiazide 12.5 MG Oral Capsule hydroCHLOROthiazide 12.5 MG Oral Capsule hydroCHLOROthiazide 12.5 MG Oral Capsule 06/23/2020 12:00:00 AM EDT active hydrochlorothiazide 12.5 MG Oral Capsule [facility]) Losartan Potassium 100 MG Oral Tablet Losartan Potassium 100 MG Oral Tablet 06/23/2020 12:00:00 AM EDT 1 active losartan potassium 100 MG Oral Tablet [place] ([facility]) Ergocalciferol 06071 UNT Oral Capsule [D risdol] Drisdol 1.25 MG (34040 UT) Oral Capsule Drisdol 1.25 MG (47437 UT) Oral Capsule 06/23/2020 12:00:00 AM EDT active ergocalciferol 1.25 MG Oral Capsule [Drisdol] [place] ([facility]) Allopurinol 100 MG Oral Tablet Allopurinol 100 MG Oral Table t 06/23/2020 12:00:00 AM EDT active allopuri nol 100 MG Oral Tablet [facility]) Metformin hydrochloride 1000 MG Oral Tablet 1,000 mg METFORM IN HCL 06/23/2020 12:00:00 AM EDT tablet 180 TAKE ONE TABLET BY MOUTH TWICE A DAY TAKE ONE TABLET BY MOUTH TWICE A DAY SOLD: 06/24/2020 [facility] 400 mg (241.3 mg magnesium) 06/13/2020 12:00:00 AM EDT table t 90 TAKE ONE TABLET BY MOUTH TWICE A DAY TAKE ONE TABLET BY MOUTH TWICE A DAY SOLD: 07/24/2020 [facility] 400 mg (241.3 mg magnesium) 06/13/2020 12:00:00 AM EDT table t 90 TAKE ONE TABLET BY MOUTH TWICE A DAY TAKE ONE TABLET BY MOUTH TWICE A DAY SOLD: 06/15/2020 [facility] 12.5 mg 05/29/2020 12:00:00 AM EDT capsule 30 TAKE ONE CAPSULE BY MOUTH EVERY DAY TAKE ONE CAPSULE BY MOUTH EVERY DAY SOLD: 05/29/2020 [facility] 12.5 mg 05/29/2020 12:00:00 AM EDT capsule 30 TAKE ONE CAPSULE BY MOUTH EVERY DAY TAKE ONE CAPSULE BY MOUTH EVERY DAY SOLD: 07/17/2020 [facility] 12.5 mg 05/29/2020 12:00:00 AM EDT capsule 30 TAKE ONE CAPSULE BY MOUTH EVERY DAY TAKE ONE CAPSULE BY MOUTH EVERY DAY SOLD: 08/14/2020 [facility] 1,250 mcg (50,000 unit) 05/18/2020 12:00:00 AM EDT capsule 6 TAKE 1 CAPSULE BY MOUTH EVERY 2 WEEKS TAKE 1 CAPSULE BY MOUTH EVERY 2 WEEKS SOLD: 05/20/2020 [facility] 1 % 05/10/2020 12:00:00 AM EDT drops,suspension 10 INSTILL ONE DROP IN EACH EYE TWICE A DAY DIRECTED INSTILL ONE DROP IN EACH EYE TWICE A DAY DIRECTED SOLD: 09/21/2020 [facility] 1 % 05/10/2020 12:00:00 AM EDT drops,suspension 10 INSTILL ONE DROP IN EACH EYE TWICE A DAY DIRECTED INSTILL ONE DROP IN EACH EYE TWICE A DAY DIRECTED SOLD: 08/07/2020 [facility] 1 % 05/10/2020 12:00:00 AM EDT drops,suspension 10 INSTILL ONE DROP IN EACH EYE TWICE A DAY DIRECTED INSTILL ONE DROP IN EACH EYE TWICE A DAY DIRECTED SOLD: 06/24/2020 [facility] 1 % 05/10/2020 12:00:00 AM EDT drops,suspension 10 INSTILL ONE DROP IN EACH EYE TWICE A DAY DIRECTED INSTILL ONE DROP IN EACH EYE TWICE A DAY DIRECTED SOLD: 05/12/2020 [facility] 20 mg 05/06/2020 12:00:00 AM EDT tablet 90 TAKE ONE TABLET BY MOUTH EVERY DAY TAKE ONE TABLET BY MOUTH EVERY DAY SOLD: 05/06/2020 [facility] 100 mg 04/29/2020 12:00:00 AM EDT tablet 90 TAKE ONE TABLET BY MOUTH EVERY DAY TAKE ONE TABLET BY MOUTH EVERY DAY SOLD: 04/29/2020 [facility] 81 mg 04/24/2020 12:00:00 AM EDT tablet,delayed release (DR/EC) 90 TAKE ONE TABLET BY MOUTH EVERY DAY TAKE ONE TABLET BY MOUTH EVERY DAY SOLD: 04/24/2020 [facility] 100 mg 04/23/2020 12:00:00 AM EDT tablet 90 TAKE ONE TABLET BY MOUTH EVERY DAY TAKE ONE TABLET BY MOUTH EVERY DAY SOLD: 04/23/2020 [facility] 20 mg 04/20/2020 12:00:00 AM EDT capsule,delayed release (DR/EC) 30 TAKE ONE CAPSULE BY MOUTH EVERY MORNING TAKE ONE CAPSULE BY MOUTH EVERY MORNING SOLD: 06/15/2020 [facility] 20 mg 04/20/2020 12:00:00 AM EDT capsule,delayed release (DR/EC) 30 TAKE ONE CAPSULE BY MOUTH EVERY MORNING TAKE ONE CAPSULE BY MOUTH EVERY MORNING SOLD: 05/17/2020 [facility] 20 mg 04/20/2020 12:00:00 AM EDT capsule,delayed release (DR/EC) 30 TAKE ONE CAPSULE BY MOUTH EVERY MORNING TAKE ONE CAPSULE BY MOUTH EVERY MORNING SOLD: 04/20/2020 [facility] 145 mg 04/16/2020 12:00:00 AM EDT tablet 30 TAKE 1 TABLET BY MOUTH ONCE DAILY AT BEDTIME TAKE 1 TABLET BY MOUTH ONCE DAILY AT BEDTIME SOLD: 0 [facility] 145 mg 04/16/2020 12:00:00 AM EDT tablet 30 TAKE 1 TABLET BY MOUTH ONCE DAILY AT BEDTIME TAKE 1 TABLET BY MOUTH ONCE DAILY AT BEDTIME SOLD: 0 [facility] 145 mg 04/16/2020 12:00:00 AM EDT tablet 30 TAKE 1 TABLET BY MOUTH ONCE DAILY AT BEDTIME TAKE 1 TABLET BY MOUTH ONCE DAILY AT BEDTIME SOLD: 0 [facility] 325 mg (65 mg iron) 04/16/2020 12:00:00 AM EDT tablet 60 TAKE ONE TABLET BY MOUTH TWICE A DAY TAKE ONE TABLET BY MOUTH TWICE A DAY SOLD: 04/17/2020 [facility] Iron 325 (65 Fe) MG Oral Tablet Iron 325 (65 Fe) MG Oral Tab let 04/15/2020 12:00:00 AM EDT aborted Iron [place] ([facility]) sitagliptin 100 MG Oral Tablet [Januvia] Januvia 100 M G Oral Tablet Januvia 100 MG Oral Tablet 04/15/2020 12:00:00 AM EDT abo rted sitagliptin 100 MG Oral Tablet [Januvia] [facility]) Omeprazole 20 MG Delayed Release Oral Ca psule Omeprazole 20 MG Oral Capsule Delayed Release Omeprazole 20 MG Oral Capsule Delayed Release 04/15/20 20 12:00:00 AM EDT aborted omeprazole 20 MG Delayed Release Oral Capsule [facility]) Aspirin 81 MG Delayed Release Oral Table t Aspirin EC 81 MG Oral Tablet Delayed Release Aspirin EC 81 MG Oral Tablet Delayed Release 04/15/2020 12:0 0:00 AM EDT aborted aspirin 81 MG De layed Release Oral Tablet [facility]) clopidogrel 75 MG Oral Tablet Clopidogrel Bisulfate 75 MG Oral Tablet Clopidogrel Bisulfate 75 MG Oral Tablet 04/15/2020 12:00:00 AM EDT aborted clopidogrel 75 MG Oral Tablet [facility] [place] ([facility]) Fenofibrate 145 MG Oral Tablet Fenofibrate 145 MG Oral Table t 04/15/2020 12:00:00 AM EDT aborted fenofib rate 145 MG Oral Tablet [place] ([facility]) 75 mg 04/14/2020 12:00:00 AM EDT tablet 30 TAKE ONE TABLET BY MOUTH EVERY DAY WITH AN ASPRIN TAKE ONE TABLET BY MOUTH EVERY DAY WITH AN ASPRIN SOLD : 04/17/2020 [facility] Docusate Sodium 100 MG Oral Capsule [Colace] Colace 10 0 MG Oral Capsule Colace 100 MG Oral Capsule 04/09/2020 12:00:00 AM EDT aborted docusate sodium 100 MG Oral Capsule [Colace] [facility] ([facility]) 50 mg 03/28/2020 12:00:00 AM EDT tablet extended release 24 hr 30 TAKE ONE TABLET BY MOUTH EVERY DAY TAKE ONE TABLET BY MOUTH EVERY DAY SOLD: 03/28/2020 [facility] 50 mg 03/28/2020 12:00:00 AM EDT tablet extended release 24 hr 30 TAKE ONE TABLET BY MOUTH EVERY DAY TAKE ONE TABLET BY MOUTH EVERY DAY SOLD: 04/27/2020 [facility] 50 mg 03/28/2020 12:00:00 AM EDT tablet extended release 24 hr 30 TAKE ONE TABLET BY MOUTH EVERY DAY TAKE ONE TABLET BY MOUTH EVERY DAY SOLD: 05/24/2020 [facility] 20 mg 03/28/2020 12:00:00 AM EDT capsule,delayed release (DR/EC) 30 TAKE ONE CAPSULE BY MOUTH EVERY MORNING TAKE ONE CAPSULE BY MOUTH EVERY MORNING SOLD: 03/28/2020 [facility] 100 mg 03/27/2020 12:00:00 AM EDT capsule 180 TAKE ONE CAPSULE BY MOUTH TWICE A DAY TAKE ONE CAPSULE BY MOUTH TWICE A DAY SOLD: 03/28/2020 [facility] Hydrochlorothiazide 12.5 MG Oral Capsule hydroCHLOROthiazide 12.5 MG Oral Capsule hydroCHLOROthiazide 12.5 MG Oral Capsule 03/27/2020 12:00:00 AM EDT aborted hydrochlorothiazide 12.5 MG Oral Capsule [facility] ([facility]) Omeprazole 20 MG Delayed Release Oral Ca psule Omeprazole 20 MG Oral Capsule Delayed Release Omeprazole 20 MG Oral Capsule Delayed Release 03/27/20 12:00:00 AM EDT aborted omeprazole 20 MG Delayed Release Oral Capsule [place] ([facility]) Docusate Sodium 100 MG Oral Capsule [Colace] Colace 10 0 MG Oral Capsule Colace 100 MG Oral Capsule 03/27/2020 12:00:00 AM EDT aborted docusate sodium 100 MG Oral Capsule [Colace] [place] ([facility]) Losartan Potassium 100 MG Oral Tablet Losartan Potassium 100 MG Oral Tablet 03/27/2020 12:00:00 AM EDT 1 aborted losartan potassium 100 MG Oral Tablet [place] ([facility]) Metformin hydrochloride 1000 MG Oral Tablet metFORMIN HCl 1000 MG Oral Tablet metFORMIN HCl 1000 MG Oral Tablet 03/27/2020 12:00:00 AM EDT aborted metformin hydrochloride 1000 MG Oral Tab let [facility]) Rosuvastatin calcium 20 MG Oral Tablet Rosuvastatin Ca lcium 20 MG Oral Tablet Rosuvastatin Calcium 20 MG Oral Tablet 03/27/2020 12:00:00 AM EDT aborted rosuvastatin calcium 20 MG Oral Tablet [facility]) 24 HR metoprolol succinate 50 MG Extende d Release Oral Tablet Metoprolol Succinate ER 50 MG Oral Tablet Extended Release 24 Hour Metoprolol Succinate ER 50 MG Oral Tablet Extended Release 24 Hour 03/27/2020 12:00:00 AM EDT aborted 24 HR metoprolol succinate 50 MG Extended Release Oral Tablet [facility]) clopidogrel 75 MG Oral Tablet Clopidogrel Bisulfate 75 MG Oral Tablet Clopidogrel Bisulfate 75 MG Oral Tablet 03/26/2020 12:00:00 AM EDT aborted [facility]ogrel 75 MG [facility] Ergocalciferol 05743 UNT Oral Capsule [D risdol] Drisdol 1.25 MG (29897 UT) Oral Capsule Drisdol 1.25 MG (36742 UT) Oral Capsule 03/26/2020 12:00:00 AM EDT aborted ergocalciferol 1.25 MG Oral Capsule [Drisdol] [facility]) 100 mg 03/18/2020 12:00:00 AM EDT tablet 90 TAKE ONE TABLET BY MOUTH EVERY DAY TAKE ONE TABLET BY MOUTH EVERY DAY SOLD: 03/18/2020 [facility] Allopurinol 100 MG Oral Tablet Allopurinol 100 MG Oral Table t 03/18/2020 12:00:00 AM EDT aborted allopur inol 100 MG Oral Tablet [place] ([facility]) 400 mg (241.3 mg magnesium) 03/11/2020 12:00:00 AM EDT table t 90 TAKE ONE TABLET BY MOUTH TWICE A DAY TAKE ONE TABLET BY MOUTH TWICE A DAY SOLD: 05/01/2020 [facility] 400 mg (241.3 mg magnesium) 03/11/2020 12:00:00 AM EDT table t 90 TAKE ONE TABLET BY MOUTH TWICE A DAY TAKE ONE TABLET BY MOUTH TWICE A DAY SOLD: 03/11/2020 [facility] 12.5 mg 03/05/2020 12:00:00 AM EDT capsule 30 TAKE 1 CAPSULE BY MOUTH EVERY DAY TAKE 1 CAPSULE BY MOUTH EVERY DAY SOLD: 05/01/2020 [facility] 12.5 mg 03/05/2020 12:00:00 AM EDT capsule 30 TAKE 1 CAPSULE BY MOUTH EVERY DAY TAKE 1 CAPSULE BY MOUTH EVERY DAY SOLD: 03/07/2020 [facility] 12.5 mg 03/05/2020 12:00:00 AM EDT capsule 30 TAKE 1 CAPSULE BY MOUTH EVERY DAY TAKE 1 CAPSULE BY MOUTH EVERY DAY SOLD: 04/03/2020 [facility] 20 mg 03/04/2020 12:00:00 AM EDT capsule,delayed release (DR/EC) 30 TAKE 1 CAPSULE BY MOUTH EVERY MORNING TAKE 1 CAPSULE BY MOUTH EVERY MORNING SOLD: 03/04/2020 [facility] Omeprazole 20 MG Delayed Release Oral Ca psule Omeprazole 20 MG Oral Capsule Delayed Release Omeprazole 20 MG Oral Capsule Delayed Release 03/03/20 12:00:00 AM EDT aborted omeprazole 20 MG Delayed Release Oral Capsule [place] ([facility]) Aspirin 81 MG Delayed Release Oral Table t Aspirin EC 81 MG Oral Tablet Delayed Release Aspirin EC 81 MG Oral Tablet Delayed Release 02/27/2020 12:0 0:00 AM EDT aborted aspirin 81 MG De layed Release Oral Tablet [facility]) 75 mg 02/19/2020 12:00:00 AM EDT tablet 30 TAKE ONE TABLET BY MOUTH EVERY DAY WITH ASPRIN TAKE ONE TABLET BY MOUTH EVERY DAY WITH ASPRIN SOLD: 020 [facility] 75 mg 02/19/2020 12:00:00 AM EDT tablet 30 TAKE ONE TABLET BY MOUTH EVERY DAY WITH ASPRIN TAKE ONE TABLET BY MOUTH EVERY DAY WITH ASPRIN SOLD: [facility] 0.01 % 02/19/2020 12:00:00 AM EDT drops 7 INSTILL ONE DROP IN EACH EYE AT BEDTIME DIRECTED INSTILL ONE DROP IN EACH EYE AT BEDTIME DIRECTED SO LD: 07/15/2020 [facility] Fenofibrate 145 MG Oral Tablet Fenofibrate 145 MG Oral Table t 02/19/2020 12:00:00 AM EDT aborted fenofib rate 145 MG Oral Tablet [place] ([facility]) clopidogrel 75 MG Oral Tablet Clopidogrel Bisulfate 75 MG Oral Tablet Clopidogrel Bisulfate 75 MG Oral Tablet 02/19/2020 12:00:00 AM EDT aborted clopidogrel 75 MG Oral Tablet [facility] ([facility]) 145 mg 02/19/2020 12:00:00 AM EDT tablet 30 TAKE ONE TABLET BY MOUTH ONCE DAILY AT BEDTIME TAKE ONE TABLET BY MOUTH ONCE DAILY AT BEDTIME SOLD: 0 03/18/2020 [facility] 0.01 % 02/19/2020 12:00:00 AM EDT drops 7 INSTILL ONE DROP IN EACH EYE AT BEDTIME DIRECTED INSTILL ONE DROP IN EACH EYE AT BEDTIME DIRECTED SO LD: 02/19/2020 [facility] Fenofibrate 145 MG Oral Tablet FENOFIBRATE NANOCRYSTALLIZED 02/19/2020 12:00:00 AM EDT tablet 30 TAKE ONE TABLET BY MOUTH ONC E DAILY AT BEDTIME TAKE ONE TABLET BY MOUTH ONCE DAILY AT BEDTIME SOLD: 02/19/2020 [facility] 0.01 % 02/19/2020 12:00:00 AM EDT drops 7 INSTILL ONE DROP IN EACH EYE AT BEDTIME DIRECTED INSTILL ONE DROP IN EACH EYE AT BEDTIME DIRECTED SO LD: 09/30/2020 [facility] 0.01 % 02/19/2020 12:00:00 AM EDT drops 7 INSTILL ONE DROP IN EACH EYE AT BEDTIME DIRECTED INSTILL ONE DROP IN EACH EYE AT BEDTIME DIRECTED SO LD: 05/03/2020 [facility] 1,000 mg 02/16/2020 12:00:00 AM EDT tablet 180 TAKE 1 TABLET BY MOUTH TWICE A DAY TAKE 1 TABLET BY MOUTH TWICE A DAY SOLD: 02/16/2020 [facility] 600 mg calcium (1,500 mg) 02/06/2020 12:00:00 AM EDT tablet 60 TAKE ONE TABLET BY MOUTH TWICE A DAY TAKE ONE TABLET BY MOUTH TWICE A DAY SOLD: 02/07/2020 [facility] 600 mg calcium (1,500 mg) 02/06/2020 12:00:00 AM EDT tablet 60 TAKE ONE TABLET BY MOUTH TWICE A DAY TAKE ONE TABLET BY MOUTH TWICE A DAY SOLD: 03/12/2020 [facility] 600 mg calcium (1,500 mg) 02/06/2020 12:00:00 AM EDT tablet 60 TAKE ONE TABLET BY MOUTH TWICE A DAY TAKE ONE TABLET BY MOUTH TWICE A DAY SOLD: 06/24/2020 [facility] 600 mg calcium (1,500 mg) 02/06/2020 12:00:00 AM EDT tablet 60 TAKE ONE TABLET BY MOUTH TWICE A DAY TAKE ONE TABLET BY MOUTH TWICE A DAY SOLD: 07/24/2020 [facility] 600 mg calcium (1,500 mg) 02/06/2020 12:00:00 AM EDT tablet 60 TAKE ONE TABLET BY MOUTH TWICE A DAY TAKE ONE TABLET BY MOUTH TWICE A DAY SOLD: 04/17/2020 [facility] 600 mg calcium (1,500 mg) 02/06/2020 12:00:00 AM EDT tablet 60 TAKE ONE TABLET BY MOUTH TWICE A DAY TAKE ONE TABLET BY MOUTH TWICE A DAY SOLD: 05/27/2020 [facility] 100 mg 01/31/2020 12:00:00 AM EDT tablet 90 TAKE ONE TABLET BY MOUTH EVERY DAY TAKE ONE TABLET BY MOUTH EVERY DAY SOLD: 01/31/2020 [facility] sitagliptin 100 MG Oral Tablet [Januvia] Januvia 100 M G Oral Tablet Januvia 100 MG Oral Tablet 01/30/2020 12:00:00 AM EDT abo rted sitagliptin 100 MG Oral Tablet [Januvia] [facility] ([facility]) 20 mg 01/29/2020 12:00:00 AM EDT tablet 90 TAKE ONE TABLET BY MOUTH EVERY DAY TAKE ONE TABLET BY MOUTH EVERY DAY SOLD: 01/29/2020 [facility] 325 mg (65 mg iron) 01/29/2020 12:00:00 AM EDT tablet 60 TAKE ONE TABLET BY MOUTH TWICE A DAY TAKE ONE TABLET BY MOUTH TWICE A DAY SOLD: 03/25/2020 [facility] Ergocalciferol 25912 UNT Oral Capsule [D risdol] Drisdol 1.25 MG (17752 UT) Oral Capsule Drisdol 1.25 MG (41937 UT) Oral Capsule 01/29/2020 12:00:00 AM EDT aborted ergocalciferol 1.25 MG Oral Capsule [Drisdol] [facility] ([facility]) Iron 325 (65 Fe) MG Oral Tablet Iron 325 (65 Fe) MG Oral Tab let 01/29/2020 12:00:00 AM EDT aborted Iron [place] ([facility]) 81 mg 01/29/2020 12:00:00 AM EDT tablet,delayed release (DR/EC) 90 TAKE ONE TABLET BY MOUTH EVERY DAY TAKE ONE TABLET BY MOUTH EVERY DAY SOLD: 01/29/2020 [facility] 1,250 mcg (50,000 unit) 01/29/2020 12:00:00 AM EDT capsule 6 TAKE 1 CAPSULE BY MOUTH EVERY 2 WEEKS TAKE 1 CAPSULE BY MOUTH EVERY 2 WEEKS SOLD: 01/29/2020 [facility] 325 mg (65 mg iron) 01/29/2020 12:00:00 AM EDT tablet 60 TAKE ONE TABLET BY MOUTH TWICE A DAY TAKE ONE TABLET BY MOUTH TWICE A DAY SOLD: 01/29/2020 [facility] 100 mg 01/29/2020 12:00:00 AM EDT tablet 90 TAKE 1 TABLET BY MOUTH EVERY DAY TAKE 1 TABLET BY MOUTH EVERY DAY SOLD: 01/29/2020 [facility] 20 mg 01/07/2020 12:00:00 AM EDT capsule,delayed release (DR/EC) 30 TAKE 1 CAPSULE BY MOUTH EVERY MORNING TAKE 1 CAPSULE BY MOUTH EVERY MORNING SOLD: 02/05/2020 [facility] 20 mg 01/07/2020 12:00:00 AM EDT capsule,delayed release (DR/EC) 30 TAKE 1 CAPSULE BY MOUTH EVERY MORNING TAKE 1 CAPSULE BY MOUTH EVERY MORNING SOLD: 01/08/2020 [facility] 0.4 mg 12/31/2019 12:00:00 AM EDT capsule 30 TAKE 1 CAPSULE BY MOUTH ONCE A DAY TAKE 1 CAPSULE BY MOUTH ONCE A DAY SOLD: 07/15/2020 [facility] 0.4 mg 12/31/2019 12:00:00 AM EDT capsule 30 TAKE 1 CAPSULE BY MOUTH ONCE A DAY TAKE 1 CAPSULE BY MOUTH ONCE A DAY SOLD: 08/12/2020 [facility] 0.4 mg 12/31/2019 12:00:00 AM EDT capsule 30 TAKE 1 CAPSULE BY MOUTH ONCE A DAY TAKE 1 CAPSULE BY MOUTH ONCE A DAY SOLD: 06/17/2020 [facility] 0.4 mg 12/31/2019 12:00:00 AM EDT capsule 30 TAKE 1 CAPSULE BY MOUTH ONCE A DAY TAKE 1 CAPSULE BY MOUTH ONCE A DAY SOLD: 02/26/2020 [facility] 0.4 mg 12/31/2019 12:00:00 AM EDT capsule 30 TAKE 1 CAPSULE BY MOUTH ONCE A DAY TAKE 1 CAPSULE BY MOUTH ONCE A DAY SOLD: 05/20/2020 [facility] 0.4 mg 12/31/2019 12:00:00 AM EDT capsule 30 TAKE 1 CAPSULE BY MOUTH ONCE A DAY TAKE 1 CAPSULE BY MOUTH ONCE A DAY SOLD: 01/01/2020 [facility] 0.4 mg 12/31/2019 12:00:00 AM EDT capsule 30 TAKE 1 CAPSULE BY MOUTH ONCE A DAY TAKE 1 CAPSULE BY MOUTH ONCE A DAY SOLD: 01/28/2020 [facility] 50 mg 12/31/2019 12:00:00 AM EDT tablet extended release 24 hr 30 TAKE 1 TABLET BY MOUTH EVERY DAY TAKE 1 TABLET BY MOUTH EVERY DAY SOLD: 02/26/2020 [facility] 50 mg 12/31/2019 12:00:00 AM EDT tablet extended release 24 hr 30 TAKE 1 TABLET BY MOUTH EVERY DAY TAKE 1 TABLET BY MOUTH EVERY DAY SOLD: 01/28/2020 [facility] 50 mg 12/31/2019 12:00:00 AM EDT tablet extended release 24 hr 30 TAKE 1 TABLET BY MOUTH EVERY DAY TAKE 1 TABLET BY MOUTH EVERY DAY SOLD: 01/01/2020 [facility] 0.4 mg 12/31/2019 12:00:00 AM EDT capsule 30 TAKE 1 CAPSULE BY MOUTH ONCE A DAY TAKE 1 CAPSULE BY MOUTH ONCE A DAY SOLD: 09/09/2020 [facility] 0.4 mg 12/31/2019 12:00:00 AM EDT capsule 30 TAKE 1 CAPSULE BY MOUTH ONCE A DAY TAKE 1 CAPSULE BY MOUTH ONCE A DAY SOLD: 03/25/2020 [facility] 0.4 mg 12/31/2019 12:00:00 AM EDT capsule 30 TAKE 1 CAPSULE BY MOUTH ONCE A DAY TAKE 1 CAPSULE BY MOUTH ONCE A DAY SOLD: 04/22/2020 [facility] 0.1 % 12/27/2019 12:00:00 AM EDT drops 15 INSTILL ONE DROP IN EACH EYE TWICE A DAY DIRECTED INSTILL ONE DROP IN EACH EYE TWICE A DAY DIRECTED S OLD: 03/01/2020 [facility] 0.1 % 12/27/2019 12:00:00 AM EDT drops 15 INSTILL ONE DROP IN EACH EYE TWICE A DAY DIRECTED INSTILL ONE DROP IN EACH EYE TWICE A DAY DIRECTED S OLD: 07/12/2020 [facility] 0.1 % 12/27/2019 12:00:00 AM EDT drops 15 INSTILL ONE DROP IN EACH EYE TWICE A DAY DIRECTED INSTILL ONE DROP IN EACH EYE TWICE A DAY DIRECTED S OLD: 12/27/2019 [facility] 0.1 % 12/27/2019 12:00:00 AM EDT drops 15 INSTILL ONE DROP IN EACH EYE TWICE A DAY DIRECTED INSTILL ONE DROP IN EACH EYE TWICE A DAY DIRECTED S OLD: 05/06/2020 [facility] Omeprazole 20 MG Delayed Release Oral Ca psule Omeprazole 20 MG Oral Capsule Delayed Release Omeprazole 20 MG Oral Capsule Delayed Release 12/24/19 20 12:00:00 AM EDT aborted omeprazole 20 MG Delayed Release Oral Capsule [place] ([facility]) Metformin hydrochloride 1000 MG Oral Tablet metFORMIN HCl 1000 MG Oral Tablet metFORMIN HCl 1000 MG Oral Tablet 12/24/2019 12:00:00 AM EDT aborted metformin hydrochloride 1000 MG Oral Tab let [place] ([facility]) Losartan Potassium 100 MG Oral Tablet Losartan Potassium 100 MG Oral Tablet 12/24/2019 12:00:00 AM EDT 1 aborted losartan potassium 100 MG Oral Tablet [facility] ([facility]) Iron 325 (65 Fe) MG Oral Tablet Iron 325 (65 Fe) MG Oral Tab let 12/24/2019 12:00:00 AM EDT aborted Iron [facility] ([facility]) Rosuvastatin calcium 20 MG Oral Tablet Rosuvastatin Ca lcium 20 MG Oral Tablet Rosuvastatin Calcium 20 MG Oral Tablet 12/24/2019 12:00:00 AM EDT aborted rosuvastatin calcium 20 MG Oral Tablet [facility] ([facility]) Aspirin 81 MG Delayed Release Oral Table t Aspirin EC 81 MG Oral Tablet Delayed Release Aspirin EC 81 MG Oral Tablet Delayed Release 12/24/2019 12:0 0:00 AM EDT aborted aspirin 81 MG De layed Release Oral Tablet [place] ([facility]) Hydrochlorothiazide 12.5 MG Oral Capsule hydroCHLOROthiazide 12.5 MG Oral Capsule hydroCHLOROthiazide 12.5 MG Oral Capsule 12/24/2019 12:00:00 AM EDT aborted hydrochlorothiazide 12.5 MG Oral Capsule [place] ([facility]) OneTouch Ultra Blue In Vitro Strip OneTouch Ultra Blue In Vi tro Strip 12/24/2019 12:00:00 AM EDT aborted OneTou ch Ultra Blue [place] ([facility]) travoprost 0.04 MG/ML Ophthalmic Solutio n [Travatan] Travatan Z 0.004% Ophthalmic Solution Travatan Z 0.004% Ophthalmic Solution 12/24/2019 12:00 :00 AM EDT active travoprost 0.04 M G/ML Ophthalmic Solution [Travatan] [place] ([facility]) Brimonidine tartrate 1.5 MG/ML Ophthalmi c Solution [Alphagan] Alphagan P 0.15% Ophthalmic Solution Alphagan P 0.15% Ophthalmic Solution 12/24/2019 12:00: 00 AM EDT active brimonid ine tartrate 1.5 MG/ML Ophthalmic Solution [Alphagan] [place] ([facility]) brinzolamide 10 MG/ML Ophthalmic Suspens ion [Azopt] Azopt 1% Ophthalmic Suspension Azopt 1% Ophthalmic Suspension 12/24/2019 12:00:00 AM EDT active brinzolamide 10 MG/ML Ophthalmic Suspension [Azopt] [place] ([facility]) 24 HR metoprolol succinate 50 MG Extende d Release Oral Tablet Metoprolol Succinate ER 50 MG Oral Tablet Extended Release 24 Hour Metoprolol Succinate ER 50 MG Oral Tablet Extended Release 24 Hour 12/24/2019 12:00:00 AM EDT aborted 24 HR metoprolol succinate 50 MG Extended Release Oral Tablet [place] ([facility]) OneTouch UltraSoft Lancets Miscellaneous OneTouch Ultr aSoft Lancets Miscellaneous 12/24/2019 12:00:00 AM EDT comp leted OneTouch UltraSoft Lancets [place] ([facility]) Docusate Sodium 100 MG Oral Capsule [Colace] Colace 10 0 MG Oral Capsule Colace 100 MG Oral Capsule 12/18/2019 12:00:00 AM EDT aborted docusate sodium 100 MG Oral Capsule [Colace] [facility] ([facility]) 100 mg 12/18/2019 12:00:00 AM EDT tablet 90 TAKE ONE TABLET BY MOUTH EVERY DAY TAKE ONE TABLET BY MOUTH EVERY DAY SOLD: 12/18/2019 [facility] 100 mg 12/18/2019 12:00:00 AM EDT capsule 180 TAKE ONE CAPSULE BY MOUTH TWICE A DAY TAKE ONE CAPSULE BY MOUTH TWICE A DAY SOLD: 12/18/2019 [facility] Allopurinol 100 MG Oral Tablet Allopurinol 100 MG Oral Table t 12/18/2019 12:00:00 AM EDT aborted allopur inol 100 MG Oral Tablet [place] ([facility]) 75 mg 12/11/2019 12:00:00 AM EDT tablet 30 TAKE ONE TABLET BY MOUTH EVERY DAY WITH ASPRIN TAKE ONE TABLET BY MOUTH EVERY DAY WITH ASPRIN SOLD: 020 [facility] 145 mg 12/11/2019 12:00:00 AM EDT tablet 30 TAKE ONE TABLET BY MOUTH ONCE DAILY AT BEDTIME TAKE ONE TABLET BY MOUTH ONCE DAILY AT BEDTIME SOLD: 0 12/11/2019 [facility] Hydrochlorothiazide 12.5 MG Oral Capsule hydroCHLOROthiazide 12.5 MG Oral Capsule hydroCHLOROthiazide 12.5 MG Oral Capsule 12/11/2019 12:00:00 AM EDT aborted hydrochlorothiazide 12.5 MG Oral Capsule [facility] ([facility]) 400 mg (241.3 mg magnesium) 12/11/2019 12:00:00 AM EDT table t 90 TAKE ONE TABLET BY MOUTH TWICE A DAY TAKE ONE TABLET BY MOUTH TWICE A DAY SOLD: 01/28/2020 [facility] 400 mg (241.3 mg magnesium) 12/11/2019 12:00:00 AM EDT table t 90 TAKE ONE TABLET BY MOUTH TWICE A DAY TAKE ONE TABLET BY MOUTH TWICE A DAY SOLD: 12/11/2019 [facility] 145 mg 12/11/2019 12:00:00 AM EDT tablet 30 TAKE ONE TABLET BY MOUTH ONCE DAILY AT BEDTIME TAKE ONE TABLET BY MOUTH ONCE DAILY AT BEDTIME SOLD: 0 01/08/2020 [facility] 75 mg 12/11/2019 12:00:00 AM EDT tablet 30 TAKE ONE TABLET BY MOUTH EVERY DAY WITH ASPRIN TAKE ONE TABLET BY MOUTH EVERY DAY WITH ASPRIN SOLD: 020 [facility] 12.5 mg 12/11/2019 12:00:00 AM EDT capsule 30 TAKE ONE CAPSULE BY MOUTH EVERY DAY TAKE ONE CAPSULE BY MOUTH EVERY DAY SOLD: 12/11/2019 [facility] Fenofibrate 145 MG Oral Tablet Fenofibrate 145 MG Oral Table t 12/10/2019 12:00:00 AM EDT aborted fenofib rate 145 MG Oral Tablet [facility]) clopidogrel 75 MG Oral Tablet Clopidogrel Bisulfate 75 MG Oral Tablet Clopidogrel Bisulfate 75 MG Oral Tablet 12/10/2019 12:00:00 AM EDT aborted [facility]rel 75 [facility] 11/22/2019 12:00:00 AM EDT drops,suspension 10 INSTILL ONE DROP IN EACH EYE TWICE A DAY DIRECTED INSTILL ONE DROP IN EACH EYE TWICE A DAY DIRECTED SOLD: 11/22/2019 [facility] 1 % 11/22/2019 12:00:00 AM EDT drops,suspension 10 INSTILL ONE DROP IN EACH EYE TWICE A DAY DIRECTED INSTILL ONE DROP IN EACH EYE TWICE A DAY DIRECTED SOLD: 03/28/2020 [facility] 1 % 11/22/2019 12:00:00 AM EDT drops,suspension 10 INSTILL ONE DROP IN EACH EYE TWICE A DAY DIRECTED INSTILL ONE DROP IN EACH EYE TWICE A DAY DIRECTED SOLD: 01/03/2020 [facility] 1 % 11/22/2019 12:00:00 AM EDT drops,suspension 10 INSTILL ONE DROP IN EACH EYE TWICE A DAY DIRECTED INSTILL ONE DROP IN EACH EYE TWICE A DAY DIRECTED SOLD: 02/14/2020 [facility] sitagliptin 100 MG Oral Tablet [Januvia] Januvia 100 M G Oral Tablet Januvia 100 MG Oral Tablet 11/05/2019 12:00:00 AM EST abo rted sitagliptin 100 MG Oral Tablet [Januvia] [facility]) Losartan Potassium 100 MG Oral Tablet [facility] 12:00:00 AM EST tablet 90 TAKE ONE TABLET BY MOUTH PASTORA RY DAY TAKE ONE TABLET BY MOUTH EVERY DAY SOLD: 11/06/2019 [facility] 100 mg 11/05/2019 12:00:00 AM EST tablet 90 TAKE ONE TABLET BY MOUTH EVERY DAY TAKE ONE TABLET BY MOUTH EVERY DAY SOLD: 11/06/2019 [facility] 20 mg 11/05/2019 12:00:00 AM EST tablet 90 TAKE ONE TABLET BY MOUTH EVERY DAY TAKE ONE TABLET BY MOUTH EVERY DAY SOLD: 11/06/2019 [facility] 20 mg 10/16/2019 12:00:00 AM EST capsule,delayed release (DR/EC) 30 TAKE ONE CAPSULE BY MOUTH EVERY MORNING TAKE ONE CAPSULE BY MOUTH EVERY MORNING SOLD: 10/16/2019 [facility] 20 mg 10/16/2019 12:00:00 AM EST capsule,delayed release (DR/EC) 30 TAKE ONE CAPSULE BY MOUTH EVERY MORNING TAKE ONE CAPSULE BY MOUTH EVERY MORNING SOLD: 12/11/2019 [facility] 20 mg 10/16/2019 12:00:00 AM EST capsule,delayed release (DR/EC) 30 TAKE ONE CAPSULE BY MOUTH EVERY MORNING TAKE ONE CAPSULE BY MOUTH EVERY MORNING SOLD: 11/13/2019 [facility] 50 mg 10/08/2019 12:00:00 AM EST tablet extended release 24 hr 30 TAKE ONE TABLET BY MOUTH EVERY DAY TAKE ONE TABLET BY MOUTH EVERY DAY SOLD: 10/09/2019 [facility] 50 mg 10/08/2019 12:00:00 AM EST tablet extended release 24 hr 30 TAKE ONE TABLET BY MOUTH EVERY DAY TAKE ONE TABLET BY MOUTH EVERY DAY SOLD: 11/06/2019 [facility] 50 mg 10/08/2019 12:00:00 AM EST tablet extended release 24 hr 30 TAKE ONE TABLET BY MOUTH EVERY DAY TAKE ONE TABLET BY MOUTH EVERY DAY SOLD: 12/04/2019 [facility] Docusate Sodium 100 MG Oral Capsule [Colace] Colace 10 0 MG Oral Capsule Colace 100 MG Oral Capsule 09/24/2019 12:00:00 AM EST aborted docusate sodium 100 MG Oral Capsule [Colace] [place] ([facility]) 1,000 mg 09/24/2019 12:00:00 AM EST tablet 180 TAKE ONE TABLET BY MOUTH TWICE A DAY TAKE ONE TABLET BY MOUTH TWICE A DAY SOLD: 09/25/2019 [facility] 100 mg 09/24/2019 12:00:00 AM EST capsule 180 TAKE ONE CAPSULE BY MOUTH TWICE A DAY TAKE ONE CAPSULE BY MOUTH TWICE A DAY SOLD: 09/25/2019 [facility] 100 mg 09/24/2019 12:00:00 AM EST tablet 90 TAKE ONE TABLET BY MOUTH EVERY DAY TAKE ONE TABLET BY MOUTH EVERY DAY SOLD: 09/25/2019 [facility] Iron 325 (65 Fe) MG Oral Tablet Iron 325 (65 Fe) MG Oral Tab let 09/24/2019 12:00:00 AM EST aborted Iron [place] ([facility]) Omeprazole 20 MG Delayed Release Oral Ca psule Omeprazole 20 MG Oral Capsule Delayed Release Omeprazole 20 MG Oral Capsule Delayed Release 09/24/19 12:00:00 AM EST aborted omeprazole 20 MG Delayed Release Oral Capsule [facility]) Rosuvastatin calcium 20 MG Oral Tablet [Crestor] Crest or 20 MG Oral Tablet Crestor 20 MG Oral Tablet 09/24/2019 12:00:00 AM EST aborted rosuvastatin calcium 20 MG Oral Tablet [Crestor] [facility]) Losartan Potassium 100 MG Oral Tablet Losartan Potassium 100 MG Oral Tablet 09/24/2019 12:00:00 AM EST 1 aborted losartan potassium 100 MG Oral Tablet [facility]) Metformin hydrochloride 1000 MG Oral Tablet metFORMIN HCl 1000 MG Oral Tablet metFORMIN HCl 1000 MG Oral Tablet 09/24/2019 12:00:00 AM EST aborted metformin hydrochloride 1000 MG Oral Tab let [facility]) 81 mg 09/24/2019 12:00:00 AM EST tablet,delayed release (DR/EC) 90 TAKE ONE TABLET BY MOUTH EVERY DAY TAKE ONE TABLET BY MOUTH EVERY DAY SOLD: 09/25/2019 [facility] Aspirin 81 MG Delayed Release Oral Table t Aspirin EC 81 MG Oral Tablet Delayed Release Aspirin EC 81 MG Oral Tablet Delayed Release 09/24/2019 12:0 0:00 AM EST aborted aspirin 81 MG De layed Release Oral Tablet [facility]) 24 HR metoprolol succinate 50 MG Extende d Release Oral Tablet [Toprol] Toprol XL 50 MG Oral Tablet Extended Release 24 Hour Toprol XL 50 MG Oral Tablet Extended Release 24 Hour 09/24/2019 12:00:00 AM EST a borted 24 HR metoprolol succinate 50 MG Extended Release Oral Tablet [Toprol] [facility]) Allopurinol 100 MG Oral Tablet Allopurinol 100 MG Oral Table t 09/24/2019 12:00:00 AM EST aborted allopur inol 100 MG Oral Tablet [facility]) 12.5 mg 09/18/2019 12:00:00 AM EST capsule 30 TAKE ONE CAPSULE BY MOUTH EVERY DAY TAKE ONE CAPSULE BY MOUTH EVERY DAY SOLD: 10/16/2019 [facility] 12.5 mg 09/18/2019 12:00:00 AM EST capsule 30 TAKE ONE CAPSULE BY MOUTH EVERY DAY TAKE ONE CAPSULE BY MOUTH EVERY DAY SOLD: 11/13/2019 [facility] 12.5 mg 09/18/2019 12:00:00 AM EST capsule 30 TAKE ONE CAPSULE BY MOUTH EVERY DAY TAKE ONE CAPSULE BY MOUTH EVERY DAY SOLD: 09/18/2019 [facility] 75 mg 09/18/2019 12:00:00 AM EST tablet 30 TAKE ONE TABLET BY MOUTH EVERY DAY WITH ASPIRIN TAKE ONE TABLET BY MOUTH EVERY DAY WITH ASPIRIN SOLD: 09/18/2019 [facility] 75 mg 09/18/2019 12:00:00 AM EST tablet 30 TAKE ONE TABLET BY MOUTH EVERY DAY WITH ASPIRIN TAKE ONE TABLET BY MOUTH EVERY DAY WITH ASPIRIN SOLD: 10/16/2019 [facility] 75 mg 09/18/2019 12:00:00 AM EST tablet 30 TAKE ONE TABLET BY MOUTH EVERY DAY WITH ASPIRIN TAKE ONE TABLET BY MOUTH EVERY DAY WITH ASPIRIN SOLD: 11/13/2019 [facility] clopidogrel 75 MG Oral Tablet [Plavix] Plavix 75 MG Or al Tablet Plavix 75 MG Oral Tablet 09/17/2019 12:00:00 AM EST aborte d clopidogrel 75 MG Oral Tablet [Plavix] [facility] ([facility]) Hydrochlorothiazide 12.5 MG Oral Capsule hydroCHLOROthiazide 12.5 MG Oral Capsule hydroCHLOROthiazide 12.5 MG Oral Capsule 09/17/2019 12:00:00 AM EST aborted hydrochlorothiazide 12.5 MG Oral Capsule [facility]) 145 mg 09/14/2019 12:00:00 AM EST tablet 30 TAKE ONE TABLET BY MOUTH ONCE DAILY AT BEDTIME TAKE ONE TABLET BY MOUTH ONCE DAILY AT BEDTIME SOLD: 0 10/14/2019 [facility] 145 mg 09/14/2019 12:00:00 AM EST tablet 30 TAKE ONE TABLET BY MOUTH ONCE DAILY AT BEDTIME TAKE ONE TABLET BY MOUTH ONCE DAILY AT BEDTIME SOLD: 0 11/10/2019 [facility] 145 mg 09/14/2019 12:00:00 AM EST tablet 30 TAKE ONE TABLET BY MOUTH ONCE DAILY AT BEDTIME TAKE ONE TABLET BY MOUTH ONCE DAILY AT BEDTIME SOLD: 0 09/16/2019 [facility] Fenofibrate 145 MG Oral Tablet Fenofibrate 145 MG Oral Table t 09/13/2019 12:00:00 AM EST aborted fenofib rate 145 MG Oral Tablet [facility] ([facility]) 1,250 mcg (50,000 unit) 09/12/2019 12:00:00 AM EST capsule 6 TAKE 1 CAPSULE BY MOUTH EVERY 2 WEEKS TAKE 1 CAPSULE BY MOUTH EVERY 2 WEEKS SOLD: 09/13/2019 [facility] Ergocalciferol 81199 UNT Oral Capsule [D risdol] Drisdol 1.25 MG (02956 UT) Oral Capsule Drisdol 1.25 MG (06305 UT) Oral Capsule 09/11/2019 12:00:00 AM EST aborted ergocalciferol 1.25 MG Oral Capsule [Drisdol] [place] ([facility]) 20 mg 09/04/2019 12:00:00 AM EST capsule,delayed release (DR/EC) 30 TAKE ONE CAPSULE BY MOUTH EVERY MORNING TAKE ONE CAPSULE BY MOUTH EVERY MORNING SOLD: 09/04/2019 [facility] Omeprazole 20 MG Delayed Release Oral Ca psule Omeprazole 20 MG Oral Capsule Delayed Release Omeprazole 20 MG Oral Capsule Delayed Release 09/03/20 12:00:00 AM EST aborted omeprazole 20 MG Delayed Release Oral Capsule [place] ([facility]) 400 mg (241.3 mg magnesium) 08/14/2019 12:00:00 AM EST table t 90 TAKE ONE TABLET BY MOUTH TWICE A DAY TAKE ONE TABLET BY MOUTH TWICE A DAY SOLD: 08/14/2019 [facility] 400 mg (241.3 mg magnesium) 08/14/2019 12:00:00 AM EST table t 90 TAKE ONE TABLET BY MOUTH TWICE A DAY TAKE ONE TABLET BY MOUTH TWICE A DAY SOLD: 10/21/2019 [facility] sitagliptin 100 MG Oral Tablet [Januvia] Januvia 100 M G Oral Tablet Januvia 100 MG Oral Tablet 08/07/2019 12:00:00 AM EST abo rted sitagliptin 100 MG Oral Tablet [Januvia] [facility] ([facility]) 50 mg 07/17/2019 12:00:00 AM EST tablet extended release 24 hr 30 TAKE ONE TABLET BY MOUTH EVERY DAY TAKE ONE TABLET BY MOUTH EVERY DAY SOLD: 08/14/2019 [facility] 50 mg 07/17/2019 12:00:00 AM EST tablet extended release 24 hr 30 TAKE ONE TABLET BY MOUTH EVERY DAY TAKE ONE TABLET BY MOUTH EVERY DAY SOLD: 09/11/2019 [facility] 75 mg 06/25/2019 12:00:00 AM EDT tablet 30 TAKE ONE TABLET BY MOUTH EVERY DAY WITH ASPIRIN TAKE ONE TABLET BY MOUTH EVERY DAY WITH ASPIRIN SOLD: 08/21/2019 [facility] 12.5 mg 06/25/2019 12:00:00 AM EDT capsule 30 TAKE ONE CAPSULE BY MOUTH EVERY DAY TAKE ONE CAPSULE BY MOUTH EVERY DAY SOLD: 08/21/2019 [facility] 145 mg 06/23/2019 12:00:00 AM EDT tablet 30 TAKE ONE TABLET BY MOUTH DAILY AT BEDTIME TAKE ONE TABLET BY MOUTH DAILY AT BEDTIME SOLD: 08/18/2019 [facility] Allopurinol 100 MG Oral Tablet Allopurinol 100 MG Oral Table t 06/12/2019 12:00:00 AM EDT aborted allopur inol 100 MG Oral Tablet [facility]) Ergocalciferol 89485 UNT Oral Capsule [Drisdol] Drisdo l 90687 UNIT Oral Capsule Drisdol 23821 UNIT Oral Capsule 06/12/2019 12:00:00 AM EDT aborted ergocalciferol 1.25 MG Oral Capsule [Drisdol] [place] ([facility]) Aspirin 81 MG Delayed Release Oral Table t Aspirin EC 81 MG Oral Tablet Delayed Release Aspirin EC 81 MG Oral Tablet Delayed Release 06/12/2019 12:0 0:00 AM EDT aborted aspirin 81 MG De layed Release Oral Tablet [facility]) Rosuvastatin calcium 20 MG Oral Tablet [Crestor] Crest or 20 MG Oral Tablet Crestor 20 MG Oral Tablet 06/12/2019 12:00:00 AM EDT aborted rosuvastatin calcium 20 MG Oral Tablet [Crestor] [facility]) Docusate Sodium 100 MG Oral Capsule [Colace] Colace 10 0 MG Oral Capsule Colace 100 MG Oral Capsule 06/12/2019 12:00:00 AM EDT aborted docusate sodium 100 MG Oral Capsule [Colace] [facility] [facility]) Fenofibrate 145 MG Oral Tablet Fenofibrate 145 MG Oral Table t 06/12/2019 12:00:00 AM EDT aborted fenofib rate 145 MG Oral Tablet [facility] ([facility]) 24 HR metoprolol succinate 50 MG Extende d Release Oral Tablet [Toprol] Toprol XL 50 MG Oral Tablet Extended Release 24 Hour Toprol XL 50 MG Oral Tablet Extended Release 24 Hour 06/12/2019 12:00:00 AM EDT a borted 24 HR metoprolol succinate 50 MG Extended Release Oral Tablet [Toprol] [place] ([facility]) OneTouch UltraSoft Lancets Miscellaneous OneTouch Ultr aSoft Lancets Miscellaneous 06/12/2019 12:00:00 AM EDT abor jluis OneTouch UltraSoft Lancets [place] [facility]) clopidogrel 75 MG Oral Tablet [Plavix] Plavix 75 MG Or al Tablet Plavix 75 MG Oral Tablet 06/12/2019 12:00:00 AM EDT aborte d clopidogrel 75 MG Oral Tablet [Plavix] [facility] ([facility]) Losartan Potassium 100 MG Oral Tablet Losartan Potassium 100 MG Oral Tablet 06/12/2019 12:00:00 AM EDT 1 aborted losartan potassium 100 MG Oral Tablet [facility] ([facility]) OneTouch Ultra Blue In Vitro Strip OneTouch Ultra Blue In Vi tro Strip 06/12/2019 12:00:00 AM EDT aborted OneTou Ultra Blue [facility]) Metformin hydrochloride 1000 MG Oral Tablet metFORMIN HCl 1000 MG Oral Tablet metFORMIN HCl 1000 MG Oral Tablet 06/12/2019 12:00:00 AM EDT aborted metformin hydrochloride 1000 MG Oral Tab let [facility]) Iron 325 (65 Fe) MG Oral Tablet Iron 325 (65 Fe) MG Oral Tab let 06/12/2019 12:00:00 AM EDT aborted Iron [facility] ([facility]) Hydrochlorothiazide 12.5 MG Oral Capsule hydroCHLOROthiazide 12.5 MG Oral Capsule hydroCHLOROthiazide 12.5 MG Oral Capsule 06/12/2019 12:00:00 AM EDT aborted hydrochlorothiazide 12.5 MG Oral Capsule [place] ([facility]) 325 mg (65 mg iron) 06/12/2019 12:00:00 AM EDT tablet 60 TAKE ONE TABLET BY MOUTH TWICE A DAY TAKE ONE TABLET BY MOUTH TWICE A DAY SOLD: 11/06/2019 [facility] Omeprazole 20 MG Delayed Release Oral Ca psule Omeprazole 20 MG Oral Capsule Delayed Release Omeprazole 20 MG Oral Capsule Delayed Release 06/12/20 19 12:00:00 AM EDT aborted omeprazole 20 MG Delayed Release Oral Capsule [place] ([facility]) 325 mg (65 mg iron) 06/12/2019 12:00:00 AM EDT tablet 60 TAKE ONE TABLET BY MOUTH TWICE A DAY TAKE ONE TABLET BY MOUTH TWICE A DAY SOLD: 09/09/2019 [facility] 1 % 06/05/2019 12:00:00 AM EDT drops,suspension 10 INSTILL ONE DROP IN EACH EYE TWICE A DAY DIRECTED INSTILL ONE DROP IN EACH EYE TWICE A DAY DIRECTED SOLD: 08/30/2019 [facility] 1 % 06/05/2019 12:00:00 AM EDT drops,suspension 10 INSTILL ONE DROP IN EACH EYE TWICE A DAY DIRECTED INSTILL ONE DROP IN EACH EYE TWICE A DAY DIRECTED SOLD: 10/11/2019 [facility] 0.01 % 04/05/2019 12:00:00 AM EDT drops 7 INSTILL ONE DROP IN EACH EYE AT BEDTIME DIRECTED INSTILL ONE DROP IN EACH EYE AT BEDTIME DIRECTED SO LD: 10/11/2019 [facility] 0.1 % 04/05/2019 12:00:00 AM EDT drops 15 INSTILL ONE DROP IN EACH EYE TWICE A DAY DIRECTED INSTILL ONE DROP IN EACH EYE TWICE A DAY DIRECTED S OLD: 10/18/2019 [facility] 0.1 % 04/05/2019 12:00:00 AM EDT drops 15 INSTILL ONE DROP IN EACH EYE TWICE A DAY DIRECTED INSTILL ONE DROP IN EACH EYE TWICE A DAY DIRECTED S OLD: 08/14/2019 [facility] 0.01 % 04/05/2019 12:00:00 AM EDT drops 7 INSTILL ONE DROP IN EACH EYE AT BEDTIME DIRECTED INSTILL ONE DROP IN EACH EYE AT BEDTIME DIRECTED SO LD: 12/15/2019 [facility] 0.4 mg 01/30/2019 12:00:00 AM EDT capsule 30 TAKE ONE CAPSULE BY MOUTH ONCE A DAY TAKE ONE CAPSULE BY MOUTH ONCE A DAY SOLD: 09/11/2019 [facility] 0.4 mg 01/30/2019 12:00:00 AM EDT capsule 30 TAKE ONE CAPSULE BY MOUTH ONCE A DAY TAKE ONE CAPSULE BY MOUTH ONCE A DAY SOLD: 10/09/2019 [facility] 0.4 mg 01/30/2019 12:00:00 AM EDT capsule 30 TAKE ONE CAPSULE BY MOUTH ONCE A DAY TAKE ONE CAPSULE BY MOUTH ONCE A DAY SOLD: 11/06/2019 [facility] 0.4 mg 01/30/2019 12:00:00 AM EDT capsule 30 TAKE ONE CAPSULE BY MOUTH ONCE A DAY TAKE ONE CAPSULE BY MOUTH ONCE A DAY SOLD: 08/14/2019 [facility] 0.4 mg 01/30/2019 12:00:00 AM EDT capsule 30 TAKE ONE CAPSULE BY MOUTH ONCE A DAY TAKE ONE CAPSULE BY MOUTH ONCE A DAY SOLD: 12/04/2019 [facility] brinzolamide 10 MG/ML Ophthalmic Suspens ion [Azopt] Azopt 1% Ophthalmic Suspension Azopt 1% Ophthalmic Suspension 09/19/2018 12:00:00 AM EST aborted brinzolamide 10 MG/ML Ophthalmic Suspension [Azopt] [facility]) Brimonidine tartrate 1.5 MG/ML Ophthalmi c Solution [Alphagan] Alphagan P 0.15% Ophthalmic Solution Alphagan P 0.15% Ophthalmic Solution 09/19/2018 12:00: 00 AM EST aborted brimonid ine tartrate 1.5 MG/ML Ophthalmic Solution [Alphagan] [facility]) travoprost 0.04 MG/ML Ophthalmic Solutio n [Travatan] Travatan Z 0.004% Ophthalmic Solution Travatan Z 0.004% Ophthalmic Solution 09/19/2018 12:00 :00 AM EST aborted travoprost 0.04 MG/ML Ophthalmic Solution [Travatan] [facility]) Insurance Providers Payer name Policy type / Coverage type Policy ID Covered constitution party ID Covered constitution party's relationship to spencer Policy Spencer Plan Information EDUT [id number] MEDICARE [id number] [place] of [place] Supplemental Policy 0 Self 0 Medicare Part B of [facility] Other 0 Se lf 0 [facility] MEDICAID [id number] U [facility] MEDICARE PART A [facility] [id number] 18 [id number] MEDICARE PART A -O/P [id number] 18 [id number] MEDICAID-O/P [id number] [place] of [place] Supplemental Policy 0 Self 0 Medicare Part B of [facility] Other 0 Se lf 0 [place] Supplemental Policy 0 Self 0 Medicare Part B of [facility] Other 0 Se lf 0 [place] Supplemental Policy 0 Self 0 Medicare Part B of [facility] Other 0 Se lf 0 MEDICAID [id number] [place] of [place] Supplemental Policy 0 Self 0 Medicare Part B of [facility] Other 0 Se lf 0 [place] Supplemental Policy 0 Self 0 Medicare Part B of [facility] 0 Se lf 0 [place] Supplemental Policy 0 Self 0 Medicare Part B of [facility] Other 0 Se lf 0 ANSI-Medicare Part B [id number] ANSI-Medicaid [id number] ANSI-Medicaid [id number] ANSI-Medicare Part B [id number] ANSI-Medicaid [id number] ANSI-Medicare Part B [id number] Medicaid [facility] Supplemental Policy 0 Self 0 Medicare Part B of [place] [facility] Other 0 Se lf 0 ANSI-Medicaid [id number] ANSI-Medicare Part B [id number] MEDICAID [id number] 18 [id number] ANSI-Medicare Part B [id number] ANSI-Medicaid [id number] ANSI-Medicaid [id number] ANSI-Medicare Part B [id number] ANSI-Medicare Part B [id number] ANSI-Medicaid [id number] ANSI-Medicare Part B [id number] ANSI-Medicaid [id number] ANSI-Medicaid [id number] ANSI-Medicare Part B [id number] ANSI-Medicaid [id number] ANSI-Medicare Part B [id number] ANSI-Medicaid [id number] ANSI-Medicare Part B [id number] [place] of [place] Supplemental Policy 0 Self 0 Medicare Part B of [facility] Other 0 Se lf 0 [place] Supplemental Policy 0 Self 0 Medicare Part B of [facility] Other 0 Se lf 0 [place] Supplemental Policy 0 Self 0 Medicare Part B of [facility] Other 0 Se lf 0 [place] Supplemental Policy 0 Self 0 Medicare Part B of [facility] Other 0 Se lf 0 [place] Supplemental Policy 0 Self 0 Medicare Part B of [facility] Medicare Primary 0 Self 0 [place] Supplemental Policy 0 Self 0 Medicare Part B of [facility] Medicare Primary 0 Self 0 [place] Supplemental Policy 0 Self 0 Medicare Part B of [place] [facility] Medicare Primary 0 Self 0 [place] of [place] Supplemental Policy 0 Self 0 Medicare Part B of [place] [facility] Medicare Primary 0 Self 0 MEDICARE PART A -O/P [id number] 18 [id number] MEDICARE -O/P [id number] 18 [id number] MEDICARE [id number] SP [id number] A MEDICAID -RECURRING [id number] MEDICARE -RECURRING [id number] 18 [id number] Problems, Conditions, and Diagnoses Code Display Name Description Problem Type Effective Dates Data Source(s) N47.1 Phimosis Phimosis Problem 08/14/2020 12:00:00 AM CÉSAR Xiong1 ([facility]) C61 Malignant neoplasm of prostate Malignant neoplasm of p rostate Diagnosis 05/23/2020 09:47:00 AM EDT [facility] E119 Type 2 diabetes mellitus without complic ations Type 2 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 Diagnosis 02/26/2020 07:11:00 PM EDT [facility] Surgeries/Procedures Procedure Description Date Indications Data Source(s) GLUCOSE (waived laboratory) GLUCOSE (waived laboratory) 09/06 12:00:00 AM CHIQUIS SMITH ([facility]) HbA1c (Glycosolated) (waived laboratory) HbA1c (Glycos olated) (waived laboratory) 09/24/2019 12:00:00 AM CHIQUIS SMITH ([facility]) CAPILLARY BLOOD DRAW CAPILLARY BLOOD DRAW 09/24/2019 12:00:00 AM CÉSAR SMITH ([facility]) HbA1c (Glycosolated) HbA1c (Glycosolated) 09/24/2019 12:00:00 AM CÉSAR SMITH ([facility]) GLUCOSE GLUCOSE 09/24/2019 12:00:00 AM CHIQUIS WEEKS ([facility]) Office Visit, Est Pt., Level 3 PC 08/14/2019 12:00:00 AM EST eCW1 ([facility]) Office Visit, Est Pt., Level 2 FC 08/14/2019 12:00:00 AM EST eCW1 ([facility]) Results ID Date Data Source [id number] 10/03/2020 10:00:00 AM EST [facility] Name Value Range Interpretation Code Description Data Darling rce(s) Supporting Document(s) SARS coronavirus 2 RNA Not Detected [facility] [place] This lab was ordered by [facility] and reported by [facility]. ID Date Data Source PT & APTT 09/18/2020 12:00:00 AM EST eCW1 ([facility]) Name Value Range Interpretation Code Description Data Darling rce(s) Supporting Document(s) 13.8 12.5-14.3 eCW1 ([facility]) 1.03 eCW1 ([facility]) 29.5 24.2-38.5 eCW1 ([facility]) ID Date Data Source Basic Metabolic Profile (BMP) 09/18/2020 12:00:00 AM EST eCW 1 ([facility]) Name Value Range Interpretation Code Description Data Darling rce(s) Supporting Document(s) 49.8 >42 eCW1 ([facility]) 147 70-100 eCW1 ([facility]) 1.46 0.70-1.30 eCW1 ([facility]) 33 7-18 eCW1 ([facility]) 30 21-32 eCW1 ([facility]) 104 98-107 eCW1 ([facility]) 4.7 3.5-5.1 eCW1 ([facility]) 138 136-145 eCW1 ([facility]) 9.4 8.8-10.2 eCW1 ([facility]) ID Date Data Source CBC - Complete Blood Count 09/18/2020 12:00:00 AM EST eCW1 ( [facility]) Name Value Range Interpretation Code Description Data Darling rce(s) Supporting Document(s) 5.5 4.0-10.0 eCW1 ([facility]) 12.0 13.5-17.5 eCW1 ([facility]) 4.11 4.30-6.10 eCW1 ([facility]) 90.0 80.0-96.0 eCW1 ([facility]) 37.0 42.0-52.0 eCW1 ([facility]) 14.6 11.5-14.5 eCW1 ([facility]) 32.4 32.0-36.5 eCW1 ([facility]) 29.2 27.0-33.0 eCW1 ([facility]) 192 150-450 eCW1 ([facility]) ID Date Data Source PSA MONITOR (HX PROSTATE CA/ABNORMAL PSA) 08/14/2020 12:00:0 0 AM EST eCW1 ([facility]) Name Value Range Interpretation Code Description Data Darling rce(s) Supporting Document(s) 0.03 < 4.00 PROSTATIC SPECIFIC AG MON ITOR eCW1 ([facility]) ID Date Data Source [id number] 05/23/2020 09:45:00 AM EDT LUIS ([facility]) Name Value Range Interpretation Code Description Data Darling rce(s) Supporting Document(s) Reported Physicians See Note Reported Physici ans [place] ([facility]) Note: Reported Physicians:Ordering: JULI VALERIO LAttending: Laura HALEYulting: FELISA SOSACopkalia To: Marcos Haley To: Felisa Sosa ID Date Data Source [id number] 05/23/2020 09:45:00 AM SOCORRO SMITH ([facility]) Name Value Range Interpretation Code Description Data Darling rce(s) Supporting Document(s) PSA 0.03 ng/mL PSA [place] ([facility]) Note: BLDoPSA INTERP RETATIONBLDx The PSA assay [...] or kits cannot be used interchangeably.Responsible Observer: (RUBEN) ID Date Data Source [id number] 05/23/2020 09:45:00 AM EDT MED[facility] ([facility]) Name Value Range Interpretation Code Description Data Darling rce(s) Supporting Document(s) Prostate specific Ag [Mass/volume] in Serum or Plasma 0.03 ng/mL 0.00 -4.00 [facility]) \\BLDo\\PSA INTERPRETATION\\BLDx\\ The PSA assay should not be used alone for a screening test or diagnosis for presence or absence of malignant disease. Predictions of disease recurrence should not be based solely on values obtained from serial patient serum values. The PSA result was determined by "[employer]", on the [employer] BRAD 6000. Values obtained with different assay methods or kits cannot be used interchangeably. ID Date Data Source [id number] 05/23/2020 08:43:00 PM EDT [facility] Name Value Range Interpretation Code Description Data Darling rce(s) Supporting Document(s) Prostate specific Ag [Mass/volume] in Serum or Plasma 0.03 ng/mL 0.00 - 4.00 [facility] \\BLDo\\PSA INTERPRETA TION\\BLDx\\ The PSA assay should not be used alone for a screening test or diagnosis for presence or absence of malignant disease. Predictions of disease recurrence should not be based solely on values obtained from serial patient serum values. The PSA result was determined by "[employer]", on the [employer] 6000. Values obtained with different assay methods or kits cannot be used interchangeably. ID Date Data Source [id number] 02/26/2020 08:30:00 AM [facility] ([facility]) Name Value Range Interpretation Code Description Data Darling rce(s) Supporting Document(s) Reported Physicians See Note Reported Physici ans [place] ([facility]) Note: Reported Physicians:Ordering: Felisa Pearl AAttending: FELISA SOSAReferring: DIONICIO SOSACELYNConsulting: DIONICIO SOSACELYNCopy To: Felisa Sosa ID Date Data Source [id number] 02/26/2020 08:30:00 AM [facility] ([facility]) Name Value Range Interpretation Code Description Data Darling rce(s) Supporting Document(s) HGB A1C 7.5 % Above high normal HGB A1C LEONELNY [facility]) Note: {A1]{HB]Responsible Observer: (TERELL Lepe) ID Date Data Source [id number] 02/26/2020 08:30:00 AM EDT [place] ([facility]) Name Value Range Interpretation Code Description Data Darling rce(s) Supporting Document(s) Reported Physicians See Note Reported [facility]) Note: Reported Physicians:Ordering: Carrasquillo e, Felisa AAttending: IAN, JOCELYNReferring: IAN, JOCELYNConsulting: IAN, JOCELYNCopy To: Ian, Felisa ID Date Data Source [id number] 02/26/2020 08:30:00 AM EDT [place] ([facility]) Name Value Range Interpretation Code Description Data Darling rce(s) Supporting Document(s) PSA <0.01 ng/mL PSA [facility]) Note: BLDoPSA INTERP RETATIONBLDx The PSA assay should not be used alone for a screening test or diagnosis for presence or absence of malignant disease. Predictions of disease recurrence should not be based solely on values obtained from serial patient serum values. The PSA result was determined by "[employer]", on the [employer] BR[employer] 6000. Va lues obtained with different assay methods or kits cannot be used interchangeably.Responsible Observer: (TAD) ID Date Data Source [id number] 02/26/2020 08:30:00 AM EDT [place] ([facility]) Name Value Range Interpretation Code Description Data Darling rce(s) Supporting Document(s) Reported Physicians See Note Reported Physic ans [place] ([facility]) Note: Reported Physicians:Ordering: Carrasquillo e, Felisa AAttending: IAN, JOCELYNReferring: IAN, JOCELYNConsulting: IAN, JOCELYNCopy To: Ian, Felisa ID Date Data Source [id number] 02/26/2020 08:30:00 AM EDT [place] ([facility]) Name Value Range Interpretation Code Description Data Darling rce(s) Supporting Document(s) CPK 93 U/L CPK [place] ([facility]) Note: Responsible Observer: (TAD) ID Date Data Source [id number] 02/26/2020 08:30:00 AM EDT [place] ([facility]) Name Value Range Interpretation Code Description Data Darling rce(s) Supporting Document(s) Reported Physicians See Note Reported Physici ans [place] ([facility]) Note: Reported Physicians:Ordering: Josiah Pearlyn AAttending: IAN, JOCELYNReferring: IAN, JOCELYNConsulting: IAN, JOCELYNCopy To: Ian Felisa ID Date Data Source [id number] 02/26/2020 08:30:00 AM EDT [place] ([facility]) Name Value Range Interpretation Code Description Data Darling rce(s) Supporting Document(s) CVE PANEL See Note CVE PANEL [place] ([facility]) Note: LIPID PANELResponsible Observe r: (TAD) Cholesterol [Moles/volume] in Pericardial fluid 181 MG/DL CHOLESTEROL [place] ([facility]) Note: Responsible Observer: (TAD) Cholesterol in LDL [Mass/volume] in Serum or Plasma by Direct as say 99 mg/dL LDL [place] ([facility]) Note: Responsible Observer: (TAD) RISK FACTOR 4.0 RISK FACTOR [place] ([facility]) Note: Responsible Observer: (TAD) LDL/HDL 2.20 LDL/HDL [place] ([facility]) Note: CVE RISK CHOL/HD L LDL/HDLMEN: 1/2 AVERAGE 3.43 1.00 AVERAGE 4.97 3.55 2X AVERAGE 9.55 6.25 3X AVERAGE 23.99 7.99WOMEN: 1/2 AVERAGE 3.27 1.47 AVERAGE 4.44 3.22 2X AVERAGE 7.05 5.03 3X AVERAGE 11.04 6.14Responsible Observer: (TAD) HDL 45 MG/DL HDL [place] ([facility]) Note: Responsible Observer: (TAD) TRIGLYCERIDES 175 MG/DL Above high normal [facility] Note: Responsible Observer: (TAD) ID Date Data Source [id number] 02/26/2020 08:30:00 AM EDT [place] ([facility]) Name Value Range Interpretation Code Description Data Darling rce(s) Supporting Document(s) Reported Physicians See Note Reported Physici ans [place] ([facility]) Note: Reported Physicians:Ordering: Felisa Pearl AAttending: IAN JOCELYNReferring: IAN JOCELYNConsulting: IAN JOCELYNCopy To: Josiah Sosayn ID Date Data Source [id number] 02/26/2020 08:30:00 AM EDT [place] ([facility]) Name Value Range Interpretation Code Description Data Darling rce(s) Supporting Document(s) AFR AMER GFR 59 mL/min AFR AMER GFR [place] ([facility]) Note: Responsible Observer: (TAD) Egg donor age 74 yrs AGE [place] ([facility]) Note: Responsible Observer: (TAD) Anion gap in Body fluid 10.0 mmol/L ANION GAP [place] ([facility]) Note: Responsible Observer: (TAD) BUN 34 MG/DL Above high normal BUN [place] ([facility]) Note: Responsible Observer: (TAD) Basic metabolic panel - Blood See Note BASIC METABOLIC PANEL [place] ([facility]) Note: BASIC METABOLIC PANELResponsib le Observer: (TAD) Calcium [Moles/volume] in Urine collected for unspecified durati on 9.6 MG/DL CALCIUM [place] ([facility]) Note: Responsible Observer: (TAD) BUN/CREAT 23 BUN/CREAT [place] ([facility]) Note: Responsible Observer: (TAD) Chloride [Moles/volume] in Serum, Plasma or Blood 102 mEq/L CHLORIDE [facility] ([facility]) Note: Responsible Observer: (TAD) Creatinine [Moles/volume] in Vitreous fluid 1.5 MG/DL CREATININE [place] ([facility]) Note: Responsible Observer: (TAD) CO2 27 MEQ/L CO2 [place] ([facility]) Note: Responsible Observer: (TAD) NON-AA GFR 48 mL/min NON-AA GFR [place] ([facility]) Note: Male GFR Interprentation 20-49 yrs >60 mL/min Normal 50-59 yrs >56 mL/min Normal 60-69 yrs >49 mL/min Normal 70-79yrs >42 mL/min Normal 80 and above >35 mL/min Normal Female GFR Interpretation 20-39 yrs >60 mL/min Normal 40-49 yrs >58 mL/min Normal 50- 59 yrs >51 mL/min Normal 60-69 yrs >45 mL/min Normal 70-79 yrs >39 mL/min Normal 80 and above >32 mL/min NormalResponsible Observer: (TAD) Potassium [Mass/volume] in Blood 4.9 mEq/L POT ASSIUM [place] ([facility]) Note: Responsible Observer: (TAD) Glucose [Mass/volume] in Urine collected for unspecified duratio n 176 MG/DL Above high normal GLUCOSE [facility]) Note: Responsible Observer: (TAD) Sodium [Moles/volume] in Serum, Plasma or Blood 139 mEq/L SODIUM [facility]) Note: Responsible Observer: (TAD) ID Date Data Source [id number] 02/26/2020 08:30:00 AM EDT [place] ([facility]) Name Value Range Interpretation Code Description Data Darling rce(s) Supporting Document(s) Reported Physicians See Note Reported Physici ans [facility]) Note: Reported Physicians:Ordering: Felisa Pearl AAttending: FELISA SOSAReferring: FELISA SOSAConsulting: FELISA SOSACopy To: Felisa Sosa ID Date Data Source [id number] 02/26/2020 08:30:00 AM [facility]) Name Value Range Interpretation Code Description Data Darling rce(s) Supporting Document(s) Albumin [Mass/volume] in Blood by Bromocresol purple ( BCP) dye binding method 4.4 G/DL ALBUMIN [facility]) Note: Responsible Observer: () DIRECT BILI <0.2 MG/DL DIRECT BILI [place] ([facility]) Note: Responsible Observer: () ALKALINE PHOS 44 U/L ALKALINE PHOS [place] ([facility]) Note: Responsible Observer: () INDIRECT BILI 0.5 MG/DL INDIRECT BILI [place] ([facility]) Note: Responsible Observer: () SGOT/AST 23 U/L SGOT/AST [place] ([facility]) Note: Responsible Observer: () Globulin [Mass/time] in 24 hour Urine 2.4 GM/DL GLOBULIN [place] ([facility]) Note: Responsible Observer: () TOTAL BILI <0.7 MG/DL TOTAL BILI [place] ([facility]) Note: Responsible Observer: () SGPT/ALT 22 U/L SGPT/ALT [place] ([facility]) Note: Responsible Observer: () TOTAL PROTEIN 6.8 G/DL TOTAL PROTEIN [place] ([facility]) Note: Responsible Observer: () ID Date Data Source [id number] 02/27/2020 08:25:00 AM EDT [facility] Name Value Range Interpretation Code Description Data Darling rce(s) Supporting Document(s) Protein [Mass/volume] in Serum or Plasma 6.8 G/DL 6.3 - 8.2 [facility] Albumin [Mass/volume] in Serum or Plasma 4.4 G/DL 3.9 - 5.0 [facility] Globulin [Mass/volume] in Serum by calculation 2.4 GM/DL 2.4 - 3.2 [facility] Bilirubin.total [Mass/volume] in Serum or Plasma <0.7 MG/DL 0.2 - 1.3 [facility] Bilirubin.direct [Mass/volume] in Serum or Plasma <0.2 MG/DL 0.1 - 0. 4 [facility] Bilirubin.indirect [Mass/volume] in Serum or Plasma 0.5 MG/DL 0.2 - 1.1 [facility] Aspartate aminotransferase [Enzymatic activity/volume] in Serum or Plasma 23 U/L 5 - 40 [facility] Alanine aminotransferase [Enzymatic activity/volume] in Seru m or Plasma 22 U/L 7 - 56 [facility] Alkaline phosphatase [Enzymatic activity/volume] in Serum or Plasma 44 U/L 38 - 126 [facility] ID Date Data Source [id number] 02/26/2020 09:38:00 PM EDT [facility] Name Value Range Interpretation Code Description Data Darling rce(s) Supporting Document(s) BASIC METABOLIC PANEL [facility] BASIC METABOLIC PANEL Sodium [Moles/volume] in Serum or Plasma 139 mEq/L 134 - 153 [facility] Potassium [Moles/volume] in Serum or Plasma 4.9 mEq/L 3.6 - 5.0 [facility] Chloride [Moles/volume] in Serum or Plasma 102 mEq/L 98 - 107 [facility] Carbon dioxide, total [Moles/volume] in Serum or Plasma 27 MEQ/L 22 - 30 [facility] Glucose [Mass/volume] in Serum or Plasma 176 MG/DL 65 - 110 H [facility] BUN 34 MG/DL 7 - 21 H [facility] al Creatinine [Mass/volume] in Serum or Plasma 1.5 MG/DL 0.7 - 1.5 [facility] BUN/CREAT 23 8 - 27 [facility] al Calcium [Mass/volume] in Serum or Plasma 9.6 MG/DL 8.4 - 10.2 [facility] Anion gap 3 in Serum or Plasma 10.0 mmol/L 8.0 - 16.0 [facility] 74 [facility] 59 mL/min [facility] NON-AA GFR 48 mL/min [facility] jyoti Male GFR Inter prentation 20-49 yrs >60 mL/min Normal 50-59 yrs >56 mL/min Normal 60-69 yrs >49 mL/min Normal 70-79yrs >42 mL/min Normal 80 and above >35 mL/min Normal Female GFR Interpretation 20-39 yrs >60 mL/min Normal 40-49 yrs >58 mL/min Normal 50-59 yrs >51 mL/min Normal 60-69 yrs >45 mL/min Normal 70-79 yrs >39 mL/min Normal 80 and above >32 mL/min Normal ID Date Data Source [id number] 02/26/2020 09:38:00 PM EDT [facility] Name Value Range Interpretation Code Description Data Darling rce(s) Supporting Document(s) Creatine kinase [Enzymatic activity/volume] in Serum or Plasma 9 3 U/L 30 - 170 [facility] ID Date Data Source [id number] 02/26/2020 09:38:00 PM EDT [facility] Name Value Range Interpretation Code Description Data Darling rce(s) Supporting Document(s) CVE PANEL [facility] LIP[facility] PANEL Cholesterol [Mass/volume] in Serum or Plasma 181 MG/DL 131 - 200 [facility] Deprecated Triglyceride [Mass/volume] in Serum or Plasma 175 MG/DL 3 5 - 160 H [facility] HDL 45 MG/DL 29 - 86 [facility] Cholesterol in LDL [Mass/volume] in Serum or Plasma by Direc t assay 99 mg/dL 65 - 175 [facility] Cholesterol.total/Cholesterol in HDL [Mass Ratio] in Serum o r Plasma 4.0 3.4 - 4.9 [facility] LDL/HDL 2.20 1.00 - 3.55 [facility] CVE RISK CHOL/HDL LDL/HDLMEN: 1/2 AVERAGE 3.43 1.00 AVERAGE 4.97 3.55 2X AVERAGE 9.55 6.25 3X AVERAGE 23.99 7.99WOMEN: 1/2 AVERAGE 3.27 1.47 AVERAGE 4.44 3.22 2X AVERAGE 7.05 5.03 3X AVERAGE 11.04 6.14 ID Date Data Source [id number] 02/26/2020 09:26:00 PM EDT [facility] Name Value Range Interpretation Code Description Data Darling rce(s) Supporting Document(s) Prostate specific Ag [Mass/volume] in Serum or Plasma <0.01 ng/mL 0.00 - 4.00 [facility] \\BLDo\\PSA INTERPRETA TION\\BLDx\\ The PSA assay should not be used alone for a screening test or diagnosis for presence or absence of malignant disease. Predictions of disease recurrence should not be based solely on values obtained from serial patient serum values. The PSA result was determined by "[employer]", on the Marco A BRAD 6000. Values obtained with different assay methods or kits cannot be used interchangeably. ID Date Data Source [id number] 02/26/2020 08:49:00 PM EDT [facility] Name Value Range Interpretation Code Description Data Darling rce(s) Supporting Document(s) Hemoglobin A1c/Hemoglobin.total in Blood 7.5 % 4.4 - 6.1 H [facility] {A1]{HB] ID Date Data Source [id number] 09/24/2019 10:11:00 AM EST [place] ([facility]) Name Value Range Interpretation Code Description Data Darling rce(s) Supporting Document(s) Hemoglobin A1c/Hemoglobin.total in Blood 6.6 Abnormal (applies to non-numeric results) HbA1C [place] ([facility]) ID Date Data Source [id number] 09/24/2019 10:11:00 AM EST [place] ([facility]) Name Value Range Interpretation Code Description Data Darling rce(s) Supporting Document(s) Glucose [Mass/volume] in Urine collected for unspecified duratio n 161 Abnormal (applies to non-numeric results) Glucose [place] ([facility]) Procedure Social History Code Duration Value Status Description Data Source(s ) Smoking 09/16/2020 12:00:00 AM EST Former Smoker completed Former Smoker eCW1 ([facility]) Smoking 08/14/2020 12:00:00 AM EST Former Smoker completed Former Smoker eC1 ([facility]) Smoking 02/13/2020 12:00:00 AM EDT Former Smoker completed Former Smoker eC1 ([facility]) Vital Signs ID Date Data Source UNK Name Value Range Interpretation Code Description Data Source(s) Diastolic blood pressure 72 mm[Hg] 72 mm[Hg] eCW1 ([facility]) Systolic blood pressure 142 mm[Hg] 142 mm[Hg] e CW1 ([facility]) Respiratory rate 18 /min 18 /min eCW1 ([facility]) Heart rate 73 /min 73 /min eCW1 ([facility]) Body mass index (BMI) [Ratio] 39.62 kg/m2 39.62 kg/m2 eCW1 ([facility]) Body height 67 [in_i] 67 [in_i] eCW1 ([facility]) Body weight 253 [lb_av] 253 [lb_av] eCW1 ([facility]) Diastolic blood pressure 84 mm[Hg] 84 mm[Hg] eCW1 ([facility]) Systolic blood pressure 154 mm[Hg] 154 mm[Hg] e CW1 ([facility]) Body temperature 97.7 [degF] 97.7 [degF] eCW1 ( [facility]) Respiratory rate 18 /min 18 /min eCW1 ([facility]) Heart rate 71 /min 71 /min eCW1 ([facility]) Body mass index (BMI) [Ratio] 39.84 kg/m2 39.84 kg/m2 eCW1 ([facility]) Body height 67 [in_i] 67 [in_i] eCW1 ([facility]) Body weight 254.4 [lb_av] 254.4 [lb_av] eCW1 ([facility]) Body temperature 97.2 [degF] 97.2 [degF] [facility] ([facility]) Respiratory rate 24 /min 24 /min [place] ([facility]) Heart rate 68 /min 68 /min [place] ([facility]) Diastolic blood pressure 80 mm[Hg] 80 mm[Hg] [place] ([facility]) Systolic blood pressure 122 mm[Hg] 122 mm[Hg] [facility] [place] ([facility]) Inhaled oxygen concentration 21 % 21 % [place] ([facility]) Inhaled oxygen flow rate 0 L/min 0 L/min [place] ([facility]) Oxygen saturation in Arterial blood by Pulse oximetry 94 % 94 % [place] ([facility]) Body surface area Derived from formula 2.22 m2 2.22 m2 [place] ([facility]) Body mass index (BMI) [Ratio] 41.3 kg/m2 41.3 k g/m2 [place] ([facility]) Body weight 256 [lb_av] 256 [lb_av] [facility] ( [facility]) Body height 66 [in_i] 66 [in_i] [place] ([facility]) Diastolic blood pressure 78 mm[Hg] 78 mm[Hg] [place] ([facility]) Systolic blood pressure 126 mm[Hg] 126 mm[Hg] [facility] Body temperature 97.1 [degF] 97.1 [degF] [facility] ([facility]) Respiratory rate 22 /min 22 /min [place] ([facility]) Heart rate 73 /min 73 /min [place] ([facility]) Diastolic blood pressure 76 mm[Hg] 76 mm[Hg] [place] ([facility]) Systolic blood pressure 142 mm[Hg] 142 mm[Hg] [facility] Inhaled oxygen concentration 21 % 21 % [place] ([facility]) Inhaled oxygen flow rate 0 L/min 0 L/min [place] ([facility]) Oxygen saturation in Arterial blood by Pulse oximetry 92 % 92 % [place] ([facility]) Body surface area Derived from formula 2.20 m2 2.20 m2 [place] ([facility]) Body mass index (BMI) [Ratio] 40.5 kg/m2 40.5 k g/m2 [place] ([facility]) Body weight 251 [lb_av] 251 [lb_av] [place] ([facility]) Body height 66 [in_i] 66 [in_i] [place] ([facility]) Diastolic blood pressure mm[Hg] eCW1 ([facility]) Systolic blood pressure 142 mm[Hg] 142 mm[Hg] e CW1 ([facility]) Body temperature 97.9 [degF] 97.9 [degF] eCW1 ( [facility]) Respiratory rate 17 /min 17 /min eCW1 ([facility]) Heart rate 65 /min 65 /min eCW1 ([facility]) Body mass index (BMI) [Ratio] 36.80 kg/m2 36.80 kg/m2 eCW1 ([facility]) Body height 67 [in_i] 67 [in_i] eCW1 ([facility]) Body weight 235 [lb_av] 235 [lb_av] eCW1 ([facility]) Body height 66 [in_i] 66 [in_i] [place] ([facility]) Respiratory rate 22 /min 22 /min [place] ([facility]) Heart rate 66 /min 66 /min [place] ([facility]) Diastolic blood pressure 74 mm[Hg] 74 mm[Hg] [place] ([facility]) Systolic blood pressure 148 mm[Hg] 148 mm[Hg] [place] ([facility]) Inhaled oxygen concentration 21 % 21 % [place] ([facility]) Inhaled oxygen flow rate 0 L/min 0 L/min [place] ([facility]) Oxygen saturation in Arterial blood by Pulse oximetry 95 % 95 % [place] ([facility]) Body surface area Derived from formula 2.20 m2 2.20 m2 [place] ([facility]) Body mass index (BMI) [Ratio] 40.4 kg/m2 40.4 k g/m2 [place] ([facility]) Body weight 250 [lb_av] 250 [lb_av] [place] ([facility]) Body height 66 [in_i] 66 [in_i] [place] ([facility]) Diastolic blood pressure mm[Hg] eCW1 ([facility]) Systolic blood pressure 130 mm[Hg] 130 mm[Hg] e CW1 ([facility]) Body temperature 97.9 [degF] 97.9 [degF] eCW1 ( [facility]) Respiratory rate 17 /min 17 /min eCW1 ([facility]) Heart rate 60 /min 60 /min eCW1 ([facility]) Body mass index (BMI) [Ratio] 36.96 kg/m2 36.96 kg/m2 eCW1 ([facility]) Body height 67 [in_us] 67 [in_us] eCW1 ([facility]) Body weight Measured 236 [lb_av] 236 [lb_av] eC W1 ([facility]) Patient Treatment Plan of Care Planned Activity Planned Date Details Description Data Source (s) Betamethasone 0.5 MG/ML Topical Cream 08/14/2020 12:00:00 AM EST eCW1 ([facility]) clopidogrel 75 MG Oral Tablet 07/15/2020 12:00:00 AM EST [place] ([facility]) Docusate Sodium 100 MG Oral Capsule [Colace] 07/15/2020 12:00:00 AM [facility] ([facility]) Fenofibrate 145 MG Oral Tablet 07/15/2020 12:00:00 AM [facility] ([facility]) Iron 325 (65 Fe) MG Oral Tablet 07/15/2020 12:00:00 AM [facility]) sitagliptin 100 MG Oral Tablet [Januvia] 07/15/2020 12:00:00 AM [facility] ([facility]) Omeprazole 20 MG Delayed Release Oral Capsule 07/15/2020 12:00:00 A M [facility]) FreeStyle Lite Test In Vitro Strip 07/15/2020 12:00:00 AM [facility] ([facility]) Aspirin 81 MG Delayed Release Oral Tablet 07/15/2020 12:00:00 AM [facility]) 24 HR metoprolol succinate 50 MG Extended Release Oral Tablet 06/23[facility]2020 [facility] Rosuvastatin calcium 20 MG Oral Tablet 06/23/2020 [facility] Losartan Potassium 100 MG Oral Tablet 06/23/2020 12:00:00 AM EDT [place] ([facility]) Hydrochlorothiazide 12.5 MG Oral Capsule 06/23/2020 [facility] Ergocalciferol [id number] UNT Oral Capsule [Drisdol] 06/23/2020 12:00:00 AM ED [place] ([facility]) Allopurinol 100 MG Oral Tablet 06/23/2020 [facility] Metformin hydrochloride 1000 MG Oral Tablet 06/23/2020 12:00:00 AM EDT [place] ([facility]) Omeprazole 20 MG Delayed Release Oral Capsule 04/15/2020 12:00:00 A M EDT [place] ([facility]) Fenofibrate 145 MG Oral Tablet 04/15/2020 12:00:00 AM EDT [place] ([facility]) Aspirin 81 MG Delayed Release Oral Tablet 04/15/2020 12:00:00 AM ED T [place] ([facility]) clopidogrel 75 MG Oral Tablet 04/15/2020 12:00:00 AM EDT [place] ([facility]) sitagliptin 100 MG Oral Tablet [Januvia] 04/15/2020 12:00:00 AM EDT [facility]) Iron 325 (65 Fe) MG Oral Tablet 04/15/2020 12:00:00 AM EDT [facility]) Docusate Sodium 100 MG Oral Capsule [Colace] 04/09/2020 12:00:00 AM EDT [facility]) Rosuvastatin calcium 20 MG Oral Tablet 03/27/2020 12:00:00 AM EDT [facility]) Losartan Potassium 100 MG Oral Tablet 03/27/2020 12:00:00 AM EDT [facility]) Docusate Sodium 100 MG Oral Capsule [Colace] 03/27/2020 12:00:00 AM EDT [facility]) Hydrochlorothiazide 12.5 MG Oral Capsule 03/27/2020 12:00:00 AM EDT [facility]) 24 HR metoprolol succinate 50 MG Extended Release Oral Tablet 03/27/2020 12:00:00 AM EDT [place] ([facility]) Metformin hydrochloride 1000 MG Oral Tablet 03/27/2020 12:00:00 AM EDT [facility]) Omeprazole 20 MG Delayed Release Oral Capsule 03/27/2020 12:00:00 A M EDT [facility]) clopidogrel 75 MG Oral Tablet 03/26/2020 12:00:00 AM EDT [facility]) Ergocalciferol [id number] UNT Oral Capsule [Drisdol] 03/26/2020 12:00:00 AM EDT [facility]) Allopurinol 100 MG Oral Tablet 03/18/2020 12:00:00 AM EDT [facility]) Omeprazole 20 MG Delayed Release Oral Capsule 03/03/2020 12:00:00 A M EDT [place] ([facility]) Aspirin 81 MG Delayed Release Oral Tablet 02/27/2020 12:00:00 AM ED [facility]) clopidogrel 75 MG Oral Tablet 02/19/2020 12:00:00 AM EDT [facility]) Fenofibrate 145 MG Oral Tablet 02/19/2020 12:00:00 AM EDT [facility]) sitagliptin 100 MG Oral Tablet [Januvia] 01/30/2020 12:00:00 AM EDT [facility]) Ergocalciferol [id number] UNT Oral Capsule [Drisdol] 01/29/2020 12:00:00 AM EDT [facility]) Iron 325 (65 Fe) MG Oral Tablet 01/29/2020 12:00:00 AM EDT [facility]) 24 HR metoprolol succinate 50 MG Extended Release Oral Tablet 12/24/2019 12:00:00 AM EDT [place] ([facility]) Hydrochlorothiazide 12.5 MG Oral Capsule 12/24/2019 12:00:00 AM EDT [facility]) Aspirin 81 MG Delayed Release Oral Tablet 12/24/2019 12:00:00 AM ED [facility]) OneTouch UltraSoft Lancets Miscellaneous 12/24/2019 12:00:00 AM EDT [facility]) Rosuvastatin calcium 20 MG Oral Tablet 12/24/2019 12:00:00 AM EDT [facility]) Iron 325 (65 Fe) MG Oral Tablet 12/24/2019 12:00:00 AM EDT [facility]) Losartan Potassium 100 MG Oral Tablet 12/24/2019 12:00:00 AM EDT [place] ([facility]) Metformin hydrochloride 1000 MG Oral Tablet 12/24/2019 12:00:[facility] Omeprazole 20 MG Delayed Release Oral Capsule 12/24/2019 12:00:00 A M EDT [facility]) OneTouch Ultra Blue In Vitro Strip 12/24/2019 12:00:00 AM EDT [facility]) Allopurinol 100 MG Oral Tablet 12/18/2019 12:00:00 AM EDT [place] ([facility]) Docusate Sodium 100 MG Oral Capsule [Colace] 12/18/2019 12:00:00 AM EDT [facility]) Hydrochlorothiazide 12.5 MG Oral Capsule [facility]/11[facility] clop[facility]rel 75 MG Oral Tablet 12/10/2019 12:00:00 AM [facility]) Fenofibrate 145 MG Oral Tablet 12/10/2019 12:00:00 AM EDT [place] ([facility]) sitagliptin 100 MG Oral Tablet [Januvia] 11/05/2019 12:00:00 AM [facility]) Metformin hydrochloride 1000 MG Oral Tablet 09/24/2019 12:00:00 AM [facility]) Allopurinol 100 MG Oral Tablet 09/24/2019 12:00:00 AM [facility]) Docusate Sodium 100 MG Oral Capsule [Colace] 09/24/2019 12:00:00 AM [facility] ([facility]) Rosuvastatin calcium 20 MG Oral Tablet [Crestor] 09/24/2019 12:00:0 0 AM [facility] ([facility]) Iron 325 (65 Fe) MG Oral Tablet 09/24/2019 12:00:00 AM [facility]) Losartan Potassium 100 MG Oral Tablet 09/24/2019 12:00:00 AM [facility] ([facility]) 24 HR metoprolol succinate 50 MG Extended Release Oral Tablet [Toprol] 09/24/2019 12:00:00 AM [facility] ([facility]) Aspirin 81 MG Delayed Release Oral Tablet 09/24/2019 12:00:00 AM [facility]) Omeprazole 20 MG Delayed Release Oral Capsule 09/24/2019 12:00:00 A M [facility]) clopidogrel 75 MG Oral Tablet [Plavix] 09/17/2019 12:00:00 AM [facility]) Hydrochlorothiazide 12.5 MG Oral Capsule 09/17/2019 12:00:00 AM [facility]) Fenofibrate 145 MG Oral Tablet 09/13/2019 12:00:00 AM [facility]) Ergocalciferol [id number] UNT Oral Capsule [Drisdol] 09/11/2019 12:00:00 AM [facility]) Omeprazole 20 MG Delayed Release Oral Capsule 09/03/2019 12:00:00 A M [facility]) sitagliptin 100 MG Oral Tablet [Januvia] 08/07/2019 12:00:00 AM [facility]) Fenofibrate 145 MG Oral Tablet 06/12/2019 12:00:00 AM [facility]) Metformin hydrochloride 1000 MG Oral Tablet 06/12/2019 12:00:00 AM [facility]) Losartan Potassium 100 MG Oral Tablet 06/12/2019 12:00:00 AM [facility]) Iron 325 (65 Fe) MG Oral Tablet 06/12/2019 12:00:00 AM [facility]) Hydrochlorothiazide 12.5 MG Oral Capsule 06/12/2019 12:00:00 AM [facility]) Omeprazole 20 MG Delayed Release Oral Capsule 06/12/2019 12:00:00 A M [facility]) Docusate Sodium 100 MG Oral Capsule [Colace] 06/12/2019 12:00:00 AM [facility]) Ergocalciferol [id number] UNT Oral Capsule [Drisdol] 06/12/2019 12:00:00 AM EDT [place] ([facility]) 24 HR metoprolol succinate 50 MG Extended Release Oral Tablet [Toprol] 06/12/2019 [facility] OneTouch UltraSoft Lancets Miscellaneous 06/12/2019 12:00:00 AM EDT [place] ([facility]) clopidogrel 75 MG Oral Tablet [Plavix] 06/12/2019 12:00:00 AM EDT [facility]) OneTouch Ultra Blue In Vitro Strip 06/12/2019 12:00:00 AM EDT [place] ([facility]) Allopurinol 100 MG Oral Tablet 06/12/2019 12:00:00 AM EDT [place] ([facility]) Aspirin 81 MG Delayed Release Oral Tablet 06/12/2019 12:00:00 AM ED T [place] ([facility]) Rosuvastatin calcium 20 MG Oral Tablet [Crestor] 06/12/2019 12:00:0 0 AM EDT [place] ([facility]
[2020-10-08] MEDS ORDERED: PLAV1TAB2 PO (06:44)
[2020-10-08] MEDS ORDERED: METF-839 PO (06:44)
[2020-10-08] MEDS ORDERED: ceFAZolin SOD 2 GM in IV 1 EA IV ONE (07:00)
[2020-10-08] MEDS ORDERED: LR 1,000 ML IV ONE (07:00)
[2020-10-08] MEDS ORDERED: fentaNYL 100 MCG/2 ML INJECTION (J3010) As Ordered ONE (07:17)
[2020-10-08] MEDS ORDERED: dexameTHASONE 4 MG/ML 1ML VIAL (J1100 PER 1MG) As Ordered ONE (07:17)
[2020-10-08] MEDS ORDERED: ONDANSETRON 4MG/2ML VIAL As Ordered ONE (07:17)
[2020-10-08] MEDS ORDERED: KETOROLAC 60MG 2ML VIAL As Ordered ONE (07:17)
[2020-10-08] MEDS ORDERED: MIDAZOLAM INJ 2MG/2ML VIAL (J2250 PER 1MG) As Ordered ONE (07:18)
[2020-10-08] MEDS ORDERED: BACITRACIN OINTMENT 30GM TUBE As Ordered ONE (07:18)
[2020-10-08] MEDS ORDERED: propofoL 200 MG/20 ML VIAL As Ordered ONE (07:20)
[2020-10-08] MEDS ORDERED: LIDOCAINE 2% 100MG/5ML SDV (FOR ANES.) As Ordered ONE (07:20)
[2020-10-08] MEDS ORDERED: OXYC1TAB23 PO (09:25)
--- NOTE | 2020-10-08 09:40 | RO ---
OPERATIVE NOTE DATE OF OPERATION: 10/08/2020 PREOPERATIVE DIAGNOSIS: Phimosis. POSTOPERATIVE DIAGNOSIS: Phimosis. PROCEDURE: Circumcision. SURGEON: Boris Menchaca MD SALON ASSISTANT: None. ANESTHESIA: General. OPERATIVE INDICATIONS: This is a 75-year-old male with a tight phimotic ring who was brought to the operating room today for the above listed procedure. DESCRIPTION OF PROCEDURE: The patient was brought to the operating room and general anesthesia was induced. Prophylactic antibiotics were infused. He was placed in the supine position, prepped, and draped in the usual sterile fashion. At this point, circumcising incisions were made at the level of the coronal sulcus with the foreskin completely retracted off the glans, as well as with the foreskin pulled over the glans. All of the skin in between the circumcising incisions was then removed using electrocautery. Once that was done, we checked for any bleeding and any bleeding was controlled with cautery. Once there was good hemostasis, we then reapproximated the skin of the penis to the glans using interrupted 3-0 Chromic sutures. Once the skin was reapproximated, dressings were applied including a Alan and a Coban dressing. Once the dressings were applied, this marked the conclusion of the procedure. The patient was then awakened from anesthesia and transported to the recovery room in stable condition. ESTIMATED BLOOD LOSS: 20 mL. COMPLICATIONS: None. SPECIMENS: Foreskin. PLAN: We will have the patient take his dressings off in two days. He will follow-up in the urology clinic for a postoperative visit in approximately two to three weeks.
[2020-10-08 10:15] VITALS: BP 186/88
[2020-10-08] MEDS ORDERED: HYDROMORPHONE HCL 0.5 MG/ 0.5 ML SYRINGE (J1170 PER 1) IV PRN (10:30)
[2020-10-08] MEDS ORDERED: PERCOCET 5MG/325MG TAB PO PRN (10:30)
[2020-10-08] MEDS ORDERED: oxyCODONE 5MG TAB PO PRN (10:30)
[2020-10-08] MEDS ORDERED: LR 1,000 ML IV SCH (10:30)
[2020-10-08] MEDS ORDERED: fentaNYL 100 MCG/2 ML INJECTION (J3010) IV PRN (10:30)
[2020-10-08] MEDS ORDERED: ONDANSETRON 4MG/2ML VIAL IV PRN (10:30)
== END 2020-10-08 10:50 | disposition home or self-care (01) ==
LOC: M SDC 05:58
PROVIDERS: ATTEND Urology
DX: N47.1 Phimosis (principal); E11.9 Type 2 diabetes mellitus without complications; E78.5 Hyperlipidemia, unspecified; I12.9 Hypertensive chronic kidney disease with stage 1 through stage 4 chronic kidney disease, or unspecified chronic kidney disease; I25.10 Atherosclerotic heart disease of native coronary artery without angina pectoris; L40.9 Psoriasis, unspecified; M10.9 Gout, unspecified; M12.9 Arthropathy, unspecified; N18.2 Chronic kidney disease, stage 2 (mild); Z79.82 Long term (current) use of aspirin; Z79.899 Other long term (current) drug therapy; Z85.46 Personal history of malignant neoplasm of prostate; Z92.3 Personal history of irradiation; Z95.5 Presence of coronary angioplasty implant and graft
CPT/HCPCS: 54161; 88304; J0690; J1100; J1885; J2250; J2405; J3010

== ENCOUNTER → 2021-01-23 | Outpatient (CLI) | payer MEDICARE, MEDICAID ==
[~2021-01-23] MED LIST changes: +ALLO100T; +CALC600T85; +CALCTAB89; +DOCU100C16; +FERR1TAB8; +HYDR12CA; +JANU100T; +LOSA100T50; +MAGN400T2; +METF-839 PO; +METO1TAB7; +OMEP-218; +OXYC1TAB23 PO; +PLAV1TAB2 PO; +ROSU20TA5; +TAMS1CAP17; +VITA50005
== END ==
LOC: M LABSMTC 10:56
PROVIDERS: ATTEND Anesthesiology
DX: Z01.818 Encounter for other preprocedural examination (principal); Z11.52 Encounter for screening for COVID-19

== ENCOUNTER 2021-01-28 08:45 | Day surgery (SDC) | payer MEDICARE, MEDICAID ==
[~2021-01-28] VITALS: Ht 165.1 cm; Wt 108.3 kg
[~2021-01-28 08:45] MED LIST changes: +NS 1,000 ML IV ONE
[2021-01-28] MEDS ORDERED: LIDOCAINE 2% 100MG/5ML SDV (FOR ANES.) As Ordered ONE (10:15)
[2021-01-28] MEDS ORDERED: propofoL 200 MG/20 ML VIAL As Ordered ONE (10:15)
--- NOTE | 2021-01-28 10:23 | ROOR ---
Patient Name: Carlos Clark Procedure Date: 01/28/2021 9:56 AM Date of : 1945 Age: 75 Room: [facility] Gender: Male Note Status: Finalized Procedure: Total Colonoscopy to Cecum + Biopsy Polypectomy + ileoscopy Indications: Rectal bleeding Providers: Omar Dick MD Referring MD: FELISA XIONG MD Requesting Provider: Medicines: Monitored Anesthesia Care Complications: No immediate complications. Procedure: Pre-Anesthesia Assessment: - The heart rate, respiratory rate, oxygen saturations, blood pressure, adequacy of pulmonary ventilation, and response to care were monitored throughout the procedure. The Colonoscope was introduced through the anus and advanced to the cecum, identified by appendiceal orifice and ileocecal valve. The colonoscopy was performed without difficulty. The patient tolerated the procedure well. The quality of the bowel preparation was excellent. Findings: The perianal and digital rectal examinations were normal. Non-bleeding internal hemorrhoids were found during retroflexion. The hemorrhoids were small and Grade I (internal hemorrhoids that do not prolapse). The mucosa vascular pattern in the rectum was locally increased. Multiple small and large-mouthed diverticula were found in the recto-sigmoid colon, sigmoid colon and descending colon. Multiple sessile polyps were found in the hepatic flexure. The polyps were small in size. These polyps were removed with a jumbo cold forceps. Resection and retrieval were complete. To prevent bleeding after the polypectomy, one hemostatic clip was successfully placed (MR conditional). The exam was otherwise without abnormality on direct and retroflexion views. The terminal ileum appeared normal. Impression: - Non-bleeding internal hemorrhoids. - Increased mucosa vascular pattern in the rectum. - Diverticulosis in the recto-sigmoid colon, in the sigmoid colon and in the descending colon. - Multiple small polyps at the hepatic flexure, removed with a jumbo cold forceps. Resected and retrieved. Clip (MR conditional) was placed. - The examination was otherwise normal on direct and retroflexion views. - The examined portion of the ileum was normal. - The exam was otherwise normal to the cecum. Recommendation: - Patient has a contact number available for emergencies. The signs and symptoms of potential delayed complications were discussed with the patient. Return to normal activities tomorrow. Written discharge instructions were provided to the patient. - High fiber diet. - Discharge patient to home. - Continue present medications. - Await pathology results. - Telephone GI clinic for pathology results in 1 week. - Repeat colonoscopy is not recommended due to current age (66 years or older) for surveillance. - Return to referring physician. - The findings and recommendations were discussed with the patient's family. Procedure Code(s): --- Professional --- 50109, Colonoscopy, flexible; with biopsy, single or multiple Diagnosis Code(s): --- Professional --- K64.0, First degree hemorrhoids K63.5, Polyp of colon K62.5, Hemorrhage of anus and rectum K57.30, Diverticulosis of large intestine without perforation or abscess without bleeding CPT copyright 2019 [employer]. All rights reserved. The codes documented in this report are preliminary and upon supervisor transcribing operators review may be revised to meet current compliance requirements. Omar Dick MD Omar Dick MD 01/28/2021 10:23:15 AM Electronically signed by Omar Dick MD Number of Addenda: 0 Note Initiated On: 01/28/2021 9:56 AM Estimated Blood Loss: Estimated blood loss: none.
[2021-01-28 10:43] VITALS: BP 165/80
== END 2021-01-28 10:45 | disposition home or self-care (01) ==
LOC: M OPP 08:45
PROVIDERS: ATTEND Internal Medicine Gastroenterology
DX: K63.5 Polyp of colon (principal); K57.30 Diverticulosis of large intestine without perforation or abscess without bleeding; K64.0 First degree hemorrhoids; K62.5 Hemorrhage of anus and rectum; Z85.46 Personal history of malignant neoplasm of prostate; Z92.3 Personal history of irradiation; Z79.82 Long term (current) use of aspirin; Z79.84 Long term (current) use of oral hypoglycemic drugs; Z79.899 Other long term (current) drug therapy

== ENCOUNTER → 2021-02-26 | Outpatient (REF) | payer MEDICARE, MEDICAID ==
[~2021-02-26] MED LIST changes: +ERGO500029; -NS 1,000 ML IV ONE; -VITA50005
== END ==
LOC: M PLALAB 12:51
PROVIDERS: ATTEND Nurse Practitioner Family
DX: C61 Malignant neoplasm of prostate (principal)
CPT/HCPCS: 36415; 84153; G0463

== ENCOUNTER → 2021-03-17 | Outpatient (CLI) | payer MEDICARE, MEDICAID ==
[~2021-03-17] MED LIST changes: +LOSA100T45; -LOSA100T50; +OMEP-173; +OMEP-173 PO; -OMEP-218; -OMEP-218 PO
== END ==
LOC: M RAD 09:01
PROVIDERS: ATTEND Registered Nurse
DX: M54.5 Low back pain (principal)

== ENCOUNTER → 2021-03-17 | Outpatient (CLI) | payer MEDICARE, MEDICAID | LOC: M LAB 08:57 | PROVIDERS: ATTEND Nurse Practitioner Family | DX: C61 Malignant neoplasm of prostate (principal) ==

== ENCOUNTER → 2021-06-11 | Outpatient (REF) | payer MEDICARE, MEDICAID ==
[~2021-06-11] MED LIST changes: -LOSA100T45; +LOSA100T50; -OMEP-173; -OMEP-173 PO; +OMEP-218; +OMEP-218 PO
== END ==
LOC: M LAB REF 17:12
PROVIDERS: ATTEND Internal Medicine Nephrology
DX: E83.42 Hypomagnesemia (principal)

== ENCOUNTER → 2022-11-05 | Outpatient (CLI) | payer MEDICARE, MEDICAID ==
[~2022-11-05] MED LIST changes: +CLOP75TA99 PO; +LOSA100T45; -LOSA100T50; +OMEP-173; +OMEP-173 PO; -OMEP-218; -OMEP-218 PO; -PLAV1TAB2 PO
== END ==
LOC: M LAB 13:52
PROVIDERS: ATTEND Urology
DX: C61 Malignant neoplasm of prostate (principal)

== ENCOUNTER → 2022-11-25 | Outpatient (CLI) | payer MEDICARE, MEDICAID ==
[~2022-11-25] MED LIST changes: +FENO145T7 PO; +FURO20TA2; +HYDR-3490 PO; +HYDR-3910; +METF10004
== END ==
LOC: M ONCR 13:38
PROVIDERS: ATTEND General Practice
DX: C61 Malignant neoplasm of prostate (principal); C79.51 Secondary malignant neoplasm of bone; N18.2 Chronic kidney disease, stage 2 (mild); E11.9 Type 2 diabetes mellitus without complications; M10.9 Gout, unspecified; I12.9 Hypertensive chronic kidney disease with stage 1 through stage 4 chronic kidney disease, or unspecified chronic kidney disease; E78.5 Hyperlipidemia, unspecified; Z79.02 Long term (current) use of antithrombotics/antiplatelets; Z79.82 Long term (current) use of aspirin; Z79.84 Long term (current) use of oral hypoglycemic drugs; Z79.818 Long term (current) use of other agents affecting estrogen receptors and estrogen levels; Z80.0 Family history of malignant neoplasm of digestive organs; Z80.3 Family history of malignant neoplasm of breast; Z80.42 Family history of malignant neoplasm of prostate; Z86.79 Personal history of other diseases of the circulatory system; Z87.891 Personal history of nicotine dependence; Z92.3 Personal history of irradiation; Z95.5 Presence of coronary angioplasty implant and graft
CPT/HCPCS: 36415; 80053; 84153; 84403; 84439; 84443; 85025; G0463

== ENCOUNTER → 2022-11-25 | Outpatient (CLI) | payer MEDICARE, MEDICAID ==
[2022-11-25 17:15] LABS: BASO % 0.5 % (0.0-1.0); EOS # 0.2 10^3/uL (0.0-0.5); EOS % 3.1 % (0.0-3.0); HEMATOCRIT 33.7 % (42.0-52.0); HEMOGLOBIN 10.7 g/dl (13.5-17.5); LYMPH # 0.6 10^3/uL (1.5-5.0); LYMPH % 10.8 % (24.0-44.0); MEAN CORPUSCULAR HEMOGLOBIN 29.2 pg (27.0-33.0); MEAN CORPUSCULAR HGB CONC 31.8 g/dl (32.0-36.5); MEAN CORPUSCULAR VOLUME 92.1 fl (80.0-96.0); MONO # 0.4 10^3/uL (0.0-0.8); MONO % 7.1 % (2.0-8.0); NEUTROPHILS # 4.6 10^3/uL (1.5-8.5); NEUTROPHILS % 77.7 % (36.0-66.0); PLATELET COUNT, AUTOMATED 174 10^3/uL (150-450); RED BLOOD COUNT 3.66 10^6/uL (4.30-6.10); WHITE BLOOD COUNT 5.9 10^3/uL (4.0-10.0)
[2022-11-25 17:50] LABS: ALBUMIN 3.8 G/DL (3.2-5.2); BILIRUBIN,TOTAL 0.5 MG/DL (0.3-1.2); CALCIUM LEVEL 8.9 MG/DL (8.3-10.6); CREATININE FOR GFR 1.63 MG/DL (0.70-1.30); FREE T4 1.17 NG/DL (0.89-1.76); GLOMERULAR FILTRATION RATE 43.7 (>42); POTASSIUM SERUM 4.4 MMOL/L (3.5-5.1); PROSTATIC SPECIFIC AG MONITOR 7.17 NG/ML (< 4.00); THYROID STIMULATING HORMONE 2.069 uIU/ML (0.55-4.78); TOTAL PROTEIN 6.4 G/DL (5.7-8.2)
== END ==
LOC: M LAB 16:25
PROVIDERS: ATTEND Internal Medicine Hematology & Oncology
DX: C79.51 Secondary malignant neoplasm of bone (principal)

== ENCOUNTER 2022-12-01 14:16 | Outpatient (RCR) | payer MEDICARE, MEDICAID | END 2022-12-03 | LOC: M ONCR 14:16 | PROVIDERS: ATTEND General Practice | DX: C79.51 Secondary malignant neoplasm of bone (principal); C61 Malignant neoplasm of prostate ==

== ENCOUNTER 2022-12-14 09:08 | Outpatient (RCR) | payer MEDICARE, MEDICAID ==
[~2022-12-14 09:08] MED LIST changes: -LOSA100T45; +LOSA100T46
== END 2023-01-02 ==
LOC: M ONCR 09:08
PROVIDERS: ATTEND General Practice
DX: C61 Malignant neoplasm of prostate (principal); C79.51 Secondary malignant neoplasm of bone

== ENCOUNTER 2023-02-22 12:33 | Day surgery (SDC) | payer MEDICARE, MEDICAID ==
[~2023-02-22] VITALS: Ht 165.1 cm; Wt 96.3 kg
[~2023-02-22 12:33] MED LIST changes: +NS 1,000 ML IV ONE; -ROSU20TA5; -ROSU20TA5 PO; +ROSU20TA61; +ROSU20TA61 PO
[2023-02-22] MEDS ORDERED: LIDOCAINE 2% 100MG/5ML SDV (FOR ANES.) As Ordered ONE (13:38)
[2023-02-22] MEDS ORDERED: propofoL 500 MG/50 ML VIAL As Ordered ONE (13:39)
[2023-02-22 15:28] VITALS: TEMP 96.1
[2023-02-22 15:40] VITALS: BP 181/80; O2SAT 97
== END 2023-02-22 16:01 | disposition home or self-care (01) ==
LOC: M OPP 12:33
PROVIDERS: ATTEND Internal Medicine Gastroenterology
DX: D12.6 Benign neoplasm of colon, unspecified (principal); K64.4 Residual hemorrhoidal skin tags; K64.8 Other hemorrhoids; K62.7 Radiation proctitis; Z79.82 Long term (current) use of aspirin; Z79.84 Long term (current) use of oral hypoglycemic drugs; Z79.899 Other long term (current) drug therapy

== ENCOUNTER → 2023-03-15 | Outpatient (CLI) | payer MEDICARE, MEDICAID ==
[~2023-03-15] MED LIST changes: -NS 1,000 ML IV ONE
== END ==
LOC: M ONCR 14:02
PROVIDERS: ATTEND General Practice
DX: C61 Malignant neoplasm of prostate (principal); C79.51 Secondary malignant neoplasm of bone; Z79.818 Long term (current) use of other agents affecting estrogen receptors and estrogen levels; Z92.3 Personal history of irradiation; Z87.891 Personal history of nicotine dependence; Z79.84 Long term (current) use of oral hypoglycemic drugs; Z79.01 Long term (current) use of anticoagulants; Z79.82 Long term (current) use of aspirin; Z79.899 Other long term (current) drug therapy
CPT/HCPCS: 36415; 84153; G0463

== ENCOUNTER 2023-04-04 10:26 | Emergency (ER) | payer MEDICARE, MEDICAID ==
[~2023-04-04] VITALS: Ht 165.1 cm; Wt 100.0 kg
[2023-04-04] MEDS ORDERED: PANTOPRAZOLE 40MG VIAL IV ONE (10:50)
[2023-04-04 11:23] LABS: VENOUS BASE EXCESS -0.8 (-2.0-2.0); VENOUS HCO3 25.8 MMOL/L (23.0-27.0); VENOUS PARTIAL PRESSURE CO2 52.8 mmHg (38.0-50.0); VENOUS PARTIAL PRESSURE O2 37.3 mmHg (30.0-50.0); VENOUS PH 7.307 UNITS (7.330-7.430); VENOUS STANDARD HCO3 23.3 MMOL/L; VENOUS TOTAL CO2 27.4 MMOL/L (24.0-28.0)
[2023-04-04 11:30] LABS: BASO % 0.2 % (0.0-1.0); EOS # 0.1 10^3/uL (0.0-0.5); EOS % 2.6 % (0.0-3.0); HEMATOCRIT 27.4 % (42.0-52.0); HEMOGLOBIN 8.7 g/dl (13.5-17.5); LYMPH # 0.2 10^3/uL (1.5-5.0); LYMPH % 4.8 % (24.0-44.0); MEAN CORPUSCULAR HEMOGLOBIN 31.2 pg (27.0-33.0); MEAN CORPUSCULAR HGB CONC 31.8 g/dl (32.0-36.5); MEAN CORPUSCULAR VOLUME 98.2 fl (80.0-96.0); MONO # 0.4 10^3/uL (0.0-0.8); MONO % 7.6 % (2.0-8.0); NEUTROPHILS # 4.1 10^3/uL (1.5-8.5); PLATELET COUNT, AUTOMATED 154 10^3/uL (150-450); RED BLOOD COUNT 2.79 10^6/uL (4.30-6.10)
[2023-04-04 11:52] LABS: ALBUMIN 3.4 G/DL (3.2-5.2); BILIRUBIN,TOTAL 0.4 MG/DL (0.3-1.2); CALCIUM LEVEL 8.4 MG/DL (8.3-10.6); CREATININE FOR GFR 1.45 MG/DL (0.70-1.30); POTASSIUM SERUM 4.7 MMOL/L (3.5-5.1)
[2023-04-04 12:15] LABS: INR 1.06; PARTIAL THROMBOPLASTIN TIME 28.3 SECONDS (24.8-34.2)
[2023-04-04] MEDS ORDERED: ISOVUE-370 76% 100ML VIAL As Ordered ONE (12:25)
[2023-04-04 14:08] VITALS: TEMP 98.1
[2023-04-04 14:46] VITALS: BP 142/65
[2023-04-04 15:00] VITALS: O2SAT 99
[2023-04-05] MEDS ORDERED: [UNRECOGNIZED DRUG - OTHER] PO (14:56)
[2023-04-05] MEDS ORDERED: GARL500C2 PO (14:56)
[2023-04-05] MEDS ORDERED: FURO20TA2 PO (15:01)
[2023-04-05] MEDS ORDERED: XTAN40CA PO (15:17)
== END 2023-04-04 15:09 | disposition home or self-care (01) ==
LOC: M ED 10:26 → EDBD 10:26 → M ED 15:09
DX: K62.5 Hemorrhage of anus and rectum (principal); C61 Malignant neoplasm of prostate; C79.51 Secondary malignant neoplasm of bone; Z79.01 Long term (current) use of anticoagulants
CPT/HCPCS: 36415; 74177; 80053; 82803; 83605; 83690; 85025; 85610; 85730; 86850; 86900; 86901; 93005; 93041; 94760; 96374; 99285; C9113; Q9967

== ENCOUNTER → 2023-07-20 | Outpatient (CLI) | payer MEDICARE, MEDICAID ==
[~2023-07-20] MED LIST changes: +FURO20TA2 PO; +GARL500C2 PO; +XTAN40CA PO; +[UNRECOGNIZED DRUG - OTHER] PO
== END ==
LOC: M ONCR 14:14
PROVIDERS: ATTEND General Practice
DX: C79.51 Secondary malignant neoplasm of bone (principal); C61 Malignant neoplasm of prostate; G89.3 Neoplasm related pain (acute) (chronic); Z71.2 Person consulting for explanation of examination or test findings; Z79.01 Long term (current) use of anticoagulants; Z79.818 Long term (current) use of other agents affecting estrogen receptors and estrogen levels; Z79.84 Long term (current) use of oral hypoglycemic drugs; Z87.891 Personal history of nicotine dependence; Z79.899 Other long term (current) drug therapy; Z92.3 Personal history of irradiation

== ENCOUNTER 2023-07-25 15:28 | Observation (INO) | payer MEDICARE, MEDICAID ==
[~2023-07-25] VITALS: Ht 165.1 cm; Wt 97.7 kg
[~2023-07-25 15:28] MED LIST changes: -ALLO100T; -CALC600T85; +CALC600T85 PO; -DOCU100C16; -FERR1TAB8; +FERR1TAB8 PO; -HYDR-3910; +HYDR-3910 PO; -JANU100T; -LOSA100T46; +LOSA100T46 PO; -MAGN400T2; +MAGN400T2 PO; -METF10004; -METO1TAB7; +METO1TAB7 PO; -OMEP-173; -ROSU20TA61; -TAMS1CAP17
[2023-07-25 16:28] LABS: BASO % 0.2 % (0.0-1.0); EOS # 0.1 10^3/uL (0.0-0.5); EOS % 3.2 % (0.0-3.0); HEMATOCRIT 25.6 % (42.0-52.0); HEMOGLOBIN 8.3 g/dl (13.5-17.5); LYMPH # 0.3 10^3/uL (1.5-5.0); LYMPH % 6.5 % (24.0-44.0); MEAN CORPUSCULAR HEMOGLOBIN 30.5 pg (27.0-33.0); MEAN CORPUSCULAR HGB CONC 32.4 g/dl (32.0-36.5); MEAN CORPUSCULAR VOLUME 94.1 fl (80.0-96.0); MONO # 0.3 10^3/uL (0.0-0.8); MONO % 6.7 % (2.0-8.0); NEUTROPHILS # 3.3 10^3/uL (1.5-8.5); NEUTROPHILS % 81.4 % (36.0-66.0); PLATELET COUNT, AUTOMATED 178 10^3/uL (150-450); RED BLOOD COUNT 2.72 10^6/uL (4.30-6.10)
[2023-07-25 16:36] LABS: INR 1.13; PROTHROMBIN TIME 14.2 SECONDS (12.5-14.5)
[2023-07-25 16:37] LABS: PARTIAL THROMBOPLASTIN TIME 33.8 SECONDS (24.8-34.2)
[2023-07-25 16:47] LABS: CALCIUM LEVEL 8.3 MG/DL (8.3-10.6); CREATININE FOR GFR 1.41 MG/DL (0.70-1.30); GLOMERULAR FILTRATION RATE 51.6 (>42); POTASSIUM SERUM 4.3 MMOL/L (3.5-5.1)
[2023-07-25] MEDS ORDERED: MED REC IN PROGRESS XX SCH (19:35)
[2023-07-25] MEDS ORDERED: ISOVUE-370 76% 100ML VIAL As Ordered ONE (19:36)
[2023-07-25 21:00] LABS: CK-MB VALUE MASS 1.3 NG/ML (<3.6)
[2023-07-25 21:01] LABS: ALBUMIN 2.8 G/DL (3.2-5.2); BILIRUBIN,DIRECT 0.2 MG/DL (<0.4); BILIRUBIN,TOTAL 0.4 MG/DL (0.3-1.2); TOTAL PROTEIN 5.4 G/DL (5.7-8.2)
[2023-07-25 21:06] LABS: MB/CK RELATIVE INDEX 1.05 (< OR =4)
[2023-07-25] MEDS ORDERED: PANTOPRAZOLE 40MG VIAL IV ONE (21:10)
[2023-07-25 21:58] LABS: HEMOGLOBIN 8.3 g/dl (13.5-17.5)
[2023-07-25] MEDS ORDERED: HOME MED LIST COMPLETE! XX SCH (22:10)
[2023-07-25 22:36] LABS: RSV AMPLIFICATION NEGATIVE (NEGATIVE)
[2023-07-25 23:05] VITALS: BP 138/73; TEMP 97.5; O2SAT 95; O2SAT 97
[2023-07-26] MEDS ORDERED: GLUCOSE 4GM CHEW TABLET PO PRN (00:40)
[2023-07-26] MEDS ORDERED: GLUCAGON INJ 1MG VIAL SC PRN (00:40)
[2023-07-26] MEDS ORDERED: DEXTROSE 50% 50ML SYRINGE IV PRN (00:40)
[2023-07-26 02:40] VITALS: BP 144/73; TEMP 97.5; O2SAT 97
[2023-07-26] MEDS ORDERED: LIDOCAINE 5% (LIDODERM) PATCH TD ONE (02:40)
[2023-07-26] MEDS ORDERED: ACETAMINOPHEN TAB 650MG DOSE (2X325MG) PO PRN (02:40)
[2023-07-26 03:55] LABS: HEMATOCRIT 27.5 % (42.0-52.0); HEMOGLOBIN 9.2 g/dl (13.5-17.5); MEAN CORPUSCULAR HEMOGLOBIN 31.7 pg (27.0-33.0); MEAN CORPUSCULAR HGB CONC 33.5 g/dl (32.0-36.5); MEAN CORPUSCULAR VOLUME 94.8 fl (80.0-96.0); PLATELET COUNT, AUTOMATED 161 10^3/uL (150-450); WHITE BLOOD COUNT 3.7 10^3/uL (4.0-10.0)
[2023-07-26 04:30] LABS: ALBUMIN 3.3 G/DL (3.2-5.2); BILIRUBIN,TOTAL 0.5 MG/DL (0.3-1.2); CALCIUM LEVEL 8.9 MG/DL (8.3-10.6); CREATININE FOR GFR 1.39 MG/DL (0.70-1.30); GLOMERULAR FILTRATION RATE 52.5 (>42); POTASSIUM SERUM 4.3 MMOL/L (3.5-5.1); TOTAL PROTEIN 6.1 G/DL (5.7-8.2)
[2023-07-26 05:35] VITALS: BP 157/64; TEMP 97.3; O2SAT 95
[2023-07-26] MEDS: INSULIN LISPRO (NovoLOG) PER UNIT SC SCH ×3 (07:30→17:30)
[2023-07-26] MEDS: METOPROLOL SUCC (TopROL XL) 50MG **XL** TAB PO SCH (09:00)
[2023-07-26] MEDS: MESALAMINE 1,000 MG SUPP PR SCH (09:38)
[2023-07-26] MEDS: ROSUVASTATIN 10 MG TAB (CRESTOR) PO SCH (09:40)
[2023-07-26] MEDS: TAMSULOSIN 0.4 MG CAP PO SCH (09:41)
[2023-07-26] MEDS: LOSARTAN 50MG TABLET PO SCH (09:41)
[2023-07-26] MEDS: MAGNESIUM OXIDE 400MG TAB (MAG-OX) PO SCH (09:41)
[2023-07-26] MEDS: **hydrALAZINE HCL** 25 MG TAB PO SCH (09:41)
[2023-07-26] MEDS: ASPIRIN 81MG ENTERIC TABLET PO SCH (09:41)
[2023-07-26] MEDS: FERROUS SULFATE 325MG TAB PO SCH (09:41)
[2023-07-26] MEDS: FUROSEMIDE 20 MG TAB PO SCH (09:42)
[2023-07-26] MEDS: FENOFIBRATE 145MG TABLET (TRICOR) PO SCH (09:42)
[2023-07-26] MEDS: OMEPRAZOLE 20MG CAP PO SCH (09:42)
[2023-07-26] MEDS: allopurinoL 100 MG TAB PO SCH (09:42)
[2023-07-26] MEDS: DOCUSATE SODIUM 100MG CAPSULE PO SCH (09:42)
[2023-07-26 10:00] VITALS: BP 128/63; TEMP 97.3; O2SAT 93
[2023-07-26 12:26] LABS: HEMATOCRIT 27.2 % (42.0-52.0); HEMOGLOBIN 8.9 g/dl (13.5-17.5)
[2023-07-26] MEDS: ANUSOL HC 25MG SUPP PR SCH ×2 (12:34→21:46)
[2023-07-26 14:00] VITALS: BP 147/81; TEMP 97.5; O2SAT 95
[2023-07-26] MEDS ORDERED: PREVNAR-20 VACCINE 0.5ML SYRINGE IM.IMMUN ONE (16:00)
[2023-07-26 18:28] LABS: HEMOGLOBIN 8.8 g/dl (13.5-17.5)
[2023-07-26 20:30] VITALS: BP 117/61; TEMP 97.7; O2SAT 96
[2023-07-26] MEDS ORDERED: INSULIN LISPRO (NovoLOG) PER UNIT SC SCH (21:00)
[2023-07-26] MEDS ORDERED: PANTOPRAZOLE 40MG VIAL IV SCH (21:00)
[2023-07-27 01:04] LABS: HEMATOCRIT 25.3 % (42.0-52.0); HEMOGLOBIN 8.3 g/dl (13.5-17.5)
[2023-07-27 01:43] VITALS: BP 140/70; TEMP 97.5; O2SAT 95
[2023-07-27 05:20] VITALS: BP 139/72; TEMP 97.5; O2SAT 95
[2023-07-27 05:51] LABS: BASO % 0.6 % (0.0-1.0); EOS # 0.1 10^3/uL (0.0-0.5); EOS % 3.6 % (0.0-3.0); HEMATOCRIT 28.5 % (42.0-52.0); HEMOGLOBIN 9.3 g/dl (13.5-17.5); LYMPH # 0.2 10^3/uL (1.5-5.0); MEAN CORPUSCULAR HEMOGLOBIN 30.8 pg (27.0-33.0); MEAN CORPUSCULAR HGB CONC 32.6 g/dl (32.0-36.5); MEAN CORPUSCULAR VOLUME 94.4 fl (80.0-96.0); MONO # 0.2 10^3/uL (0.0-0.8); MONO % 7.2 % (2.0-8.0); NEUTROPHILS # 2.7 10^3/uL (1.5-8.5); NEUTROPHILS % 79.9 % (36.0-66.0); PLATELET COUNT, AUTOMATED 176 10^3/uL (150-450); RED BLOOD COUNT 3.02 10^6/uL (4.30-6.10); WHITE BLOOD COUNT 3.3 10^3/uL (4.0-10.0)
[2023-07-27 06:14] LABS: CALCIUM LEVEL 8.9 MG/DL (8.3-10.6); CREATININE FOR GFR 1.27 MG/DL (0.70-1.30); GLOMERULAR FILTRATION RATE 58.2 (>42); MAGNESIUM LEVEL 1.4 MG/DL (1.8-2.4); POTASSIUM SERUM 4.3 MMOL/L (3.5-5.1)
[2023-07-27] MEDS ORDERED: MESA50SU PR (06:58)
[2023-07-27] MEDS ORDERED: ANUSHCSU PR (06:58)
[2023-07-27] MEDS: INSULIN LISPRO (NovoLOG) PER UNIT SC SCH (07:30)
[2023-07-27] MEDS: MESALAMINE 1,000 MG SUPP PR SCH (08:21)
[2023-07-27] MEDS: ANUSOL HC 25MG SUPP PR SCH (08:21)
[2023-07-27] MEDS: MAGNESIUM OXIDE 400MG TAB (MAG-OX) PO SCH (08:22)
[2023-07-27] MEDS: DOCUSATE SODIUM 100MG CAPSULE PO SCH (08:22)
[2023-07-27] MEDS: FUROSEMIDE 20 MG TAB PO SCH (08:22)
[2023-07-27] MEDS: ROSUVASTATIN 10 MG TAB (CRESTOR) PO SCH (08:22)
[2023-07-27 08:23] VITALS: BP 141/88
[2023-07-27] MEDS: ASPIRIN 81MG ENTERIC TABLET PO SCH (08:23)
[2023-07-27] MEDS: FENOFIBRATE 145MG TABLET (TRICOR) PO SCH (08:23)
[2023-07-27] MEDS: FERROUS SULFATE 325MG TAB PO SCH (08:23)
[2023-07-27] MEDS: METOPROLOL SUCC (TopROL XL) 50MG **XL** TAB PO SCH (08:23)
[2023-07-27] MEDS: OMEPRAZOLE 20MG CAP PO SCH (08:23)
[2023-07-27] MEDS: allopurinoL 100 MG TAB PO SCH (08:23)
[2023-07-27] MEDS: LOSARTAN 50MG TABLET PO SCH (08:24)
[2023-07-27] MEDS: **hydrALAZINE HCL** 25 MG TAB PO SCH (08:24)
[2023-07-27] MEDS: TAMSULOSIN 0.4 MG CAP PO SCH (08:24)
[2023-07-27] MEDS ORDERED: MAGN400T2 PO (10:10)
== END 2023-07-27 09:46 | disposition home or self-care (01) ==
LOC: EDBD 15:28 → M ED 15:28 → M ED INP 21:34 → M MSPAV 23:00
PROVIDERS: ADMIT Internal Medicine; ATTEND Internal Medicine
DX: K62.7 Radiation proctitis (principal); C79.51 Secondary malignant neoplasm of bone; C61 Malignant neoplasm of prostate; K64.4 Residual hemorrhoidal skin tags; K64.8 Other hemorrhoids; I25.10 Atherosclerotic heart disease of native coronary artery without angina pectoris; Z95.5 Presence of coronary angioplasty implant and graft; E11.9 Type 2 diabetes mellitus without complications; I10 Essential (primary) hypertension; E78.1 Pure hyperglyceridemia; M10.9 Gout, unspecified; E83.42 Hypomagnesemia; D50.9 Iron deficiency anemia, unspecified; R10.9 Unspecified abdominal pain; R51.9 Headache, unspecified; K59.00 Constipation, unspecified; I45.2 Bifascicular block; R74.8 Abnormal levels of other serum enzymes; Z79.899 Other long term (current) drug therapy; Z79.82 Long term (current) use of aspirin; Z79.84 Long term (current) use of oral hypoglycemic drugs; Z23 Encounter for immunization
CPT/HCPCS: 36415; 74177; 80048; 80053; 80076; 82550; 82553; 83605; 83690; 83735; 84484; 85014; 85018; 85025; 85027; 85610; 85730; 86850; 86900; 86901; 87631; 90677; 93005; 93041; 96374; 99285; C9113; G0009; G0378; Q9967

== ENCOUNTER → 2023-08-04 | Outpatient (RCR) | payer MEDICARE, MEDICAID ==
[~2023-08-04] MED LIST changes: +ANUSHCSU PR; +MESA50SU PR
== END ==
LOC: M ONCR 07-22 10:40
PROVIDERS: ATTEND General Practice
DX: Z51.0 Encounter for antineoplastic radiation therapy (principal); C79.51 Secondary malignant neoplasm of bone

== ENCOUNTER 2023-08-05 08:42 | Outpatient (RCR) | payer MEDICARE, MEDICAID ==
[2023-09-06] MEDS ORDERED: XTAN40CA PO (09:18)
== END 2023-09-04 ==
LOC: M ONCR 08:42
PROVIDERS: ATTEND General Practice
DX: Z51.0 Encounter for antineoplastic radiation therapy (principal); C79.51 Secondary malignant neoplasm of bone

== ENCOUNTER → 2023-09-15 | Outpatient (CLI) | payer MEDICARE, MEDICAID ==
[~2023-09-15] MED LIST changes: +DEXA4TA PO; +LOPE1CAP5 PO; +ONDA-83 PO
== END ==
LOC: M ONCR 14:27
PROVIDERS: ATTEND General Practice
DX: C79.51 Secondary malignant neoplasm of bone (principal); C61 Malignant neoplasm of prostate; R54 Age-related physical debility; R63.0 Anorexia; R11.0 Nausea; R19.7 Diarrhea, unspecified; Z92.3 Personal history of irradiation

== ENCOUNTER 2023-09-29 12:24 | Emergency (ER) | payer MEDICARE, MEDICAID ==
[~2023-09-29] VITALS: Ht 170.2 cm; Wt 81.8 kg
[2023-09-29 13:19] LABS: BASO % 0.2 % (0.0-1.0); EOS % 0.6 % (0.0-3.0); HEMATOCRIT 25.7 % (42.0-52.0); HEMOGLOBIN 8.3 g/dl (13.5-17.5); LYMPH # 0.2 10^3/uL (1.5-5.0); LYMPH % 3.5 % (24.0-44.0); MEAN CORPUSCULAR HEMOGLOBIN 32.4 pg (27.0-33.0); MEAN CORPUSCULAR HGB CONC 32.3 g/dl (32.0-36.5); MEAN CORPUSCULAR VOLUME 100.4 fl (80.0-96.0); MONO # 0.3 10^3/uL (0.0-0.8); MONO % 6.3 % (2.0-8.0); NEUTROPHILS # 4.1 10^3/uL (1.5-8.5); NEUTROPHILS % 87.7 % (36.0-66.0); PLATELET COUNT, AUTOMATED 179 10^3/uL (150-450); RED BLOOD COUNT 2.56 10^6/uL (4.30-6.10); WHITE BLOOD COUNT 4.6 10^3/uL (4.0-10.0)
[2023-09-29 13:44] LABS: CALCIUM LEVEL 8.1 MG/DL (8.3-10.6); CREATININE FOR GFR 1.74 MG/DL (0.70-1.30); GLOMERULAR FILTRATION RATE 40.4 (>35); POTASSIUM SERUM 4.5 MMOL/L (3.5-5.1)
[2023-09-29] MEDS ORDERED: BOOSTRIX VACCINE (TETANUS/DIPHTH/ACEL. PERTUSSIS) 0.5ML SYR IM.IMMUN ONE (13:50)
[2023-09-29] MEDS ORDERED: ISOVUE-370 76% 100ML VIAL As Ordered ONE (14:02)
[2023-09-29] MEDS ORDERED: MORPHINE 2 MG/ML 1ML VIAL IV ONE (14:05)
[2023-09-29] MEDS ORDERED: ONDANSETRON 4MG 2ML VIAL IV ONE (14:25)
[2023-09-29 14:28] LABS: CK-MB VALUE MASS 2.2 NG/ML (<3.6)
[2023-09-29 14:46] LABS: MB/CK RELATIVE INDEX 1.94 (< OR =4)
[2023-09-29 15:12] LABS: CK-MB VALUE MASS 1.4 NG/ML (<3.6)
[2023-09-29 15:13] LABS: MB/CK RELATIVE INDEX 1.21 (< OR =4)
[2023-09-29 17:00] VITALS: O2SAT 98
[2023-09-29 17:11] VITALS: BP 115/59; TEMP 97.4
== END 2023-09-29 17:16 | disposition home or self-care (01) ==
LOC: EDBD 12:24 → M ED 12:24
DX: S06.0XAA Concussion with loss of consciousness status unknown, initial encounter (principal); S01.00XA Unspecified open wound of scalp, initial encounter; W10.1XXA Fall (on)(from) sidewalk curb, initial encounter; Y92.481 Parking lot as the place of occurrence of the external cause; Y93.9 Activity, unspecified; Y99.9 Unspecified external cause status; K59.00 Constipation, unspecified; I25.10 Atherosclerotic heart disease of native coronary artery without angina pectoris; E11.9 Type 2 diabetes mellitus without complications; I10 Essential (primary) hypertension; C61 Malignant neoplasm of prostate; C79.49 Secondary malignant neoplasm of other parts of nervous system; Z79.82 Long term (current) use of aspirin; Z79.84 Long term (current) use of oral hypoglycemic drugs; Z79.899 Other long term (current) drug therapy
CPT/HCPCS: 70450; 71260; 72125; 74177; 80048; 82550; 82553; 84484; 85025; 90471; 90715; 93005; 93041; 94760; 96374; 96375; 99285; J2405; Q9967

== ENCOUNTER → 2023-10-13 | Outpatient (CLI) | payer MEDICARE, MEDICAID ==
[2023-10-13 07:32] LABS: BASO % 0.3 % (0.0-1.0); HEMATOCRIT 26.5 % (42.0-52.0); HEMOGLOBIN 8.7 g/dl (13.5-17.5); LYMPH # 0.2 10^3/uL (1.5-5.0); MEAN CORPUSCULAR HEMOGLOBIN 32.3 pg (27.0-33.0); MEAN CORPUSCULAR HGB CONC 32.8 g/dl (32.0-36.5); MEAN CORPUSCULAR VOLUME 98.5 fl (80.0-96.0); MONO # 0.3 10^3/uL (0.0-0.8); NEUTROPHILS # 3.4 10^3/uL (1.5-8.5); NEUTROPHILS % 86.2 % (36.0-66.0); PLATELET COUNT, AUTOMATED 157 10^3/uL (150-450); RED BLOOD COUNT 2.69 10^6/uL (4.30-6.10)
[2023-10-13 07:56] LABS: ALBUMIN 2.7 G/DL (3.2-5.2); BILIRUBIN,TOTAL 0.5 MG/DL (0.3-1.2); CALCIUM LEVEL 7.5 MG/DL (8.3-10.6); CREATININE FOR GFR 1.55 MG/DL (0.70-1.30); GLOMERULAR FILTRATION RATE 46.2 (>35); MAGNESIUM LEVEL 1.2 MG/DL (1.8-2.4); POTASSIUM SERUM 4.6 MMOL/L (3.5-5.1); TOTAL PROTEIN 5.4 G/DL (5.7-8.2)
== END ==
LOC: M RAD 06:17
PROVIDERS: ATTEND Registered Nurse
DX: G44.311 Acute post-traumatic headache, intractable (principal)

== ENCOUNTER → 2023-10-27 | Outpatient (CLI) | payer MEDICARE, MEDICAID ==
[~2023-10-27] MED LIST changes: -HYDR-3910 PO; +HYDR25TA87 PO; +TRAM37.53
[2023-10-27 10:14] LABS: BASO % 0.3 % (0.0-1.0); EOS # 0.1 10^3/uL (0.0-0.5); EOS % 1.6 % (0.0-3.0); HEMATOCRIT 26.9 % (42.0-52.0); HEMOGLOBIN 8.5 g/dl (13.5-17.5); LYMPH # 0.2 10^3/uL (1.5-5.0); LYMPH % 6.2 % (24.0-44.0); MEAN CORPUSCULAR HEMOGLOBIN 31.5 pg (27.0-33.0); MEAN CORPUSCULAR HGB CONC 31.6 g/dl (32.0-36.5); MEAN CORPUSCULAR VOLUME 99.6 fl (80.0-96.0); MONO # 0.3 10^3/uL (0.0-0.8); MONO % 8.9 % (2.0-8.0); NEUTROPHILS % 80.8 % (36.0-66.0); PLATELET COUNT, AUTOMATED 189 10^3/uL (150-450); WHITE BLOOD COUNT 3.7 10^3/uL (4.0-10.0)
== END ==
LOC: M LAB 09:06
PROVIDERS: ATTEND Registered Nurse
DX: D64.9 Anemia, unspecified (principal)

== ENCOUNTER → 2023-11-10 | Outpatient (CLI) | payer MEDICARE, MEDICAID ==
[~2023-11-10] MED LIST changes: +ERGO500029 PO; +FERR325T19 PO; +KP F1200 PO; +MAGN400T35 PO; -TRAM37.53; +TRAM37.53 PO
== END ==
LOC: M ONCR 09:30
PROVIDERS: ATTEND General Practice
DX: C61 Malignant neoplasm of prostate (principal); C79.51 Secondary malignant neoplasm of bone; R97.21 Rising PSA following treatment for malignant neoplasm of prostate; D64.9 Anemia, unspecified; R29.6 Repeated falls; Z71.2 Person consulting for explanation of examination or test findings; Z79.82 Long term (current) use of aspirin; Z79.84 Long term (current) use of oral hypoglycemic drugs; Z79.818 Long term (current) use of other agents affecting estrogen receptors and estrogen levels; Z79.899 Other long term (current) drug therapy; Z87.891 Personal history of nicotine dependence; Z92.3 Personal history of irradiation

== ENCOUNTER 2023-11-22 08:31 | Day surgery (SDC) | payer MEDICARE, MEDICAID ==
[~2023-11-22] VITALS: Ht 165.1 cm; Wt 85.8 kg
[2023-11-22] MEDS: NS 1,000 ML IV ONE (08:57)
[2023-11-22] MEDS ORDERED: LIDOCAINE 2% 100MG/5ML SDV (FOR ANES.) As Ordered ONE (09:18)
[2023-11-22] MEDS ORDERED: propofoL 200 MG/20 ML VIAL As Ordered ONE (09:18)
[2023-11-22 10:11] VITALS: TEMP 96.7
[2023-11-22 10:24] VITALS: BP 148/67; O2SAT 100
== END 2023-11-22 10:41 | disposition home or self-care (01) ==
LOC: M OPP 08:31
PROVIDERS: ATTEND Internal Medicine Gastroenterology
DX: D12.6 Benign neoplasm of colon, unspecified (principal); K64.8 Other hemorrhoids; K64.4 Residual hemorrhoidal skin tags; K57.30 Diverticulosis of large intestine without perforation or abscess without bleeding; K92.1 Melena; Z87.891 Personal history of nicotine dependence; E11.9 Type 2 diabetes mellitus without complications; I25.10 Atherosclerotic heart disease of native coronary artery without angina pectoris; Z95.5 Presence of coronary angioplasty implant and graft; Z79.02 Long term (current) use of antithrombotics/antiplatelets; Z79.82 Long term (current) use of aspirin; Z79.83 Long term (current) use of bisphosphonates; Z79.84 Long term (current) use of oral hypoglycemic drugs; Z79.899 Other long term (current) drug therapy

== ENCOUNTER → 2023-12-13 | Outpatient (REF) | payer MEDICARE, MEDICAID ==
[2023-12-13 19:09] LABS: IRON (FE) 35 UG/DL (65-175); PERCENT SATURATION 13.3 % (19.7-50.0); TOTAL IRON BINDING CAPACITY 264 UG/DL (250-425)
[2023-12-13 19:14] LABS: FERRITIN 379.9 NG/ML (10.5-307.3); FOLATE > 24.0 NG/ML (>5.4); VITAMIN B12 LEVEL 151 PG/ML (211-911)
== END ==
LOC: M LAB REF 17:27
PROVIDERS: ATTEND Internal Medicine Nephrology
DX: N18.9 Chronic kidney disease, unspecified (principal); D63.1 Anemia in chronic kidney disease

== ENCOUNTER → 2024-01-05 | Outpatient (CLI) | payer MEDICARE, MEDICAID ==
[~2024-01-05] MED LIST changes: -GARL500C2 PO; +GARL500C6 PO
[2024-01-05] MEDS: XOFIGO(RADIUM-223 DICHLORIDE) 180UCI 6ML VL CHARGE IS PER UCI IV STA (14:38)
== END ==
LOC: M ONCR 13:45
PROVIDERS: ATTEND General Practice
DX: C61 Malignant neoplasm of prostate (principal); C79.51 Secondary malignant neoplasm of bone

== ENCOUNTER 2024-01-11 13:40 | Outpatient (CLI) | payer MEDICARE, MEDICAID ==
[~2024-01-11 13:40] MED LIST changes: +ALBUTEROL SULFATE 2.5MG/0.5ML INH NEB SOLN INH PRN; +EPINEPHrine INJ 1 MG/ML 1ML AMP IM PRN; +NS 1,000 ML IV SCH; +diphenhydrAMINE 50MG/ML VIAL IV PRN; +methylPREDNISolone 125MG 2ML VIAL IV PRN
[2024-01-11 14:00] VITALS: BP 140/63; O2SAT 100
[2024-01-11] MEDS: IRON SUCROSE 300 MG in NS 250 ML OVER 90 MIN. IV ONE (14:04)
[2024-01-11 15:45] VITALS: BP 127/69; O2SAT 98
== END 2024-01-11 15:45 | disposition home or self-care (01) ==
LOC: M INFU 13:40
PROVIDERS: ATTEND Internal Medicine Nephrology
DX: E61.1 Iron deficiency (principal)
CPT/HCPCS: 96365; 96366; J1756

== ENCOUNTER 2024-01-25 11:45 | Outpatient (CLI) | payer MEDICARE, MEDICAID ==
[~2024-01-25] VITALS: Ht 172.7 cm; Wt 86.6 kg
[~2024-01-25 11:45] MED LIST changes: +ALBUTEROL SULFATE 2.5MG/0.5ML INH NEB SOLN INH PRN; +EPINEPHrine INJ 1 MG/ML 1ML AMP IM PRN; +diphenhydrAMINE 50MG/ML VIAL IV PRN; +methylPREDNISolone 125MG 2ML VIAL IV PRN
[2024-01-25] MEDS ORDERED: NS 1,000 ML IV SCH (12:00)
[2024-01-25] MEDS ORDERED: IRON SUCROSE 300 MG in NS 250 ML OVER 90 MIN. IV ONE (12:00)
== END 2024-01-25 17:45 ==
LOC: M INFU 11:45
PROVIDERS: ATTEND Internal Medicine Nephrology
DX: E61.1 Iron deficiency (principal); Z53.9 Procedure and treatment not carried out, unspecified reason

== ENCOUNTER 2024-01-25 11:45 | Outpatient (CLI) | payer MEDICARE, MEDICAID ==
[2024-01-25] VITALS (7 sets, daily range): BP systolic 121–162; BP diastolic 56–72; TEMP 96.4–98.6; O2SAT 96–100
[~2024-01-25] VITALS: Ht 170.2 cm; Wt 84.5 kg
[~2024-01-25 11:45] MED LIST changes: -ALBUTEROL SULFATE 2.5MG/0.5ML INH NEB SOLN INH PRN; -EPINEPHrine INJ 1 MG/ML 1ML AMP IM PRN; -diphenhydrAMINE 50MG/ML VIAL IV PRN; -methylPREDNISolone 125MG 2ML VIAL IV PRN
== END 2024-01-25 17:25 | disposition home or self-care (01) ==
LOC: M INFU 11:45
PROVIDERS: ATTEND Nurse Practitioner
DX: D64.9 Anemia, unspecified (principal); C61 Malignant neoplasm of prostate
CPT/HCPCS: 36415; 36430; 36592; 80053; 82728; 84153; 84466; 85025; 86850; 86900; 86901; 86920; G0463; P9016

== ENCOUNTER → 2024-01-25 | Outpatient (REF) | payer MEDICARE, MEDICAID ==
[~2024-01-25] MED LIST changes: -ALBUTEROL SULFATE 2.5MG/0.5ML INH NEB SOLN INH PRN; -EPINEPHrine INJ 1 MG/ML 1ML AMP IM PRN; -NS 1,000 ML IV SCH; -diphenhydrAMINE 50MG/ML VIAL IV PRN; -methylPREDNISolone 125MG 2ML VIAL IV PRN
== END ==
LOC: M LAB REF 11:30
PROVIDERS: ATTEND Nurse Practitioner Family
DX: K62.7 Radiation proctitis (principal); D50.9 Iron deficiency anemia, unspecified

== ENCOUNTER 2024-02-08 10:00 | Outpatient (CLI) | payer MEDICARE, MEDICAID ==
[~2024-02-08] VITALS: Ht 165.1 cm; Wt 82.2 kg
[2024-02-08 09:58] VITALS: BP 136/63; O2SAT 97
[~2024-02-08 10:00] MED LIST changes: +ALBUTEROL SULFATE 2.5MG/0.5ML INH NEB SOLN INH PRN; +EPINEPHrine INJ 1 MG/ML 1ML AMP IM PRN; +NS 1,000 ML IV SCH; +diphenhydrAMINE 50MG/ML VIAL IV PRN; +methylPREDNISolone 125MG 2ML VIAL IV PRN
[2024-02-08] MEDS: IRON SUCROSE 300 MG in NS 250 ML OVER 90 MIN. IV ONE (10:30)
[2024-02-08 12:15] VITALS: BP 143/63; O2SAT 98
== END 2024-02-08 12:15 ==
LOC: M INFU 10:00
PROVIDERS: ATTEND Internal Medicine Nephrology
DX: E61.1 Iron deficiency (principal)
CPT/HCPCS: 96365; 96366; J1756

== ENCOUNTER → 2024-03-01 | Outpatient (CLI) | payer MEDICARE, MEDICAID ==
[~2024-03-01] MED LIST changes: -ALBUTEROL SULFATE 2.5MG/0.5ML INH NEB SOLN INH PRN; -EPINEPHrine INJ 1 MG/ML 1ML AMP IM PRN; -NS 1,000 ML IV SCH; +TRAM-443 PO; -TRAM37.53 PO; -diphenhydrAMINE 50MG/ML VIAL IV PRN; -methylPREDNISolone 125MG 2ML VIAL IV PRN
[2024-03-01 10:23] LABS: BASO % 0.2 % (0.0-1.0); EOS % 0.2 % (0.0-3.0); LYMPH # 0.2 10^3/uL (1.5-5.0); LYMPH % 3.4 % (24.0-44.0); MEAN CORPUSCULAR HEMOGLOBIN 29.6 pg (27.0-33.0); MEAN CORPUSCULAR HGB CONC 31.1 g/dl (32.0-36.5); MEAN CORPUSCULAR VOLUME 95.1 fl (80.0-96.0); MONO # 0.4 10^3/uL (0.0-0.8); MONO % 7.2 % (2.0-8.0); NEUTROPHILS # 5.2 10^3/uL (1.5-8.5); NEUTROPHILS % 84.1 % (36.0-66.0); PLATELET COUNT, AUTOMATED 140 10^3/uL (150-450); RED BLOOD COUNT 2.06 10^6/uL (4.30-6.10); WHITE BLOOD COUNT 6.1 10^3/uL (4.0-10.0)
[2024-03-01 10:25] LABS: HEMATOCRIT 19.6 % (42.0-52.0)
[2024-03-01 10:26] LABS: HEMOGLOBIN 6.1 g/dl (13.5-17.5)
[2024-03-01 10:54] LABS: ALBUMIN 2.4 G/DL (3.2-5.2); ALKALINE PHOSPHATASE 243 U/L (46-116); ALT/SGPT 22 U/L (7.0-40); AST/SGOT 151 U/L (<34); BILIRUBIN,TOTAL 0.5 MG/DL (0.3-1.2); BLOOD UREA NITROGEN 45 MG/DL (9-23); CALCIUM LEVEL 8.1 MG/DL (8.3-10.6); CARBON DIOXIDE LEVEL 24 MMOL/L (20-31); CHLORIDE LEVEL 104 MMOL/L (98-107); CREATININE FOR GFR 1.03 MG/DL (0.70-1.30); GLOMERULAR FILTRATION RATE > 60.0 (>35); GLUCOSE, FASTING 124 MG/DL (74-106); SODIUM LEVEL 138 MMOL/L (136-145); TOTAL PROTEIN 5.7 G/DL (5.7-8.2)
== END ==
LOC: M ONCR 09:52
PROVIDERS: ATTEND General Practice
DX: C61 Malignant neoplasm of prostate (principal); D64.9 Anemia, unspecified
CPT/HCPCS: 36415; 80053; 85025; G0463

== ENCOUNTER 2024-03-05 10:35 | Day surgery (SDC) | payer MEDICARE, MEDICAID ==
[~2024-03-05] VITALS: Ht 167.6 cm; Wt 84.5 kg
[2024-03-05] MEDS: NS 1,000 ML IV ONE (10:59)
[2024-03-05 11:51] VITALS: TEMP 97.8
[2024-03-05 12:12] VITALS: BP 152/66; O2SAT 99
== END 2024-03-05 12:20 | disposition home or self-care (01) ==
LOC: M OPP 10:35
PROVIDERS: ATTEND Internal Medicine Gastroenterology
DX: K92.1 Melena (principal); K62.7 Radiation proctitis; K64.8 Other hemorrhoids; D64.9 Anemia, unspecified; K21.9 Gastro-esophageal reflux disease without esophagitis; E11.9 Type 2 diabetes mellitus without complications; I10 Essential (primary) hypertension; E78.00 Pure hypercholesterolemia, unspecified; N28.9 Disorder of kidney and ureter, unspecified; Z85.830 Personal history of malignant neoplasm of bone; Z85.46 Personal history of malignant neoplasm of prostate; Z92.3 Personal history of irradiation; Z95.5 Presence of coronary angioplasty implant and graft; Z79.899 Other long term (current) drug therapy; Z79.84 Long term (current) use of oral hypoglycemic drugs; Z79.82 Long term (current) use of aspirin; M10.9 Gout, unspecified; Z87.891 Personal history of nicotine dependence

== ENCOUNTER 2024-03-09 08:57 | Outpatient (CLI) | payer MEDICARE, MEDICAID ==
[~2024-03-09] VITALS: Ht 165.1 cm; Wt 82.2 kg
[~2024-03-09 08:57] MED LIST changes: +ALBUTEROL SULFATE 2.5MG/0.5ML INH NEB SOLN INH PRN; +EPINEPHrine INJ 1 MG/ML 1ML AMP IM PRN; +IRON SUCROSE 300 MG in NS 250 ML OVER 90 MIN. IV ONE; +NS 1,000 ML IV SCH; +diphenhydrAMINE 50MG/ML VIAL IV PRN; +methylPREDNISolone 125MG 2ML VIAL IV PRN
[2024-03-09 09:00] VITALS: BP 145/68; O2SAT 96
[2024-03-09] MEDS ORDERED: NS 1,000 ML IV SCH (09:00)
[2024-03-09] MEDS: IRON SUCROSE 300 MG in NS 250 ML OVER 90 MIN. IV ONE (10:01)
[2024-03-09 11:40] VITALS: BP 152/79; O2SAT 95
== END 2024-03-09 11:40 ==
LOC: M INFU 08:57
PROVIDERS: ATTEND Internal Medicine Nephrology
DX: E61.1 Iron deficiency (principal)
CPT/HCPCS: 96365; J1756

== ENCOUNTER 2024-03-28 11:42 | Inpatient (IN) | payer MEDICARE, MEDICAID ==
[~2024-03-28] VITALS: Ht 165.1 cm; Wt 81.3 kg
[~2024-03-28 11:42] MED LIST changes: -ATIV1TAB10 PO; -HYOS125TA PO; -MORP1SOL5 PO; +TRAM-443 PO; -TRAM1TAB42 PO
[2024-03-28] MEDS: MORPHINE 2 MG/ML 1ML VIAL IV PRN (18:11)
[2024-03-30] MEDS: BENZONATATE 100MG CAPSULE PO ONE (06:02)
[2024-03-31] MEDS: ONDANSETRON 4MG 2ML VIAL IV PRN (11:15)
[2024-03-31] MEDS: LORazepam 2 MG/ML 1ML VIAL IV PRN (11:16)
[2024-03-31] MEDS: SCOPOLAMINE 1MG TRANSDERMAL PATCH TOP PRN (11:16)
[2024-04-01] MEDS ORDERED: SENNA 8.6 MG TAB (SENOKOT) PO PRN (04:55)
[2024-04-02] MEDS: LOPERAMIDE 2 MG CAPLET PO PRN (18:49)
[2024-04-02] MEDS ORDERED: LORazepam 1 MG TAB PO PRN (20:10)
[2024-04-03] MEDS: MORPHINE 10MG/0.5ML ORAL CONCENTRATE SOLUTION U/D SL PRN (04:57)
[2024-04-03] MEDS ORDERED: MORP1SOL5 PO (17:44)
[2024-04-03] MEDS ORDERED: HYOS125TA PO (17:44)
[2024-04-03] MEDS ORDERED: ATIV1TAB10 PO (17:44)
== END 2024-04-04 11:00 | DRG 951 ==
LOC: M MS5PR 12:48
PROVIDERS: ADMIT Internal Medicine Medical Oncology; ATTEND Internal Medicine
DX: Z51.5 Encounter for palliative care (principal); C78.7 Secondary malignant neoplasm of liver and intrahepatic bile duct; C79.51 Secondary malignant neoplasm of bone; D68.8 Other specified coagulation defects; C61 Malignant neoplasm of prostate; I12.9 Hypertensive chronic kidney disease with stage 1 through stage 4 chronic kidney disease, or unspecified chronic kidney disease; I25.10 Atherosclerotic heart disease of native coronary artery without angina pectoris; E78.5 Hyperlipidemia, unspecified; D75.89 Other specified diseases of blood and blood-forming organs; E87.70 Fluid overload, unspecified; D69.6 Thrombocytopenia, unspecified; N18.30 Chronic kidney disease, stage 3 unspecified; R60.1 Generalized edema; M10.9 Gout, unspecified; Z66 Do not resuscitate; E88.09 Other disorders of plasma-protein metabolism, not elsewhere classified; E55.9 Vitamin D deficiency, unspecified; E11.22 Type 2 diabetes mellitus with diabetic chronic kidney disease; D64.9 Anemia, unspecified; Z92.3 Personal history of irradiation; Z79.82 Long term (current) use of aspirin; Z79.899 Other long term (current) drug therapy; Z79.84 Long term (current) use of oral hypoglycemic drugs; Z79.891 Long term (current) use of opiate analgesic

== ENCOUNTER → 2024-03-28 | Outpatient (CLI) | payer MEDICARE, MEDICAID ==
[~2024-03-28] MED LIST changes: -ALBUTEROL SULFATE 2.5MG/0.5ML INH NEB SOLN INH PRN; +ATIV1TAB10 PO; -EPINEPHrine INJ 1 MG/ML 1ML AMP IM PRN; +HYOS125TA PO; -IRON SUCROSE 300 MG in NS 250 ML OVER 90 MIN. IV ONE; +MORP1SOL5 PO; -NS 1,000 ML IV SCH; -TRAM-443 PO; +TRAM1TAB42 PO; -diphenhydrAMINE 50MG/ML VIAL IV PRN; -methylPREDNISolone 125MG 2ML VIAL IV PRN
== END ==
LOC: M ONCR 09:36
PROVIDERS: ATTEND General Practice
DX: C61 Malignant neoplasm of prostate (principal); R60.1 Generalized edema; Z66 Do not resuscitate; D64.9 Anemia, unspecified; K72.90 Hepatic failure, unspecified without coma